=== PATIENT | male | born 1940 | race Caucasian/White ===

== ENCOUNTER 2018-01-16 09:34 | Inpatient (IN) | payer MEDICARE ==
[2018-01-16] MEDS ORDERED: VANCOMYCIN 1GM IVPB FOR OMNI 250 ML IV (09:45)
[2018-01-16 09:59] LABS: ADD MAN DIFF? NO
[2018-01-16 10:06] LABS: AGAP ISTAT 13 mmol/L (6-14); BUN ISTAT 128 mg/dL (8-26); CHLORIDE ISTAT 101 mmol/L (98-110); CREATININE ISTAT 2.2 mg/dL (0.5-1.4); GLUCOSE ISTAT 126 mg/dL (70-99); HEMATOCRIT ISTAT 20 % (37-52); HEMOGLOBIN ISTAT 6.8 g/dL (14-18); POTASSIUM ISTAT 5.4 mmol/L (3.5-5.0); SODIUM ISTAT 131 mmol/L (135-145); TOT CO2 ISTAT 24 mmol/L (23-32)
[2018-01-16 10:07] LABS: BASO # 0.1 x10^3/uL (0.0-0.2); BASO % 1 % (0-3); EOS # 0.1 x10^3/uL (0.0-0.7); EOS % 1 % (0-3); LYMPH # 1.9 x10^3/uL (1.0-4.8); LYMPH % 18 % (24-48); MEAN CORPUSCULAR HEMOGLOBIN 33 pg (25-35); MEAN CORPUSCULAR HGB CONC 35 g/dL (31-37); MEAN CORPUSCULAR VOLUME 96 fL (79-100); MONO # 0.4 x10^3/uL (0.0-1.1); MONO % 3 % (0-9); NEUT # 8.2 x10^3uL (1.8-7.7); NEUT % 77 % (31-73); PLATELET COUNT 318 x10^3/uL (140-400); RED BLOOD COUNT 2.03 x10^6/uL (4.30-5.70); RED CELL DISTRIBUTION WIDTH 14.8 % (11.5-14.5); WHITE BLOOD COUNT 10.6 x10^3/uL (4.0-11.0)
[2018-01-16 10:17] LABS: HEMATOCRIT 19.4 % (39.0-53.0); HEMOGLOBIN 6.7 g/dL (13.0-17.5)
[2018-01-16 10:24] LABS: LACTIC ACID 1.4 mmol/L (0.4-2.0)
[2018-01-16 10:27] LABS: ALBUMIN 2.8 g/dL (3.4-5.0); ALBUMIN/GLOBULIN RATIO 0.7 (1.0-1.7); ALK PHOS 64 U/L (46-116); ALT (SGPT) 22 U/L (16-63); ANION GAP 10 (6-14); AST (SGOT) 22 U/L (15-37); BLOOD UREA NITROGEN 135 mg/dL (8-26); BUN/CREATININE RATIO 64 (6-20); CARBON DIOXIDE 22 mmol/L (21-32); CHLORIDE 101 mmol/L (98-107); CREATININE 2.1 mg/dL (0.7-1.3); GFR 30.9; GLUCOSE 135 mg/dL (70-99); POTASSIUM 5.2 mmol/L (3.5-5.1); SODIUM 133 mmol/L (136-145); TOTAL BILIRUBIN 0.4 mg/dL (0.2-1.0); TOTAL PROTEIN 6.8 g/dL (6.4-8.2)
[2018-01-16 10:28] LABS: NT-PRO BNP 379 pg/mL (0-449)
[2018-01-16 10:28] LABS: BILIRUBIN,URINE NEGATIVE (NEG); CLARITY,URINE CLEAR; COLOR,URINE YELLOW; GLUCOSE,URINE NEGATIVE (NEG); NITRITE,URINE NEGATIVE (NEG); PROTEIN,URINE 30 mg/dL (NEG-TRACE); UROBILINOGEN,URINE 0.2 mg/dL (0.2 mg/dL)
[2018-01-16] MEDS ORDERED: ONDANSETRON PF 4 MG/2 ML VIAL. IV (10:30)
[2018-01-16] MEDS: CEFEPIME HCL IV Push 2 GM VIAL. IVP (10:34)
[2018-01-16] MEDS: VANCOMYCIN 2 GM in IV 1/2 NORMAL SALINE 500 ML IV (10:35)
[2018-01-16] MEDS: IV NORMAL SALINE 1000ML BAG 1,000 ML IV ×2 (10:36→11:01)
[2018-01-16 10:42] LABS: FECAL OB PT NEGATIVE (NEG); NEG OBC FOB NEG; POS OBC FOB POS
[2018-01-16 10:54] LABS: AMORPHOUS SEDIMENT,UR PRESENT /HPF; BACTERIA,URINE 0 /HPF (0-FEW); SQUAMOUS EPITHELIAL CELL,UR OCC /LPF
[2018-01-16 10:55] LABS: HYALINE CASTS, URINE FEW /HPF
[2018-01-16] MEDS: IV NORMAL SALINE 500ML BAG 500 ML IV (11:02)
[2018-01-16 12:22] LABS: IMMEDIATE SPIN CROSSMATCH 1
[2018-01-16] MEDS: NORMAL SALINE IV ×4 (12:28→14:30)
[2018-01-16] MEDS ORDERED: IV NORMAL SALINE 500ML BAG 500 ML IV (12:30)
[2018-01-16 13:42] LABS: PROCALCITONIN 0.15 ng/mL (0.00-0.10)
[2018-01-16] MEDS ORDERED: CEFEPIME HCL 2 GM in IV DEXTROSE 5% 100 ML IV (14:00)
[2018-01-16] MEDS: ASPIRIN ENTERIC COATED 325 MG TABLET.DR. PO (14:22)
[2018-01-16] MEDS: LEVOTHYROXINE 100 MCG TABLET PO (14:22)
[2018-01-16] MEDS: PIPERACILLIN/TAZOBACTAM 2.25 GM in IV NORMAL SALINE 50ML 50 ML IV ×3 (14:23→23:43)
[2018-01-16] MEDS: HYDROCORTISONE SOD SUCC/PF 100 MG/2 ML VIAL. IV ×2 (14:23→21:24)
[2018-01-16 17:52] LABS: HEMATOCRIT 21.4 % (39.0-53.0); HEMOGLOBIN 7.3 g/dL (13.0-17.5); MEAN CORPUSCULAR HEMOGLOBIN 33 pg (25-35); MEAN CORPUSCULAR HGB CONC 34 g/dL (31-37); MEAN CORPUSCULAR VOLUME 96 fL (79-100); PLATELET COUNT 304 x10^3/uL (140-400); RED BLOOD COUNT 2.24 x10^6/uL (4.30-5.70); RED CELL DISTRIBUTION WIDTH 14.8 % (11.5-14.5); WHITE BLOOD COUNT 8.4 x10^3/uL (4.0-11.0)
[2018-01-16] MEDS: NOREPINEPHRIN 8MG/250ML PREMIX 250 ML IV (19:24)
[2018-01-16] MEDS ORDERED: CEFEPIME HCL IV Push 2 GM VIAL. IVP (21:00)
[2018-01-16 21:15] LABS: MRSA BY PCR Negative (Negative)
[2018-01-17 05:43] LABS: ADD MAN DIFF? NO
[2018-01-17 05:53] LABS: BASO # 0.1 x10^3/uL (0.0-0.2); BASO % 1 % (0-3); EOS % 0 % (0-3); HEMOGLOBIN 7.2 g/dL (13.0-17.5); LYMPH # 1.3 x10^3/uL (1.0-4.8); LYMPH % 11 % (24-48); MEAN CORPUSCULAR HEMOGLOBIN 33 pg (25-35); MEAN CORPUSCULAR HGB CONC 34 g/dL (31-37); MEAN CORPUSCULAR VOLUME 97 fL (79-100); MONO # 0.2 x10^3/uL (0.0-1.1); MONO % 2 % (0-9); NEUT # 9.6 x10^3uL (1.8-7.7); NEUT % 86 % (31-73); PLATELET COUNT 435 x10^3/uL (140-400); RED BLOOD COUNT 2.16 x10^6/uL (4.30-5.70); RED CELL DISTRIBUTION WIDTH 14.8 % (11.5-14.5); WHITE BLOOD COUNT 11.2 x10^3/uL (4.0-11.0)
[2018-01-17] MEDS: PIPERACILLIN/TAZOBACTAM 2.25 GM in IV NORMAL SALINE 50ML 50 ML IV (06:17)
[2018-01-17 06:24] LABS: ALBUMIN 2.7 g/dL (3.4-5.0); ALBUMIN/GLOBULIN RATIO 0.7 (1.0-1.7); ALK PHOS 49 U/L (46-116); ALT (SGPT) 20 U/L (16-63); ANION GAP 11 (6-14); AST (SGOT) 26 U/L (15-37); BLOOD UREA NITROGEN 76 mg/dL (8-26); BUN/CREATININE RATIO 54 (6-20); CALCIUM 8.7 mg/dL (8.5-10.1); CARBON DIOXIDE 21 mmol/L (21-32); CHLORIDE 109 mmol/L (98-107); CREATININE 1.4 mg/dL (0.7-1.3); GFR 49.3; GLUCOSE 168 mg/dL (70-99); POTASSIUM 4.8 mmol/L (3.5-5.1); SODIUM 141 mmol/L (136-145); TOTAL BILIRUBIN 0.4 mg/dL (0.2-1.0); TOTAL PROTEIN 6.5 g/dL (6.4-8.2)
[2018-01-17] MEDS: ASPIRIN ENTERIC COATED 325 MG TABLET.DR. PO (09:35)
[2018-01-17] MEDS: HYDROCORTISONE SOD SUCC/PF 100 MG/2 ML VIAL. IV ×2 (09:35→21:09)
[2018-01-17] MEDS: LEVOTHYROXINE 100 MCG TABLET PO (09:35)
[2018-01-17] MEDS: LACTOBACILLUS RHAMNOSUS GG 1 CAPSULE. PO ×2 (09:41→21:09)
[2018-01-17 11:13] LABS: % BANDS 6 % (0-9); % LYMPHS 7 % (24-48); % METAS 1 % (0-0); % MONOS 2 % (0-10); % MYELOS 1 % (0-0); % SEGS 83 % (35-66); ANISOCYTOSIS SLIGHT; PLT ESTIMATE INCREASED (ADEQUATE); POLYCHROMASIA PRESENT
[2018-01-17] MEDS: PANTOPRAZOLE 40 MG TABLET.DR. PO (11:59)
[2018-01-17] MEDS: PIPERACILLIN/TAZOBACTAM 3.375 GM in IV NORMAL SALINE 50ML 50 ML IV ×3 (12:03→23:39)
[2018-01-17 12:28] LABS: RETIC COUNT 4.3 % (0.5-2.5)
[2018-01-18 04:39] LABS: ADD MAN DIFF? NO
[2018-01-18 05:01] LABS: BASO % 0 % (0-3); EOS % 0 % (0-3); LYMPH # 0.6 x10^3/uL (1.0-4.8); LYMPH % 12 % (24-48); MEAN CORPUSCULAR HEMOGLOBIN 34 pg (25-35); MEAN CORPUSCULAR HGB CONC 35 g/dL (31-37); MEAN CORPUSCULAR VOLUME 99 fL (79-100); MONO # 0.1 x10^3/uL (0.0-1.1); MONO % 2 % (0-9); NEUT # 4.6 x10^3uL (1.8-7.7); NEUT % 85 % (31-73); PLATELET COUNT 220 x10^3/uL (140-400); RED BLOOD COUNT 1.81 x10^6/uL (4.30-5.70); RED CELL DISTRIBUTION WIDTH 16.1 % (11.5-14.5); WHITE BLOOD COUNT 5.4 x10^3/uL (4.0-11.0)
[2018-01-18 05:31] LABS: HEMATOCRIT 17.8 % (39.0-53.0); HEMOGLOBIN 6.1 g/dL (13.0-17.5)
[2018-01-18 05:36] LABS: ALBUMIN 2.4 g/dL (3.4-5.0); ALBUMIN/GLOBULIN RATIO 0.7 (1.0-1.7); ALK PHOS 61 U/L (46-116); ALT (SGPT) 16 U/L (16-63); ANION GAP 8 (6-14); AST (SGOT) 19 U/L (15-37); BLOOD UREA NITROGEN 41 mg/dL (8-26); BUN/CREATININE RATIO 32 (6-20); CALCIUM 8.6 mg/dL (8.5-10.1); CARBON DIOXIDE 24 mmol/L (21-32); CHLORIDE 107 mmol/L (98-107); CREATININE 1.3 mg/dL (0.7-1.3); GFR 53.7; GLUCOSE 169 mg/dL (70-99); POTASSIUM 4.4 mmol/L (3.5-5.1); SODIUM 139 mmol/L (136-145); TOTAL BILIRUBIN 0.3 mg/dL (0.2-1.0)
[2018-01-18] MEDS: PIPERACILLIN/TAZOBACTAM 3.375 GM in IV NORMAL SALINE 50ML 50 ML IV (05:53)
[2018-01-18] MEDS ORDERED: CETIRIZINE HCL 10 MG TABLET. PO (09:00)
[2018-01-18] MEDS: ASPIRIN ENTERIC COATED 325 MG TABLET.DR. PO (09:19)
[2018-01-18] MEDS: LACTOBACILLUS RHAMNOSUS GG 1 CAPSULE. PO ×2 (09:19→20:39)
[2018-01-18] MEDS: PANTOPRAZOLE 40 MG TABLET.DR. PO (09:20)
[2018-01-18] MEDS: LEVOTHYROXINE 100 MCG TABLET PO (09:20)
[2018-01-18] MEDS: HYDROCORTISONE SOD SUCC/PF 100 MG/2 ML VIAL. IV ×2 (09:20→20:40)
[2018-01-18 11:02] LABS: IMMEDIATE SPIN CROSSMATCH 1 2
[2018-01-18] MEDS ORDERED: DEXTROSE 50% 25 GM / 50ML DISP.SYRIN. IV (11:15)
[2018-01-18] MEDS: INSULIN LISPRO 300 UNITS/3 ML INSULN.PEN. SQ ×2 (11:27→17:00)
[2018-01-18 11:28] LABS: POC GLUCOSE 139 mg/dL (70-99)
[2018-01-18 20:35] LABS: POC GLUCOSE 216 mg/dL (70-99)
[2018-01-19] MEDS: LEVOTHYROXINE 100 MCG TABLET PO (06:28)
[2018-01-19] MEDS: PANTOPRAZOLE 40 MG TABLET.DR. PO (06:28)
[2018-01-19 07:51] LABS: POC GLUCOSE 109 mg/dL (70-99)
[2018-01-19] MEDS: INSULIN LISPRO 300 UNITS/3 ML INSULN.PEN. SQ ×3 (08:00→17:30)
[2018-01-19] MEDS: LACTOBACILLUS RHAMNOSUS GG 1 CAPSULE. PO ×2 (08:48→21:15)
[2018-01-19] MEDS: ASPIRIN ENTERIC COATED 325 MG TABLET.DR. PO (08:48)
[2018-01-19] MEDS: HYDROCORTISONE SOD SUCC/PF 100 MG/2 ML VIAL. IV (08:48)
[2018-01-19 10:27] LABS: HEMATOCRIT 23.3 % (39.0-53.0); HEMOGLOBIN 7.9 g/dL (13.0-17.5); MEAN CORPUSCULAR HEMOGLOBIN 34 pg (25-35); MEAN CORPUSCULAR HGB CONC 34 g/dL (31-37); MEAN CORPUSCULAR VOLUME 99 fL (79-100); PLATELET COUNT 246 x10^3/uL (140-400); RED BLOOD COUNT 2.36 x10^6/uL (4.30-5.70); RED CELL DISTRIBUTION WIDTH 16.4 % (11.5-14.5); WHITE BLOOD COUNT 6.9 x10^3/uL (4.0-11.0)
[2018-01-19 10:38] LABS: ANION GAP 10 (6-14); BLOOD UREA NITROGEN 25 mg/dL (8-26); CALCIUM 8.4 mg/dL (8.5-10.1); CARBON DIOXIDE 26 mmol/L (21-32); CHLORIDE 105 mmol/L (98-107); GFR 72.6; GLUCOSE 151 mg/dL (70-99); POTASSIUM 3.8 mmol/L (3.5-5.1); SODIUM 141 mmol/L (136-145)
[2018-01-19 11:27] LABS: POC GLUCOSE 175 mg/dL (70-99)
[2018-01-19 16:38] LABS: POC GLUCOSE 205 mg/dL (70-99)
[2018-01-19 20:24] LABS: POC GLUCOSE 135 mg/dL (70-99)
[2018-01-20 04:28] LABS: ADD MAN DIFF? NO
[2018-01-20 04:30] LABS: BASO % 1 % (0-3); EOS # 0.1 x10^3/uL (0.0-0.7); EOS % 1 % (0-3); HEMOGLOBIN 7.8 g/dL (13.0-17.5); LYMPH # 1.9 x10^3/uL (1.0-4.8); LYMPH % 27 % (24-48); MEAN CORPUSCULAR HEMOGLOBIN 34 pg (25-35); MEAN CORPUSCULAR HGB CONC 34 g/dL (31-37); MEAN CORPUSCULAR VOLUME 101 fL (79-100); MONO # 0.5 x10^3/uL (0.0-1.1); MONO % 7 % (0-9); NEUT # 4.6 x10^3uL (1.8-7.7); NEUT % 65 % (31-73); PLATELET COUNT 233 x10^3/uL (140-400); RED BLOOD COUNT 2.29 x10^6/uL (4.30-5.70); RED CELL DISTRIBUTION WIDTH 17.4 % (11.5-14.5)
[2018-01-20 04:53] LABS: ALBUMIN 2.4 g/dL (3.4-5.0); ALBUMIN/GLOBULIN RATIO 0.7 (1.0-1.7); ALK PHOS 113 U/L (46-116); ALT (SGPT) 16 U/L (16-63); ANION GAP 5 (6-14); AST (SGOT) 17 U/L (15-37); BLOOD UREA NITROGEN 20 mg/dL (8-26); BUN/CREATININE RATIO 20 (6-20); CALCIUM 8.4 mg/dL (8.5-10.1); CARBON DIOXIDE 28 mmol/L (21-32); CHLORIDE 107 mmol/L (98-107); GFR 72.6; GLUCOSE 142 mg/dL (70-99); POTASSIUM 3.8 mmol/L (3.5-5.1); SODIUM 140 mmol/L (136-145); TOTAL BILIRUBIN 0.3 mg/dL (0.2-1.0); TOTAL PROTEIN 5.8 g/dL (6.4-8.2)
[2018-01-20] MEDS: LEVOTHYROXINE 100 MCG TABLET PO (06:08)
[2018-01-20] MEDS: PANTOPRAZOLE 40 MG TABLET.DR. PO (06:08)
[2018-01-20] MEDS: INSULIN LISPRO 300 UNITS/3 ML INSULN.PEN. SQ ×3 (08:00→17:00)
[2018-01-20] MEDS: ASPIRIN ENTERIC COATED 325 MG TABLET.DR. PO (08:47)
[2018-01-20] MEDS: LACTOBACILLUS RHAMNOSUS GG 1 CAPSULE. PO ×2 (08:47→21:03)
[2018-01-20] MEDS: DARBEPOETIN ALFA 40 MCG/0.4 ML DISP.SYRIN. SQ (10:17)
[2018-01-20 11:21] LABS: RETIC COUNT 4.7 % (0.5-2.5)
[2018-01-20 11:47] LABS: FOLATE 11.11 ng/ml (3.2-20.0)
[2018-01-20 11:47] LABS: VITAMIN-B12 795 pg/mL (247-911)
[2018-01-20 11:50] LABS: % SAT IRON 9 % (15-34); IRON,SERUM 30 ug/dL (65-175)
[2018-01-20 11:53] LABS: POC GLUCOSE 136 mg/dL (70-99)
[2018-01-20 11:55] LABS: THYROID STIM HORMONE (TSH) 3.242 uIU/mL (0.358-3.74)
[2018-01-20 11:58] LABS: FERRITIN 246 ng/mL (26-388)
[2018-01-20 16:49] LABS: POC GLUCOSE 152 mg/dL (70-99)
[2018-01-20 17:18] LABS: WHITE BLOOD COUNT 7.1 x10^3/uL (4.0-11.0)
[2018-01-20 21:14] LABS: POC GLUCOSE 138 mg/dL (70-99)
[2018-01-21] MEDS: PANTOPRAZOLE 40 MG TABLET.DR. PO (06:27)
[2018-01-21] MEDS: LEVOTHYROXINE 100 MCG TABLET PO (06:27)
[2018-01-21 07:55] LABS: POC GLUCOSE 102 mg/dL (70-99)
[2018-01-21] MEDS: INSULIN LISPRO 300 UNITS/3 ML INSULN.PEN. SQ ×2 (08:00→12:17)
[2018-01-21] MEDS: LACTOBACILLUS RHAMNOSUS GG 1 CAPSULE. PO (08:12)
[2018-01-21] MEDS: FERROUS SULFATE 325 MG TABLET. PO (08:12)
[2018-01-21] MEDS: ASPIRIN ENTERIC COATED 325 MG TABLET.DR. PO (08:12)
[2018-01-21 11:56] LABS: POC GLUCOSE 194 mg/dL (70-99)
[2018-01-21 13:18] LABS: TESTOSTERONE TOTAL 231 ng/dL (264-916)
[2018-01-21 13:31] LABS: HEMATOCRIT 29.4 % (39.0-53.0); HEMOGLOBIN 10.1 g/dL (13.0-17.5); MEAN CORPUSCULAR HEMOGLOBIN 34 pg (25-35); MEAN CORPUSCULAR HGB CONC 34 g/dL (31-37); MEAN CORPUSCULAR VOLUME 100 fL (79-100); PLATELET COUNT 300 x10^3/uL (140-400); RED BLOOD COUNT 2.93 x10^6/uL (4.30-5.70); RED CELL DISTRIBUTION WIDTH 17.4 % (11.5-14.5); WHITE BLOOD COUNT 11.5 x10^3/uL (4.0-11.0)
[2018-01-21 13:48] LABS: ANION GAP 10 (6-14); BLOOD UREA NITROGEN 18 mg/dL (8-26); BUN/CREATININE RATIO 18 (6-20); CALCIUM 8.4 mg/dL (8.5-10.1); CARBON DIOXIDE 27 mmol/L (21-32); CHLORIDE 105 mmol/L (98-107); GFR 72.6; GLUCOSE 127 mg/dL (70-99); SODIUM 142 mmol/L (136-145)
[2018-01-21 13:50] LABS: ALBUMIN/GLOBULIN RATIO 0.8 (1.0-1.7); ALK PHOS 133 U/L (46-116); ALT (SGPT) 21 U/L (16-63); AST (SGOT) 20 U/L (15-37); TOTAL BILIRUBIN 0.3 mg/dL (0.2-1.0)
[2018-01-21 18:59] LABS: POC GLUCOSE 185 mg/dL (70-99)
[2018-01-24 06:20] LABS: ALPHA 1 0.2 g/dL (0.0-0.4); ALPHA 2 0.5 g/dL (0.4-1.0); BETA 1.2 g/dL (0.7-1.3); M-SPIKE Not Observed g/dL (Not Observed); PROTEIN TOTAL 5.9 g/dL (6.0-8.5)
== END 2018-01-21 16:40 | disposition home or self-care (01) | DRG 871 ==
LOC: 2 NORTH 01-18 18:58 → ER 09:34 → 1 WEST ICU 10:19
PROC: 30233N1 Transfusion of Nonautologous Red Blood Cells into Peripheral Vein, Percutaneous Approach (ICD-10-PCS; principal; 2018-01-16)
DX: A41.9 Sepsis, unspecified organism (principal); J96.01 Acute respiratory failure with hypoxia; R65.21 Severe sepsis with septic shock; N17.9 Acute kidney failure, unspecified; I13.0 Hypertensive heart and chronic kidney disease with heart failure and stage 1 through stage 4 chronic kidney disease, or unspecified chronic kidney disease; N20.2 Calculus of kidney with calculus of ureter; N39.0 Urinary tract infection, site not specified; D64.9 Anemia, unspecified; N18.9 Chronic kidney disease, unspecified; F41.9 Anxiety disorder, unspecified; K21.9 Gastro-esophageal reflux disease without esophagitis; E11.22 Type 2 diabetes mellitus with diabetic chronic kidney disease; K57.90 Diverticulosis of intestine, part unspecified, without perforation or abscess without bleeding; G47.33 Obstructive sleep apnea (adult) (pediatric); E03.9 Hypothyroidism, unspecified; B95.2 Enterococcus as the cause of diseases classified elsewhere; I50.9 Heart failure, unspecified; I48.91 Unspecified atrial fibrillation; I27.20 Pulmonary hypertension, unspecified; Z82.49 Family history of ischemic heart disease and other diseases of the circulatory system; Z93.1 Gastrostomy status; Z87.442 Personal history of urinary calculi; Z79.82 Long term (current) use of aspirin; Z95.0 Presence of cardiac pacemaker; Z89.412 Acquired absence of left great toe; Z89.421 Acquired absence of other right toe(s)
CPT/HCPCS: 36415; 71045; 76770; 80047; 80048; 80053; 81001; 82274; 82607; 82728; 82746; 82962; 83540; 83550; 83605; 83880; 84145; 84403; 84443; 84484; 85007; 85018; 85025; 85027; 85045; 86850; 86900; 86901; 86920; 87040; 87641; 93005; 96365; 96375; 97110-GP; 97116-GP; 97163-GP; 97167-GO; 99291; J0692; J0881; J1720; J1815; J2543; J3370; J7030; J7040; P9016

== ENCOUNTER → 2018-03-09 | Outpatient (CLI) | payer MEDICARE ==
[2018-03-09 12:34] LABS: ADD MAN DIFF? NO
[2018-03-09 12:43] LABS: BASO # 0.2 x10^3/uL (0.0-0.2); BASO % 2 % (0-3); EOS # 0.6 x10^3/uL (0.0-0.7); EOS % 5 % (0-3); HEMATOCRIT 35.7 % (39.0-53.0); HEMOGLOBIN 11.5 g/dL (13.0-17.5); LYMPH # 2.8 x10^3/uL (1.0-4.8); LYMPH % 23 % (24-48); MEAN CORPUSCULAR HEMOGLOBIN 27 pg (25-35); MEAN CORPUSCULAR HGB CONC 32 g/dL (31-37); MEAN CORPUSCULAR VOLUME 84 fL (79-100); MONO # 0.9 x10^3/uL (0.0-1.1); MONO % 7 % (0-9); NEUT # 7.7 x10^3uL (1.8-7.7); NEUT % 63 % (31-73); PLATELET COUNT 326 x10^3/uL (140-400); RED BLOOD COUNT 4.26 x10^6/uL (4.30-5.70); RED CELL DISTRIBUTION WIDTH 20.5 % (11.5-14.5); WHITE BLOOD COUNT 12.2 x10^3/uL (4.0-11.0)
[2018-03-09 13:02] LABS: ALBUMIN 3.1 g/dL (3.4-5.0); ALBUMIN/GLOBULIN RATIO 0.5 (1.0-1.7); ALK PHOS 96 U/L (46-116); ALT (SGPT) 17 U/L (16-63); ANION GAP 8 (6-14); AST (SGOT) 22 U/L (15-37); BLOOD UREA NITROGEN 21 mg/dL (8-26); BUN/CREATININE RATIO 15 (6-20); CALCIUM 9.6 mg/dL (8.5-10.1); CARBON DIOXIDE 27 mmol/L (21-32); CHLORIDE 103 mmol/L (98-107); CREATININE 1.4 mg/dL (0.7-1.3); GFR 49.1; GLUCOSE 130 mg/dL (70-99); POTASSIUM 4.3 mmol/L (3.5-5.1); SODIUM 138 mmol/L (136-145); TOTAL BILIRUBIN 0.2 mg/dL (0.2-1.0)
== END | disposition home or self-care (01) ==
LOC: LAB 12:19
DX: N20.1 Calculus of ureter (principal); I13.0 Hypertensive heart and chronic kidney disease with heart failure and stage 1 through stage 4 chronic kidney disease, or unspecified chronic kidney disease; E11.22 Type 2 diabetes mellitus with diabetic chronic kidney disease; I50.9 Heart failure, unspecified; N18.9 Chronic kidney disease, unspecified; E78.00 Pure hypercholesterolemia, unspecified; K21.9 Gastro-esophageal reflux disease without esophagitis
CPT/HCPCS: 36415; 80053; 85025

== ENCOUNTER 2018-03-16 12:12 | Day surgery (SDC) | payer MEDICARE ==
[~2018-03-16 12:12] MED LIST: LIDOCAINE 2% JELLY 6ML IN APPLICATOR.; ceFAZolin 2GM PREMIX 2 GM/50 ML BAG IV
[2018-03-16] MEDS ORDERED: LIDOCAINE 2% PF Vial for OR 5 ML VIAL. (12:27)
[2018-03-16] MEDS ORDERED: PROPOFOL 20 ML IV (12:27)
[2018-03-16] MEDS ORDERED: fentaNYL PF VIAL 100 MCG/2 ML VIAL (12:28)
[2018-03-16 13:01] LABS: POC GLUCOSE 122 mg/dL (70-99)
[2018-03-16] MEDS: IV RINGERS,LACTATED 1000ML 1,000 ML IV (13:05)
[2018-03-16] MEDS ORDERED: MIDAZOLAM HCL/PF 2 MG/2 ML VIAL. IV (13:15)
[2018-03-16] MEDS ORDERED: fentaNYL PF VIAL 100 MCG/2 ML VIAL IV ×2 (13:15)
[2018-03-16] MEDS ORDERED: LIDOCAINE 1% PF 2 ML VIAL. ID (13:15)
[2018-03-16] MEDS ORDERED: DEXAMETHASONE SOD PHOS 20 MG/5 ML VIAL. (13:29)
[2018-03-16] MEDS ORDERED: SEVOFLURANE 31 TO 60 MINUTES. IH (13:29)
[2018-03-16] MEDS: IOHEXOL 300 MG/ML 100ML VIAL. (13:39)
[2018-03-16] MEDS ORDERED: ONDANSETRON PF 4 MG/2 ML VIAL. (13:42)
[2018-03-16 14:54] LABS: POC GLUCOSE 109 mg/dL (70-99)
== END 2018-03-16 15:45 | disposition home or self-care (01) ==
LOC: SURG 12:12
DX: N20.1 Calculus of ureter (principal); N39.0 Urinary tract infection, site not specified; I13.0 Hypertensive heart and chronic kidney disease with heart failure and stage 1 through stage 4 chronic kidney disease, or unspecified chronic kidney disease; E11.22 Type 2 diabetes mellitus with diabetic chronic kidney disease; N18.9 Chronic kidney disease, unspecified; I50.9 Heart failure, unspecified; E78.00 Pure hypercholesterolemia, unspecified; I48.0 Paroxysmal atrial fibrillation; G47.33 Obstructive sleep apnea (adult) (pediatric); E03.9 Hypothyroidism, unspecified; D64.9 Anemia, unspecified; Z95.0 Presence of cardiac pacemaker; Z98.890 Other specified postprocedural states; M15.0 Primary generalized (osteo)arthritis; Z87.891 Personal history of nicotine dependence; Z98.41 Cataract extraction status, right eye; Z96.1 Presence of intraocular lens; Z87.442 Personal history of urinary calculi; Z72.89 Other problems related to lifestyle; Z79.82 Long term (current) use of aspirin; Z79.899 Other long term (current) drug therapy; Z79.84 Long term (current) use of oral hypoglycemic drugs; F41.9 Anxiety disorder, unspecified; Z93.1 Gastrostomy status; Z89.412 Acquired absence of left great toe; Z89.421 Acquired absence of other right toe(s); Z82.49 Family history of ischemic heart disease and other diseases of the circulatory system
CPT/HCPCS: 52332; 76000; 82962; A7015; C1769; C2617; J0690; J1100; J2001; J2405; J2704; J3010; Q9967

== ENCOUNTER → 2018-05-04 | Outpatient (CLI) | payer MEDICARE ==
[2018-03-16 15:15] VITALS: BP 139/66
[~2018-05-04] MED LIST changes: +AMLO10TA4 PO; +AMLO5TAB7 PO; +AMOX1TAB10 PO; +AMOX1TAB11 PO; +ASPI325T11 PO; +CEFA2PLA4 IV; +CHLO4TAB PO; +EDOX30TA PO; +FENO160T12 PO; +FERR325T72 PO; +FURO-69 PO; +FURO40TA4 PO; +GLUC1CAP48 PO; +HYDR-971 PO; +LACT1CAP19 PO; +LEVO100T5 PO; -LIDOCAINE 2% JELLY 6ML IN APPLICATOR.; +LISI-334 PO; +METF500T16 PO; +MULT-460 PO; +Pantoprazole PO; +SOTA80TA48 PO; +TAMS0.4C2 PO; -ceFAZolin 2GM PREMIX 2 GM/50 ML BAG IV
--- NOTE | 2018-05-04 13:19 | KCIC ---
EXAM: Renal sonogram. HISTORY: Ureterolithiasis. TECHNIQUE: Sonographic imaging of the kidneys and bladder was performed. COMPARISON: 01/17/2018. FINDINGS: The right kidney measures 11.1 cm [id number]. The left kidney measures 12.2 cm [id number]. There is a 6 mm nonobstructing stone within the lower pole the right kidney. There is no hydronephrosis. The aorta is normal in caliber. The inferior vena cava is patent. The left ureteral jet is not seen during the exam. The urinary bladder is otherwise unremarkable. There is hepatic steatosis. IMPRESSION: 1. 6 mm stone in right renal stone. 2. Nonvisualization of the left ureteral jet during the exam. There is no evidence of hydronephrosis. Electronically signed by: Clare Mancini MD (05/04/2018 1:16 PM) [facility]
== END | disposition home or self-care (01) ==
LOC: KCIC US 10:01
PROVIDERS: ATTEND Urology
DX: N20.1 Calculus of ureter (principal); K76.0 Fatty (change of) liver, not elsewhere classified
CPT/HCPCS: 76770

== ENCOUNTER 2021-10-24 10:16 | Inpatient (IN) | payer MEDICARE ==
[~2021-10-24] VITALS: Ht 185.4 cm; Wt 79.1 kg
[~2021-10-24 10:16] MED LIST changes: +AMLO-186 PO; -AMLO5TAB7 PO; -EDOX30TA PO; +EDOX30TA2 PO; +HYDR-3164 PO; -HYDR-971 PO; -LISI-334 PO; +LISI20TA18 PO
[2021-10-24] MEDS ORDERED: ACETAMINOPHEN 500 MG TABLET PO ONE (10:30)
[2021-10-24] MEDS ORDERED: IV RINGERS,LACTATED 1000ML 1,000 ML IV ONE ×2 (10:30→12:30)
--- NOTE | 2021-10-24 10:53 | PHYS DOC ---
Past Medical History Past Medical History: A-Fib, Diabetes-Type II Past Surgical History: Pacemaker, Other Additional Past Surgical Histo: AMPUTATION OF LEFT TOES Smoking Status: Former Smoker Alcohol Use: None Drug Use: None Adult General Chief Complaint Chief Complaint: FATIGUE HPI HPI The patient is an 81-year-old male with a history of hypertension, hypertriglyceridemia and lpp-spalyts-fcueijczf diabetes. He has a documented history of paroxysmal atrial fibrillation not on anticoagulation and also has a pacemaker for unclear reasons. He is not vaccinated against COVID-19. At baseline he is nonambulatory but transfers himself. He lives at home alone but family does live nearby and check on him frequently. Mr. Marmolejo presents for evaluation of generalized fatigue with onset over the past couple of days. Family have noticed that he has not been able to transfer due to feeling too weak to do so over that interval. He initially denies any other focal or specific symptoms but then reverses himself and notes that he has been coughing. He denies associated fevers, nausea or vomiting, upper respiratory congestion/rhinorrhea, sore throat, shortness of breath or chest pain of any kind, focal abdominal pain of any kind, flank pain, midline back pain, dysuria, hematuria, polyuria or oliguria, changes in bowel habits, pain or swelling to arms or legs. Patient is alert and pleasantly and appropriately interactive and in no acute distress, oriented x4, with appropriate vital signs and blood glucose upon initial evaluation here in the emergency department. Review of Systems Review of Systems A 12 point review of systems was completed and was negative except where noted in HPI above. Current Medications Current Medications Current Medications Medications (Trade) Dose Ordered Sig/Nate Start Time Stop Time Status Last Admin Dose Admin Acetaminophen (Tylenol) 1,000 mg 1X ONCE 10/24/21 10:30 10/24/21 10:31 DC 10/24/21 11:36 1,000 MG Ceftriaxone Sodium (Rocephin) 1 gm 1X ONCE 10/24/21 12:00 10/24/21 12:01 DC 10/24/21 12:20 1 GM Metronidazole 100 ml @ 100 mls/hr Q1HR 10/24/21 12:00 10/24/21 13:59 10/24/21 12:20 100 MLS/HR Ringer's Solution 1,000 ml @ 999 mls/hr 1X ONCE 10/24/21 12:30 10/24/21 13:30 Allergies Allergies Allergies Coded Allergies Type Severity Reaction Last Updated Verified cefpodoxime Allergy Intermediate Rash 10/24/21 Yes Physical Exam Physical Exam Elderly male appearing nontoxic and in no acute distress. Head is normocephalic and atraumatic. Neck is supple and nontender. Oropharynx is moist. Lungs are clear to auscultation at all stations. There is a normal S1 and S2 without rubs or gallops and capillary refill is appropriate, less than 2 seconds globally. Abdomen is soft, nontender and nondistended without pulsatile mass. Skin is warm and dry without cyanosis, clubbing or edema. Psychia trically, the patient demonstrates appropriate mood and affect and is alert. 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 There is an easily palpable DP and PT pulse to the right foot but I do not appreciate an obvious pulse to the left foot remnant and there is a slight temperature differential between the 2 feet. Strength and sensation are intact to the feet bilaterally. Neurologically, cranial nerves II through XII are intact and there are no lateralizing deficits seen. Speech is normal. Language is normal. Coordination is normal. There is no dysmetria with juwxha-pl-kxko or ohxf-do-pgja bilaterally. Strength is 5 out of 5 at all joints of bilateral upper and lower extremities. Sensation is intact light touch in bilateral upper and lower extremities. Ambulation testing is deferred. Patient is alert and oriented x4. Current Patient Data Vital Signs Vital Signs Date Time Temp Pulse Resp B/P (MAP) Pulse Ox O2 Delivery O2 Flow Rate FiO2 10/24/21 10:26 97.7 88 18 130/72 (91) 96 Room Air 97.7 Lab Values Laboratory Tests Test 10/24/21 10:34 10/24/21 10:36 10/24/21 11:03 Glucose (Fingerstick) 105 mg/dL (70-99) H White Blood Count 18.7 x10^3/uL (4.0-11.0) H Red Blood Count 3.82 x10^6/uL (4.30-5.70) L Hemoglobin 11.8 g/dL (13.0-17.5) L Hematocrit 37.1 % (39.0-53.0) L Mean Corpuscular Volume 97 fL (79-100) Mean Corpuscular Hemoglobin 31 pg (25-35) Mean Corpuscular Hemoglobin Concent 32 g/dL (31-37) Red Cell Distribution Width 13.8 % (11.5-14.5) Platelet Count 379 x10^3/uL (140-400) Neutrophils (%) (Auto) 87 % (31-73) H Lymphocytes (%) (Auto) 8 % (24-48) L Monocytes (%) (Auto) 5 % (0-9) Eosinophils (%) (Auto) 1 % (0-3) Basophils (%) (Auto) 1 % (0-3) Neutrophils # (Auto) 16.2 x10^3/uL (1.8-7.7) H Lymphocytes # (Auto) 1.4 x10^3/uL (1.0-4.8) Monocytes # (Auto) 0.8 x10^3/uL (0.0-1.1) Eosinophils # (Auto) 0.1 x10^3/uL (0.0-0.7) Basophils # (Auto) 0.1 x10^3/uL (0.0-0.2) Platelet Estimate Pending Sodium Level 131 mmol/L (136-145) L Potassium Level 4.5 mmol/L (3.5-5.1) Chloride Level 98 mmol/L (98-107) Carbon Dioxide Level 19 mmol/L (21-32) L Anion Gap 14 (6-14) Blood Urea Nitrogen 77 mg/dL (8-26) H Creatinine 4.8 mg/dL (0.7-1.3) H Estimated GFR (Cockcroft-Gault) 11.8 BUN/Creatinine Ratio 16 (6-20) Glucose Level 108 mg/dL (70-99) H Lactic Acid Level 2.6 mmol/L (0.4-2.0) H Calcium Level 12.0 mg/dL (8.5-10.1) *H Total Bilirubin 0.5 mg/dL (0.2-1.0) Aspartate Amino Transferase (AST) 22 U/L (15-37) Alanine Aminotransferase (ALT) 24 U/L (16-63) Alkaline Phosphatase 66 U/L (46-116) Troponin I High Sensitivity 20 ng/L (4-75) Total Protein 9.7 g/dL (6.4-8.2) H Albumin 3.9 g/dL (3.4-5.0) Albumin/Globulin Ratio 0.7 (1.0-1.7) L Lipase 5529 U/L (73-393) H Urine Collection Type Unknown Urine Color Yellow Urine Clarity Turbid Urine pH 6.0 (<5.0-8.0) Urine Specific Sanders 1.025 (1.000-1.030) Urine Protein 100 mg/dL (NEG-TRACE) Urine Glucose (UA) Negative mg/dL (NEG) Urine Ketones (Stick) Negative mg/dL (NEG) Urine Blood Large (NEG) Urine Nitrite Negative (NEG) Urine Bilirubin Negative (NEG) Urine Urobilinogen Dipstick 0.2 mg/dL (0.2 mg/dL) Urine Leukocyte Esterase Large (NEG) Urine RBC >40 /HPF (0-2) Urine WBC Tntc /HPF (0-4) Urine Squamous Epithelial Cells Occ /LPF Urine Bacteria Many /HPF (0-FEW) Laboratory Tests 10/24/21 10:36 Laboratory Tests 10/24/21 10:36 EKG EKG Sinus rhythm, frequent premature ventricular contractions, rate 84, no acute ST elevation or depression, intervals appropriate, EP interpretation. Nonischemic tracing. Radiology/Procedures Radiology/Procedures Study: CT abdomen/pelvis without intravenous contrast Indication: Pyelonephritis. Comparison: 12/30/2017 Technique: Helical CT imaging performed of the abdomen and pelvis without the use of intravenous contrast. Sagittal and coronal reformats were obtained. One or more of the following individualized dose reduction techniques were utilized for this examination: 1. Automated exposure control 2. Adjustment of the mA and/or kV according to patient size 3. Use of iterative reconstruction technique. Findings: Inherently limited evaluation without intravenous contrast. Pacer wires. Calcific coronary artery disease. Mild bibasilar atelectasis/scarring. Infiltrates on the comparison have resolved. No discrete liver lesion. Absent gallbladder. Nondilated biliary tree. Redemonstration of several pancreatic calcifications. No manifestations of active pancreatitis. No main duct dilatation. The spleen is within normal limits for size. No adrenal gland mass. Small size of the kidneys with lobulated margins and areas of cortical thinning slightly more noticeable on the right. Mild bilateral hydroureteronephrosis but no stone is present within either ureter or the urinary bladder. Circumferential wall thickening of the bladder with haziness of the perivesicular fat. Nonobstructing intrarenal stones at the inferior pole of the right kidney increased in size from the prior. Previously present intrarenal stones on the left are no longer seen. Similar degree of prostatic enlargement. Subtle area of cortical low attenuation posteriorly within the right kidney not fully characterized without contrast. No significant perinephric edema to suggest this low attenuation relates to pyelonephritis. Colonic diverticulosis without diverticulitis. Mild volume colonic stool burden. Unremarkable appendix. No pathologic dilatation of small bowel. Limited evaluation of the stomach on account of underdistention. Multifocal calcific atherosclerosis. 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 Mild borderline aneurysmal dilatation of the right common iliac artery at 1.5 cm. No significant lymph node enlargement. Mild mesenteric haziness was present previously. No acute abnormality of the body wall soft tissues. The bones are osteopenic. Multifocal degenerative changes. Impression: 1. Mild bilateral hydroureteronephrosis but no obstructing process is seen. In trarenal stones are again noted at the lower pole on the right and increased in size. Previously present nonobstructing intrarenal stones on the left are no longer seen. Urinary bladder wall thickening with surrounding inflammation suggests cystitis. Correlate with urinalysis. No perinephric edema to indicate pyelonephritis. 2. Similar degree of prostatomegaly. 3. As before, scattered pancreatic calcifications as can be seen from previous pancreatitis. There is some haziness of the mesentery but unchanged. Though there are no findings to indicate active pancreatitis consider correlation with lipase levels. 4. 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 Electronically signed by: KLEVER SUMMERS MD (10/24/2021 12:54 PM) [id number] DICTATED and SIGNED BY: KLEVER SUMMERS MD DATE: 10/24/21 [id number] 0 Study: US DPLX ARTR EXTREM LOWER BILAT Indication: Cool distal extremities. Nonpalpable pulse at the distal left lower extremity. Comparison: None. Technique/Findings: Duplex sonographic assessment of the bilateral lower extremity arteries. Mild scattered calcified and noncalcified atherosclerotic plaque. Combination of triphasic and biphasic waveforms. Peak systolic velocity values are within normal limits with the exception of at the distal right posterior tibial artery with an increased velocity of 201 cm/s. Right lower extremity: Common femoral artery: 91 cm/s Deep femoral artery: 44 cm/s Proximal SFA: 74 cm/s Mid SFA: 75 cm/s Distal SFA: 71 cm/s Popliteal artery: 64 cm/s Proximal WILDLIFE ECOLOGIST: 57 cm/s Distal WILDLIFE ECOLOGIST: 201 cm/s Peroneal artery: 49 cm/s Anterior tibial artery: 54 cm/s Dorsalis pedis: 33 cm/s Left lower extremity: Common femoral artery: 74 cm/s Deep femoral artery: 39 cm/s Proximal SFA: 71 cm/s Mid SFA: 78 cm/s Distal SFA: 76 cm/s Popliteal artery: 45 cm/s Proximal WILDLIFE ECOLOGIST: 55 cm/s Distal WILDLIFE ECOLOGIST: 76 cm/s Peroneal artery: 44 cm/s Anterior tibial artery: 48 cm/s Dorsalis pedis: 11 cm/s Impression: Isolated stenosis at the distal aspect of the right posterior tibial artery with an increased peak systolic velocity of 201 cm/s. Background calcified/noncalcified atheromatous plaque without an additional significant stenosis. Eventual CHELSEY could be performed to better classify the extent of PAD. Electronically signed by: KLEVER SUMMERS MD (10/24/2021 12:22 PM) [id number] DICTATED and SIGNED BY: KLEVER SUMMERS MD DATE: 10/24/21 [id number] 0 Study: CT abdomen/pelvis without intravenous contrast Indication: Pyelonephritis. Comparison: 12/30/2017 Technique: Helical CT imaging performed of the abdomen and pelvis without the use of intravenous contrast. Sagittal and coronal reformats were obtained. One or more of the following individualized dose reduction techniques were utilized for this examination: 1. Automated exposure control 2. Adjustment of the mA and/or kV according to patient size 3. Use of iterative reconstruction technique. Findings: Inherently limited evaluation without intravenous contrast. Pacer wires. Calcific coronary artery disease. Mild bibasilar atelectasis/scarring. Infiltrates on the comparison have resolved. No discrete liver lesion. Absent gallbladder. Nondilated biliary tree. Redemonstration of several pancreatic calcifications. No manifestations of active pancreatitis. No main duct dilatation. The spleen is within normal limits for size. No adrenal gland mass. Small size of the kidneys with lobulated margins and areas of cortical thinning slightly more noticeable on the right. Mild bilateral hydroureteronephrosis but no stone is present within either ureter or the urinary bladder. Circumferential wall thickening of the bladder with haziness of the perivesicular fat. Nonobstructing intrarenal stones at the inferior pole of the right kidney increased in size from the prior. Previously present intrarenal stones on the left are no longer seen. Similar degree of prostatic enlargement. Subtle area of cortical low attenuation posteriorly within the right kidney not fully characterized without contrast. No significant perinephric edema to suggest this low attenuation relates to pyelonephritis. Colonic diverticulosis without diverticulitis. Mild volume colonic stool burden. Unremarkable appendix. No pathologic dilatation of small bowel. Limited evaluat ion of the stomach on account of underdistention. Multifocal calcific atherosclerosis. 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 Mild borderline aneurysmal dilatation of the right common iliac artery at 1.5 cm. No significant lymph node enlargement. Mild mesenteric haziness was present previously. No acute abnormality of the body wall soft tissues. The bones are osteopenic. Multifocal degenerative changes. Impression: 1. Mild bilateral hydroureteronephrosis but no obstructing process is seen. Intrarenal stones are again noted at the lower pole on the right and increased in size. Previously present nonobstructing intrarenal stones on the left are no longer seen. Urinary bladder wall thickening with surrounding inflammation suggests cystitis. Correlate with urinalysis. No perinephric edema to indicate pyelonephritis. 2. Similar degree of prostatomegaly. 3. As before, scattered pancreatic calcifications as can be seen from previous pancreatitis. There is some haziness of the mesentery but unchanged. Though there are no findings to indicate active pancreatitis consider correlation with lipase levels. 4. 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 Electronically signed by: KLEVER SUMMERS MD (10/24/2021 12:54 PM) [id number] DICTATED and SIGNED BY: KLEVER SUMMERS MD DATE: 10/24/21 [id number] 0 Course & Med Decision Making Course & Med Decision Making Well-appearing elderly gentleman with appropriate vital signs and reassuring clinical examination presenting for 2 days of weakness. Will check labs, swabs, EKG, chest x-ray and urine as noted and will give a liter of fluid and some Tylenol. We will then reevaluate. Update: Patient with evidence of severe sepsis most likely due to acute pyelonephritis. Also with superimposed acute pancreatitis of unclear etiology. Read on right upper quadrant ultrasound is still pending. Patient has received 2g Rocephin and 1g Flagyl (there is a documented allergy to a cephalosporin but per records review patient has tolerated cefepime just fine in the past and has done well with Rocephin here in the emergency department). He is received a total of 2 L of IV fluids. He is resting very comfortably and vital signs are stable. Will bring in for further care under hospitalist Dr. Cardenas, who graciously accepts. Critical care time was 54 minutes, independent of any separately billed procedure time. Dragon Disclaimer Dragon Disclaimer This electronic medical record was generated, in whole or in part, using a voice recognition dictation system. Departure Departure Impression: Primary Impression: Other fatigue Additional Impressions: Acute renal insufficiency Severe sepsis Pyelonephritis Acute pancreatitis Disposition: ADMITTED INPATIENT Condition: GUARDED Referrals: PRACHI MEMBRENO (PCP) Problem Qualifiers ALMA ROSENBAUM MD Oct 24, 2021 10:53
[2021-10-24 11:12] LABS: BASO # 0.1 x10^3/uL (0.0-0.2); BASO % 1 % (0-3); EOS # 0.1 x10^3/uL (0.0-0.7); EOS % 1 % (0-3); HEMATOCRIT 37.1 % (39.0-53.0); HEMOGLOBIN 11.8 g/dL (13.0-17.5); LYMPH # 1.4 x10^3/uL (1.0-4.8); LYMPH % 8 % (24-48); MEAN CORPUSCULAR HEMOGLOBIN 31 pg (25-35); MEAN CORPUSCULAR HGB CONC 32 g/dL (31-37); MEAN CORPUSCULAR VOLUME 97 fL (79-100); MONO # 0.8 x10^3/uL (0.0-1.1); MONO % 5 % (0-9); NEUT # 16.2 x10^3/uL (1.8-7.7); NEUT % 87 % (31-73); PLATELET COUNT 379 x10^3/uL (140-400); RED BLOOD COUNT 3.82 x10^6/uL (4.30-5.70); RED CELL DISTRIBUTION WIDTH 13.8 % (11.5-14.5); WHITE BLOOD COUNT 18.7 x10^3/uL (4.0-11.0)
[2021-10-24 11:25] LABS: ALBUMIN 3.9 g/dL (3.4-5.0); ALBUMIN/GLOBULIN RATIO 0.7 (1.0-1.7); CREATININE 4.8 mg/dL (0.7-1.3); GFR 11.8; POTASSIUM 4.5 mmol/L (3.5-5.1); TOTAL BILIRUBIN 0.5 mg/dL (0.2-1.0); TOTAL PROTEIN 9.7 g/dL (6.4-8.2)
[2021-10-24 11:25] LABS: BILIRUBIN,URINE NEGATIVE (NEG); CLARITY,URINE TURBID; COLOR,URINE YELLOW; NITRITE,URINE NEGATIVE (NEG); PROTEIN,URINE 100 mg/dL (NEG-TRACE); UROBILINOGEN,URINE 0.2 mg/dL (0.2 mg/dL)
[2021-10-24 11:28] LABS: BACTERIA,URINE MANY /HPF (0-FEW); RBC,URINE >40 /HPF (0-2); WBC,URINE TNTC /HPF (0-4)
[2021-10-24] MEDS ORDERED: cefTRIAXone IV Push 1 GM VIAL. IVP ONE ×2 (11:30→12:00)
--- NOTE | 2021-10-24 11:55 | RAD ---
EXAMINATION: Chest radiograph. VIEWS: Single AP view of the chest COMPARISON: 01/08/2018 INDICATION:81 years, Male, weakness. FINDINGS: Left-sided cardiac pacing device is in stable position. Stable cardiomediastinal silhouette. Central pulmonary vasculature is mildly congested. No focal consolidation. No pleural effusion or pneumothora x. No acute osseous process. IMPRESSION: Mild pulmonary vascular congestion without overt interstitial pulmonary edema. No confluent infiltrat es. Electronically signed by: Manohar Zavala DO (10/24/2021 11:53 AM) [facility]
--- NOTE | 2021-10-24 12:25 | RAD ---
Study: US DPLX ARTR EXTREM LOWER BILAT Indication: Cool distal extremities. Nonpalpable pulse at the distal left lower extremity. Comparison: None. Technique/Findings: Duplex sonographic assessment of the bilateral lower extremity arteries. Mild scattered calcified and noncalcified atherosclerotic plaque. Combination of triphasic and biphas ic waveforms. Peak systolic velocity values are within normal limits with the exception of at the dis russell right posterior tibial artery with an increased velocity of 201 cm/s. Right lower extremity: Common femoral artery: 91 cm/s Deep femoral artery: 44 cm/s Proximal SFA: 74 cm/s Mid SFA: 75 cm/s Distal SFA: 71 cm/s Popliteal artery: 64 cm/s Proximal HERBICIDE SERVICE SALES REPRESENTATIVE: 57 cm/s Distal HERBICIDE SERVICE SALES REPRESENTATIVE: 201 cm/s Peroneal artery: 49 cm/s Anterior tibial artery: 54 cm/s Dorsalis pedis: 33 cm/s Left lower extremity: Common femoral artery: 74 cm/s Deep femoral artery: 39 cm/s Proximal SFA: 71 cm/s Mid SFA: 78 cm/s Distal SFA: 76 cm/s Popliteal artery: 45 cm/s Proximal HERBICIDE SERVICE SALES REPRESENTATIVE: 55 cm/s Distal HERBICIDE SERVICE SALES REPRESENTATIVE: 76 cm/s Peroneal artery: 44 cm/s Anterior tibial artery: 48 cm/s Dorsalis pedis: 11 cm/s Impression: Isolated stenosis at the distal aspect of the right posterior tibial artery with an increased peak sy stolic velocity of 201 cm/s. Background calcified/noncalcified atheromatous plaque without an additio nal significant stenosis. Eventual CHELSEY could be performed to better classify the extent of PAD. Electronically signed by: KLEVER SUMMERS MD (10/24/2021 12:22 PM) [id number]
--- NOTE | 2021-10-24 12:57 | RAD ---
Study: CT abdomen/pelvis without intravenous contrast Indication: Pyelonephritis. Comparison: 12/30/2017 Technique: Helical CT imaging performed of the abdomen and pelvis without the use of intravenous cont rast. Sagittal and coronal reformats were obtained. One or more of the following individualized dose reduction techniques were utilized for this examinat ion: 1. Automated exposure control 2. Adjustment of the mA and/or kV according to patient size 3. Use of iterative reconstruction technique. Findings: Inherently limited evaluation without intravenous contrast. Pacer wires. Calcific coronary artery disease. Mild bibasilar atelectasis/scarring. Infiltrates on e comparison have resolved. No discrete liver lesion. Absent gallbladder. Nondilated biliary tree. Redemonstration of several moulton creatic calcifications. No manifestations of active pancreatitis. No main duct dilatation. The spleen is within normal limits for size. No adrenal gland mass. Small size of the kidneys with lobulated margins and areas of cortical thinning slightly more noticea ble on the right. Mild bilateral hydroureteronephrosis but no stone is present within either ureter o r the urinary bladder. Circumferential wall thickening of the bladder with haziness of the perivesicu lar fat. Nonobstructing intrarenal stones at the inferior pole of the right kidney increased in size from the prior. Previously present intrarenal stones on the left are no longer seen. Similar degree o f prostatic enlargement. Subtle area of cortical low attenuation posteriorly within the right kidney not fully characterized without contrast. No significant perinephric edema to suggest this low attenu ation relates to pyelonephritis. Colonic diverticulosis without diverticulitis. Mild volume colonic stool burden. Unremarkable appendi x. No pathologic dilatation of small bowel. Limited evaluation of the stomach on account of underdist ention. Multifocal calcific atherosclerosis. 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 Mild borderline aneurysmal dilatation of the right common iliac ar noe at 1.5 cm. No significant lymph node enlargement. Mild mesenteric haziness was present previousl y. No acute abnormality of the body wall soft tissues. The bones are osteopenic. Multifocal degenerative changes. Impression: 1. Mild bilateral hydroureteronephrosis but no obstructing process is seen. Intrarenal stones are ag ain noted at the lower pole on the right and increased in size. Previously present nonobstructing int rarenal stones on the left are no longer seen. Urinary bladder wall thickening with surrounding infla mmation suggests cystitis. Correlate with urinalysis. No perinephric edema to indicate pyelonephritis . 2. Similar degree of prostatomegaly. 3. As before, scattered pancreatic calcifications as can be seen from previous pancreatitis. There i s some haziness of the mesentery but unchanged. Though there are no findings to indicate active pancr eatitis consider correlation with lipase levels. 4. Chronic observations described in the body of the report to include calcific coronary artery dise ase and mild aneurysmal dilatation of the left common iliac artery at 1.7 cm. Electronically signed by: KLEVER SUMMERS MD (10/24/2021 12:54 PM) [id number]
--- NOTE | 2021-10-24 13:13 | RAD ---
STUDY: US ABDOMEN LIMITED INDICATION: Upper abdominal pain COMPARISON: Same day CT. TECHNIQUE: Limited abdominal ultrasound targeted at the right upper quadrant. Findings: Significantly limited study due to bowel gas and patient body habitus. Nonvisualized gallbladder, com mon duct, pancreas and inferior aspect of the right kidney. Incompletely evaluated IVC and abdominal aorta. No discrete liver lesion. Patent main portal vein with hepatopedal flow. The right kidney measures 9. 1 cm in length. The adequately visualized portion of the right kidney exhibits normal cortical echoge nicity. No hydronephrosis. Impression: 1. Significantly limited study. Incomplete evaluation of the gallbladder, common duct, pancreas, IVC /aorta and inferior aspect of the right kidney. 2. No sonographic abnormality of the liver or adequately assessed right kidney. Patent main portal v ein with normal flow direction. Electronically signed by: KLEVER SUMMERS MD (10/24/2021 1:11 PM) [id number]
[2021-10-24 13:28] LABS: INFLUENZA A PATIENT NEGATIVE (NEGATIVE); INFLUENZA B PATIENT NEGATIVE (NEGATIVE)
[2021-10-24] MEDS ORDERED: ACETAMINOPHEN 325 MG TABLET. PO PRN ×2 (13:30→13:45)
[2021-10-24] MEDS ORDERED: ONDANSETRON PF 4 MG/2 ML VIAL. IVP PRN ×2 (13:30→13:45)
--- NOTE | 2021-10-24 13:42 | PDOC1 ---
History and Physical Date of Service: DOS: DATE: 10/24/21 TIME: 13:34 Chief Complaint: Chief Complain: Generalized weakness History of Present Illness: HPI: History obtained from discussion with the ED physician and chart review: Patient is a 81-year-old male with past medical history of atrial fibrillation, diabetes mellitus type 2, pacemaker placement, hypertension who comes in with generalized weakness. Patient lives with and is helped by daughter usually. For the past month or so patient has progressively gotten weak since last Tuesday patient had vomiting episodes after eating Jell-O. He also has been weaker and last night when he was transferred from wheelchair to his bed he was significantly weaker and is unable to hold a horizontal bar. At baseline patient is nonambulatory but is able to transfer on his own. Denies fevers, nausea, shortness of breath, chest pain, dysuria or hematuria or diarrhea. Patient does have a history of kidney stones and has had stents placed in the past by urology. He has also had an interesting history of having a gallstone that supposedly passed through on its own. 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 Past Medical/Surgical History: PMH/PSH: Past Medical History: A-Fib, Diabetes-Type II, history of coloenteric fistula, history of kidney stones Past Surgical History: History of left ureteral stent placement, pacemaker, AMPUTATION OF LEFT TOES Allergies: Allergies: Coded Allergies: cefpodoxime (Verified Allergy, Intermediate, Rash, 10/24/21) Family History: Family History: Reviewed with no relative findings in the chart Social History: Social History: Smoking Status: Former Smoker Alcohol Use: None Drug Use: None Current Medications: Current Medications Current Medications Ringer's Solution 1,000 ml @ 999 mls/hr 1X ONCE IV Last administered on 10/24/21at 11:03; Start 10/24/21 at 10:30; Stop 10/24/21 at 11:30; Status DC Acetaminophen (Tylenol) 1,000 mg 1X ONCE PO Last administered on 10/24/21at 11:36; Start 10/24/21 at 10:30; Stop 10/24/21 at 10:31; Status DC Ceftriaxone Sodium (Rocephin) 1 gm 1X ONCE IVP Last administered on 10/24/21at 11:36; Start 10/24/21 at 11:30; Stop 10/24/21 at 11:31; Status DC Ceftriaxone Sodium (Rocephin) 1 gm 1X ONCE IVP Last administered on 10/24/21at 12:20; Start 10/24/21 at 12:00; Stop 10/24/21 at 12:01; Status DC Metronidazole 100 ml @ 100 mls/hr Q1HR IV Last administered on 10/24/21at 13:31; Start 10/24/21 at 12:00; Stop 10/24/21 at 13:59 Ringer's Solution 1,000 ml @ 999 mls/hr 1X ONCE IV Last administered on 10/24/21at 13:31; Start 10/24/21 at 12:30; Stop 10/24/21 at 13:30; Status DC Ondansetron HCl (Zofran) 4 mg PRN Q8HRS PRN IVP NAUSEA/VOMITING; Start 10/24/21 at 13:30; Stop 10/25/21 at 13:29 Acetaminophen (Tylenol) 650 mg PRN Q4HRS PRN PO FEVER > 100.3'F; Start 10/24/21 at 13:30; Stop 10/25/21 at 13:29 Active Scripts Active [place] 5-325 Tablet (Acetaminophen/Hydrocodone Bitart) 1 Each Tablet 1 Tab PO TID Tamsulosin Hcl 0.4 Mg Cap.er.24h 1 Cap PO DAILY Reported Amox Tr-K Clv 500-125 Mg Tab (Amoxicillin/Potassium Clav) 1 Each Tablet 1 Tab PO BID Glucosamine & Chondroitin Cap (Gluc 2KCL/Chondr/Caren Hy/Hy Ac) 1 Each Capsule 1 Each PO DAILY Multiple Vitamin (Multivitamin With Minerals) 1 Each Tablet 1 Each PO DAILY Lasix (Furosemide) 20 Mg Tablet 1 Tab PO PRN DAILY PRN Aspirin Ec (Aspirin) 325 Mg Tablet.dr 1 Tab PO DAILY Chlor-Trimeton (Chlorpheniramine Maleate) 4 Mg Tablet 4 Mg PO PRN DAILY PRN Levothyroxine Sodium 100 Mcg Tablet 100 Mcg PO DAILYAC Lofibra (Fenofibrate) 160 Mg Tablet 160 Mg PO DAILY Metformin Hcl 500 Mg Tablet 500 Mg PO BID ROS: Review of Systems Review of System REVIEW OF SYSTEMS: GENERAL: Positive for generalized weakness SKIN: No bruising, hair changes or rashes. EYES: No blurred, double or loss of vision. NOSE AND THROAT: No history of nosebleeds, hoarseness or sore throat. HEART: No history of palpitations, chest pain or shortness of breath on exertion. LUNGS: Denies cough, hemoptysis, wheezing or shortness of breath. GASTROINTESTINAL: Denies changes in appetite, nausea, vomiting, diarrhea or constipation. GENITOURINARY: No history of frequency, urgency, hesitancy or nocturia. NEUROLOGIC: Denies history of numbness, tingling, or tremor. PSYCHIATRIC: No history of panic, anxiety or depression. ENDOCRINE: No history of heat or cold intolerance, polyuria or polydipsia. EXTREMITIES: Denies joint pain, pain on walking or stiffness. Physical Exam: Vital Signs: Vital Signs Date Time Temp Pulse Resp B/P (MAP) Pulse Ox O2 Delivery O2 Flow Rate FiO2 10/24/21 10:26 97.7 88 18 130/72 (91) 96 Room Air 97.7 Physcial Exam: General: Well developed, well nourished, no acute distress, well appearing HEENT: Pupils equally round and reactive to light, EOMI, no discharge, normal conjunctiva. Dry mucous membranes Neck: Supple, no nuchal rigidity, no JVD, trachea midline, no tenderness Cardiac: RRR, no murmurs, no gallops, no rubs Chest/Lungs: CTAB, no wheeze, no rhonchi, no crackles Abdomen: soft, non-distended, no guarding, no peritoneal signs, non-tender Back: No tenderness Extremities: no edema, pulses intact, non-tender,capillary refill <3 sec bilateral upper and lower extremities left foot TMA Neuro: Alert and oriented x 4, no focal deficits, normal speech Labs: Labs: Laboratory Tests Test 10/24/21 10:34 10/24/21 10:36 10/24/21 11:03 10/24/21 12:52 Glucose (Fingerstick) 105 mg/dL (70-99) White Blood Count 18.7 x10^3/uL (4.0-11.0) Red Blood Count 3.82 x10^6/uL (4.30-5.70) Hemoglobin 11.8 g/dL (13.0-17.5) Hematocrit 37.1 % (39.0-53.0) Mean Corpuscular Volume 97 fL (79-100) Mean Corpuscular Hemoglobin 31 pg (25-35) Mean Corpuscular Hemoglobin Concent 32 g/dL (31-37) Red Cell Distribution Width 13.8 % (11.5-14.5) Platelet Count 379 x10^3/uL (140-400) Neutrophils (%) (Auto) 87 % (31-73) Lymphocytes (%) (Auto) 8 % (24-48) Monocytes (%) (Auto) 5 % (0-9) Eosinophils (%) (Auto) 1 % (0-3) Basophils (%) (Auto) 1 % (0-3) Neutrophils # (Auto) 16.2 x10^3/uL (1.8-7.7) Lymphocytes # (Auto) 1.4 x10^3/uL (1.0-4.8) Monocytes # (Auto) 0.8 x10^3/uL (0.0-1.1) Eosinophils # (Auto) 0.1 x10^3/uL (0.0-0.7) Basophils # (Auto) 0.1 x10^3/uL (0.0-0.2) Sodium Level 131 mmol/L (136-145) Potassium Level 4.5 mmol/L (3.5-5.1) Chloride Level 98 mmol/L (98-107) Carbon Dioxide Level 19 mmol/L (21-32) Anion Gap 14 (6-14) Blood Urea Nitrogen 77 mg/dL (8-26) Creatinine 4.8 mg/dL (0.7-1.3) Estimated GFR (Cockcroft-Gault) 11.8 BUN/Creatinine Ratio 16 (6-20) Glucose Level 108 mg/dL (70-99) Lactic Acid Level 2.6 mmol/L (0.4-2.0) Calcium Level 12.0 mg/dL (8.5-10.1) Total Bilirubin 0.5 mg/dL (0.2-1.0) Aspartate Amino Transf (AST/SGOT) 22 U/L (15-37) Alanine Aminotransferase (ALT/SGPT) 24 U/L (16-63) Alkaline Phosphatase 66 U/L (46-116) Troponin I High Sensitivity 20 ng/L (4-75) Total Protein 9.7 g/dL (6.4-8.2) Albumin 3.9 g/dL (3.4-5.0) Albumin/Globulin Ratio 0.7 (1.0-1.7) Lipase 5529 U/L (73-393) Urine Collection Type Unknown Urine Color Yellow Urine Clarity Turbid Urine pH 6.0 (<5.0-8.0) Urine Specific [place] 1.025 (1.000-1.030) Urine Protein 100 mg/dL (NEG-TRACE) Urine Glucose (UA) Negative mg/dL (NEG) Urine Ketones (Stick) Negative mg/dL (NEG) Urine Blood Large (NEG) Urine Nitrite Negative (NEG) Urine Bilirubin Negative (NEG) Urine Urobilinogen Dipstick 0.2 mg/dL (0.2 mg/dL) Urine Leukocyte Esterase Large (NEG) Urine RBC >40 /HPF (0-2) Urine WBC Tntc /HPF (0-4) Urine Squamous Epithelial Cells Occ /LPF Urine Bacteria Many /HPF (0-FEW) Ionized Calcium 1.48 mmol/L (1.13-1.32) Test 10/24/21 13:03 Influenza Type A Antigen Negative (NEGATIVE) Influenza Type B Antigen Negative (NEGATIVE) SARS-CoV-2 Antigen (Rapid) Negative (NEGATIVE) Laboratory Tests Test 10/24/21 10:34 10/24/21 10:36 10/24/21 11:03 10/24/21 12:52 Glucose (Fingerstick) 105 mg/dL (70-99) White Blood Count 18.7 x10^3/uL (4.0-11.0) Red Blood Count 3.82 x10^6/uL (4.30-5.70) Hemoglobin 11.8 g/dL (13.0-17.5) Hematocrit 37.1 % (39.0-53.0) Mean Corpuscular Volume 97 fL (79-100) Mean Corpuscular Hemoglobin 31 pg (25-35) Mean Corpuscular Hemoglobin Concent 32 g/dL (31-37) Red Cell Distribution Width 13.8 % (11.5-14.5) Platelet Count 379 x10^3/uL (140-400) Neutrophils (%) (Auto) 87 % (31-73) Lymphocytes (%) (Auto) 8 % (24-48) Monocytes (%) (Auto) 5 % (0-9) Eosinophils (%) (Auto) 1 % (0-3) Basophils (%) (Auto) 1 % (0-3) Neutrophils # (Auto) 16.2 x10^3/uL (1.8-7.7) Lymphocytes # (Auto) 1.4 x10^3/uL (1.0-4.8) Monocytes # (Auto) 0.8 x10^3/uL (0.0-1.1) Eosinophils # (Auto) 0.1 x10^3/uL (0.0-0.7) Basophils # (Auto) 0.1 x10^3/uL (0.0-0.2) Sodium Level 131 mmol/L (136-145) Potassium Level 4.5 mmol/L (3.5-5.1) Chloride Level 98 mmol/L (98-107) Carbon Dioxide Level 19 mmol/L (21-32) Anion Gap 14 (6-14) Blood Urea Nitrogen 77 mg/dL (8-26) Creatinine 4.8 mg/dL (0.7-1.3) Estimated GFR (Cockcroft-Gault) 11.8 BUN/Creatinine Ratio 16 (6-20) Glucose Level 108 mg/dL (70-99) Lactic Acid Level 2.6 mmol/L (0.4-2.0) Calcium Level 12.0 mg/dL (8.5-10.1) Total Bilirubin 0.5 mg/dL (0.2-1.0) Aspartate Amino Transf (AST/SGOT) 22 U/L (15-37) Alanine Aminotransferase (ALT/SGPT) 24 U/L (16-63) Alkaline Phosphatase 66 U/L (46-116) Troponin I High Sensitivity 20 ng/L (4-75) Total Protein 9.7 g/dL (6.4-8.2) Albumin 3.9 g/dL (3.4-5.0) Albumin/Globulin Ratio 0.7 (1.0-1.7) Lipase 5529 U/L (73-393) Urine Collection Type Unknown Urine Color Yellow Urine Clarity Turbid Urine pH 6.0 (<5.0-8.0) Urine Specific [place] 1.025 (1.000-1.030) Urine Protein 100 mg/dL (NEG-TRACE) Urine Glucose (UA) Negative mg/dL (NEG) Urine Ketones (Stick) Negative mg/dL (NEG) Urine Blood Large (NEG) Urine Nitrite Negative (NEG) Urine Bilirubin Negative (NEG) Urine Urobilinogen Dipstick 0.2 mg/dL (0.2 mg/dL) Urine Leukocyte Esterase Large (NEG) Urine RBC >40 /HPF (0-2) Urine WBC Tntc /HPF (0-4) Urine Squamous Epithelial Cells Occ /LPF Urine Bacteria Many /HPF (0-FEW) Ionized Calcium 1.48 mmol/L (1.13-1.32) Test 10/24/21 13:03 Influenza Type A Antigen Negative (NEGATIVE) Influenza Type B Antigen Negative (NEGATIVE) SARS-CoV-2 Antigen (Rapid) Negative (NEGATIVE) Images: Images PROCEDURE: CHEST AP ONLY EXAMINATION: Chest radiograph. VIEWS: Single AP view of the chest COMPARISON: 01/08/2018 INDICATION:81 years, Male, weakness. FINDINGS: Left-sided cardiac pacing device is in stable position. Stable cardiomediastinal silhouette. Central pulmonary vasculature is mildly congested. No focal consolidation. No pleural effusion or pneumothorax. No acute osseous process. IMPRESSION: Mild pulmonary vascular congestion without overt interstitial pulmonary edema. No confluent infiltrates. PROCEDURE: DUPLEX LOWER EXTREMITY BILAT Study: US DPLX ARTR EXTREM LOWER BILAT Indication: Cool distal extremities. Nonpalpable pulse at the distal left lower extremity. Comparison: None. Technique/Findings: Duplex sonographic assessment of the bilateral lower extremity arteries. Mild scattered calcified and noncalcified atherosclerotic plaque. Combination of triphasic and biphasic waveforms. Peak systolic velocity values are within normal limits with the exception of at the distal right posterior tibial artery with an increased velocity of 201 cm/s. Right lower extremity: Common femoral artery: 91 cm/s Deep femoral artery: 44 cm/s Proximal SFA: 74 cm/s Mid SFA: 75 cm/s Distal SFA: 71 cm/s Popliteal artery: 64 cm/s Proximal [employer] SALES [employer]ANT: 57 cm/s Distal P[employer] SALES CONSULTANT: 201 cm/s Peroneal artery: 49 cm/s Anterior tibial artery: 54 cm/s Dorsalis pedis: 33 cm/s Left lower extremity: Common femoral artery: 74 cm/s Deep femoral artery: 39 cm/s Proximal SFA: 71 cm/s Mid SFA: 78 cm/s Distal SFA: 76 cm/s Popliteal artery: 45 cm/s Proximal [employer] SALES CONSULTANT: 55 cm/s Distal [employer] SALES CONSULTANT: 76 cm/s Peroneal artery: 44 cm/s Anterior tibial artery: 48 cm/s Dorsalis pedis: 11 cm/s Impression: Isolated stenosis at the distal aspect of the right posterior tibial artery with an increased peak systolic velocity of 201 cm/s. Background calcified/noncalcified atheromatous plaque without an additional significant stenosis. Eventual CHELSEY could be performed to better classify the extent of PAD. PROCEDURE: CT ABDOMEN PELVIS WO CONTRAST Study: CT abdomen/pelvis without intravenous contrast Indication: Pyelonephritis. Comparison: 12/30/2017 Technique: Helical CT imaging performed of the abdomen and pelvis without the use of intravenous contrast. Sagittal and coronal reformats were obtained. One or more of the following individualized dose reduction techniques were utilized for this examination: 1. Automated exposure control 2. Adjustment of the mA and/or kV according to patient size 3. Use of iterative reconstruction technique. Findings: Inherently limited evaluation without intravenous contrast. Pacer wires. Calcific coronary artery disease. Mild bibasilar atelectasis/scarring. Infiltrates on the comparison have resolved. No discrete liver lesion. Absent gallbladder. Nondilated biliary tree. Redemonstration of several pancreatic calcifications. No manifestations of act sergo pancreatitis. No main duct dilatation. The spleen is within normal limits for size. No adrenal gland mass. Small size of the kidneys with lobulated margins and areas of cortical thinning slightly more noticeable on the right. Mild bilateral hydroureteronephrosis but no stone is present within either ureter or the urinary bladder. Circumferential wall thickening of the bladder with haziness of the perivesicular fat. Nonobstructing intrarenal stones at the inferior pole of the right kidney increased in size from the prior. Previously present intrarenal stones on the left are no longer seen. Similar degree of prostatic enlargement. Subtle area of cortical low attenuation posteriorly within the right kidney not fully characterized without contrast. No significant perinephric edema to suggest this low attenuation relates to pyelonephritis. Colonic diverticulosis without diverticulitis. Mild volume colonic stool burden. Unremarkable appendix. No pathologic dilatation of small bowel. Limited evaluation of the stomach on account of underdistention. Multifocal calcific atherosclerosis. 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 Mild borderline aneurysmal dilatation of the right common iliac artery at 1.5 cm. No significant lymph node enlargement. Mild mesenteric haziness was present previously. No acute abnormality of the body wall soft tissues. The bones are osteopenic. Multifocal degenerative changes. Impression: 1. Mild bilateral hydroureteronephrosis but no obstructing process is seen. Intrarenal stones are again noted at the lower pole on the right and increased in size. Previously present nonobstructing intrarenal stones on the left are no longer seen. Urinary bladder wall thickening with surrounding inflammation suggests cystitis. Correlate with urinalysis. No perinephric edema to indicate pyelonephritis. 2. Similar degree of prostatomegaly. 3. As before, scattered pancreatic calcifications as can be seen from previous pancreatitis. There is some haziness of the mesentery but unchanged. Though there are no findings to indicate active pancreatitis consider correlation with lipase levels. 4. 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 PROCEDURE: ABDOMEN LTD STUDY: US ABDOMEN LIMITED INDICATION: Upper abdominal pain COMPARISON: Same day CT. TECHNIQUE: Limited abdominal ultrasound targeted at the right upper quadrant. Findings: Significantly limited study due to bowel gas and patient body habitus. Nonvisualized gallbladder, common duct, pancreas and inferior aspect of the right kidney. Incompletely evaluated IVC and abdominal aorta. No discrete liver lesion. Patent main portal vein with hepatopedal flow. The right kidney measures 9.1 cm in length. The adequately visualized portion of the right kidney exhibits normal cortical echogenicity. No hydronephrosis. Impression: 1. Significantly limited study. Incomplete evaluation of the gallbladder, common duct, pancreas, IVC/aorta and inferior aspect of the right kidney. 2. No sonographic abnormality of the liver or adequately assessed right kidney. Patent main portal vein with normal flow direction. Assessment/Plan Assessment/Plan Generalized weakness, suggestive of viral gastroenteritis Acute pancreatitis Acute cystitis, concern for pyelonephritis Hyponatremia suggestive of volume depletion Hypercalcemia Peripheral vascular disease with an isolated stenosis at the right [employer]ANT with peak velocities NANCY due to vasomotor nephropathy versus obstructive uropathy Anemia of chronic disease History of diabetes mellitus type 2 History of hypertension History of dyslipidemia History of paroxysmal atrial fibrillation History of CHRIS History of left ureteral stent placement in 2018 History of left anterior TMA 2004 Admit to hospitalist service for further management Nephrology consult for NANCY Continue IV fluids Trend chemistries especially calcium levels Continue empiric IV antibiotics IV pain control Consider vascular surgery consult if there is concern for lower extremity wounds in context of his right [employer]ANT stenosis PT OT screening Heparin for DVT prophylaxis ADA diet CODE STATUS full Discussed with RN and SW Disposition inpatient management as above DPOA: Justifications for Admission Other Justification BARBARA WILEY MD Oct 24, 2021 13:41
[2021-10-24 13:45] LABS: % BANDS 4 % (0-9); % LYMPHS 12 % (24-48); % MONOS 4 % (0-10); % SEGS 80 % (35-66); PLT ESTIMATE ADEQUATE (ADEQUATE)
[2021-10-24] MEDS ORDERED: HYDROcodone/APAP 5/325MG 1 TAB TABLET PO PRN ×2 (13:45)
[2021-10-24] MEDS ORDERED: MORPHINE SULFATE 2 MG/ML INJ. IVP PRN (13:45)
[2021-10-24] MEDS ORDERED: SENNOSIDES 8.6 MG TABLET PO PRN (13:45)
[2021-10-24] MEDS ORDERED: diphenhydrAMINE HCL 25 MG CAPSULE PO PRN ×2 (13:45)
[2021-10-24] MEDS ORDERED: PROCHLORPERAZINE 10 MG/2 ML VIAL. IV PRN (13:45)
[2021-10-24] MEDS ORDERED: LORazepam 0.5 MG TABLET PO PRN (13:45)
[2021-10-24] MEDS ORDERED: diphenhydrAMINE 50 MG/ML VIAL IVP PRN (13:45)
[2021-10-24] MEDS ORDERED: MORPHINE SULFATE 2 MG/ML INJ. IV PRN (13:45)
[2021-10-24] MEDS ORDERED: ZOLPIDEM 5 MG TABLET. PO PRN (13:45)
[2021-10-24] MEDS ORDERED: DEXTROSE 50% 25 GM / 50ML DISP.SYRIN. IV PRN (13:45)
[2021-10-24] MEDS ORDERED: DOCUSATE SODIUM 100 MG CAPSULE. PO PRN (13:45)
[2021-10-24 14:30] VITALS: BP 103/49
[2021-10-24] MEDS: IV NORMAL SALINE 1000ML BAG 1,000 ML IV SCH ×2 (14:50→21:02)
[2021-10-24] MEDS: INSULIN LISPRO 300 UNITS/3 ML VIAL. SQ SCH (17:00)
[2021-10-24] MEDS: CEFEPIME HCL IV Push 1 GM VIAL. IVP SCH (18:40)
[2021-10-24 18:50] LABS: AMPHETAMINE/METHAMPHETAMINE NEG (NEG); BARBITURATES NEG (NEG); BENZODIAZEPINES NEG (NEG); CANNABINOIDS NEG (NEG); COCAINE NEG (NEG); METHADONE NEG (NEG); OPIATES NEG (NEG); PHENCYCLIDINE NEG (NEG)
[2021-10-24 19:20] VITALS: BP 119/48
[2021-10-24] MEDS: HEPARIN for SUB-Q USE 5,000 UNIT/ML VIAL. SQ SCH (21:04)
[2021-10-24 23:20] VITALS: BP 123/61
--- NOTE | 2021-10-25 01:09 | EKG ---
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
[2021-10-25 03:35] VITALS: BP 116/63
[2021-10-25 07:00] VITALS: BP 106/56
[2021-10-25] MEDS: INSULIN LISPRO 300 UNITS/3 ML VIAL. SQ SCH ×3 (08:00→17:00)
[2021-10-25 08:34] LABS: BASO # 0.1 x10^3/uL (0.0-0.2); BASO % 1 % (0-3); EOS # 0.1 x10^3/uL (0.0-0.7); EOS % 1 % (0-3); HEMATOCRIT 32.6 % (39.0-53.0); HEMOGLOBIN 10.2 g/dL (13.0-17.5); LYMPH # 1.3 x10^3/uL (1.0-4.8); LYMPH % 10 % (24-48); MEAN CORPUSCULAR HEMOGLOBIN 30 pg (25-35); MEAN CORPUSCULAR HGB CONC 31 g/dL (31-37); MEAN CORPUSCULAR VOLUME 96 fL (79-100); MONO # 0.7 x10^3/uL (0.0-1.1); MONO % 5 % (0-9); NEUT # 10.8 x10^3/uL (1.8-7.7); NEUT % 83 % (31-73); PLATELET COUNT 298 x10^3/uL (140-400); RED BLOOD COUNT 3.39 x10^6/uL (4.30-5.70); RED CELL DISTRIBUTION WIDTH 13.6 % (11.5-14.5); WHITE BLOOD COUNT 13.1 x10^3/uL (4.0-11.0)
[2021-10-25 08:57] LABS: ALBUMIN 2.9 g/dL (3.4-5.0); ALBUMIN/GLOBULIN RATIO 0.6 (1.0-1.7); CALCIUM 10.7 mg/dL (8.5-10.1); CREATININE 3.9 mg/dL (0.7-1.3); GFR 14.9; POTASSIUM 4.2 mmol/L (3.5-5.1); TOTAL BILIRUBIN 0.4 mg/dL (0.2-1.0); TOTAL PROTEIN 7.9 g/dL (6.4-8.2)
[2021-10-25] MEDS: TAMSULOSIN 0.4 MG CAP.ER.24H. PO SCH (10:16)
[2021-10-25] MEDS: LEVOTHYROXINE 100 MCG TABLET PO SCH (10:16)
[2021-10-25] MEDS: ASPIRIN ENTERIC COATED 325 MG TABLET.DR. PO SCH (10:17)
[2021-10-25] MEDS: HEPARIN for SUB-Q USE 5,000 UNIT/ML VIAL. SQ SCH ×2 (10:25→21:50)
[2021-10-25 11:00] VITALS: BP 110/58
--- NOTE | 2021-10-25 11:16 | PDOC2 ---
CONSULT Date of Consult Date of Consult DATE: 10/25/21 TIME: 11:07 Reason for Consult Reason for Consult: NANCY Referring Physician Referring Physician: SAURABH Identification/Chief Complaint Chief Complaint WEAKNESS AND CONFUSION History of Present Illness Reason for Visit: THIS IS AN 81 YR OLD WITH WEAKNESS. ADMITTED AND DX WITH AN UTI AND NANCY WITH A CR OF 4.8. HAS CKD STAGE 3B WITH BASELINE CR ABOUT 1.5 ON AVG. HAS HAD NANCY IN THE PAST WHICH RESOLVED. HAS HX OF LEFT SIDED URETERAL STONE AND OBSTRUCTION. HE HAS A LEFT URETERAL STENT PLACED IN DECEMBER OF 2017. IMAGING CURRENTLY SUGGESTIVE OF MILD BILATERAL HYDRONEPHROSIS. HE ALSO HAS AN UTI AND APPEARS TO BE SEPTIC. CKD IS DUE TO DM II AND HX RELATED END ORGAN DAMAGE. OTHER HX PERTINENT FOR BPH. HE HAS ALSO HAD SOME POOR PO INTAKE AND HAS COMPLAINED OF SOME ABD PAIN. LIPASE LEVELS ARE ELEVATED Past Medical History Cardiovascular: CHF, HTN, Pulmonary hypertension Pulmonary: Asthma, Bronchitis GI: GERD Psych: Anxiety Renal/: Chronic renal insuff, Benign prostatic enlarg. Endocrine: Diabetes Past Surgical History Past Surgical History: Pacemaker, No pertinent history Family History Family History: Hypertension Social History ALCOHOL: none Drugs: None Lives: with Family Current Problem List Problem List Problems Medical Problems: (1) Acute pancreatitis Status: Acute (2) Acute renal insufficiency Status: Acute (3) Other fatigue Status: Acute (4) Pyelonephritis Status: Acute (5) Severe sepsis Status: Acute Current Medications Current Medications Current Medications Ringer's Solution 1,000 ml @ 999 mls/hr 1X ONCE IV Last administered on 10/24/21at 11:03; Start 10/24/21 at 10:30; Stop 10/24/21 at 11:30; Status DC Acetaminophen (Tylenol) 1,000 mg 1X ONCE PO Last administered on 10/24/21at 11:36; Start 10/24/21 at 10:30; Stop 10/24/21 at 10:31; Status DC Ceftriaxone Sodium (Rocephin) 1 gm 1X ONCE IVP Last administered on 10/24/21at 11:36; Start 10/24/21 at 11:30; Stop 10/24/21 at 11:31; Status DC Ceftriaxone Sodium (Rocephin) 1 gm 1X ONCE IVP Last administered on 10/24/21at 12:20; Start 10/24/21 at 12:00; Stop 10/24/21 at 12:01; Status DC Metronidazole 100 ml @ 100 mls/hr Q1HR IV Last administered on 10/24/21at 13:31; Start 10/24/21 at 12:00; Stop 10/24/21 at 13:59; Status DC Ringer's Solution 1,000 ml @ 999 mls/hr 1X ONCE IV Last administered on 10/24/21at 13:31; Start 10/24/21 at 12:30; Stop 10/24/21 at 13:30; Status DC Ondansetron HCl (Zofran) 4 mg PRN Q8HRS PRN IVP NAUSEA/VOMITING; Start 10/24/21 at 13:30; Stop 10/25/21 at 13:29 Acetaminophen (Tylenol) 650 mg PRN Q4HRS PRN PO FEVER > 100.3'F; Start 10/24/21 at 13:30; Stop 10/25/21 at 13:29 Cefepime HCl (Maxipime) 1 gm Q24H IVP Last administered on 10/24/21at 18:40; Start 10/24/21 at 14:00 Metronidazole 100 ml @ 100 mls/hr Q12HR IV Last administered on 10/25/21at 10:17; Start 10/24/21 at 21:00 Sennosides (Senna) 17.2 mg PRN BID PRN PO CONSTIPATION; Start 10/24/21 at 13:45 Docusate Sodium (Colace) 100 mg PRN DAILY PRN PO HARD STOOLS; Start 10/24/21 at 13:45 Ondansetron HCl (Zofran) 4 mg PRN Q6HRS PRN IVP NAUSEA/VOMITING, 1st CHOICE; Start 10/24/21 at 13:45 Insulin Human Lispro (HumaLOG) 0-7 UNITS TIDWMEALS SQ ; Start 10/24/21 at 17:00 Dextrose (Dextrose 50%-Water Syringe) 12.5 gm PRN Q15MIN PRN IV SEE COMMENTS; Start 10/24/21 at 13:45 Sodium Chloride 1,000 ml @ 100 mls/hr Q10H IV Last administered on 10/24/21at 21:02; Start 10/24/21 at 13:45 Acetaminophen (Tylenol) 650 mg PRN Q4HRS PRN PO TEMP OVER 100.4F OR MILD PAIN; Start 10/24/21 at 13:45 Lorazepam (Ativan) 0.5 mg PRN Q6HRS PRN PO ANXIETY / AGITATION; Start 10/24/21 at 13:45 Lorazepam (Ativan Inj) 0.25 mg PRN Q4HRS PRN IV ANXIETY / AGITATION; Start 10/24/21 at 13:45 Heparin Sodium (Porcine) (Heparin Sodium) 5,000 unit Q12HR SQ Last administered on 10/25/21at 10:25; Start 10/24/21 at 21:00 Acetaminophen/ Hydrocodone Bitart (Lortab 5/325) 1 tab PRN Q4HRS PRN PO MILD PAIN 1-3; Start 10/24/21 at 13:45 Acetaminophen/ Hydrocodone Bitart (Lortab 5/325) 2 tab PRN Q4HRS PRN PO MODERATE PAIN, SEVERE PAIN; Start 10/24/21 at 13:45 Morphine Sulfate (Morphine Sulfate) 1 mg PRN Q1HR PRN IV PAIN; Start 10/24/21 at 13:45 Morphine Sulfate (Morphine Sulfate) 2 mg PRN Q2HR PRN IVP SEVERE PAIN 7-10; Start 10/24/21 at 13:45; Stop 10/25/21 at 13:44 Prochlorperazine Edisylate (Compazine) 10 mg PRN Q6HRS PRN IV NAUSEA/VOMITING, 2nd CHOICE; Start 10/24/21 at 13:45 Diphenhydramine HCl (Benadryl) 25 mg PRN Q6HRS PRN IVP ITCHING; Start 10/24/21 at 13:45 Diphenhydramine HCl (Benadryl) 25 mg PRN Q6HRS PRN PO ITCHING; Start 10/24/21 at 13:45 Diphenhydramine HCl (Benadryl) 25 mg PRN QHS PRN PO INSOMNIA, 1st CHOICE; Start 10/24/21 at 13:45 Zolpidem Tartrate (Ambien) 2.5 mg PRN QHS PRN PO INSOMNIA, 2nd CHOICE; Start 10/24/21 at 13:45 Aspirin (Ecotrin) 325 mg DAILY PO Last administered on 10/25/21at 10:17; Start 10/25/21 at 09:00 Levothyroxine Sodium (Synthroid) 100 mcg DAILYAC PO Last administered on 10/25/21at 10:16; Start 10/25/21 at 07:30 Tamsulosin HCl (Flomax) 0.4 mg DAILY PO Last administered on 10/25/21at 10:16; Start 10/25/21 at 09:00 Active Scripts Active [place] 5-325 Tablet (Acetaminophen/Hydrocodone Bitart) 1 Each Tablet 1 Tab PO TID Tamsulosin Hcl 0.4 Mg Cap.er.24h 1 Cap PO DAILY Reported Amox Tr-K Clv 500-125 Mg Tab (Amoxicillin/Potassium Clav) 1 Each Tablet 1 Tab PO BID Glucosamine & Chondroitin Cap (Gluc 2KCL/Chondr/Caren Hy/Hy Ac) 1 Each Capsule 1 Each PO DAILY Multiple Vitamin (Multivitamin With Minerals) 1 Each Tablet 1 Each PO DAILY Lasix (Furosemide) 20 Mg Tablet 1 Tab PO PRN DAILY PRN Aspirin Ec (Aspirin) 325 Mg Tablet.dr 1 Tab PO DAILY Chlor-Trimeton (Chlorpheniramine Maleate) 4 Mg Tablet 4 Mg PO PRN DAILY PRN Levothyroxine Sodium 100 Mcg Tablet 100 Mcg PO DAILYAC Lofibra (Fenofibrate) 160 Mg Tablet 160 Mg PO DAILY Metformin Hcl 500 Mg Tablet 500 Mg PO BID Allergies Allergies: Coded Allergies: cefpodoxime (Verified Allergy, Intermediate, Rash, 10/24/21) ROS Review of System UNABLE TO OBTAIN Physical Exam General: Alert, Cooperative, No acute distress HEENT: Atraumatic, Other (DRY MUCOSA) Lungs: Clear to auscultation Heart: Regular rate, Other (OCC LAKESHIA) Abdomen: Normal bowel sounds Extremities: No clubbing Skin: No breakdown Neuro: Other (CONFUSED) Psych/Mental Status: Other (UNABLE TO ASSESS) MUSCULOSKELETAL: No joint tenderness, No deformity, No swelling Vitals VITALS Vital Signs Date Time Temp Pulse Resp B/P (MAP) Pulse Ox O2 Delivery O2 Flow Rate FiO2 10/25/21 07:00 97.3 82 18 106/56 (73) 94 Room Air 97.3 Labs Labs Laboratory Tests Test 10/24/21 10:34 10/24/21 10:36 10/24/21 11:03 10/24/21 12:52 Glucose (Fingerstick) 105 mg/dL (70-99) White Blood Count 18.7 x10^3/uL (4.0-11.0) Red Blood Count 3.82 x10^6/uL (4.30-5.70) Hemoglobin 11.8 g/dL (13.0-17.5) Hematocrit 37.1 % (39.0-53.0) Mean Corpuscular Volume 97 fL (79-100) Mean Corpuscular Hemoglobin 31 pg (25-35) Mean Corpuscular Hemoglobin Concent 32 g/dL (31-37) Red Cell Distribution Width 13.8 % (11.5-14.5) Platelet Count 379 x10^3/uL (140-400) Neutrophils (%) (Auto) 87 % (31-73) Lymphocytes (%) (Auto) 8 % (24-48) Monocytes (%) (Auto) 5 % (0-9) Eosinophils (%) (Auto) 1 % (0-3) Basophils (%) (Auto) 1 % (0-3) Neutrophils # (Auto) 16.2 x10^3/uL (1.8-7.7) Lymphocytes # (Auto) 1.4 x10^3/uL (1.0-4.8) Monocytes # (Auto) 0.8 x10^3/uL (0.0-1.1) Eosinophils # (Auto) 0.1 x10^3/uL (0.0-0.7) Basophils # (Auto) 0.1 x10^3/uL (0.0-0.2) Segmented Neutrophils % 80 % (35-66) Band Neutrophils % 4 % (0-9) Lymphocytes % 12 % (24-48) Monocytes % 4 % (0-10) Platelet Estimate Adequate (ADEQUATE) Sodium Level 131 mmol/L (136-145) Potassium Level 4.5 mmol/L (3.5-5.1) Chloride Level 98 mmol/L (98-107) Carbon Dioxide Level 19 mmol/L (21-32) Anion Gap 14 (6-14) Blood Urea Nitrogen 77 mg/dL (8-26) Creatinine 4.8 mg/dL (0.7-1.3) Estimated GFR (Cockcroft-Gault) 11.8 BUN/Creatinine Ratio 16 (6-20) Glucose Level 108 mg/dL (70-99) Lactic Acid Level 2.6 mmol/L (0.4-2.0) Calcium Level 12.0 mg/dL (8.5-10.1) Total Bilirubin 0.5 mg/dL (0.2-1.0) Aspartate Amino Transf (AST/SGOT) 22 U/L (15-37) Alanine Aminotransferase (ALT/SGPT) 24 U/L (16-63) Alkaline Phosphatase 66 U/L (46-116) Troponin I High Sensitivity 20 ng/L (4-75) Total Protein 9.7 g/dL (6.4-8.2) Albumin 3.9 g/dL (3.4-5.0) Albumin/Globulin Ratio 0.7 (1.0-1.7) Lipase 5529 U/L (73-393) Thyroid Stimulating Hormone (TSH) 5.812 uIU/mL (0.358-3.74) Urine Collection Type Unknown Urine Color Yellow Urine Clarity Turbid Urine pH 6.0 (<5.0-8.0) Urine Specific [place] 1.025 (1.000-1.030) Urine Protein 100 mg/dL (NEG-TRACE) Urine Glucose (UA) Negative mg/dL (NEG) Urine Ketones (Stick) Negative mg/dL (NEG) Urine Blood Large (NEG) Urine Nitrite Negative (NEG) Urine Bilirubin Negative (NEG) Urine Urobilinogen Dipstick 0.2 mg/dL (0.2 mg/dL) Urine Leukocyte Esterase Large (NEG) Urine RBC >40 /HPF (0-2) Urine WBC Tntc /HPF (0-4) Urine Squamous Epithelial Cells Occ /LPF Urine Bacteria Many /HPF (0-FEW) Ionized Calcium 1.48 mmol/L (1.13-1.32) Test 10/24/21 13:03 10/24/21 14:20 10/24/21 16:16 10/24/21 17:20 Influenza Type A Antigen Negative (NEGATIVE) Influenza Type B Antigen Negative (NEGATIVE) SARS-CoV-2 Antigen (Rapid) Negative (NEGATIVE) Lactic Acid Level 2.0 mmol/L (0.4-2.0) Glucose (Fingerstick) 81 mg/dL (70-99) Urine Opiates Screen Neg (NEG) Urine Methadone Screen Neg (NEG) Urine Barbiturates Neg (NEG) Urine Phencyclidine Screen Neg (NEG) Urine Amphetamine/Methamphetamine Neg (NEG) Urine Benzodiazepines Screen Neg (NEG) Urine Cocaine Screen Neg (NEG) Urine Cannabinoids Screen Neg (NEG) Urine Ethyl Alcohol Neg (NEG) Test 10/24/21 20:29 10/25/21 08:25 10/25/21 08:26 Glucose (Fingerstick) 87 mg/dL (70-99) 100 mg/dL (70-99) White Blood Count 13.1 x10^3/uL (4.0-11.0) Red Blood Count 3.39 x10^6/uL (4.30-5.70) Hemoglobin 10.2 g/dL (13.0-17.5) Hematocrit 32.6 % (39.0-53.0) Mean Corpuscular Volume 96 fL (79-100) Mean Corpuscular Hemoglobin 30 pg (25-35) Mean Corpuscular Hemoglobin Concent 31 g/dL (31-37) Red Cell Distribution Width 13.6 % (11.5-14.5) Platelet Count 298 x10^3/uL (140-400) Neutrophils (%) (Auto) 83 % (31-73) Lymphocytes (%) (Auto) 10 % (24-48) Monocytes (%) (Auto) 5 % (0-9) Eosinophils (%) (Auto) 1 % (0-3) Basophils (%) (Auto) 1 % (0-3) Neutrophils # (Auto) 10.8 x10^3/uL (1.8-7.7) Lymphocytes # (Auto) 1.3 x10^3/uL (1.0-4.8) Monocytes # (Auto) 0.7 x10^3/uL (0.0-1.1) Eosinophils # (Auto) 0.1 x10^3/uL (0.0-0.7) Basophils # (Auto) 0.1 x10^3/uL (0.0-0.2) Sodium Level 136 mmol/L (136-145) Potassium Level 4.2 mmol/L (3.5-5.1) Chloride Level 105 mmol/L (98-107) Carbon Dioxide Level 19 mmol/L (21-32) Anion Gap 12 (6-14) Blood Urea Nitrogen 67 mg/dL (8-26) Creatinine 3.9 mg/dL (0.7-1.3) Estimated GFR (Cockcroft-Gault) 14.9 BUN/Creatinine Ratio 17 (6-20) Glucose Level 101 mg/dL (70-99) Calcium Level 10.7 mg/dL (8.5-10.1) Total Bilirubin 0.4 mg/dL (0.2-1.0) Aspartate Amino Transf (AST/SGOT) 19 U/L (15-37) Alanine Aminotransferase (ALT/SGPT) 20 U/L (16-63) Alkaline Phosphatase 52 U/L (46-116) Total Protein 7.9 g/dL (6.4-8.2) Albumin 2.9 g/dL (3.4-5.0) Albumin/Globulin Ratio 0.6 (1.0-1.7) Laboratory Tests Test 10/24/21 12:52 10/24/21 13:03 10/24/21 14:20 10/24/21 16:16 Ionized Calcium 1.48 mmol/L (1.13-1.32) Influenza Type A Antigen Negative (NEGATIVE) Influenza Type B Antigen Negative (NEGATIVE) SARS-CoV-2 Antigen (Rapid) Negative (NEGATIVE) Lactic Acid Level 2.0 mmol/L (0.4-2.0) Glucose (Fingerstick) 81 mg/dL (70-99) Test 10/24/21 17:20 10/24/21 20:29 10/25/21 08:25 10/25/21 08:26 Urine Opiates Screen Neg (NEG) Urine Methadone Screen Neg (NEG) Urine Barbiturates Neg (NEG) Urine Phencyclidine Screen Neg (NEG) Urine Amphetamine/Methamphetamine Neg (NEG) Urine Benzodiazepines Screen Neg (NEG) Urine Cocaine Screen Neg (NEG) Urine Cannabinoids Screen Neg (NEG) Urine Ethyl Alcohol Neg (NEG) Glucose (Fingerstick) 87 mg/dL (70-99) 100 mg/dL (70-99) White Blood Count 13.1 x10^3/uL (4.0-11.0) Red Blood Count 3.39 x10^6/uL (4.30-5.70) Hemoglobin 10.2 g/dL (13.0-17.5) Hematocrit 32.6 % (39.0-53.0) Mean Corpuscular Volume 96 fL (79-100) Mean Corpuscular Hemoglobin 30 pg (25-35) Mean Corpuscular Hemoglobin Concent 31 g/dL (31-37) Red Cell Distribution Width 13.6 % (11.5-14.5) Platelet Count 298 x10^3/uL (140-400) Neutrophils (%) (Auto) 83 % (31-73) Lymphocytes (%) (Auto) 10 % (24-48) Monocytes (%) (Auto) 5 % (0-9) Eosinophils (%) (Auto) 1 % (0-3) Basophils (%) (Auto) 1 % (0-3) Neutrophils # (Auto) 10.8 x10^3/uL (1.8-7.7) Lymphocytes # (Auto) 1.3 x10^3/uL (1.0-4.8) Monocytes # (Auto) 0.7 x10^3/uL (0.0-1.1) Eosinophils # (Auto) 0.1 x10^3/uL (0.0-0.7) Basophils # (Auto) 0.1 x10^3/uL (0.0-0.2) Sodium Level 136 mmol/L (136-145) Potassium Level 4.2 mmol/L (3.5-5.1) Chloride Level 105 mmol/L (98-107) Carbon Dioxide Level 19 mmol/L (21-32) Anion Gap 12 (6-14) Blood Urea Nitrogen 67 mg/dL (8-26) Creatinine 3.9 mg/dL (0.7-1.3) Estimated GFR (Cockcroft-Gault) 14.9 BUN/Creatinine Ratio 17 (6-20) Glucose Level 101 mg/dL (70-99) Calcium Level 10.7 mg/dL (8.5-10.1) Total Bilirubin 0.4 mg/dL (0.2-1.0) Aspartate Amino Transf (AST/SGOT) 19 U/L (15-37) Alanine Aminotransferase (ALT/SGPT) 20 U/L (16-63) Alkaline Phosphatase 52 U/L (46-116) Total Protein 7.9 g/dL (6.4-8.2) Albumin 2.9 g/dL (3.4-5.0) Albumin/Globulin Ratio 0.6 (1.0-1.7) Images Images PATIENT: DENICE MONDRAGON Francisco ACCOUNT: [id number] : 1940 LOCATION: ER AGE: 81 SEX: M EXAM STATUS: REG ER ORD. PHYSICIAN: ALMA ROSENBAUM MD REASON: pyelonephritis; has had obstructing stones previously, evaluate for same PROCEDURE: CT ABDOMEN PELVIS WO CONTRAST Study: CT abdomen/pelvis without intravenous contrast Indication: Pyelonephritis. Comparison: 12/30/2017 Technique: Helical CT imaging performed of the abdomen and pelvis without the use of intravenous contrast. Sagittal and coronal reformats were obtained. One or more of the following individualized dose reduction techniques were utilized for this examination: 1. Automated exposure control 2. Adjustment of the mA and/or kV according to patient size 3. Use of iterative reconstruction technique. Findings: Inherently limited evaluation without intravenous contrast. Pacer wires. Calcific coronary artery disease. Mild bibasilar atelectasis/scarring. Infiltrates on the comparison have resolved. No discrete liver lesion. Absent gallbladder. Nondilated biliary tree. Redemonstration of several pancreatic calcifications. No manifestations of active pancreatitis. No main duct dilatation. The spleen is within normal limits for size. No adrenal gland mass. Small size of the kidneys with lobulated margins and areas of cortical thinning slightly more noticeable on the right. Mild bilateral hydroureteronephrosis but no stone is present within either ureter or the urinary bladder. Circumferential wall thickening of the bladder with haziness of the perivesicular fat. Nonobstructing intrarenal stones at the inferior pole of the right kidney increased in size from the prior. Previously present intrarenal stones on the left are no longer seen. Similar degree of prostatic enlargement. Subtle area of cortical low attenuation posteriorly within the right kidney not fully charac terized without contrast. No significant perinephric edema to suggest this low attenuation relates to pyelonephritis. Colonic diverticulosis without diverticulitis. Mild volume colonic stool burden. Unremarkable appendix. No pathologic dilatation of small bowel. Limited evaluation of the stomach on account of underdistention. Multifocal calcific atherosclerosis. 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 Mild borderline aneurysmal dilatation of the right common iliac artery at 1.5 cm. No significant lymph node enlargement. Mild mesenteric haziness was present previously. No acute abnormality of the body wall soft tissues. The bones are osteopenic. Multifocal degenerative changes. Impression: 1. Mild bilateral hydroureteronephrosis but no obstructing process is seen. Intrarenal stones are again noted at the lower pole on the right and increased in size. Previously present nonobstructing intrarenal stones on the left are no longer seen. Urinary bladder wall thickening with surrounding inflammation suggests cystitis. Correlate with urinalysis. No perinephric edema to indicate pyelonephritis. 2. Similar degree of prostatomegaly. 3. As before, scattered pancreatic calcifications as can be seen from previous pancreatitis. There is some haziness of the mesentery but unchanged. Though there are no findings to indicate active pancreatitis consider correlation with lipase levels. 4. 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 Electronically signed by: KLEVER SUMMERS MD (10/24/2021 12:54 PM) [id number] Assessment/Plan Assessment/Plan IMP NANCY-CR OF 4.8 CKD STAGE 3B - CR OF ABOUT 1.5 PANCREATITIS PYELONEPHRITIS DEHYDRATION HYPONATERMIA HYPERCALCEMIA HX OF LEFT URETERAL STONE AND STENT HX OF DM II PLAN HOLD METFORMIN HYDRATION ANTIBIOTICS LABS IN AM AMANDA MEJIA MD Oct 25, 2021 11:16
--- NOTE | 2021-10-25 12:47 | PDOC ---
[employer] PROGRESS NOTE Date of Service DOS: DATE: 10/25/21 TIME: 12:45 Chief Complaint Chief Complaint Generalized weakness, suggestive of viral gastroenteritis Acute pancreatitis Acute cystitis, concern for pyelonephritis Hyponatremia suggestive of volume depletion Hypercalcemia Peripheral vascular disease with an isolated stenosis at the right [employer] with peak velocities NANCY due to vasomotor nephropathy versus obstructive uropathy Anemia of chronic disease History of diabetes mellitus type 2 History of hypertension History of dyslipidemia History of paroxysmal atrial fibrillation History of CHRIS History of left ureteral stent placement in 2018 History of left anterior TMA 2004 History of Present Illness History of Present Illness 10/25/2021 Patient seen and examined Discussed with RN Chart reviewed He has IV Flagyl hanging Currently using bed commode Has Earl to bedside drainage States he lives at home with his Vitals/I&O Vitals/I&O: Vital Signs Date Time Temp Pulse Resp B/P (MAP) Pulse Ox O2 Delivery O2 Flow Rate FiO2 10/25/21 11:00 97.8 83 18 110/58 (75) 91 Room Air 97.8 I & O 10/24/21 10/24/21 10/25/21 15:00 23:00 07:00 Intake Total 1000 ml 120 ml 120 ml Output Total 950 ml Balance 1000 ml 120 ml -830 ml Physical Exam General: Alert, Cooperative, No acute distress Heart: Regular rate, Other (OCC LAKESHIA) Lungs: Clear, Crackles Abdomen: Normal bowel sounds Extremities: No clubbing Skin: No breakdown Labs Labs: Laboratory Tests Test 10/24/21 12:52 10/24/21 13:03 10/24/21 14:20 10/24/21 16:16 Ionized Calcium 1.48 mmol/L (1.13-1.32) Influenza Type A Antigen Negative (NEGATIVE) Influenza Type B Antigen Negative (NEGATIVE) SARS-CoV-2 Antigen (Rapid) Negative (NEGATIVE) Lactic Acid Level 2.0 mmol/L (0.4-2.0) Glucose (Fingerstick) 81 mg/dL (70-99) Test 10/24/21 17:20 10/24/21 20:29 10/25/21 08:25 10/25/21 08:26 Urine Opiates Screen Neg (NEG) Urine Methadone Screen Neg (NEG) Urine Barbiturates Neg (NEG) Urine Phencyclidine Screen Neg (NEG) Urine Amphetamine/Methamphetamine Neg (NEG) Urine Benzodiazepines Screen Neg (NEG) Urine Cocaine Screen Neg (NEG) Urine Cannabinoids Screen Neg (NEG) Urine Ethyl Alcohol Neg (NEG) Glucose (Fingerstick) 87 mg/dL (70-99) 100 mg/dL (70-99) White Blood Count 13.1 x10^3/uL (4.0-11.0) Red Blood Count 3.39 x10^6/uL (4.30-5.70) Hemoglobin 10.2 g/dL (13.0-17.5) Hematocrit 32.6 % (39.0-53.0) Mean Corpuscular Volume 96 fL (79-100) Mean Corpuscular Hemoglobin 30 pg (25-35) Mean Corpuscular Hemoglobin Concent 31 g/dL (31-37) Red Cell Distribution Width 13.6 % (11.5-14.5) Platelet Count 298 x10^3/uL (140-400) Neutrophils (%) (Auto) 83 % (31-73) Lymphocytes (%) (Auto) 10 % (24-48) Monocytes (%) (Auto) 5 % (0-9) Eosinophils (%) (Auto) 1 % (0-3) Basophils (%) (Auto) 1 % (0-3) Neutrophils # (Auto) 10.8 x10^3/uL (1.8-7.7) Lymphocytes # (Auto) 1.3 x10^3/uL (1.0-4.8) Monocytes # (Auto) 0.7 x10^3/uL (0.0-1.1) Eosinophils # (Auto) 0.1 x10^3/uL (0.0-0.7) Basophils # (Auto) 0.1 x10^3/uL (0.0-0.2) Sodium Level 136 mmol/L (136-145) Potassium Level 4.2 mmol/L (3.5-5.1) Chloride Level 105 mmol/L (98-107) Carbon Dioxide Level 19 mmol/L (21-32) Anion Gap 12 (6-14) Blood Urea Nitrogen 67 mg/dL (8-26) Creatinine 3.9 mg/dL (0.7-1.3) Estimated GFR (Cockcroft-Gault) 14.9 BUN/Creatinine Ratio 17 (6-20) Glucose Level 101 mg/dL (70-99) Calcium Level 10.7 mg/dL (8.5-10.1) Total Bilirubin 0.4 mg/dL (0.2-1.0) Aspartate Amino Transf (AST/SGOT) 19 U/L (15-37) Alanine Aminotransferase (ALT/SGPT) 20 U/L (16-63) Alkaline Phosphatase 52 U/L (46-116) Total Protein 7.9 g/dL (6.4-8.2) Albumin 2.9 g/dL (3.4-5.0) Albumin/Globulin Ratio 0.6 (1.0-1.7) Test 10/25/21 12:07 Glucose (Fingerstick) 108 mg/dL (70-99) Assessment and Plan Assessmemt and Plan Problems Medical Problems: (1) Acute pancreatitis Status: Acute (2) Acute renal insufficiency Status: Acute (3) Other fatigue Status: Acute (4) Pyelonephritis Status: Acute (5) Severe sepsis Status: Acut Sepsis Pyelo Renal failure Generalized weakness, suggestive of viral gastroenteritis Acute pancreatitis Acute cystitis, concern for pyelonephritis Hyponatremia suggestive of volume depletion Hypercalcemia Peripheral vascular disease with an isolated stenosis at the right [employer] with peak velocities NANCY due to vasomotor nephropathy versus obstructive uropathy Anemia of chronic disease History of diabetes mellitus type 2 History of hypertension History of dyslipidemia History of paroxysmal atrial fibrillation History of CHRIS History of left ureteral stent placement in 2018 History of left anterior TMA 2004 Plan IV antibiotics IV fluids Home meds DVT prophylaxis Full code Appreciate nephrology input PT OT Encourage p.o. intake Trend labs Suspect he will need halfway? DPOA: Comment Review of Relevant I have reviewed the following items yanick (where applicable) has been applied. Medications: Current Medications Medications (Trade) Dose Ordered Sig/Nate Route PRN Reason Start Time Stop Time Status Last Admin Dose Admin Cefepime HCl (Maxipime) 1 gm Q24H IVP 10/24/21 14:00 10/24/21 18:40 Metronidazole 100 ml @ 100 mls/hr Q12HR IV 10/24/21 21:00 10/25/21 10:17 Sodium Chloride 1,000 ml @ 100 mls/hr Q10H IV 10/24/21 13:45 10/24/21 21:02 Heparin Sodium (Porcine) (Heparin Sodium) 5,000 unit Q12HR SQ 10/24/21 21:00 10/25/21 10:25 Aspirin (Ecotrin) 325 mg DAILY PO 10/25/21 09:00 10/25/21 10:17 Levothyroxine Sodium (Synthroid) 100 mcg DAILYAC PO 10/25/21 07:30 10/25/21 10:16 Tamsulosin HCl (Flomax) 0.4 mg DAILY PO 10/25/21 09:00 10/25/21 10:16 Justifications for Admission Other Justification Acute pancreatitis JENA LE III DO Oct 25, 2021 12:47
[2021-10-25] MEDS: CEFEPIME HCL IV Push 1 GM VIAL. IVP SCH (14:04)
[2021-10-25 15:00] VITALS: BP 113/63
[2021-10-25] MEDS: IV NORMAL SALINE 1000ML BAG 1,000 ML IV SCH ×2 (15:10→21:48)
[2021-10-25 19:00] VITALS: BP 119/59
[2021-10-25] MEDS: LACTOBACILLUS RHAMNOSUS GG 1 CAPSULE. PO SCH (21:49)
[2021-10-25 23:03] VITALS: BP 119/60
[2021-10-26] VITALS (7 sets, daily range): BP systolic 91–126; BP diastolic 44–70
[2021-10-26] MEDS: IV NORMAL SALINE 1000ML BAG 1,000 ML IV SCH ×2 (05:07→15:05)
[2021-10-26 06:29] LABS: BASO # 0.1 x10^3/uL (0.0-0.2); BASO % 1 % (0-3); EOS # 0.4 x10^3/uL (0.0-0.7); EOS % 4 % (0-3); HEMOGLOBIN 9.4 g/dL (13.0-17.5); LYMPH # 0.9 x10^3/uL (1.0-4.8); LYMPH % 10 % (24-48); MEAN CORPUSCULAR HEMOGLOBIN 31 pg (25-35); MEAN CORPUSCULAR HGB CONC 31 g/dL (31-37); MEAN CORPUSCULAR VOLUME 98 fL (79-100); MONO # 0.5 x10^3/uL (0.0-1.1); MONO % 5 % (0-9); NEUT # 7.1 x10^3/uL (1.8-7.7); NEUT % 80 % (31-73); PLATELET COUNT 243 x10^3/uL (140-400); RED BLOOD COUNT 3.05 x10^6/uL (4.30-5.70); RED CELL DISTRIBUTION WIDTH 14.4 % (11.5-14.5)
[2021-10-26 06:58] LABS: CALCIUM 10.5 mg/dL (8.5-10.1); CREATININE 3.4 mg/dL (0.7-1.3); GFR 17.5; MAGNESIUM 2.4 mg/dL (1.8-2.4); PHOSPHORUS 3.1 mg/dL (2.6-4.7); POTASSIUM 3.5 mmol/L (3.5-5.1)
[2021-10-26] MEDS: LEVOTHYROXINE 100 MCG TABLET PO SCH (07:39)
[2021-10-26] MEDS: INSULIN LISPRO 300 UNITS/3 ML VIAL. SQ SCH ×3 (08:00→17:00)
[2021-10-26] MEDS: ASPIRIN ENTERIC COATED 325 MG TABLET.DR. PO SCH (10:09)
[2021-10-26] MEDS: LACTOBACILLUS RHAMNOSUS GG 1 CAPSULE. PO SCH ×2 (10:09→21:43)
[2021-10-26] MEDS: TAMSULOSIN 0.4 MG CAP.ER.24H. PO SCH (10:10)
[2021-10-26] MEDS: HEPARIN for SUB-Q USE 5,000 UNIT/ML VIAL. SQ SCH ×2 (10:17→21:49)
--- NOTE | 2021-10-26 10:51 | PDOC ---
Renal-Progress Notes Subjective Notes Notes NO COMPLAINTS History of Present Illness Hx of present illness CONFUSED Vitals Vitals Vital Signs Date Time Temp Pulse Resp B/P (MAP) Pulse Ox O2 Delivery O2 Flow Rate FiO2 10/26/21 07:00 98.3 75 14 126/70 (88) 91 Room Air 98.3 Weight Weight [ ] I.O. Intake and Output Intake and Output 10/26/21 07:00 Output Total 2400 ml Balance -2400 ml Output Urine Total 2400 ml Labs Labs Laboratory Tests Test 10/25/21 12:07 10/25/21 16:53 10/25/21 22:07 10/26/21 05:40 Glucose (Fingerstick) 108 mg/dL (70-99) 86 mg/dL (70-99) 107 mg/dL (70-99) White Blood Count 9.0 x10^3/uL (4.0-11.0) Red Blood Count 3.05 x10^6/uL (4.30-5.70) Hemoglobin 9.4 g/dL (13.0-17.5) Hematocrit 30.0 % (39.0-53.0) Mean Corpuscular Volume 98 fL (79-100) Mean Corpuscular Hemoglobin 31 pg (25-35) Mean Corpuscular Hemoglobin Concent 31 g/dL (31-37) Red Cell Distribution Width 14.4 % (11.5-14.5) Platelet Count 243 x10^3/uL (140-400) Neutrophils (%) (Auto) 80 % (31-73) Lymphocytes (%) (Auto) 10 % (24-48) Monocytes (%) (Auto) 5 % (0-9) Eosinophils (%) (Auto) 4 % (0-3) Basophils (%) (Auto) 1 % (0-3) Neutrophils # (Auto) 7.1 x10^3/uL (1.8-7.7) Lymphocytes # (Auto) 0.9 x10^3/uL (1.0-4.8) Monocytes # (Auto) 0.5 x10^3/uL (0.0-1.1) Eosinophils # (Auto) 0.4 x10^3/uL (0.0-0.7) Basophils # (Auto) 0.1 x10^3/uL (0.0-0.2) Sodium Level 139 mmol/L (136-145) Potassium Level 3.5 mmol/L (3.5-5.1) Chloride Level 109 mmol/L (98-107) Carbon Dioxide Level 19 mmol/L (21-32) Anion Gap 11 (6-14) Blood Urea Nitrogen 55 mg/dL (8-26) Creatinine 3.4 mg/dL (0.7-1.3) Estimated GFR (Cockcroft-Gault) 17.5 Glucose Level 88 mg/dL (70-99) Calcium Level 10.5 mg/dL (8.5-10.1) Phosphorus Level 3.1 mg/dL (2.6-4.7) Magnesium Level 2.4 mg/dL (1.8-2.4) Test 10/26/21 07:50 Glucose (Fingerstick) 77 mg/dL (70-99) Micro Micro Microbiology 10/24/21 Urine Culture - Final, Complete 10/24/21 Blood Culture - Preliminary, Resulted NO GROWTH AFTER 1 DAY Review of Systems Constitutional: yes: other (CONFUSED) Physical Exam General Appearance: no apparent distress Skin: warm Respiratory: decreased breath sounds Heart: S1S2 Abdomen: soft, bowel sounds present Genitourinary: bladder flat Extremities: pulses present Neurology: alert, confused Assessment Assessment IMP NANCY-CR OF 4.8-IMPROVED TO 3.4 CKD STAGE 3B - CR OF ABOUT 1.5 PANCREATITIS PYELONEPHRITIS DEHYDRATION HYPONATERMIA-IMPROVED HYPERCALCEMIA-CA BETTER AT 105 HX OF LEFT URETERAL STONE AND STENT MILD BILATERAL HYDRONEPHROSIS-PROB CHRONIC APPEARANCE HX OF DM II PLAN HOLD METFORMIN HYDRATION ANTIBIOTICS LABS IN AM AMANDA MEJIA MD Oct 26, 2021 10:51
--- NOTE | 2021-10-26 11:38 | NUR ---
SW following. Discussed with RN, pt from home with , room air, full liquid diet, rapid COVID-19 negative. Therapy recommending home health. Wound care and nephrology following. Possible vascular consult. SW will continue to follow.
--- NOTE | 2021-10-26 11:39 | PDOC ---
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 NANCY due to vasomotor nephropathy versus obstructive uropathy Anemia of chronic disease History of diabetes mellitus type 2 History of hypertension History of dyslipidemia History of paroxysmal atrial fibrillation History of CHRIS History of left ureteral stent placement in 2018 History of left anterior TMA 2004 History of Present Illness History of Present Illness 10/26/2021 Patient seen and examined Discussed with wound care team Discussed with case management Discussed with RN Chart reviewed 10/25/2021 Patient seen and examined Discussed with RN Chart reviewed He has IV Flagyl hanging Currently using bed commode Has Earl to bedside drainage States he lives at home with his Vitals/I&O Vitals/I&O: Vital Signs Date Time Temp Pulse Resp B/P (MAP) Pulse Ox O2 Delivery O2 Flow Rate FiO2 10/26/21 07:00 98.3 75 14 126/70 (88) 91 Room Air 98.3 I & O 10/25/21 10/25/21 10/26/21 15:00 23:00 07:00 Output Total 1200 ml 1200 ml Balance -1200 ml -1200 ml Physical Exam General: Alert, Cooperative, No acute distress Heart: Regular rate, Other (OCC LAKESHIA) Lungs: Clear, Crackles Abdomen: Normal bowel sounds Extremities: No clubbing Skin: No breakdown Labs Labs: Laboratory Tests Test 10/25/21 12:07 10/25/21 16:53 10/25/21 22:07 10/26/21 05:40 Glucose (Fingerstick) 108 mg/dL (70-99) 86 mg/dL (70-99) 107 mg/dL (70-99) White Blood Count 9.0 x10^3/uL (4.0-11.0) Red Blood Count 3.05 x10^6/uL (4.30-5.70) Hemoglobin 9.4 g/dL (13.0-17.5) Hematocrit 30.0 % (39.0-53.0) Mean Corpuscular Volume 98 fL (79-100) Mean Corpuscular Hemoglobin 31 pg (25-35) Mean Corpuscular Hemoglobin Concent 31 g/dL (31-37) Red Cell Distribution Width 14.4 % (11.5-14.5) Platelet Count 243 x10^3/uL (140-400) Neutrophils (%) (Auto) 80 % (31-73) Lymphocytes (%) (Auto) 10 % (24-48) Monocytes (%) (Auto) 5 % (0-9) Eosinophils (%) (Auto) 4 % (0-3) Basophils (%) (Auto) 1 % (0-3) Neutrophils # (Auto) 7.1 x10^3/uL (1.8-7.7) Lymphocytes # (Auto) 0.9 x10^3/uL (1.0-4.8) Monocytes # (Auto) 0.5 x10^3/uL (0.0-1.1) Eosinophils # (Auto) 0.4 x10^3/uL (0.0-0.7) Basophils # (Auto) 0.1 x10^3/uL (0.0-0.2) Sodium Level 139 mmol/L (136-145) Potassium Level 3.5 mmol/L (3.5-5.1) Chloride Level 109 mmol/L (98-107) Carbon Dioxide Level 19 mmol/L (21-32) Anion Gap 11 (6-14) Blood Urea Nitrogen 55 mg/dL (8-26) Creatinine 3.4 mg/dL (0.7-1.3) Estimated GFR (Cockcroft-Gault) 17.5 Glucose Level 88 mg/dL (70-99) Calcium Level 10.5 mg/dL (8.5-10.1) Phosphorus Level 3.1 mg/dL (2.6-4.7) Magnesium Level 2.4 mg/dL (1.8-2.4) Test 10/26/21 07:50 Glucose (Fingerstick) 77 mg/dL (70-99) Assessment and Plan Assessmemt and Plan Problems Medical Problems: (1) Acute pancreatitis Status: Acute (2) Acute renal insufficiency Status: Acute (3) Other fatigue Status: Acute (4) Pyelonephritis Status: Acute (5) Severe sepsis Status: Acute Sepsis Pyelo Renal failure Generalized weakness, suggestive of viral gastroenteritis Acute pancreatitis Acute cystitis, concern for pyelonephritis Hyponatremia suggestive of volume depletion Hypercalcemia Peripheral vascular disease with an isolated stenosis at the right [employer]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 intake Trend labs Suspect he will need prison? DPOA: Comment Review of Relevant I have reviewed the following items yanick (where applicable) has been applied. Medications: Current Medications Medications (Trade) Dose Ordered Sig/Nate Route PRN Reason Start Time Stop Time Status Last Admin Dose Admin Lactobacillus Rhamnosus (Culturelle) 1 cap BID PO 10/25/21 21:00 10/26/21 10:09 Justifications for Admission Other Justification Acute pancreatitis JENA LE III DO Oct 26, 2021 11:39
--- NOTE | 2021-10-26 13:15 | NUR ---
Wound/Ostomy Care Wound Type/Assessment: Patient seen per wound care consult. see wound assessment. Patient has DFUs to left lateral heel and right medial ankle. Patient lives at home with family and daughter. Daughter states patient sometimes rest one foot on the other while in bed and chair and that is how these wounds originated. Wounds cleansed and assessed. Both wounds are sloughy with good pink skin edges and some red granulation at wound base. Treatment Recommendations/Plan: Recommendations for medi-honey gel to xeroform gauze and cover with foam dressing. Change every 3 days. Dressings applied. Education provided: patient and family educated regarding wound care, POC, and PU prevention. Offloading surface/device: Rooke boots ordered for this patient, patient turned left side and bilateral heels floated. Recommended Referrals/Tests: Patient may follow up in wound clinic if daughter wishes, clinic information given to daughter. Discharge Recommendations for dressings: Dressing change instructions left in room, as well as extra medi-honey gel for next dressing changes. No other wounds noted. Bed lowered and call light in reach. Wound care will follow up on 11/04/21.
[2021-10-26] MEDS: CEFEPIME HCL IV Push 1 GM VIAL. IVP SCH (15:04)
[2021-10-26] MEDS: MULTIVITAMIN with MINERAL TABLET. PO SCH (21:43)
[2021-10-26] MEDS: ASCORBIC ACID 500 MG TABLET PO SCH (21:43)
[2021-10-27] MEDS: IV NORMAL SALINE 1000ML BAG 1,000 ML IV SCH ×3 (01:45→21:19)
[2021-10-27 03:06] VITALS: BP 108/52
[2021-10-27 07:00] VITALS: BP 101/43
[2021-10-27] MEDS: INSULIN LISPRO 300 UNITS/3 ML VIAL. SQ SCH ×3 (07:37→17:00)
[2021-10-27 07:43] LABS: BASO % 0 % (0-3); EOS # 0.6 x10^3/uL (0.0-0.7); EOS % 6 % (0-3); HEMATOCRIT 29.5 % (39.0-53.0); HEMOGLOBIN 9.4 g/dL (13.0-17.5); LYMPH # 0.9 x10^3/uL (1.0-4.8); LYMPH % 9 % (24-48); MEAN CORPUSCULAR HEMOGLOBIN 31 pg (25-35); MEAN CORPUSCULAR HGB CONC 32 g/dL (31-37); MEAN CORPUSCULAR VOLUME 97 fL (79-100); MONO # 0.6 x10^3/uL (0.0-1.1); MONO % 6 % (0-9); NEUT # 7.7 x10^3/uL (1.8-7.7); NEUT % 79 % (31-73); PLATELET COUNT 266 x10^3/uL (140-400); RED BLOOD COUNT 3.04 x10^6/uL (4.30-5.70); RED CELL DISTRIBUTION WIDTH 14.3 % (11.5-14.5); WHITE BLOOD COUNT 9.8 x10^3/uL (4.0-11.0)
[2021-10-27 08:16] LABS: CALCIUM 10.2 mg/dL (8.5-10.1); GFR 20.2; MAGNESIUM 2.3 mg/dL (1.8-2.4); POTASSIUM 3.6 mmol/L (3.5-5.1)
[2021-10-27] MEDS: MULTIVITAMIN with MINERAL TABLET. PO SCH (09:37)
[2021-10-27] MEDS: ASPIRIN ENTERIC COATED 325 MG TABLET.DR. PO SCH (09:37)
[2021-10-27] MEDS: LACTOBACILLUS RHAMNOSUS GG 1 CAPSULE. PO SCH ×2 (09:38→21:18)
[2021-10-27] MEDS: LEVOTHYROXINE 100 MCG TABLET PO SCH (09:38)
[2021-10-27] MEDS: TAMSULOSIN 0.4 MG CAP.ER.24H. PO SCH (09:38)
[2021-10-27] MEDS: ASCORBIC ACID 500 MG TABLET PO SCH (09:38)
[2021-10-27] MEDS: HEPARIN for SUB-Q USE 5,000 UNIT/ML VIAL. SQ SCH ×2 (10:04→21:18)
--- NOTE | 2021-10-27 10:45 | PDOC ---
Renal-Progress Notes Subjective Notes Notes NO NEW COMPLAINTS History of Present Illness Hx of present illness STABLE Vitals Vitals Vital Signs Date Time Temp Pulse Resp B/P (MAP) Pulse Ox O2 Delivery O2 Flow Rate FiO2 10/27/21 07:00 98.5 75 18 101/43 (62) 93 Room Air 98.5 Weight Weight [ ] I.O. Intake and Output Intake and Output 10/27/21 07:00 Intake Total 1480 ml Output Total 350 ml Balance 1130 ml Intake Oral 380 ml IV Total 1100 ml Output Urine Total 350 ml Labs Labs Laboratory Tests Test 10/26/21 12:11 10/26/21 17:09 10/26/21 19:21 10/27/21 06:45 Glucose (Fingerstick) 103 mg/dL (70-99) 136 mg/dL (70-99) 149 mg/dL (70-99) White Blood Count 9.8 x10^3/uL (4.0-11.0) Red Blood Count 3.04 x10^6/uL (4.30-5.70) Hemoglobin 9.4 g/dL (13.0-17.5) Hematocrit 29.5 % (39.0-53.0) Mean Corpuscular Volume 97 fL (79-100) Mean Corpuscular Hemoglobin 31 pg (25-35) Mean Corpuscular Hemoglobin Concent 32 g/dL (31-37) Red Cell Distribution Width 14.3 % (11.5-14.5) Platelet Count 266 x10^3/uL (140-400) Neutrophils (%) (Auto) 79 % (31-73) Lymphocytes (%) (Auto) 9 % (24-48) Monocytes (%) (Auto) 6 % (0-9) Eosinophils (%) (Auto) 6 % (0-3) Basophils (%) (Auto) 0 % (0-3) Neutrophils # (Auto) 7.7 x10^3/uL (1.8-7.7) Lymphocytes # (Auto) 0.9 x10^3/uL (1.0-4.8) Monocytes # (Auto) 0.6 x10^3/uL (0.0-1.1) Eosinophils # (Auto) 0.6 x10^3/uL (0.0-0.7) Basophils # (Auto) 0.0 x10^3/uL (0.0-0.2) Sodium Level 141 mmol/L (136-145) Potassium Level 3.6 mmol/L (3.5-5.1) Chloride Level 110 mmol/L (98-107) Carbon Dioxide Level 18 mmol/L (21-32) Anion Gap 13 (6-14) Blood Urea Nitrogen 47 mg/dL (8-26) Creatinine 3.0 mg/dL (0.7-1.3) Estimated GFR (Cockcroft-Gault) 20.2 Glucose Level 104 mg/dL (70-99) Calcium Level 10.2 mg/dL (8.5-10.1) Magnesium Level 2.3 mg/dL (1.8-2.4) Test 10/27/21 07:31 Glucose (Fingerstick) 95 mg/dL (70-99) Micro Micro Microbiology 10/24/21 Urine Culture - Final, Complete 10/24/21 Blood Culture - Preliminary, Resulted NO GROWTH AFTER 2 DAYS Review of Systems Constitutional: yes: other (CONFUSED) Physical Exam General Appearance: no apparent distress Skin: warm Respiratory: decreased breath sounds Heart: S1S2 Abdomen: soft, bowel sounds present Genitourinary: bladder flat Extremities: pulses present Neurology: alert, confused Assessment Assessment IMP NANCY-CR OF 4.8-IMPROVED TO 3.0 CKD STAGE 3B - CR OF ABOUT 1.5 PANCREATITIS PYELONEPHRITIS DEHYDRATION HYPONATERMIA-IMPROVED HYPERCALCEMIA-CA BETTER AT 105 HX OF LEFT URETERAL STONE AND STENT MILD BILATERAL HYDRONEPHROSIS-PROB CHRONIC APPEARANCE HX OF DM II PLAN HOLD METFORMIN HYDRATION ANTIBIOTICS LABS IN AM AMANDA MEJIA MD Oct 27, 2021 10:45
[2021-10-27 11:00] VITALS: BP 108/55
--- NOTE | 2021-10-27 11:12 | PDOC ---
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 NANCY due to vasomotor nephropathy versus obstructive uropathy Anemia of chronic disease History of diabetes mellitus type 2 History of hypertension History of dyslipidemia History of paroxysmal atrial fibrillation History of CHRIS History of left ureteral stent placement in 2018 History of left anterior TMA 2004 History of Present Illness History of Present Illness 10/27/2021 Patient seen and examined Discussed with his and daughter Chart reviewed Discussed with case management Discussed with RN His white count has resolved He still has an NANCY with a creatinine of 3 Clinically improving We hope to discharge tomorrow if his creatinine continues to trend down 10/26/2021 Patient seen and examined Discussed with wound care team Discussed with case management Discussed with RN Chart reviewed 10/25/2021 Patient seen and examined Discussed with RN Chart reviewed He has IV Flagyl hanging Currently using bed commode Has Earl to bedside drainage States he lives at home with his Vitals/I&O Vitals/I&O: Vital Signs Date Time Temp Pulse Resp B/P (MAP) Pulse Ox O2 Delivery O2 Flow Rate FiO2 10/27/21 07:00 98.5 75 18 101/43 (62) 93 Room Air 98.5 I & O 10/26/21 10/26/21 10/27/21 15:00 23:00 07:00 Intake Total 100 ml 1280 ml 100 ml Output Total 350 ml Balance 100 ml 1280 ml -250 ml Physical Exam General: Alert, Cooperative, No acute distress Heart: Regular rate, Other (OCC LAKESHIA) Lungs: Clear, Crackles Abdomen: Normal bowel sounds Extremities: No clubbing Skin: No breakdown Labs Labs: Laboratory Tests Test 10/26/21 12:11 10/26/21 17:09 10/26/21 19:21 10/27/21 06:45 Glucose (Fingerstick) 103 mg/dL (70-99) 136 mg/dL (70-99) 149 mg/dL (70-99) White Blood Count 9.8 x10^3/uL (4.0-11.0) Red Blood Count 3.04 x10^6/uL (4.30-5.70) Hemoglobin 9.4 g/dL (13.0-17.5) Hematocrit 29.5 % (39.0-53.0) Mean Corpuscular Volume 97 fL (79-100) Mean Corpuscular Hemoglobin 31 pg (25-35) Mean Corpuscular Hemoglobin Concent 32 g/dL (31-37) Red Cell Distribution Width 14.3 % (11.5-14.5) Platelet Count 266 x10^3/uL (140-400) Neutrophils (%) (Auto) 79 % (31-73) Lymphocytes (%) (Auto) 9 % (24-48) Monocytes (%) (Auto) 6 % (0-9) Eosinophils (%) (Auto) 6 % (0-3) Basophils (%) (Auto) 0 % (0-3) Neutrophils # (Auto) 7.7 x10^3/uL (1.8-7.7) Lymphocytes # (Auto) 0.9 x10^3/uL (1.0-4.8) Monocytes # (Auto) 0.6 x10^3/uL (0.0-1.1) Eosinophils # (Auto) 0.6 x10^3/uL (0.0-0.7) Basophils # (Auto) 0.0 x10^3/uL (0.0-0.2) Sodium Level 141 mmol/L (136-145) Potassium Level 3.6 mmol/L (3.5-5.1) Chloride Level 110 mmol/L (98-107) Carbon Dioxide Level 18 mmol/L (21-32) Anion Gap 13 (6-14) Blood Urea Nitrogen 47 mg/dL (8-26) Creatinine 3.0 mg/dL (0.7-1.3) Estimated GFR (Cockcroft-Gault) 20.2 Glucose Level 104 mg/dL (70-99) Calcium Level 10.2 mg/dL (8.5-10.1) Magnesium Level 2.3 mg/dL (1.8-2.4) Test 10/27/21 07:31 10/27/21 11:01 Glucose (Fingerstick) 95 mg/dL (70-99) 136 mg/dL (70-99) Assessment and Plan Assessmemt and Plan Problems Medical Problems: (1) Acute pancreatitis Status: Acute (2) Acute renal insufficiency Status: Acute (3) Other fatigue Status: Acute (4) Pyelonephritis Status: Acute (5) Severe sepsis Status: Acute Sepsis Pyelo Renal failure Generalized weakness, suggestive of viral gastroenteritis Acute pancreatitis Acute cystitis, concern for pyelonephritis Hyponatremia suggestive of volume depletion Hypercalcemia Peripheral vascular disease with an isolated stenosis at the right [employer]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 intake Trend labs The family would like to get him home instead of halfway hopefully tomorrow if his creatinine is improving DPOA: Comment Review of Relevant I have reviewed the following items yanick (where applicable) has been applied. Medications: Current Medications Medications (Trade) Dose Ordered Sig/Nate Route PRN Reason Start Time Stop Time Status Last Admin Dose Admin Ascorbic Acid (Vitamin C) 500 mg DAILY PO 10/26/21 19:00 10/27/21 09:38 Multivitamins (Thera M Plus) 1 tab DAILY PO 10/26/21 19:00 10/27/21 09:37 Justifications for Admission Other Justification Acute pancreatitis JENA LE III DO Oct 27, 2021 11:12
[2021-10-27] MEDS: CEFEPIME HCL IV Push 1 GM VIAL. IVP SCH (13:58)
[2021-10-27 15:00] VITALS: BP 105/47
[2021-10-27 19:00] VITALS: BP 121/61
[2021-10-27] MEDS: CIPROFLOXACIN HCL 250 MG TABLET. PO SCH (21:17)
[2021-10-27 22:38] VITALS: BP 109/51
[2021-10-28 03:11] VITALS: BP 113/58
[2021-10-28 06:50] LABS: CALCIUM 9.9 mg/dL (8.5-10.1); CREATININE 2.7 mg/dL (0.7-1.3); GFR 22.9; POTASSIUM 3.3 mmol/L (3.5-5.1)
[2021-10-28 07:00] VITALS: BP 117/59
[2021-10-28] MEDS: INSULIN LISPRO 300 UNITS/3 ML VIAL. SQ SCH ×3 (08:00→16:52)
[2021-10-28] MEDS: IV NORMAL SALINE 1000ML BAG 1,000 ML IV SCH (08:16)
[2021-10-28] MEDS: ASCORBIC ACID 500 MG TABLET PO SCH (08:18)
[2021-10-28] MEDS: ASPIRIN ENTERIC COATED 325 MG TABLET.DR. PO SCH (08:18)
[2021-10-28] MEDS: LACTOBACILLUS RHAMNOSUS GG 1 CAPSULE. PO SCH ×2 (08:18→20:40)
[2021-10-28] MEDS: LEVOTHYROXINE 100 MCG TABLET PO SCH (08:18)
[2021-10-28] MEDS: TAMSULOSIN 0.4 MG CAP.ER.24H. PO SCH (08:19)
[2021-10-28] MEDS: MULTIVITAMIN with MINERAL TABLET. PO SCH (08:19)
[2021-10-28] MEDS: HEPARIN for SUB-Q USE 5,000 UNIT/ML VIAL. SQ SCH ×2 (08:34→20:42)
--- NOTE | 2021-10-28 10:25 | PDOC ---
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 cont current DC in AM discussion was over 20 min in room 10/27/2021 Patient seen and examined Discussed with his and daughter Chart reviewed Discussed with case management Discussed with RN His white count has resolved He still has an NANCY with a creatinine of 3 Clinically improving We hope to discharge tomorrow if his creatinine continues to trend down 10/26/2021 Patient seen and examined Discussed with wound care team Discussed with case management Discussed with RN Chart reviewed 10/25/2021 Patient seen and examined Discussed with RN Chart reviewed He has IV Flagyl hanging Currently using bed commode Has Earl to bedside drainage States he lives at home with his Vitals/I&O Vitals/I&O: Vital Signs Date Time Temp Pulse Resp B/P (MAP) Pulse Ox O2 Delivery O2 Flow Rate FiO2 10/28/21 07:00 97.9 78 18 117/59 (78) 90 Room Air 97.9 I & O 10/27/21 10/27/21 10/28/21 15:00 23:00 07:00 Intake Total 100 ml Output Total 850 ml Balance 100 ml -850 ml Physical Exam General: Alert, Cooperative, No acute distress Heart: Regular rate, Other (OCC LAKESHIA) Lungs: Clear, Crackles Abdomen: Normal bowel sounds Extremities: No clubbing Skin: No breakdown Labs Labs: Laboratory Tests Test 10/27/21 11:01 10/27/21 17:20 10/27/21 18:43 10/28/21 05:45 Glucose (Fingerstick) 136 mg/dL (70-99) 113 mg/dL (70-99) 139 mg/dL (70-99) Sodium Level 139 mmol/L (136-145) Potassium Level 3.3 mmol/L (3.5-5.1) Chloride Level 109 mmol/L (98-107) Carbon Dioxide Level 18 mmol/L (21-32) Anion Gap 12 (6-14) Blood Urea Nitrogen 41 mg/dL (8-26) Creatinine 2.7 mg/dL (0.7-1.3) Estimated GFR (Cockcroft-Gault) 22.9 Glucose Level 105 mg/dL (70-99) Calcium Level 9.9 mg/dL (8.5-10.1) Test 10/28/21 07:41 Glucose (Fingerstick) 95 mg/dL (70-99) Assessment and Plan Assessmemt and Plan Problems Medical Problems: (1) Acute pancreatitis Status: Acute (2) Acute renal insufficiency Status: Acute (3) Other fatigue Status: Acute (4) Pyelonephritis Status: Acute (5) Severe sepsis Status: Acute Comment Review of Relevant I have reviewed the following items yanick (where applicable) has been applied. Medications: Current Medications Medications (Trade) Dose Ordered Sig/Nate Route PRN Reason Start Time Stop Time Status Last Admin Dose Admin Ciprofloxacin (Cipro) 500 mg QHS PO 10/27/21 21:00 10/27/21 21:17 Justifications for Admission Other Justification Acute pancreatitis CHANDU QUEZADA MD Oct 28, 2021 10:25
--- NOTE | 2021-10-28 10:34 | PDOC ---
Renal-Progress Notes Subjective Notes Notes NO NEW COMPLAINTS History of Present Illness Hx of present illness STABLE Vitals Vitals Vital Signs Date Time Temp Pulse Resp B/P (MAP) Pulse Ox O2 Delivery O2 Flow Rate FiO2 10/28/21 07:00 97.9 78 18 117/59 (78) 90 Room Air 97.9 Weight Weight [ ] I.O. Intake and Output Intake and Output 10/28/21 07:00 Intake Total 100 ml Output Total 850 ml Balance -750 ml IV Total 100 ml Output Urine Total 850 ml Labs Labs Laboratory Tests Test 10/27/21 11:01 10/27/21 17:20 10/27/21 18:43 10/28/21 05:45 Glucose (Fingerstick) 136 mg/dL (70-99) 113 mg/dL (70-99) 139 mg/dL (70-99) Sodium Level 139 mmol/L (136-145) Potassium Level 3.3 mmol/L (3.5-5.1) Chloride Level 109 mmol/L (98-107) Carbon Dioxide Level 18 mmol/L (21-32) Anion Gap 12 (6-14) Blood Urea Nitrogen 41 mg/dL (8-26) Creatinine 2.7 mg/dL (0.7-1.3) Estimated GFR (Cockcroft-Gault) 22.9 Glucose Level 105 mg/dL (70-99) Calcium Level 9.9 mg/dL (8.5-10.1) Test 10/28/21 07:41 Glucose (Fingerstick) 95 mg/dL (70-99) Micro Micro Microbiology 10/24/21 Urine Culture - Final, Complete 10/24/21 Blood Culture - Preliminary, Resulted NO GROWTH AFTER 3 DAYS Review of Systems Constitutional: yes: other (CONFUSED) Physical Exam General Appearance: no apparent distress Skin: warm Respiratory: decreased breath sounds Heart: S1S2 Abdomen: soft, bowel sounds present Genitourinary: bladder flat Extremities: pulses present Neurology: alert, confused Assessment Assessment IMP NANCY-CR OF 4.8-IMPROVED TO 2.7 CKD STAGE 3B - CR OF ABOUT 1.5 PANCREATITIS PYELONEPHRITIS DEHYDRATION HYPONATERMIA-RESOLVED HYPERCALCEMIA-RESOLVED HYPOKALEMIA HX OF LEFT URETERAL STONE AND STENT MILD BILATERAL HYDRONEPHROSIS-PROB CHRONIC APPEARANCE HX OF DM II PLAN REPLACE K HOLD METFORMIN HYDRATION ANTIBIOTICS LABS IN AM AMANDA MEJIA MD Oct 28, 2021 10:34
[2021-10-28 11:00] VITALS: BP 103/51
[2021-10-28] MEDS: POTASSIUM CHLORIDE 20 MEQ in IV NORMAL SALINE 1000ML BAG 1,000 ML IV SCH (12:08)
[2021-10-28 15:00] VITALS: BP 98/43
[2021-10-28 19:00] VITALS: BP 106/46
[2021-10-28] MEDS: CIPROFLOXACIN HCL 250 MG TABLET. PO SCH (20:40)
[2021-10-28 23:06] VITALS: BP 103/44
[2021-10-29] MEDS: POTASSIUM CHLORIDE 20 MEQ in IV NORMAL SALINE 1000ML BAG 1,000 ML IV SCH (00:55)
[2021-10-29 03:39] VITALS: BP_SYST 119; BP_SYST 147; BP_DIAS 67; BP_DIAS 72
[2021-10-29] MEDS: LEVOTHYROXINE 100 MCG TABLET PO SCH (07:40)
[2021-10-29 08:00] VITALS: BP 124/88
[2021-10-29] MEDS: INSULIN LISPRO 300 UNITS/3 ML VIAL. SQ SCH ×2 (08:00→12:07)
[2021-10-29 08:03] LABS: CALCIUM 9.7 mg/dL (8.5-10.1); CREATININE 2.6 mg/dL (0.7-1.3); GFR 23.9; POTASSIUM 4.2 mmol/L (3.5-5.1)
[2021-10-29] MEDS: ASPIRIN ENTERIC COATED 325 MG TABLET.DR. PO SCH (08:25)
[2021-10-29] MEDS: TAMSULOSIN 0.4 MG CAP.ER.24H. PO SCH (08:25)
[2021-10-29] MEDS: LACTOBACILLUS RHAMNOSUS GG 1 CAPSULE. PO SCH (08:25)
[2021-10-29] MEDS: ASCORBIC ACID 500 MG TABLET PO SCH (08:25)
[2021-10-29] MEDS: MULTIVITAMIN with MINERAL TABLET. PO SCH (08:25)
[2021-10-29] MEDS: HEPARIN for SUB-Q USE 5,000 UNIT/ML VIAL. SQ SCH (08:32)
[2021-10-29] MEDS ORDERED: SODIUM BICARBONATE VIAL 150 MEQ in IV STERILE WATER 1,000 ML IV SCH (08:45)
--- NOTE | 2021-10-29 10:36 | PDOC ---
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 NANCY due to vasomotor nephropathy versus obstructive uropathy Anemia of chronic disease History of diabetes mellitus type 2 History of hypertension History of dyslipidemia History of paroxysmal atrial fibrillation History of CHRIS History of left ureteral stent placement in 2018 History of left anterior TMA 2004 History of Present Illness History of Present Illness 10/29/2021 Patient seen and examined He seems to be at his baseline Creatinine is plateaued at 2.6 I reviewed the chart with his daughter and granddaughter Discussed with RN Discussed with case management We will go ahead and discharge home with home health (I offered group home but the family wants to get him home) 10/28, creatinine 2.7, getting better, cont the IV fluid, OOB to chair family to help with some therapy,l they will [id number] on side of bed for exercise. cont current DC in AM discussion was over 20 min in room 10/27/2021 Patient seen and examined Discussed with his and daughter Chart reviewed Discussed with case management Discussed with RN His white count has resolved He still has an NANCY with a creatinine of 3 Clinically improving We hope to discharge tomorrow if his creatinine continues to trend down 10/26/2021 Patient seen and examined Discussed with wound care team Discussed with case management Discussed with RN Chart reviewed 10/25/2021 Patient seen and examined Discussed with RN Chart reviewed He has IV Flagyl hanging Currently using bed commode Has Earl to bedside drainage States he lives at home with his Vitals/I&O Vitals/I&O: Vital Signs Date Time Temp Pulse Resp B/P (MAP) Pulse Ox O2 Delivery O2 Flow Rate FiO2 10/29/21 08:00 Room Air 10/29/21 08:00 98.1 80 16 124/88 (100) 94 98.1 I & O 10/28/21 10/28/21 10/29/21 15:00 23:00 07:00 Intake Total 54 ml 60 ml 60 ml Output Total 1800 ml 950 ml Balance -1746 ml 60 ml -890 ml Physical Exam General: Alert, Cooperative, No acute distress Heart: Regular rate, Other (OCC LAKESHIA) Lungs: Clear, Crackles Abdomen: Normal bowel sounds Extremities: No clubbing Skin: No breakdown Labs Labs: Laboratory Tests Test 10/28/21 11:47 10/28/21 16:39 10/28/21 19:33 10/29/21 06:35 Glucose (Fingerstick) 116 mg/dL (70-99) 133 mg/dL (70-99) 141 mg/dL (70-99) Sodium Level 143 mmol/L (136-145) Potassium Level 4.2 mmol/L (3.5-5.1) Chloride Level 114 mmol/L (98-107) Carbon Dioxide Level 17 mmol/L (21-32) Anion Gap 12 (6-14) Blood Urea Nitrogen 37 mg/dL (8-26) Creatinine 2.6 mg/dL (0.7-1.3) Estimated GFR (Cockcroft-Gault) 23.9 Glucose Level 113 mg/dL (70-99) Calcium Level 9.7 mg/dL (8.5-10.1) Magnesium Level 2.0 mg/dL (1.8-2.4) Test 10/29/21 08:13 Glucose (Fingerstick) 94 mg/dL (70-99) Assessment and Plan Assessmemt and Plan Problems Medical Problems: (1) Acute pancreatitis Status: Acute (2) Acute renal insufficiency Status: Acute (3) Other fatigue Status: Acute (4) Pyelonephritis Status: Acute (5) Severe sepsis Status: Acute Sepsis Pyelo Renal failure Generalized weakness, suggestive of viral gastroenteritis Acute pancreatitis Acute cystitis, concern for pyelonephritis Hyponatremia suggestive of volume depletion Hypercalcemia Peripheral vascular disease with an isolated stenosis at the right ELEVATOR INSPECTOR with peak velocities NANCY due to vasomotor nephropathy versus obstructive uropathy Anemia of chronic disease History of diabetes mellitus type 2 History of hypertension History of dyslipidemia History of paroxysmal atrial fibrillation History of CHRIS History of left ureteral stent placement in 2018 History of left anterior TMA 2004 Plan Discharge home with home health and p.o. antibiotic for now continue the following; Continue wound care IV antibiotics IV fluids We are trending his creatinine Home meds DVT prophylaxis Full code Appreciate nephrology input PT OT Encourage p.o. intake Trend labs The family would like to get him home instead of group home DPOA: Comment Review of Relevant I have reviewed the following items yanick (where applicable) has been applied. Medications: Current Medications Medications (Trade) Dose Ordered Sig/Nate Route PRN Reason Start Time Stop Time Status Last Admin Dose Admin Potassium Chloride 20 meq/ Sodium Chloride 1,010 ml @ 75 mls/hr [id number] IV 10/28/21 11:30 10/29/21 01:00 DC 10/29/21 00:55 Potassium Chloride/Sodium Chloride 1,000 ml @ 75 mls/hr [id number] IV 10/29/21 01:00 10/29/21 08:34 DC 10/29/21 00:58 Sodium Bicarbonate 150 meq/Sterile Water 1,150 ml @ 100 mls/hr [id number] IV 10/29/21 08:45 10/29/21 09:27 Justifications for Admission Other Justification Acute pancreatitis JENA LE III DO Oct 29, 2021 10:36
[2021-10-29] MEDS ORDERED: CIPR250T30 PO (10:40)
--- NOTE | 2021-10-29 10:41 | SNU/HH DC ---
DISCHARGE WITH HOME HEALTH DISCHARGE INFORMATION: Final Diagnosis: Problems Medical Problems: (1) Acute pancreatitis Status: Acute (2) Acute renal insufficiency Status: Acute (3) Other fatigue Status: Acute (4) Pyelonephritis Status: Acute (5) Severe sepsis Status: Acute Condition on Discharge: Stable CODE STATUS: Code Status: Full HOME HEALTH: Face to Face: I certify this patient is under my care and that I, or a nurse practitioner or physician's fast food sales assistant working with me, had a face to face encounter that meets the physician face to face encounter requirements with this patient on []. 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 POST DISCHARGE ORDERS: Activity Instructions for Disc: Activity as tolerated Weight Bearing Status after Di: As tolerated DIET AFTER DISCHARGE: Cardiac CHECKS AFTER DISCHARGE: Checks after discharge: Check blood press - daily, Check blood sugar, ac/hs, Weigh Yourself Daily TREATMENT/EQUIPMENT ORDERS: Adaptive Equipment Issued: Sock aid, Walker CERTIFICATION STATEMENT: Certification Statement: Certification Statement: Based on the above finding, I certify that this patient is confined to the home and needs intermittent mcfp care, physical therapy and/or speech therapy, or continues to need occupational therapy.~ This patient is under my care, and I have initiated the establishment of the plan of care.~ This patient will be followed by myself or a community physician who will periodically review the plan of care. Home Meds Active Scripts Ciprofloxacin Hcl (CIPRO) 250 Mg Tablet, 500 MG PO QHS for . for 7 Days, #7 TAB Prov:CASTLENIAL K III DO 10/29/21 Hydrocodone/Apap 5-325 (NORCO 5-325 TABLET) 1 Each Tablet, 1 TAB PO TID for pain, #10 TAB 0 Refills Prov:AYLIN MAST MD 03/16/18 Tamsulosin Hcl (TAMSULOSIN HCL) 0.4 Mg Cap.er.24h, 1 CAP PO DAILY for stent pain, #10 CAP 5 Refills Prov:AYLIN MAST MD 03/16/18 Reported Medications Gluc 2KCL/Chondr/Caren Hy/Hy Ac (GLUCOSAMINE & CHONDROITIN CAP) 1 Each Capsule, 1 EACH PO DAILY, CAP 03/15/18 Multivitamin With Minerals (MULTIPLE VITAMIN) 1 Each Tablet, 1 EACH PO DAILY, TAB 03/15/18 Furosemide (LASIX) 20 Mg Tablet, 1 TAB PO PRN DAILY PRN for WATER RETENTION, #90 TAB 1 Refill 03/15/18 Aspirin (ASPIRIN EC) 325 Mg Tablet.dr, 1 TAB PO DAILY, #30 TAB 5 Refills 01/16/18 Chlorpheniramine Maleate (CHLOR-TRIMETON) 4 Mg Tablet, 4 MG PO PRN DAILY PRN for ALLERGIES 08/06/16 Levothyroxine Sodium (LEVOTHYROXINE SODIUM) 100 Mcg Tablet, 100 MCG PO DAILYAC for THYROID SUPPLEMENT, #30 TAB 0 Refills 08/06/16 Fenofibrate (LOFIBRA) 160 Mg Tablet, 160 MG PO DAILY 08/06/16 Metformin Hcl (METFORMIN HCL) 500 Mg Tablet, 500 MG PO BID for ANTI-DIABETIC, TAB 0 Refills 08/06/16 Discontinued Reported Medications Amoxicillin/Potassium Clav (AMOX TR-K CLV 500-125 MG TAB) 1 Each Tablet, 1 TAB PO BID, #14 TAB 03/16/18 JENA LE III DO Oct 29, 2021 10:41
--- NOTE | 2021-10-29 10:50 | PDOC ---
Renal-Progress Notes Subjective Notes Notes NO NEW COMPLAINTS History of Present Illness Hx of present illness STABLE Vitals Vitals Vital Signs Date Time Temp Pulse Resp B/P (MAP) Pulse Ox O2 Delivery O2 Flow Rate FiO2 10/29/21 08:00 Room Air 10/29/21 08:00 98.1 80 16 124/88 (100) 94 98.1 Weight Weight [ ] I.O. Intake and Output Intake and Output 10/29/21 07:00 Intake Total 174 ml Output Total 2750 ml Balance -2576 ml Intake Oral 120 ml IV Total 54 ml Output Urine Total 2750 ml Labs Labs Laboratory Tests Test 10/28/21 11:47 10/28/21 16:39 10/28/21 19:33 10/29/21 06:35 Glucose (Fingerstick) 116 mg/dL (70-99) 133 mg/dL (70-99) 141 mg/dL (70-99) Sodium Level 143 mmol/L (136-145) Potassium Level 4.2 mmol/L (3.5-5.1) Chloride Level 114 mmol/L (98-107) Carbon Dioxide Level 17 mmol/L (21-32) Anion Gap 12 (6-14) Blood Urea Nitrogen 37 mg/dL (8-26) Creatinine 2.6 mg/dL (0.7-1.3) Estimated GFR (Cockcroft-Gault) 23.9 Glucose Level 113 mg/dL (70-99) Calcium Level 9.7 mg/dL (8.5-10.1) Magnesium Level 2.0 mg/dL (1.8-2.4) Test 10/29/21 08:13 Glucose (Fingerstick) 94 mg/dL (70-99) Micro Micro Microbiology 10/24/21 Urine Culture - Final, Complete 10/24/21 Blood Culture - Preliminary, Resulted NO GROWTH AFTER 4 DAYS Review of Systems Constitutional: yes: other (CONFUSED) Physical Exam General Appearance: no apparent distress Skin: warm Respiratory: decreased breath sounds Heart: S1S2 Abdomen: soft, bowel sounds present Genitourinary: bladder flat Extremities: pulses present Neurology: alert, confused Assessment Assessment IMP NANCY-CR OF 4.8-IMPROVED TO 2.6 CKD STAGE 3B - CR OF ABOUT 1.5 PANCREATITIS PYELONEPHRITIS DEHYDRATION-BETTER HYPONATERMIA-RESOLVED HYPERCALCEMIA-RESOLVED HYPOKALEMIA-CORRECTED HX OF LEFT URETERAL STONE AND STENT MILD BILATERAL HYDRONEPHROSIS-PROB CHRONIC APPEARANCE HX OF DM II PLAN ENC HYDRATION D/C PLANS NOTED WILL FOLLOW AMANDA BECERRA MD Oct 29, 2021 10:50
--- NOTE | 2021-10-29 10:56 | NUR ---
SS following up with discharge planning. SS reviewed pt chart and discussed with pt RN. Pt is currently on room air. COVID19 negative. Discharge orders on the chart for home with home healthcare. Discharge orders and referral phoned and faxed to [facility], ; fax [phone]. Pt's RN notified.
[2021-10-29 11:00] VITALS: BP 112/56
--- NOTE | 2021-10-29 11:28 | DS ---
DATE OF DISCHARGE: 10/29/2021 ADMITTING DIAGNOSES: Sepsis, pancreatitis, possible gastroenteritis, cystitis, pyelonephritis, hyponatremia, hypercalcemia, acute kidney injury. DISCHARGE DIAGNOSES: Resolving pyelonephritis, resolving pancreatitis, resolving cystitis, resolving hyponatremia, resolving acute kidney injury, resolving hypercalcemia, anemia of chronic disease, diabetes, hypertension, hyperlipidemia, paroxysmal atrial fibrillation, obstructive sleep apnea, left ureteral stent and left anterior TMA. CONSULTS: Dr. Spears. PROCEDURES: None. HOSPITAL COURSE: The patient is a pleasant elderly male who has multiple comorbidities, presented with generalized weakness and gastrointestinal symptoms. He was noted to have a UTI as well. He is very weak. We admitted the patient, gave him IV antibiotics and fluids. Today, I saw and examined him. He is doing well. We consulted Dr. Spears as his creatinine had been running high, but we have got it down. It appears to have plateaued at 2.6. Family would like to get him home with home health. I offered intermediate, but they would rather have home health. We plan to discharge. DISPOSITION: Home. ACTIVITY: As tolerated. DIET: Cardiac. DISCHARGE MEDICATIONS: Please see the MRAD. Cipro 500 p.o. at bedtime for 7 more days, aspirin 325 a day, fenofibric acid 160 a day, Lasix 20 a day, glucosamine, p.r.n. hydrocodone, Synthroid 100 a day, multiple vitamins and Flomax 0.4 a day. TOTAL TIME: [address]: Darrel TID: [id number]
== END 2021-10-29 16:00 | disposition home health service (06) | DRG 438 ==
LOC: ER 10:16 → 5 NORTH 12:26
PROVIDERS: ADMIT Internal Medicine; ATTEND Internal Medicine
DX: K85.90 Acute pancreatitis without necrosis or infection, unspecified (principal); N17.0 Acute kidney failure with tubular necrosis; E87.1 Hypo-osmolality and hyponatremia; I13.0 Hypertensive heart and chronic kidney disease with heart failure and stage 1 through stage 4 chronic kidney disease, or unspecified chronic kidney disease; J98.11 Atelectasis; K63.2 Fistula of intestine; N13.6 Pyonephrosis; D63.8 Anemia in other chronic diseases classified elsewhere; E11.22 Type 2 diabetes mellitus with diabetic chronic kidney disease; E11.51 Type 2 diabetes mellitus with diabetic peripheral angiopathy without gangrene; E78.1 Pure hyperglyceridemia; E78.5 Hyperlipidemia, unspecified; E83.52 Hypercalcemia; E86.0 Dehydration; E87.6 Hypokalemia; G47.33 Obstructive sleep apnea (adult) (pediatric); I25.10 Atherosclerotic heart disease of native coronary artery without angina pectoris; I27.20 Pulmonary hypertension, unspecified; I48.0 Paroxysmal atrial fibrillation; I50.9 Heart failure, unspecified; J45.909 Unspecified asthma, uncomplicated; K57.30 Diverticulosis of large intestine without perforation or abscess without bleeding; K86.89 Other specified diseases of pancreas; N18.32 Chronic kidney disease, stage 3b; N40.0 Benign prostatic hyperplasia without lower urinary tract symptoms; Z82.49 Family history of ischemic heart disease and other diseases of the circulatory system; Z87.442 Personal history of urinary calculi; Z87.891 Personal history of nicotine dependence; Z95.0 Presence of cardiac pacemaker; F41.9 Anxiety disorder, unspecified; K21.9 Gastro-esophageal reflux disease without esophagitis
CPT/HCPCS: 36415; 71045; 74176; 76705; 80048; 80053; 80307; 81001; 82310; 82962; 83605; 83690; 83735; 84100; 84443; 84484; 85007; 85025; 87040; 87077; 87086; 87428; 93005; 93925; 96361; 96365; 96366; 96375; 96376; J0692; J0696; J1644; J1815; J3480; J3490; J7030; J7120; 97530-GO; 97530-GP; 97535-GO; 99291-25; G0378

== ENCOUNTER 2021-12-02 09:46 | Inpatient (IN) | payer MEDICARE ==
[~2021-12-02] VITALS: Ht 185.4 cm; Wt 79.2 kg
[2021-12-02] VITALS (10 sets, daily range): BP systolic 82–106; BP diastolic 36–61
[~2021-12-02 09:46] MED LIST changes: +CIPR250T30 PO
[2021-12-02 10:18] LABS: BASO # 0.1 x10^3/uL (0.0-0.2); BASO % 1 % (0-3); EOS # 0.2 x10^3/uL (0.0-0.7); EOS % 2 % (0-3); HEMATOCRIT 29.1 % (39.0-53.0); HEMOGLOBIN 9.4 g/dL (13.0-17.5); LYMPH # 1.3 x10^3/uL (1.0-4.8); LYMPH % 12 % (24-48); MEAN CORPUSCULAR HEMOGLOBIN 31 pg (25-35); MEAN CORPUSCULAR HGB CONC 32 g/dL (31-37); MEAN CORPUSCULAR VOLUME 97 fL (79-100); MONO # 0.7 x10^3/uL (0.0-1.1); MONO % 6 % (0-9); NEUT # 8.5 x10^3/uL (1.8-7.7); NEUT % 78 % (31-73); PLATELET COUNT 319 x10^3/uL (140-400); RED CELL DISTRIBUTION WIDTH 15.5 % (11.5-14.5); WHITE BLOOD COUNT 10.8 x10^3/uL (4.0-11.0)
[2021-12-02 10:32] LABS: ALBUMIN 3.4 g/dL (3.4-5.0); ALBUMIN/GLOBULIN RATIO 0.6 (1.0-1.7); CREATININE 7.4 mg/dL (0.7-1.3); GFR 7.1; MAGNESIUM 2.2 mg/dL (1.8-2.4); POTASSIUM 5.1 mmol/L (3.5-5.1); TOTAL BILIRUBIN 0.5 mg/dL (0.2-1.0); TOTAL PROTEIN 8.9 g/dL (6.4-8.2)
[2021-12-02 10:34] LABS: INFLUENZA A PATIENT NEGATIVE (NEGATIVE); INFLUENZA B PATIENT NEGATIVE (NEGATIVE)
--- NOTE | 2021-12-02 11:06 | PHYS DOC ---
Past Medical History Past Medical History: A-Fib, Diabetes-Type II Additional Past Medical Histor: UNSURE IF TYPE1 OR 2 DM, PACEMAKER Past Surgical History: Pacemaker, Other Additional Past Surgical Histo: AMPUTATION OF LEFT TOES Smoking Status: Former Smoker Alcohol Use: None Drug Use: None General Adult EDM: Chief Complaint: FATIGUE HPI: HPI: Patient is a 81-year-old male presents to the emergency department complaining of feeling more tired than usual over the past few days. Patient states his home health nurse came out today and was concerned he may have a urinary tract infection, collected the urine and called an ambulance to bring him to the emergency department. Patient states he was in the hospital a few weeks ago for kidney problems that stem from a urinary tract infection. Patient denies increased urinary frequency, urinary pressure, urinary burning, hematuria or other dysuria. Patient denies chest pains, chest palpitations, chest nasal congestion, patient denies recent fever chills, has not been vaccinated for the COVID-19 virus. Has not had a flu vaccination for this season. Patient denies other physical complaints or physical concerns. Patient reports a past medical history of BPH, hypercholesterol, hypothyroid. States he was being treated for type 2 diabetes however was taken off all his diabetic medications during his last visit/admission here at [facility]. After an extensive chart review patient has a past medical history of A. fib, DM type II,: Tach fistula, kidney stones, CHF, hypertension, pulmonary hypertension, anxiety, GERD, chronic renal insufficiency, BPH, asthma, bronchitis. Patient has a past surgical history of a left ureteral stent placement, pacemaker, amputation of left toes Review of Systems: Review of Systems: 14 body systems of review of systems have been reviewed. See HPI for pertinent positives and negative responses, otherwise all other systems are negative, nonpertinent or noncontributory. Constitutional: Negative except as outlined in HPI above. Skin: Negative except as outlined in HPI above. Eyes: Negative except as outlined in HPI above. HENT: Negative except as outlined in HPI above. Respiratory: Negative except as outlined in HPI above. Cardiovascular: Negative except as outlined in HPI above. GI: Negative except as outlined in HPI above. : Negative except as outlined in HPI above. Musculoskeletal: Negative except as outlined in HPI above. Integument: Negative except as outlined in HPI above. Neurologic: Negative except as outlined in HPI above. Endocrine: Negative except as outlined in HPI above. Lymphatic: Negative except as outlined in HPI above. Psychiatric: Negative except as outlined in HPI above. Heart Score: C/O Chest Pain: No Risk Factors: Risk Factors: DM, Current or recent (<one month) smoker, HTN, HLP, family history of CAD, obesity. Risk Scores: Score 0 - 3: 2.5% MACE over next 6 weeks - Discharge Home Score 4 - 6: 20.3% MACE over next 6 weeks - Admit for Clinical Observation Score 7 - 10: 72.7% MACE over next 6 weeks - Early Invasive Strategies Allergies: Allergies: Allergies Coded Allergies Type Severity Reaction Last Updated Verified cefpodoxime Allergy Intermediate Rash 12/02/21 Yes Physical Exam: PE: Constitutional: Well developed, well nourished, no acute distress, non-toxic appearance. 81-year-old male in no apparent distress. HENT: Normocephalic, atraumatic. Oropharynx moist, no deep tissue infection process appreciated, patient speaking normal voice tones. Bilateral TMs intact and within normal limits. Eyes: Conjunctiva normal, no discharge. No scleral icterus. Neck: Normal range of motion, no stridor. Cardiovascular: No cyanosis appreciated, distal cap refill less than 2 seconds. Regular rate and rhythm. Lungs & Thorax: Patient is in no respiratory distress, no audible adventitious lung sounds appreciated. Lung sounds are clear to auscultation all lung pedroza. Abdomen: Nontender, no abnormalities noted. Skin: Warm, dry, no erythema, no rash. Back: No tenderness, no deformities. Extremities: No tenderness, no cyanosis, no clubbing, ROM intact, no edema. 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 Neurologic: Alert and oriented X 3, normal motor function, normal sensory function, no focal deficits noted. Psychologic: Affect normal, judgement normal, mood normal. Current Patient Data: Labs: Laboratory Tests Test 12/02/21 10:05 12/02/21 10:12 White Blood Count 10.8 x10^3/uL (4.0-11.0) Red Blood Count 3.00 x10^6/uL (4.30-5.70) L Hemoglobin 9.4 g/dL (13.0-17.5) L Hematocrit 29.1 % (39.0-53.0) L Mean Corpuscular Volume 97 fL (79-100) Mean Corpuscular Hemoglobin 31 pg (25-35) Mean Corpuscular Hemoglobin Concent 32 g/dL (31-37) Red Cell Distribution Width 15.5 % (11.5-14.5) H Platelet Count 319 x10^3/uL (140-400) Neutrophils (%) (Auto) 78 % (31-73) H Lymphocytes (%) (Auto) 12 % (24-48) L Monocytes (%) (Auto) 6 % (0-9) Eosinophils (%) (Auto) 2 % (0-3) Basophils (%) (Auto) 1 % (0-3) Neutrophils # (Auto) 8.5 x10^3/uL (1.8-7.7) H Lymphocytes # (Auto) 1.3 x10^3/uL (1.0-4.8) Monocytes # (Auto) 0.7 x10^3/uL (0.0-1.1) Eosinophils # (Auto) 0.2 x10^3/uL (0.0-0.7) Basophils # (Auto) 0.1 x10^3/uL (0.0-0.2) Sodium Level 133 mmol/L (136-145) L Potassium Level 5.1 mmol/L (3.5-5.1) Chloride Level 101 mmol/L (98-107) Carbon Dioxide Level 12 mmol/L (21-32) L Anion Gap 20 (6-14) H Blood Urea Nitrogen 109 mg/dL (8-26) H Creatinine 7.4 mg/dL (0.7-1.3) H Estimated GFR (Cockcroft-Gault) 7.1 BUN/Creatinine Ratio 15 (6-20) Glucose Level 93 mg/dL (70-99) Calcium Level 9.0 mg/dL (8.5-10.1) Magnesium Level 2.2 mg/dL (1.8-2.4) Total Bilirubin 0.5 mg/dL (0.2-1.0) Aspartate Amino Transferase (AST) 31 U/L (15-37) Alanine Aminotransferase (ALT) 21 U/L (16-63) Alkaline Phosphatase 62 U/L (46-116) Troponin I High Sensitivity 21 ng/L (4-75) Total Protein 8.9 g/dL (6.4-8.2) H Albumin 3.4 g/dL (3.4-5.0) Albumin/Globulin Ratio 0.6 (1.0-1.7) L Influenza Type A Antigen Negative (NEGATIVE) Influenza Type B Antigen Negative (NEGATIVE) SARS-CoV-2 Antigen (Rapid) Negative (NEGATIVE) Laboratory Tests 12/02/21 10:05 Laboratory Tests 12/02/21 10:05 Vital Signs: Vital Signs Date Time Temp Pulse Resp B/P (MAP) Pulse Ox O2 Delivery O2 Flow Rate FiO2 12/02/21 09:47 97.5 70 18 103/57 (72) 99 Room Air 97.5 EKG: EKG: EKG performed at 1004 with a sinus rhythm with occasional PVC, heart rate 74 bpm, ID interval 0.284, QTc interval 0.453. No acute STEMI, no ACS, no acute ischemia appreciated, EKG interpreted by ED attending physician Dr. Cheema. Radiology/Procedures: Radiology/Procedures: REASON: weakness PROCEDURE: CHEST AP ONLY XR CHEST 1V History: Weakness Comparison: 10/24/2021 Technique: Portable AP radiograph of the chest. Findings: Lungs are adequately inflated. No focal airspace consolidation, pleural effusion or pneumothorax. The cardiac silhouette is at the upper limits of normal for size. Dual chamber cardiac pacemaker redemonstrated. Pulmonary vasculature is within normal limits. Decreased osseous mineralization. Soft tissues are unremarkable. Impression: 1. No acute cardiopulmonary process. Electronically signed by: Steve Tyson MD (12/02/2021 11:07 AM) [id number] Course & Med Decision Making: Course & Med Decision Making Pertinent Labs and Imaging studies reviewed. (See chart for details) 81-year-old male, vital signs reviewed, presents emerged department concerning feeling more tired than usual for the past 3 days. Physical examination is unremarkable. Patient's vital signs are within normal limits will order saline lock, twelve-lead EKG, chest x-ray, CBC, CMP, mag level, high-sensitivity troponin I, urinalysis assay. Rapid flu and Covid testing. Critical lab called of serum CO2 equaling 12. Will order acetone level, ABG with coox, salicylate level, ethanol level. Patient's urine is infected, consider starting Rocephin IV regimen, patient has recent admission to hospital with IV antibiotics for similar presentation, discu ssed case with ED attending physician Dr. Cheema, recommended IV azactam. Creatinine 7.4, discussed with patient lab findings, recommended admission to hospital for urinary tract infection, acute renal failure. Patient is amenable to ED admission planning. Called and discussed ED work-up and patient case with inpatient management physician Dr. Zhu who agrees patient case warrants admission to the hospital, recommended consult nephrology for ICU versus CVC unit bed. Called and discussed ED work-up and patient case with nephrology specialist Dr. Spears who recommends patient be admitted to the ICU, consult interventional radiology for emergent dialysis catheter placement, consult urology related to kidney stent and kidney stone history, also recommended sonogram of abdomen renal stone study. Called interventional radiology department to advise them of patient requiring emergent dialysis catheter. Urology consulted, abdomen sonogram study ordered. Patient is awaiting ICU unit bed at this time. Remains hemodynamically stable. Dragon Disclaimer: Dragon Disclaimer: This electronic medical record was generated, in whole or in part, using a voice recognition dictation system. Departure Departure Impression: Primary Impression: Acute renal failure Qualified Codes: N17.9 - Acute kidney failure, unspecified Additional Impressions: Urinary tract infection Qualified Codes: N39.0 - Urinary tract infection, site not specified; R31.9 - Hematuria, unspecified Metabolic acidosis Disposition: 09 ADMITTED INPATIENT Admitting Physician: SAM (Admit to inpatient ICU to Dr. Zhu, consult nephrology, consult urology, consult interventional radiology) Condition: GUARDED Referrals: PRACHI MEMBRENO (PCP) ARSLAN LONG APRN Dec 02, 2021 11:06
[2021-12-02 11:10] LABS: ETHANOL < 10 mg/dL (0-10)
--- NOTE | 2021-12-02 11:10 | RAD ---
XR CHEST 1V History: Weakness Comparison: 10/24/2021 Technique: Portable AP radiograph of the chest. Findings: Lungs are adequately inflated. No focal airspace consolidation, pleural effusion or pneumothorax. The cardiac silhouette is at the upper limits of normal for size. Dual chamber cardiac pacemaker redemon strated. Pulmonary vasculature is within normal limits. Decreased osseous mineralization. Soft tissue s are unremarkable. Impression: 1. No acute cardiopulmonary process. Electronically signed by: Steve Tyson MD (12/02/2021 11:07 AM) [id number]
[2021-12-02 11:14] LABS: BASE EXCESS COOX -20 mmol/L (-3-3); HCO3 COOX 8 mmol/L (21-28); METHEMOGLOBIN 0.2 % (0.0-1.9); PCO2 COOX 26 mmHg (35-46); PO2 COOX 97 mmHg (65-108); SAT O2 COOX 96 % (92-99)
[2021-12-02 11:14] LABS: BACTERIA,URINE MANY /HPF (0-FEW); RBC,URINE FIELD OBSCURED /HPF (0-2); WBC,URINE TNTC /HPF (0-4)
[2021-12-02] MEDS ORDERED: AZTREONAM IV Push 2 GM VIAL. IVP ONE (11:30)
[2021-12-02] MEDS ORDERED: PIPERACILLIN/TAZOBACTAM 2.25 GM in IV NORMAL SALINE 50ML 50 ML IV ONE (11:45)
--- NOTE | 2021-12-02 12:17 | RAD ---
CT ABDOMEN+PELVIS WO History: Renal stone Comparison: CT abdomen and pelvis 10/24/2021 Technique: Noncontrast CT of the abdomen and pelvis. Findings: Lung bases are clear. Right ventricular and right atrial pacemaker leads. Mild coronary artery calcif ications. The liver is unremarkable. Gallbladder appears to be surgically absent. Pancreatic calcifications con sistent with sequela prior pancreatitis. Spleen and adrenal glands are unremarkable. There is a right lower pole 8 mm nephrolith. No left nephrolithiasis. Bilateral hydroureter, similar to comparison with prominent renal pelvises however no significant calyceal dilation. No ureterolithi asis identified. Diffuse bladder wall thickening with pericystic inflammatory stranding. The prostate is mildly enlarged with coarse calcifications. The stomach and small bowel are unremarkable. Normal appendix. Heavy diverticulosis of the descending colon with subtle pericolonic inflammatory fat stranding at the descending colon, subtly increased f rom comparison. No intra-abdominal free air or free fluid. No significant adenopathy. Atherosclerotic calcification o f the aorta and iliac arteries with bilateral common iliac ectasia. Soft tissues are unremarkable. Multilevel degenerative changes in the lumbar spine. Decreased osseous mineralization. Impression: 1. Diffuse bladder wall thickening with adjacent pericystic inflammatory changes concerning for cyst itis. Findings similar to comparison. 2. Similar appearance of bilateral hydroureter and dilation of the renal pelvises without significan t calyceal dilation, possibly chronic finding. No ureterolithiasis. 3. Right lower pole 8 mm nephrolith unchanged. 4. Prominent descending colon diverticulosis with subtle increased pericolonic fat stranding which m ay represent mild uncomplicated descending colonic diverticulitis. ------ Exposure: One or more of the following individualized dose reduction techniques were utilized for thi s examination: 1. Automated exposure control 2. Adjustment of the mA and/or kV according to patient size 3. Use of iterative reconstruction technique. Electronically signed by: Steve Tyson MD (12/02/2021 12:15 PM) [id number]
[2021-12-02] MEDS ORDERED: LIDOCAINE WITH 8.4% SOD BICARB 3 ML DISP.SYRIN. ONE (12:41)
--- NOTE | 2021-12-02 13:06 | RAD ---
EXAM: US RENAL BILAT 12/02/2021 12:08 PM INDICATION: Chronic kidney disease, stone. COMPARISON: CT abdomen pelvis 12/02/2021 11:46 AM TECHNIQUE: grayscale and color Doppler ultrasound images of the kidneys FINDINGS: There is suboptimal visualization of both kidneys and the bladder due to bowel gas. The rig ht kidney measures 10.4 x 4.5 x 5.3 cm. The left kidney measures 9.6 x 4.2 x 4.7 cm. There is unchan ged mild left hydronephrosis. No right hydronephrosis appreciated by ultrasound. The renal calculi se en in the kidneys on CT from earlier today are not well demonstrated by ultrasound. The bladder is de compressed, unable to evaluate. IMPRESSION: 1. Suboptimal visualization of the kidneys due to bowel gas. There is unchanged mild left hydronephro sis. Known renal calculi are not well demonstrated by ultrasound. 2. The bladder is decompressed and cannot be evaluated by ultrasound at this time. Electronically signed by: Teresa Crowell MD (12/02/2021 1:04 PM) [id number]
[2021-12-02] MEDS ORDERED: LIDOCAINE WITH 8.4% SOD BICARB 3 ML DISP.SYRIN. INJ ONE (13:15)
--- NOTE | 2021-12-02 13:39 | RAD ---
AP chest. HISTORY: Temporary dialysis catheter placement AP view was taken of the chest. There is a right dialysis catheter which extends to the right atrium. There is no pneumothorax. Heart is within normal limits in size. Patient rotated to the left. There are no acute infiltrates. IMPRESSION: 1. Right dialysis catheter extends to the right atrium. 2. No pneumothorax. 3. No acute infiltrates. Electronically signed by: Adonis Feldman MD (12/02/2021 1:37 PM) [facility]
--- NOTE | 2021-12-02 13:45 | EKG ---
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
--- NOTE | 2021-12-02 14:27 | PDOC2 ---
UROLOGY CONSULT Date of Service DATE: 12/02/21 TIME: 14:27 Reason for Consult Reason for Consult: UTI, hydronephrosis Identification/Chief Complaint Chief Complaint fatigue History of Present Illness Reason for Visit: 81yo male presented to ER for fatigue. He was found to have NANCY with creatinine of 7.4. He was has UTI and was started on empiric antibiotics. Nephrology was co nsulted and recommended urgent dialysis, IR placed catheter in ER. Pt states he recently began having dysuria and more difficulty voiding. Denies hematuria, fevers, abdominal pain, flank pain. At baseline he endorses urinary incontinence. He was inpatient at [facility] about six weeks ago as well, for pyelonephritis. CT a/p at that time was similar, showing mild bilateral hydroureteronephrosis. Urology not consulted at that time. Pt does have history of kidney stones requiring ureteroscopy in the past. CT did not show any obstructing stones. Past Medical History Cardiovascular: CHF, HTN, Pulmonary hypertension Pulmonary: Asthma, Bronchitis GI: GERD Psych: Anxiety Renal/: Chronic renal insuff, Benign prostatic enlarg. Endocrine: Diabetes Past Surgical History Past Surgical History: Pacemaker, No pertinent history Family History Family History: Hypertension Social History ALCOHOL: none Drugs: None Lives: with Family Current Medications Current Medications Current Medications Aztreonam (Azactam) 2 gm 1X ONCE IVP ; Start 12/02/21 at 11:30; Stop 12/02/21 at 11:31; Status UNV Lidocaine HCl (Buffered Lidocaine 1%) 3 ml STK-MED ONCE .ROUTE ; Start 12/02/21 at 12:41; Stop 12/02/21 at 12:42; Status DC Lidocaine HCl (Buffered Lidocaine 1%) 9 ml 1X ONCE INJ Last administered on 12/02/21at 13:07; Start 12/02/21 at 13:15; Stop 12/02/21 at 13:16; Status DC Piperacillin Sod/ Tazobactam Sod 2.25 gm/Sodium Chloride 50 ml @ 100 mls/hr 1X ONCE IV Last administered on 12/02/21at 12:56; Start 12/02/21 at 11:45; Stop 12/02/21 at 12:14; Status DC Allergies Allergies: Coded Allergies: cefpodoxime (Verified Allergy, Intermediate, Rash, 12/02/21) ROS Review Of Systems: CONSTITUTIONAL: No fever or chills EYES: No recent changes SKIN: No rash or itching CARDIOVASCULAR: No chest pain, syncope, palpitations, or edema RESPIRATORY: No SOB or cough GASTROINTESTINAL: No nausea, vomiting or abdominal pain NEUROLOGICAL: No headaches or weakness ENDOCRINE: No cold or heat intolerance GENITOURINARY: as per HPI MUSCULOSKELETAL: No back pain or joint pain LYMPHATICS: No enlarged lymph nodes PSYCHIATRIC: No anxiety or depression Physical Exam Physical Exam: General: Pleasant, no acute distress, well groomed Eyes: conjunctiva anicteric, eyes full range of motion ENT: moist oral mucosa, normal dentition Neck: Trachea midline, no masses Respiratory: unlabored breathing, not using accessory muscles Cardiovascular: Regular rate and rhythm, no peripheral edema Abdomen: nontender, nondistended Skin: no rashes or skin lesions on visualized skin Psych: normal mood, affect. Alert and oriented x 3. Vitals VITALS Vital Signs Date Time Temp Pulse Resp B/P (MAP) Pulse Ox O2 Delivery O2 Flow Rate FiO2 12/02/21 13:22 68 20 113/56 (75) 99 Room Air 12/02/21 09:47 97.5 97.5 Labs Labs Laboratory Tests Test 12/02/21 10:05 12/02/21 10:12 12/02/21 10:58 12/02/21 11:10 White Blood Count 10.8 x10^3/uL (4.0-11.0) Red Blood Count 3.00 x10^6/uL (4.30-5.70) Hemoglobin 9.4 g/dL (13.0-17.5) Hematocrit 29.1 % (39.0-53.0) Mean Corpuscular Volume 97 fL (79-100) Mean Corpuscular Hemoglobin 31 pg (25-35) Mean Corpuscular Hemoglobin Concent 32 g/dL (31-37) Red Cell Distribution Width 15.5 % (11.5-14.5) Platelet Count 319 x10^3/uL (140-400) Neutrophils (%) (Auto) 78 % (31-73) Lymphocytes (%) (Auto) 12 % (24-48) Monocytes (%) (Auto) 6 % (0-9) Eosinophils (%) (Auto) 2 % (0-3) Basophils (%) (Auto) 1 % (0-3) Neutrophils # (Auto) 8.5 x10^3/uL (1.8-7.7) Lymphocytes # (Auto) 1.3 x10^3/uL (1.0-4.8) Monocytes # (Auto) 0.7 x10^3/uL (0.0-1.1) Eosinophils # (Auto) 0.2 x10^3/uL (0.0-0.7) Basophils # (Auto) 0.1 x10^3/uL (0.0-0.2) Sodium Level 133 mmol/L (136-145) Potassium Level 5.1 mmol/L (3.5-5.1) Chloride Level 101 mmol/L (98-107) Carbon Dioxide Level 12 mmol/L (21-32) Anion Gap 20 (6-14) Blood Urea Nitrogen 109 mg/dL (8-26) Creatinine 7.4 mg/dL (0.7-1.3) Estimated GFR (Cockcroft-Gault) 7.1 BUN/Creatinine Ratio 15 (6-20) Glucose Level 93 mg/dL (70-99) Calcium Level 9.0 mg/dL (8.5-10.1) Magnesium Level 2.2 mg/dL (1.8-2.4) Total Bilirubin 0.5 mg/dL (0.2-1.0) Aspartate Amino Transf (AST/SGOT) 31 U/L (15-37) Alanine Aminotransferase (ALT/SGPT) 21 U/L (16-63) Alkaline Phosphatase 62 U/L (46-116) Troponin I High Sensitivity 21 ng/L (4-75) Total Protein 8.9 g/dL (6.4-8.2) Albumin 3.4 g/dL (3.4-5.0) Albumin/Globulin Ratio 0.6 (1.0-1.7) Salicylates Level 2.0 mg/dL (2.8-20.0) Salicylate Last Dose Date Unknown Salicylate Last Dose Time Unknown Ethyl Alcohol Level < 10 mg/dL (0-10) Acetone Level Neg (NEG) Influenza Type A Antigen Negative (NEGATIVE) Influenza Type B Antigen Negative (NEGATIVE) SARS-CoV-2 Antigen (Rapid) Negative (NEGATIVE) Urine Collection Type Unknown Urine Color (Auto) Light orange Urine Turbidity Turbid Urine pH (Auto) 6.0 (<5.0-8.0) Urine Specific [place] 1.010 (1.000-1.030) Urine Protein (Auto) 70 mg/dL (Negative) Urine Glucose (Auto)(UA) Negative mg/dL (Negative) Urine Ketones (Auto) Negative mg/dL (Negative) Urine Blood (Auto) Moderate (Negative) Urine Nitrite Negative (Negative) Urine Bilirubin (Auto) Negative (Negative) Urine Urobilinogen (Auto) Normal mg/dL (Normal) Urine Leukocyte Esterase (Auto) Large (Negative) Urine RBC Field obscured /HPF (0-2) Urine WBC Tntc /HPF (0-4) Urine Bacteria Many /HPF (0-FEW) O2 Saturation 96 % (92-99) Arterial Blood pH 7.11 (7.35-7.45) Arterial Blood pCO2 at Patient Temp 26 mmHg (35-46) Arterial Blood pO2 at Patient Temp 97 mmHg (65-108) Arterial Blood HCO3 8 mmol/L (21-28) Arterial Blood Base Excess -20 mmol/L (-3-3) Oxyhemoglobin 95.0 % Methemoglobin 0.2 % (0.0-1.9) Carbon Monoxide, Quantitative 0.4 % (0.0-1.9) FiO2 21% Laboratory Tests Test 12/02/21 10:05 12/02/21 10:12 12/02/21 10:58 12/02/21 11:10 White Blood Count 10.8 x10^3/uL (4.0-11.0) Red Blood Count 3.00 x10^6/uL (4.30-5.70) Hemoglobin 9.4 g/dL (13.0-17.5) Hematocrit 29.1 % (39.0-53.0) Mean Corpuscular Volume 97 fL (79-100) Mean Corpuscular Hemoglobin 31 pg (25-35) Mean Corpuscular Hemoglobin Concent 32 g/dL (31-37) Red Cell Distribution Width 15.5 % (11.5-14.5) Platelet Count 319 x10^3/uL (140-400) Neutrophils (%) (Auto) 78 % (31-73) Lymphocytes (%) (Auto) 12 % (24-48) Monocytes (%) (Auto) 6 % (0-9) Eosinophils (%) (Auto) 2 % (0-3) Basophils (%) (Auto) 1 % (0-3) Neutrophils # (Auto) 8.5 x10^3/uL (1.8-7.7) Lymphocytes # (Auto) 1.3 x10^3/uL (1.0-4.8) Monocytes # (Auto) 0.7 x10^3/uL (0.0-1.1) Eosinophils # (Auto) 0.2 x10^3/uL (0.0-0.7) Basophils # (Auto) 0.1 x10^3/uL (0.0-0.2) Sodium Level 133 mmol/L (136-145) Potassium Level 5.1 mmol/L (3.5-5.1) Chloride Level 101 mmol/L (98-107) Carbon Dioxide Level 12 mmol/L (21-32) Anion Gap 20 (6-14) Blood Urea Nitrogen 109 mg/dL (8-26) Creatinine 7.4 mg/dL (0.7-1.3) Estimated GFR (Cockcroft-Gault) 7.1 BUN/Creatinine Ratio 15 (6-20) Glucose Level 93 mg/dL (70-99) Calcium Level 9.0 mg/dL (8.5-10.1) Magnesium Level 2.2 mg/dL (1.8-2.4) Total Bilirubin 0.5 mg/dL (0.2-1.0) Aspartate Amino Transf (AST/SGOT) 31 U/L (15-37) Alanine Aminotransferase (ALT/SGPT) 21 U/L (16-63) Alkaline Phosphatase 62 U/L (46-116) Troponin I High Sensitivity 21 ng/L (4-75) Total Protein 8.9 g/dL (6.4-8.2) Albumin 3.4 g/dL (3.4-5.0) Albumin/Globulin Ratio 0.6 (1.0-1.7) Salicylates Level 2.0 mg/dL (2.8-20.0) Salicylate Last Dose Date Unknown Salicylate Last Dose Time Unknown Ethyl Alcohol Level < 10 mg/dL (0-10) Acetone Level Neg (NEG) Influenza Type A Antigen Negative (NEGATIVE) Influenza Type B Antigen Negative (NEGATIVE) SARS-CoV-2 Antigen (Rapid) Negative (NEGATIVE) Urine Collection Type Unknown Urine Color (Auto) Light orange Urine Turbidity Turbid Urine pH (Auto) 6.0 (<5.0-8.0) Urine Specific [place] 1.010 (1.000-1.030) Urine Protein (Auto) 70 mg/dL (Negative) Urine Glucose (Auto)(UA) Negative mg/dL (Negative) Urine Ketones (Auto) Negative mg/dL (Negative) Urine Blood (Auto) Moderate (Negative) Urine Nitrite Negative (Negative) Urine Bilirubin (Auto) Negative (Negative) Urine Urobilinogen (Auto) Normal mg/dL (Normal) Urine Leukocyte Esterase (Auto) Large (Negative) Urine RBC Field obscured /HPF (0-2) Urine WBC Tntc /HPF (0-4) Urine Bacteria Many /HPF (0-FEW) O2 Saturation 96 % (92-99) Arterial Blood pH 7.11 (7.35-7.45) Arterial Blood pCO2 at Patient Temp 26 mmHg (35-46) Arterial Blood pO2 at Patient Temp 97 mmHg (65-108) Arterial Blood HCO3 8 mmol/L (21-28) Arterial Blood Base Excess -20 mmol/L (-3-3) Oxyhemoglobin 95.0 % Methemoglobin 0.2 % (0.0-1.9) Carbon Monoxide, Quantitative 0.4 % (0.0-1.9) FiO2 21% Images Images Findings: Lung bases are clear. Right ventricular and right atrial pacemaker leads. Mild coronary artery calcifications. The liver is unremarkable. Gallbladder appears to be surgically absent. Pancreatic calcifications consistent with sequela prior pancreatitis. Spleen and adrenal glands are unremarkable. There is a right lower pole 8 mm nephrolith. No left nephrolithiasis. Bilateral hydroureter, similar to comparison with prominent renal pelvises however no significant calyceal dilation. No ureterolithiasis identified. Diffuse bladder wall thickening with pericystic inflammatory stranding. The prostate is mildly enlarged with coarse calcifications. The stomach and small bowel are unremarkable. Normal appendix. Heavy diverticulosis of the descending colon with subtle pericolonic inflammatory fat stranding at the descending colon, subtly increased from comparison. No intra-abdominal free air or free fluid. No significant adenopathy. Atherosclerotic calcification of the aorta and iliac arteries with bilateral common iliac ectasia. Soft tissues are unremarkable. Multilevel degenerative changes in the lumbar spine. Decreased osseous mineralization. Impression: 1. Diffuse bladder wall thickening with adjacent pericystic inflammatory changes concerning for cystitis. Findings similar to comparison. 2. Similar appearance of bilateral hydroureter and dilation of the renal pelvises without significant calyceal dilation, possibly chronic finding. No ureterolithiasis. 3. Right lower pole 8 mm nephrolith unchanged. 4. Prominent descending colon diverticulosis with subtle increased pericolonic fat stranding which may represent mild uncomplicated descending colonic diverticulitis. Assessment/Plan Assessment/Plan Mild bilateral hydroureteronephrosis Images reviewed. No obstructing stones noted. Both ureters dilated down to level of bladder. Diffuse bladder wall thickening. May be chronic. UA with many bacteria. F/u urine cultures, empiric abx. NANCY on CKD - nephrology following and planning emergent dialysis Place simpson, monitor I&O Start tamsulosin Recommend cystoscopy, bilateral retrograde pyelograms in OR. Rule out bladder mass. Possible stent placement if obstruction noted. Discussed reasoning for this with patient, and risks associated. He agrees to proceed. NPO at OR, consent. Procedure scheduled for 12/03 @ 1230. D/w Dr. Coronel D/w ESA LOCKHART Dec 02, 2021 14:27
--- NOTE | 2021-12-02 17:04 | RAD ---
Procedure: Temporary hemodialysis catheter placement 12/02/2021 Sterility: All elements of maximal sterile barrier technique including the use of a cap, mask, steril e gown, sterile gloves, large sterile sheet, appropriate hand hygiene, and 2% chlorhexidine for cutan eous antisepsis (or acceptable alternative antiseptic per current guidelines) were followed for this procedure. Consent: The procedure was explained in its entirety to the patient or the patients designated repres entative by a member of the treatment team, including a discussion of the risks, benefits and commonl y accepted alternatives to the procedure, as well as the expected consequences of no therapy whatsoev er. Discussion of the risks included, but was not limited to, those that are most frequent and thos e that are rare but possibly severe or life-threatening, as well as the possibility of unforeseen com plications. Technique and Findings: Following informed consent, the patient was prepped and draped in the usual s terile fashion. Ultrasound interrogation of the right neck revealed patency and compressibility of t he right internal jugular vein. A 21-gauge micropuncture was then used to gain access to this vein u nder ultrasound guidance. A hard copy ultrasound image was recorded. A guidewire was advanced centra lly over which, following dilatation, a temporary dialysis catheter was placed. The new catheter wa s found to flush and aspirate normally. The catheter was secured in place. Sterile dressings were junaid lied. No immediate complications were identified. IMPRESSION: Placement of a temporary dialysis catheter Electronically signed by: Veto Caceres MD (12/02/2021 5:02 PM) [id number]
[2021-12-02] MEDS ORDERED: DIALYSIS PATIENT. MC PRN ×2 (17:15)
[2021-12-02] MEDS ORDERED: ALBUMIN HUMAN 25% 100 ML IV PRN (17:15)
[2021-12-02] MEDS ORDERED: IV NORMAL SALINE 1000ML BAG 1,000 ML IV PRN ×2 (17:15)
--- NOTE | 2021-12-02 17:58 | PDOC1 ---
History and Physical Date of Admission Date of Admission DATE: 12/02/21 TIME: 17:50 Identification/Chief Complaint Chief Complaint Fatigue Source Source: Caregiver, Chart review History of Present Illness History of Present Illness Patient is 81-year-old male with past medical history BPH, HLD, hypothyroidism, DM2, renal stones, CKD, who presents to the ED with complaints of worsening fatigue over the past few days. Today his home health nurse checked his urine and then sent patient is ER with some concerns for UTI. In the ED his labs admission showed hemoglobin 9.4, hematocrit 24.1, sodium 133, bicarbonate 12, a nion gap 20, BUN 109, creatinine 7.4. ABG was obtained that showed pH 7.11, PCO2 26. Urinalysis showed large leukocyte esterase, negative nitrites, TNTC WBC, many bacteria. Initial CT abdomen/pelvis on admission showed diffuse bladder wall thickening with adjacent pericystic inflammatory changes concerning for cystitis; smilar appearance of bilateral hydroureter and dilation of the renal pelvises without significant calyceal dilation, no ureterolithiasis; right lower pole 8 mm nephrolith that is unchanged. Bilateral renal ultrasound showed suboptimal visualization of the kidneys due to bowel gas; mild left hydronephrosis. Patient will be admitted to ICU for further medical management. Past Medical History Cardiovascular: CHF, HTN, Pulmonary hypertension Pulmonary: Asthma, Bronchitis GI: GERD Psych: Anxiety Renal/: Chronic renal insuff, Benign prostatic enlarg. Endocrine: Diabetes Past Surgical History Past Surgical History: Pacemaker, No pertinent history Family History Family History: Hypertension Social History Smoke: No ALCOHOL: none Drugs: None Current Problem List Problem List Problems Medical Problems: (1) Acute renal failure Status: Acute (2) Metabolic acidosis Status: Acute (3) Urinary tract infection Status: Acute Current Medications Current Medications Current Medications Aztreonam (Azactam) 2 gm 1X ONCE IVP ; Start 12/02/21 at 11:30; Stop 12/02/21 at 11:31; Status UNV Piperacillin Sod/ Tazobactam Sod 2.25 gm/Sodium Chloride 50 ml @ 100 mls/hr 1X ONCE IV Last administered on 12/02/21at 12:56; Start 12/02/21 at 11:45; Stop 12/02/21 at 12:14; Status DC Lidocaine HCl (Buffered Lidocaine 1%) 3 ml STK-MED ONCE .ROUTE ; Start 12/02/21 at 12:41; Stop 12/02/21 at 12:42; Status DC Lidocaine HCl (Buffered Lidocaine 1%) 9 ml 1X ONCE INJ Last administered on 12/02/21at 13:07; Start 12/02/21 at 13:15; Stop 12/02/21 at 13:16; Status DC Sodium Chloride 1,000 ml @ 1,000 mls/hr Q1H PRN IV hypotension; Start 12/02/21 at 17:15; Stop 12/02/21 at 23:14 Albumin Human 100 ml @ 100 mls/hr 1X PRN PRN IV Hypotension; Start 12/02/21 at 17:15; Stop 12/02/21 at 23:14 Sodium Chloride 1,000 ml @ 400 mls/hr Q2H30M PRN IV PATENCY; Start 12/02/21 at 17:15; Stop 12/03/21 at 05:14 Info (PHARMACY MONITORING -- do not chart) 1 each PRN DAILY PRN MC SEE COMMENTS; Start 12/02/21 at 17:15 Info (PHARMACY MONITORING -- do not chart) 1 each PRN DAILY PRN MC SEE COMMENTS; Start 12/02/21 at 17:15 Active Scripts Active Cipro (Ciprofloxacin Hcl) 250 Mg Tablet 500 Mg PO QHS 7 Days [place] 5-325 Tablet (Acetaminophen/Hydrocodone Bitart) 1 Each Tablet 1 Tab PO TID Tamsulosin Hcl 0.4 Mg Cap.er.24h 1 Cap PO DAILY Reported Glucosamine & Chondroitin Cap (Gluc 2KCL/Chondr/Caren Hy/Hy Ac) 1 Each Capsule 1 Each PO DAILY Multiple Vitamin (Multivitamin With Minerals) 1 Each Tablet 1 Each PO DAILY Lasix (Furosemide) 20 Mg Tablet 1 Tab PO PRN DAILY PRN Aspirin Ec (Aspirin) 325 Mg Tablet.dr 1 Tab PO DAILY Chlor-Trimeton (Chlorpheniramine Maleate) 4 Mg Tablet 4 Mg PO PRN DAILY PRN Levothyroxine Sodium 100 Mcg Tablet 100 Mcg PO DAILYAC Lofibra (Fenofibrate) 160 Mg Tablet 160 Mg PO DAILY Allergies Allergies: Coded Allergies: cefpodoxime (Verified Allergy, Intermediate, Rash, 12/02/21) ROS Review of System Unable to obtain due to medical condition Physical Exam Physical Exam General: Alert, Oriented X1, Cooperative, No acute distress HEENT: PERRLA, EOMI Lungs: Decreased breath sounds bilaterally, Normal air movement Heart: RRR, no murmurs Cardiovascular: S1, S2 Abdomen: Normal bowel sounds, Soft, No tenderness Extremities: No clubbing, No cyanosis Skin: No rashes, No significant lesion Neuro: Normal speech, Normal tone, Sensation intact Psych/Mental Status: Mental status NL, Mood NL Vitals Vitals Vital Signs Date Time Temp Pulse Resp B/P (MAP) Pulse Ox O2 Delivery O2 Flow Rate FiO2 12/02/21 17:00 70 16 101/45 (63) 99 Room Air 12/02/21 14:00 97.4 97.4 Labs Labs Laboratory Tests Test 12/02/21 10:05 12/02/21 10:12 12/02/21 10:58 12/02/21 11:10 White Blood Count 10.8 x10^3/uL (4.0-11.0) Red Blood Count 3.00 x10^6/uL (4.30-5.70) Hemoglobin 9.4 g/dL (13.0-17.5) Hematocrit 29.1 % (39.0-53.0) Mean Corpuscular Volume 97 fL (79-100) Mean Corpuscular Hemoglobin 31 pg (25-35) Mean Corpuscular Hemoglobin Concent 32 g/dL (31-37) Red Cell Distribution Width 15.5 % (11.5-14.5) Platelet Count 319 x10^3/uL (140-400) Neutrophils (%) (Auto) 78 % (31-73) Lymphocytes (%) (Auto) 12 % (24-48) Monocytes (%) (Auto) 6 % (0-9) Eosinophils (%) (Auto) 2 % (0-3) Basophils (%) (Auto) 1 % (0-3) Neutrophils # (Auto) 8.5 x10^3/uL (1.8-7.7) Lymphocytes # (Auto) 1.3 x10^3/uL (1.0-4.8) Monocytes # (Auto) 0.7 x10^3/uL (0.0-1.1) Eosinophils # (Auto) 0.2 x10^3/uL (0.0-0.7) Basophils # (Auto) 0.1 x10^3/uL (0.0-0.2) Sodium Level 133 mmol/L (136-145) Potassium Level 5.1 mmol/L (3.5-5.1) Chloride Level 101 mmol/L (98-107) Carbon Dioxide Level 12 mmol/L (21-32) Anion Gap 20 (6-14) Blood Urea Nitrogen 109 mg/dL (8-26) Creatinine 7.4 mg/dL (0.7-1.3) Estimated GFR (Cockcroft-Gault) 7.1 BUN/Creatinine Ratio 15 (6-20) Glucose Level 93 mg/dL (70-99) Calcium Level 9.0 mg/dL (8.5-10.1) Magnesium Level 2.2 mg/dL (1.8-2.4) Total Bilirubin 0.5 mg/dL (0.2-1.0) Aspartate Amino Transf (AST/SGOT) 31 U/L (15-37) Alanine Aminotransferase (ALT/SGPT) 21 U/L (16-63) Alkaline Phosphatase 62 U/L (46-116) Troponin I High Sensitivity 21 ng/L (4-75) Total Protein 8.9 g/dL (6.4-8.2) Albumin 3.4 g/dL (3.4-5.0) Albumin/Globulin Ratio 0.6 (1.0-1.7) Salicylates Level 2.0 mg/dL (2.8-20.0) Salicylate Last Dose Date Unknown Salicylate Last Dose Time Unknown Ethyl Alcohol Level < 10 mg/dL (0-10) Acetone Level Neg (NEG) Influenza Type A Antigen Negative (NEGATIVE) Influenza Type B Antigen Negative (NEGATIVE) SARS-CoV-2 Antigen (Rapid) Negative (NEGATIVE) Urine Collection Type Unknown Urine Color (Auto) Light orange Urine Turbidity Turbid Urine pH (Auto) 6.0 (<5.0-8.0) Urine Specific [place] 1.010 (1.000-1.030) Urine Protein (Auto) 70 mg/dL (Negative) Urine Glucose (Auto)(UA) Negative mg/dL (Negative) Urine Ketones (Auto) Negative mg/dL (Negative) Urine Blood (Auto) Moderate (Negative) Urine Nitrite Negative (Negative) Urine Bilirubin (Auto) Negative (Negative) Urine Urobilinogen (Auto) Normal mg/dL (Normal) Urine Leukocyte Esterase (Auto) Large (Negative) Urine RBC Field obscured /HPF (0-2) Urine WBC Tntc /HPF (0-4) Urine Bacteria Many /HPF (0-FEW) O2 Saturation 96 % (92-99) Arterial Blood pH 7.11 (7.35-7.45) Arterial Blood pCO2 at Patient Temp 26 mmHg (35-46) Arterial Blood pO2 at Patient Temp 97 mmHg (65-108) Arterial Blood HCO3 8 mmol/L (21-28) Arterial Blood Base Excess -20 mmol/L (-3-3) Oxyhemoglobin 95.0 % Methemoglobin 0.2 % (0.0-1.9) Carbon Monoxide, Quantitative 0.4 % (0.0-1.9) FiO2 21% Laboratory Tests Test 12/02/21 10:05 12/02/21 10:12 12/02/21 10:58 12/02/21 11:10 White Blood Count 10.8 x10^3/uL (4.0-11.0) Red Blood Count 3.00 x10^6/uL (4.30-5.70) Hemoglobin 9.4 g/dL (13.0-17.5) Hematocrit 29.1 % (39.0-53.0) Mean Corpuscular Volume 97 fL (79-100) Mean Corpuscular Hemoglobin 31 pg (25-35) Mean Corpuscular Hemoglobin Concent 32 g/dL (31-37) Red Cell Distribution Width 15.5 % (11.5-14.5) Platelet Count 319 x10^3/uL (140-400) Neutrophils (%) (Auto) 78 % (31-73) Lymphocytes (%) (Auto) 12 % (24-48) Monocytes (%) (Auto) 6 % (0-9) Eosinophils (%) (Auto) 2 % (0-3) Basophils (%) (Auto) 1 % (0-3) Neutrophils # (Auto) 8.5 x10^3/uL (1.8-7.7) Lymphocytes # (Auto) 1.3 x10^3/uL (1.0-4.8) Monocytes # (Auto) 0.7 x10^3/uL (0.0-1.1) Eosinophils # (Auto) 0.2 x10^3/uL (0.0-0.7) Basophils # (Auto) 0.1 x10^3/uL (0.0-0.2) Sodium Level 133 mmol/L (136-145) Potassium Level 5.1 mmol/L (3.5-5.1) Chloride Level 101 mmol/L (98-107) Carbon Dioxide Level 12 mmol/L (21-32) Anion Gap 20 (6-14) Blood Urea Nitrogen 109 mg/dL (8-26) Creatinine 7.4 mg/dL (0.7-1.3) Estimated GFR (Cockcroft-Gault) 7.1 BUN/Creatinine Ratio 15 (6-20) Glucose Level 93 mg/dL (70-99) Calcium Level 9.0 mg/dL (8.5-10.1) Magnesium Level 2.2 mg/dL (1.8-2.4) Total Bilirubin 0.5 mg/dL (0.2-1.0) Aspartate Amino Transf (AST/SGOT) 31 U/L (15-37) Alanine Aminotransferase (ALT/SGPT) 21 U/L (16-63) Alkaline Phosphatase 62 U/L (46-116) Troponin I High Sensitivity 21 ng/L (4-75) Total Protein 8.9 g/dL (6.4-8.2) Albumin 3.4 g/dL (3.4-5.0) Albumin/Globulin Ratio 0.6 (1.0-1.7) Salicylates Level 2.0 mg/dL (2.8-20.0) Salicylate Last Dose Date Unknown Salicylate Last Dose Time Unknown Ethyl Alcohol Level < 10 mg/dL (0-10) Acetone Level Neg (NEG) Influenza Type A Antigen Negative (NEGATIVE) Influenza Type B Antigen Negative (NEGATIVE) SARS-CoV-2 Antigen (Rapid) Negative (NEGATIVE) Urine Collection Type Unknown Urine Color (Auto) Light orange Urine Turbidity Turbid Urine pH (Auto) 6.0 (<5.0-8.0) Urine Specific [place] 1.010 (1.000-1.030) Urine Protein (Auto) 70 mg/dL (Negative) Urine Glucose (Auto)(UA) Negative mg/dL (Negative) Urine Ketones (Auto) Negative mg/dL (Negative) Urine Blood (Auto) Moderate (Negative) Urine Nitrite Negative (Negative) Urine Bilirubin (Auto) Negative (Negative) Urine Urobilinogen (Auto) Normal mg/dL (Normal) Urine Leukocyte Esterase (Auto) Large (Negative) Urine RBC Field obscured /HPF (0-2) Urine WBC Tntc /HPF (0-4) Urine Bacteria Many /HPF (0-FEW) O2 Saturation 96 % (92-99) Arterial Blood pH 7.11 (7.35-7.45) Arterial Blood pCO2 at Patient Temp 26 mmHg (35-46) Arterial Blood pO2 at Patient Temp 97 mmHg (65-108) Arterial Blood HCO3 8 mmol/L (21-28) Arterial Blood Base Excess -20 mmol/L (-3-3) Oxyhemoglobin 95.0 % Methemoglobin 0.2 % (0.0-1.9) Carbon Monoxide, Quantitative 0.4 % (0.0-1.9) FiO2 21% Images Images PATIENT: DENICE MONDRAGON ACCOUNT: [id number] : 1940 LOCATION: ER AGE: 81 SEX: M EXAM STATUS: REG ER ORD. PHYSICIAN: ARSLAN LONG APRN REASON: Renal stone study PROCEDURE: CT ABDOMEN PELVIS WO CONTRAST CT ABDOMEN+PELVIS WO History: Renal stone Comparison: CT abdomen and pelvis 10/24/2021 Technique: Noncontrast CT of the abdomen and pelvis. Findings: Lung bases are clear. Right ventricular and right atrial pacemaker leads. Mild coronary artery calcifications. The liver is unremarkable. Gallbladder appears to be surgically absent. Pancreatic calcifications consistent with sequela prior pancreatitis. Spleen and adrenal glands are unremarkable. There is a right lower pole 8 mm nephrolith. No left nephrolithiasis. Bilateral hydroureter, similar to comparison with prominent renal pelvises however no significant calyceal dilation. No ureterolithiasis identified. Diffuse bladder wall thickening with pericystic inflammatory stranding. The prostate is mildly enlarged with coarse calcifications. The stomach and small bowel are unremarkable. Normal appendix. Heavy diverticulosis of the descending colon with subtle pericolonic inflammatory fat stranding at the descending colon, subtly increased from comparison. No intra-abdominal free air or free fluid. No significant adenopathy. Atherosclerotic calcification of the aorta and iliac arteries with bilateral common iliac ectasia. Soft tissues are unremarkable. Multilevel degenerative changes in the lumbar spine. Decreased osseous mineralization. Impression: 1. Diffuse bladder wall thickening with adjacent pericystic inflammatory changes concerning for cystitis. Findings similar to comparison. 2. Similar appearance of bilateral hydroureter and dilation of the renal pelvises without significant calyceal dilation, possibly chronic finding. No ureterolithiasis. 3. Right lower pole 8 mm nephrolith unchanged. 4. Prominent descending colon diverticulosis with subtle increased pericolonic fat stranding which may represent mild uncomplicated descending colonic diverticulitis. PATIENT: DENICE MONDRAGON ACCOUNT: [id number] : 1940 LOCATION: ER AGE: 81 SEX: M EXAM STATUS: REG ER ORD. PHYSICIAN: ARSLAN LONG APRN REASON: CKD/HX STONES PROCEDURE: RENAL COMPLETE BILATERAL EXAM: US RENAL BILAT 12/02/2021 12:08 PM INDICATION: Chronic kidney disease, stone. COMPARISON: CT abdomen pelvis 12/02/2021 11:46 AM TECHNIQUE: grayscale and color Doppler ultrasound images of the kidneys FINDINGS: There is suboptimal visualization of both kidneys and the bladder due to bowel gas. The right kidney measures 10.4 x 4.5 x 5.3 cm. The left kidney measures 9.6 x 4.2 x 4.7 cm. There is unchanged mild left hydronephrosis. No right hydronephrosis appreciated by ultrasound. The renal calculi seen in the kidneys on CT from earlier today are not well demonstrated by ultrasound. The bladder is decompressed, unable to evaluate. IMPRESSION: 1. Suboptimal visualization of the kidneys due to bowel gas. There is unchanged mild left hydronephrosis. Known renal calculi are not well demonstrated by ultrasound. 2. The bladder is decompressed and cannot be evaluated by ultrasound at this time. VTE Prophylaxis Ordered VTE Prophylaxis Devices: Yes VTE Pharmacological Prophylaxi: Contraindicated Assessment/Plan Assessment/Plan Acute on chronic kidney injury Metabolic acidosis Normocytic anemia Nephrolithiasis Hypothyroidism BPH Plan: Admit patient to ICU with nephrology consult IR consulted to place temporary HD catheter Continue HD, per nephrology Consult placed to urology; patient recommended cystoscopy and bilateral retrograde pyelograms in OR tomorrow to rule out bladder mass, with possible stent placement. Resume home medications FEN - Cardiac/renal diet; NPO after midnight PPX - Heparin FULL CODE/unable to name surrogate decision-maker at this time Dispo - inpatient for above Justifications for Admission Other Justification Acute pancreatitis SYDNEY HWANG MD Dec 02, 2021 17:58
[2021-12-02] MEDS ORDERED: MAG HYDROX/ALUMINUM HYD/SIMETH 30 ML ORAL.SUSP PO PRN (18:30)
[2021-12-02] MEDS ORDERED: MAGNESIUM HYDROXIDE 2,400 MG/30 ML ORAL.SUSP. PO PRN (18:30)
[2021-12-02] MEDS ORDERED: ACETAMINOPHEN 325 MG TABLET. PO PRN (18:30)
[2021-12-02] MEDS ORDERED: HYDROcodone/APAP 5/325MG 1 TAB TABLET PO PRN (18:30)
[2021-12-02] MEDS: HEPARIN for SUB-Q USE 5,000 UNIT/ML VIAL. SQ SCH (22:50)
[2021-12-03] VITALS (22 sets, daily range): BP systolic 85–112; BP diastolic 37–64
[2021-12-03] MEDS ORDERED: DIALYSIS PATIENT. MC PRN (07:45)
[2021-12-03] MEDS ORDERED: IV NORMAL SALINE 1000ML BAG 1,000 ML IV PRN ×2 (07:45)
[2021-12-03] MEDS: HEPARIN for SUB-Q USE 5,000 UNIT/ML VIAL. SQ SCH ×2 (09:00→21:00)
[2021-12-03] MEDS: TAMSULOSIN 0.4 MG CAP.ER.24H. PO SCH (09:00)
[2021-12-03] MEDS: FENOFIBRATE,MICRONIZED 134 MG CAPSULE PO SCH (09:00)
[2021-12-03] MEDS: ASPIRIN ENTERIC COATED 325 MG TABLET.DR. PO SCH (09:00)
[2021-12-03 09:02] LABS: CALCIUM 8.6 mg/dL (8.5-10.1); CREATININE 4.5 mg/dL (0.7-1.3); GFR 12.7; POTASSIUM 3.6 mmol/L (3.5-5.1)
--- NOTE | 2021-12-03 10:20 | PDOC2 ---
CONSULT Date of Consult Date of Consult DATE: 12/03/21 TIME: 10:11 Reason for Consult Reason for Consult: NANCY Referring Physician Referring Physician: JAIDEN Identification/Chief Complaint Chief Complaint CONFUSION Source Source: Chart review History of Present Illness Reason for Visit: THIS IS AN 81 YR OLD WITH CONFUSION. LABS INDICATED SEVERE NANCY WITH SEVERE MET ACIDOSIS AND ACIDEMIA. CR OF 7.4. HAD SIMILAR PRESENTATION IN OCTOBER THIS YEAR WITH PEAK CR ABOUT 5.4 WHICH IMPROVED WITH HYDRATION. HE HAS CKD STAGE 3B WITH BASELINE CR FELT TO BE ABOUT 2.0. HE IS ALSO NOTED TO HAVE AN UTI. HX OF PYELONEPHRITIS AND BILATERAL HYDRONEPHROSIS. HAS HAD LEFT URETERAL STENT IN PAST AND HX OF NEPHROURETERAL CALCINOSIS. REPEAT IMAGING SHOWED MILD LEFT HYDRONEPHROSIS AND BLADDER WALL THICKENING. Past Medical History Cardiovascular: CHF, HTN, Pulmonary hypertension Pulmonary: Asthma, Bronchitis GI: GERD Psych: Anxiety Renal/: Chronic renal insuff, Benign prostatic enlarg. Endocrine: Diabetes Past Surgical History Past Surgical History: Pacemaker, No pertinent history Family History Family History: Hypertension Social History No ALCOHOL: none Drugs: None Lives: with Family Current Problem List Problem List Problems Medical Problems: (1) Acute renal failure Status: Acute (2) Metabolic acidosis Status: Acute (3) Urinary tract infection Status: Acute Current Medications Current Medications Current Medications Aztreonam (Azactam) 2 gm 1X ONCE IVP ; Start 12/02/21 at 11:30; Stop 12/02/21 at 11:31; Status UNV Piperacillin Sod/ Tazobactam Sod 2.25 gm/Sodium Chloride 50 ml @ 100 mls/hr 1X ONCE IV Last administered on 12/02/21at 12:56; Start 12/02/21 at 11:45; Stop 12/02/21 at 12:14; Status DC Lidocaine HCl (Buffered Lidocaine 1%) 3 ml STK-MED ONCE .ROUTE ; Start 12/02/21 at 12:41; Stop 12/02/21 at 12:42; Status DC Lidocaine HCl (Buffered Lidocaine 1%) 9 ml 1X ONCE INJ Last administered on 12/02/21at 13:07; Start 12/02/21 at 13:15; Stop 12/02/21 at 13:16; Status DC Sodium Chloride 1,000 ml @ 1,000 mls/hr Q1H PRN IV hypotension; Start 12/02/21 at 17:15; Stop 12/02/21 at 23:14; Status DC Albumin Human 100 ml @ 100 mls/hr 1X PRN PRN IV Hypotension Last administered on 12/02/21at 17:50; Start 12/02/21 at 17:15; Stop 12/02/21 at 23:14; Status DC Sodium Chloride 1,000 ml @ 400 mls/hr Q2H30M PRN IV PATENCY; Start 12/02/21 at 17:15; Stop 12/03/21 at 05:14; Status DC Info (PHARMACY MONITORING -- do not chart) 1 each PRN DAILY PRN MC SEE COMMENTS; Start 12/02/21 at 17:15 Info (PHARMACY MONITORING -- do not chart) 1 each PRN DAILY PRN MC SEE COMMENTS; Start 12/02/21 at 17:15 Aspirin (Ecotrin) 325 mg DAILY PO ; Start 12/03/21 at 09:00 Levothyroxine Sodium (Synthroid) 100 mcg DAILYAC PO ; Start 12/03/21 at 07:30 Tamsulosin HCl (Flomax) 0.4 mg DAILY PO ; Start 12/03/21 at 09:00 Fenofibrate (Lofibra) 134 mg DAILY PO ; Start 12/03/21 at 09:00 Ondansetron HCl (Zofran) 4 mg PRN Q6HRS PRN IVP NAUSEA/VOMITING; Start 12/02/21 at 18:30 Al Hydroxide/Mg Hydroxide (Mylanta Plus Xs) 30 ml PRN Q3HRS PRN PO HEARTBURN / GAS; Start 12/02/21 at 18:30 Zolpidem Tartrate (Ambien) 5 mg PRN QHS PRN PO INSOMNIA, MAY REPEAT IN 1HR; Start 12/02/21 at 18:30 Acetaminophen/ Hydrocodone Bitart (Lortab 5/325) 1 tab PRN Q4HRS PRN PO MILD PAIN 1-3; Start 12/02/21 at 18:30 Acetaminophen (Tylenol) 650 mg PRN Q6HRS PRN PO Headaches, Temp > 101.5F; Start 12/02/21 at 18:30 Magnesium Hydroxide (Milk Of Magnesia) 2,400 mg PRN Q12HR PRN PO CONSTIPATION; Start 12/02/21 at 18:30 Heparin Sodium (Porcine) (Heparin Sodium) 5,000 unit Q12HR SQ Last administered on 12/02/21at 22:50; Start 12/02/21 at 21:00 Levofloxacin (Levaquin) 500 mg DAILY06 PO ; Start 12/03/21 at 06:00; Stop 12/10/21 at 05:59; Status UNV Sodium Chloride 1,000 ml @ 1,000 mls/hr Q1H PRN IV hypotension; Start 12/03/21 at 07:45; Stop 12/03/21 at 13:44 Sodium Chloride 1,000 ml @ 400 mls/hr Q2H30M PRN IV PATENCY; Start 12/03/21 at 07:45; Stop 12/03/21 at 19:44 Info (PHARMACY MONITORING -- do not chart) 1 each PRN DAILY PRN MC SEE COMMENTS; Start 12/03/21 at 07:45 Active Scripts Active Cipro (Ciprofloxacin Hcl) 250 Mg Tablet 500 Mg PO QHS 7 Days [place] 5-325 Tablet (Acetaminophen/Hydrocodone Bitart) 1 Each Tablet 1 Tab PO TID Tamsulosin Hcl 0.4 Mg Cap.er.24h 1 Cap PO DAILY Reported Glucosamine & Chondroitin Cap (Gluc 2KCL/Chondr/Caren Hy/Hy Ac) 1 Each Capsule 1 Each PO DAILY Multiple Vitamin (Multivitamin With Minerals) 1 Each Tablet 1 Each PO DAILY Lasix (Furosemide) 20 Mg Tablet 1 Tab PO PRN DAILY PRN Aspirin Ec (Aspirin) 325 Mg Tablet.dr 1 Tab PO DAILY Chlor-Trimeton (Chlorpheniramine Maleate) 4 Mg Tablet 4 Mg PO PRN DAILY PRN Levothyroxine Sodium 100 Mcg Tablet 100 Mcg PO DAILYAC Lofibra (Fenofibrate) 160 Mg Tablet 160 Mg PO DAILY Allergies Allergies: Coded Allergies: cefpodoxime (Verified Allergy, Intermediate, Rash, 12/02/21) ROS Review of System UNABLE TO OBTAIN Physical Exam Physical Exam NICKERSON IN PLACE General: Alert, Cooperative, No acute distress HEENT: Atraumatic, Other (DRY MUCOSA) Lungs: Clear to auscultation Heart: Regular rate Abdomen: Normal bowel sounds Extremities: No clubbing Skin: No breakdown Neuro: Other (NO ASYMMETRY, CONFUSED) Psych/Mental Status: Other (CONFUSED) MUSCULOSKELETAL: Other (LEFT TMA) Vitals VITALS Vital Signs Date Time Temp Pulse Resp B/P (MAP) Pulse Ox O2 Delivery O2 Flow Rate FiO2 12/03/21 05:00 69 16 97/45 (62) 93 Room Air 12/03/21 04:00 99.1 99.1 Labs Labs Laboratory Tests Test 12/02/21 10:05 12/02/21 10:12 12/02/21 10:58 12/02/21 11:10 White Blood Count 10.8 x10^3/uL (4.0-11.0) Red Blood Count 3.00 x10^6/uL (4.30-5.70) Hemoglobin 9.4 g/dL (13.0-17.5) Hematocrit 29.1 % (39.0-53.0) Mean Corpuscular Volume 97 fL (79-100) Mean Corpuscular Hemoglobin 31 pg (25-35) Mean Corpuscular Hemoglobin Concent 32 g/dL (31-37) Red Cell Distribution Width 15.5 % (11.5-14.5) Platelet Count 319 x10^3/uL (140-400) Neutrophils (%) (Auto) 78 % (31-73) Lymphocytes (%) (Auto) 12 % (24-48) Monocytes (%) (Auto) 6 % (0-9) Eosinophils (%) (Auto) 2 % (0-3) Basophils (%) (Auto) 1 % (0-3) Neutrophils # (Auto) 8.5 x10^3/uL (1.8-7.7) Lymphocytes # (Auto) 1.3 x10^3/uL (1.0-4.8) Monocytes # (Auto) 0.7 x10^3/uL (0.0-1.1) Eosinophils # (Auto) 0.2 x10^3/uL (0.0-0.7) Basophils # (Auto) 0.1 x10^3/uL (0.0-0.2) Sodium Level 133 mmol/L (136-145) Potassium Level 5.1 mmol/L (3.5-5.1) Chloride Level 101 mmol/L (98-107) Carbon Dioxide Level 12 mmol/L (21-32) Anion Gap 20 (6-14) Blood Urea Nitrogen 109 mg/dL (8-26) Creatinine 7.4 mg/dL (0.7-1.3) Estimated GFR (Cockcroft-Gault) 7.1 BUN/Creatinine Ratio 15 (6-20) Glucose Level 93 mg/dL (70-99) Calcium Level 9.0 mg/dL (8.5-10.1) Magnesium Level 2.2 mg/dL (1.8-2.4) Total Bilirubin 0.5 mg/dL (0.2-1.0) Aspartate Amino Transf (AST/SGOT) 31 U/L (15-37) Alanine Aminotransferase (ALT/SGPT) 21 U/L (16-63) Alkaline Phosphatase 62 U/L (46-116) Troponin I High Sensitivity 21 ng/L (4-75) Total Protein 8.9 g/dL (6.4-8.2) Albumin 3.4 g/dL (3.4-5.0) Albumin/Globulin Ratio 0.6 (1.0-1.7) Salicylates Level 2.0 mg/dL (2.8-20.0) Salicylate Last Dose Date Unknown Salicylate Last Dose Time Unknown Ethyl Alcohol Level < 10 mg/dL (0-10) Acetone Level Neg (NEG) Hepatitis B Surface Antigen Nonreactive (Nonreactive) Influenza Type A Antigen Negative (NEGATIVE) Influenza Type B Antigen Negative (NEGATIVE) SARS-CoV-2 Antigen (Rapid) Negative (NEGATIVE) Urine Collection Type Unknown Urine Color (Auto) Light orange Urine Turbidity Turbid Urine pH (Auto) 6.0 (<5.0-8.0) Urine Specific [place] 1.010 (1.000-1.030) Urine Protein (Auto) 70 mg/dL (Negative) Urine Glucose (Auto)(UA) Negative mg/dL (Negative) Urine Ketones (Auto) Negative mg/dL (Negative) Urine Blood (Auto) Moderate (Negative) Urine Nitrite Negative (Negative) Urine Bilirubin (Auto) Negative (Negative) Urine Urobilinogen (Auto) Normal mg/dL (Normal) Urine Leukocyte Esterase (Auto) Large (Negative) Urine RBC Field obscured /HPF (0-2) Urine WBC Tntc /HPF (0-4) Urine Bacteria Many /HPF (0-FEW) O2 Saturation 96 % (92-99) Arterial Blood pH 7.11 (7.35-7.45) Arterial Blood pCO2 at Patient Temp 26 mmHg (35-46) Arterial Blood pO2 at Patient Temp 97 mmHg (65-108) Arterial Blood HCO3 8 mmol/L (21-28) Arterial Blood Base Excess -20 mmol/L (-3-3) Oxyhemoglobin 95.0 % Methemoglobin 0.2 % (0.0-1.9) Carbon Monoxide, Quantitative 0.4 % (0.0-1.9) FiO2 21% Test 12/03/21 08:42 12/03/21 09:43 Sodium Level 139 mmol/L (136-145) Potassium Level 3.6 mmol/L (3.5-5.1) Chloride Level 98 mmol/L (98-107) Carbon Dioxide Level 19 mmol/L (21-32) Anion Gap 22 (6-14) Blood Urea Nitrogen 56 mg/dL (8-26) Creatinine 4.5 mg/dL (0.7-1.3) Estimated GFR (Cockcroft-Gault) 12.7 Glucose Level 69 mg/dL (70-99) Calcium Level 8.6 mg/dL (8.5-10.1) Glucose (Fingerstick) 68 mg/dL (70-99) Laboratory Tests Test 12/02/21 10:12 12/02/21 10:58 12/02/21 11:10 12/03/21 08:42 Influenza Type A Antigen Negative (NEGATIVE) Influenza Type B Antigen Negative (NEGATIVE) SARS-CoV-2 Antigen (Rapid) Negative (NEGATIVE) Urine Collection Type Unknown Urine Color (Auto) Light orange Urine Turbidity Turbid Urine pH (Auto) 6.0 (<5.0-8.0) Urine Specific [place] 1.010 (1.000-1.030) Urine Protein (Auto) 70 mg/dL (Negative) Urine Glucose (Auto)(UA) Negative mg/dL (Negative) Urine Ketones (Auto) Negative mg/dL (Negative) Urine Blood (Auto) Moderate (Negative) Urine Nitrite Negative (Negative) Urine Bilirubin (Auto) Negative (Negative) Urine Urobilinogen (Auto) Normal mg/dL (Normal) Urine Leukocyte Esterase (Auto) Large (Negative) Urine RBC Field obscured /HPF (0-2) Urine WBC Tntc /HPF (0-4) Urine Bacteria Many /HPF (0-FEW) O2 Saturation 96 % (92-99) Arterial Blood pH 7.11 (7.35-7.45) Arterial Blood pCO2 at Patient Temp 26 mmHg (35-46) Arterial Blood pO2 at Patient Temp 97 mmHg (65-108) Arterial Blood HCO3 8 mmol/L (21-28) Arterial Blood Base Excess -20 mmol/L (-3-3) Oxyhemoglobin 95.0 % Methemoglobin 0.2 % (0.0-1.9) Carbon Monoxide, Quantitative 0.4 % (0.0-1.9) FiO2 21% Sodium Level 139 mmol/L (136-145) Potassium Level 3.6 mmol/L (3.5-5.1) Chloride Level 98 mmol/L (98-107) Carbon Dioxide Level 19 mmol/L (21-32) Anion Gap 22 (6-14) Blood Urea Nitrogen 56 mg/dL (8-26) Creatinine 4.5 mg/dL (0.7-1.3) Estimated GFR (Cockcroft-Gault) 12.7 Glucose Level 69 mg/dL (70-99) Calcium Level 8.6 mg/dL (8.5-10.1) Test 12/03/21 09:43 Glucose (Fingerstick) 68 mg/dL (70-99) Images Images PATIENT: DENICE MONDRAGON ACCOUNT: [id number] : 1940 LOCATION: ER AGE: 81 SEX: M EXAM STATUS: REG ER ORD. PHYSICIAN: ARSLAN LONG APRN REASON: Renal stone study PROCEDURE: CT ABDOMEN PELVIS WO CONTRAST CT ABDOMEN+PELVIS WO History: Renal stone Comparison: CT abdomen and pelvis 10/24/2021 Technique: Noncontrast CT of the abdomen and pelvis. Findings: Lung bases are clear. Right ventricular and right atrial pacemaker leads. Mild coronary artery calcifications. The liver is unremarkable. Gallbladder appears to be surgically absent. Pancreatic calcifications consistent with sequela prior pancreatitis. Spleen and adrenal glands are unremarkable. There is a right lower pole 8 mm nephrolith. No left nephrolithiasis. Bilateral hydroureter, similar to comparison with prominent renal pelvises however no significant calyceal dilation. No ureterolithiasis identified. Diffuse bladder wall thickening with pericystic inflammatory stranding. The prostate is mildly enlarged with coarse calcifications. The stomach and small bowel are unremarkable. Normal appendix. Heavy diverticulosis of the descending colon with subtle pericolonic inflammatory fat stranding at the descending colon, subtly increased from comparison. No intra-abdominal free air or free fluid. No significant adenopathy. Atherosclerotic calcification of the aorta and iliac arteries with bilateral common iliac ectasia. Soft tissues are unremarkable. Multilevel degenerative changes in the lumbar spine. Decreased osseous mineralization. Impression: 1. Diffuse bladder wall thickening with adjacent pericystic inflammatory changes concerning for cystitis. Findings similar to comparison. 2. Similar appearance of bilateral hydroureter and dilation of the renal pelvises without significant calyceal dilation, possibly chronic finding. No ureterolithiasis. 3. Right lower pole 8 mm nephrolith unchanged. 4. Prominent descending colon diverticulosis with subtle increased pericolonic fat stranding which may represent mild uncomplicated descending colonic diverticulitis. ------ Exposure: One or more of the following individualized dose reduction techniques were utilized for this examination: 1. Automated exposure control 2. Adjustment of the mA and/or kV according to patient size 3. Use of iterative reconstruction technique. Assessment/Plan Assessment/Plan IMP NANCY-CR OF 7.4 CKD STAGE 3B - CR OF ABOUT 1.5 SEVERE MET ACIDOSIS PYELONEPHRITIS DEHYDRATION HYPONATERMIA HX OF LEFT URETERAL STONE AND STENT MILD LEFT HYDRONEPHROSIS-PROB CHRONIC APPEARANCE BLADDER WALL THICKENING HX OF DM II PLAN HYDRATION EMERGENT HD IR TO PLACE LINE HD FOR CLEARANCE WITH HIGH HCO3 DIALYSATE ANTIBIOTICS UROLOGY TO SEE PT NICKERSON IN PLACE CYSTO PENDING D/W ER WILL FOLLOW AMANDA MEJIA MD Dec 03, 2021 10:20
[2021-12-03] MEDS: SODIUM BICARBONATE VIAL 50 MEQ in IV 1/2 NORMAL SALINE 1,000 ML IV SCH ×2 (11:38→22:36)
[2021-12-03] MEDS ORDERED: DEXTROSE 50% 25 GM / 50ML DISP.SYRIN. IV ONE (12:00)
[2021-12-03] MEDS ORDERED: IV DEXTROSE 5% 1,000 ML IV SCH (12:00)
--- NOTE | 2021-12-03 12:09 | PN ---
PROGRESS NOTES Date of Service DATE: 12/03/21 TIME: 12:08 Subjective Subjective denies complaints Objective Objective Vital Signs Date Time Temp Pulse Resp B/P (MAP) Pulse Ox O2 Delivery O2 Flow Rate FiO2 12/03/21 10:00 69 16 99/39 (59) 99 Room Air 12/03/21 08:00 98.2 98.2 Intake and Output 12/03/21 07:00 Intake Total 50 ml Output Total 875 ml Balance -825 ml Intake IV Total 50 ml Output Urine Total 875 ml Physical Exam Physical Exam NAD nonlabored respirations simpson draining yellow urine Diagnosis PROBLEM LIST Problems Medical Problems: (1) Acute renal failure Status: Acute (2) Metabolic acidosis Status: Acute (3) Urinary tract infection Status: Acute Assessment Assessment Problems Medical Problems: (1) Acute renal failure Status: Acute (2) Metabolic acidosis Status: Acute (3) Urinary tract infection Status: Acute Plan Plan of Care Mild bilateral hydroureteronephrosis Images reviewed. No obstructing stones noted. Both ureters dilated down to level of bladder. Diffuse bladder wall thickening. May be chronic. UA with many bacteria. F/u urine cultures, empiric abx. NANCY on CKD - nephrology following and planning dialysis Simpson monitor I&O Tamsulosin PT scheduled for cystoscopy, bilateral retrograde pyelograms in OR. Rule out bladder mass. Possible stent placement if obstruction noted. Discussed reasoning for this with patient and family, and risks associated. He agrees to proceed. NPO at [place], consent. Procedure scheduled for 12/03 @ 1430 D/w Dr. Coronel D/w RN Comment Review of Relevant I have reviewed the following items yanick (where applicable) has been applied. Labs Laboratory Tests Test 12/02/21 10:05 12/02/21 10:12 12/02/21 10:58 12/02/21 11:10 White Blood Count 10.8 x10^3/uL (4.0-11.0) Red Blood Count 3.00 x10^6/uL (4.30-5.70) Hemoglobin 9.4 g/dL (13.0-17.5) Hematocrit 29.1 % (39.0-53.0) Mean Corpuscular Volume 97 fL (79-100) Mean Corpuscular Hemoglobin 31 pg (25-35) Mean Corpuscular Hemoglobin Concent 32 g/dL (31-37) Red Cell Distribution Width 15.5 % (11.5-14.5) Platelet Count 319 x10^3/uL (140-400) Neutrophils (%) (Auto) 78 % (31-73) Lymphocytes (%) (Auto) 12 % (24-48) Monocytes (%) (Auto) 6 % (0-9) Eosinophils (%) (Auto) 2 % (0-3) Basophils (%) (Auto) 1 % (0-3) Neutrophils # (Auto) 8.5 x10^3/uL (1.8-7.7) Lymphocytes # (Auto) 1.3 x10^3/uL (1.0-4.8) Monocytes # (Auto) 0.7 x10^3/uL (0.0-1.1) Eosinophils # (Auto) 0.2 x10^3/uL (0.0-0.7) Basophils # (Auto) 0.1 x10^3/uL (0.0-0.2) Sodium Level 133 mmol/L (136-145) Potassium Level 5.1 mmol/L (3.5-5.1) Chloride Level 101 mmol/L (98-107) Carbon Dioxide Level 12 mmol/L (21-32) Anion Gap 20 (6-14) Blood Urea Nitrogen 109 mg/dL (8-26) Creatinine 7.4 mg/dL (0.7-1.3) Estimated GFR (Cockcroft-Gault) 7.1 BUN/Creatinine Ratio 15 (6-20) Glucose Level 93 mg/dL (70-99) Calcium Level 9.0 mg/dL (8.5-10.1) Magnesium Level 2.2 mg/dL (1.8-2.4) Total Bilirubin 0.5 mg/dL (0.2-1.0) Aspartate Amino Transf (AST/SGOT) 31 U/L (15-37) Alanine Aminotransferase (ALT/SGPT) 21 U/L (16-63) Alkaline Phosphatase 62 U/L (46-116) Troponin I High Sensitivity 21 ng/L (4-75) Total Protein 8.9 g/dL (6.4-8.2) Albumin 3.4 g/dL (3.4-5.0) Albumin/Globulin Ratio 0.6 (1.0-1.7) Salicylates Level 2.0 mg/dL (2.8-20.0) Salicylate Last Dose Date Unknown Salicylate Last Dose Time Unknown Ethyl Alcohol Level < 10 mg/dL (0-10) Acetone Level Neg (NEG) Hepatitis B Surface Antigen Nonreactive (Nonreactive) Influenza Type A Antigen Negative (NEGATIVE) Influenza Type B Antigen Negative (NEGATIVE) SARS-CoV-2 Antigen (Rapid) Negative (NEGATIVE) Urine Collection Type Unknown Urine Color (Auto) Light orange Urine Turbidity Turbid Urine pH (Auto) 6.0 (<5.0-8.0) Urine Specific [place] 1.010 (1.000-1.030) Urine Protein (Auto) 70 mg/dL (Negative) Urine Glucose (Auto)(UA) Negative mg/dL (Negative) Urine Ketones (Auto) Negative mg/dL (Negative) Urine Blood (Auto) Moderate (Negative) Urine Nitrite Negative (Negative) Urine Bilirubin (Auto) Negative (Negative) Urine Urobilinogen (Auto) Normal mg/dL (Normal) Urine Leukocyte Esterase (Auto) Large (Negative) Urine RBC Field obscured /HPF (0-2) Urine WBC Tntc /HPF (0-4) Urine Bacteria Many /HPF (0-FEW) O2 Saturation 96 % (92-99) Arterial Blood pH 7.11 (7.35-7.45) Arterial Blood pCO2 at Patient Temp 26 mmHg (35-46) Arterial Blood pO2 at Patient Temp 97 mmHg (65-108) Arterial Blood HCO3 8 mmol/L (21-28) Arterial Blood Base Excess -20 mmol/L (-3-3) Oxyhemoglobin 95.0 % Methemoglobin 0.2 % (0.0-1.9) Carbon Monoxide, Quantitative 0.4 % (0.0-1.9) FiO2 21% Test 12/03/21 08:42 12/03/21 09:43 12/03/21 11:51 Sodium Level 139 mmol/L (136-145) Potassium Level 3.6 mmol/L (3.5-5.1) Chloride Level 98 mmol/L (98-107) Carbon Dioxide Level 19 mmol/L (21-32) Anion Gap 22 (6-14) Blood Urea Nitrogen 56 mg/dL (8-26) Creatinine 4.5 mg/dL (0.7-1.3) Estimated GFR (Cockcroft-Gault) 12.7 Glucose Level 69 mg/dL (70-99) Calcium Level 8.6 mg/dL (8.5-10.1) Magnesium Level 2.0 mg/dL (1.8-2.4) Glucose (Fingerstick) 68 mg/dL (70-99) 51 mg/dL (70-99) Laboratory Tests Test 12/03/21 08:42 12/03/21 09:43 12/03/21 11:51 Sodium Level 139 mmol/L (136-145) Potassium Level 3.6 mmol/L (3.5-5.1) Chloride Level 98 mmol/L (98-107) Carbon Dioxide Level 19 mmol/L (21-32) Anion Gap 22 (6-14) Blood Urea Nitrogen 56 mg/dL (8-26) Creatinine 4.5 mg/dL (0.7-1.3) Estimated GFR (Cockcroft-Gault) 12.7 Glucose Level 69 mg/dL (70-99) Calcium Level 8.6 mg/dL (8.5-10.1) Magnesium Level 2.0 mg/dL (1.8-2.4) Glucose (Fingerstick) 68 mg/dL (70-99) 51 mg/dL (70-99) Microbiology 12/02/21 Urine Culture - Final, Complete Medications Current Medications Aztreonam (Azactam) 2 gm 1X ONCE IVP ; Start 12/02/21 at 11:30; Stop 12/02/21 at 11:31; Status UNV Piperacillin Sod/ Tazobactam Sod 2.25 gm/Sodium Chloride 50 ml @ 100 mls/hr 1X ONCE IV Last administered on 12/02/21at 12:56; Start 12/02/21 at 11:45; Stop 12/02/21 at 12:14; Status DC Lidocaine HCl (Buffered Lidocaine 1%) 3 ml STK-MED ONCE .ROUTE ; Start 12/02/21 at 12:41; Stop 12/02/21 at 12:42; Status DC Lidocaine HCl (Buffered Lidocaine 1%) 9 ml 1X ONCE INJ Last administered on 12/02/21at 13:07; Start 12/02/21 at 13:15; Stop 12/02/21 at 13:16; Status DC Sodium Chloride 1,000 ml @ 1,000 mls/hr Q1H PRN IV hypotension; Start 12/02/21 at 17:15; Stop 12/02/21 at 23:14; Status DC Albumin Human 100 ml @ 100 mls/hr 1X PRN PRN IV Hypotension Last administered on 12/02/21at 17:50; Start 12/02/21 at 17:15; Stop 12/02/21 at 23:14; Status DC Sodium Chloride 1,000 ml @ 400 mls/hr Q2H30M PRN IV PATENCY; Start 12/02/21 at 17:15; Stop 12/03/21 at 05:14; Status DC Info (PHARMACY MONITORING -- do not chart) 1 each PRN DAILY PRN MC SEE COMMENTS; Start 12/02/21 at 17:15 Info (PHARMACY MONITORING -- do not chart) 1 each PRN DAILY PRN MC SEE COMMENTS; Start 12/02/21 at 17:15 Aspirin (Ecotrin) 325 mg DAILY PO ; Start 12/03/21 at 09:00 Levothyroxine Sodium (Synthroid) 100 mcg DAILYAC PO ; Start 12/03/21 at 07:30 Tamsulosin HCl (Flomax) 0.4 mg DAILY PO ; Start 12/03/21 at 09:00 Fenofibrate (Lofibra) 134 mg DAILY PO ; Start 12/03/21 at 09:00 Ondansetron HCl (Zofran) 4 mg PRN Q6HRS PRN IVP NAUSEA/VOMITING; Start 12/02/21 at 18:30 Al Hydroxide/Mg Hydroxide (Mylanta Plus Xs) 30 ml PRN Q3HRS PRN PO HEARTBURN / GAS; Start 12/02/21 at 18:30 Zolpidem Tartrate (Ambien) 5 mg PRN QHS PRN PO INSOMNIA, MAY REPEAT IN 1HR; Start 12/02/21 at 18:30 Acetaminophen/ Hydrocodone Bitart (Lortab 5/325) 1 tab PRN Q4HRS PRN PO MILD PAIN 1-3; Start 12/02/21 at 18:30 Acetaminophen (Tylenol) 650 mg PRN Q6HRS PRN PO Headaches, Temp > 101.5F; Start 12/02/21 at 18:30 Magnesium Hydroxide (Milk Of Magnesia) 2,400 mg PRN Q12HR PRN PO CONSTIPATION; Start 12/02/21 at 18:30 Heparin Sodium (Porcine) (Heparin Sodium) 5,000 unit Q12HR SQ Last administered on 12/02/21at 22:50; Start 12/02/21 at 21:00 Levofloxacin (Levaquin) 500 mg DAILY06 PO ; Start 12/03/21 at 06:00; Stop 12/10/21 at 05:59; Status UNV Sodium Chloride 1,000 ml @ 1,000 mls/hr Q1H PRN IV hypotension; Start 12/03/21 at 07:45; Stop 12/03/21 at 13:44 Sodium Chloride 1,000 ml @ 400 mls/hr Q2H30M PRN IV PATENCY; Start 12/03/21 at 07:45; Stop 12/03/21 at 19:44 Info (PHARMACY MONITORING -- do not chart) 1 each PRN DAILY PRN MC SEE COMMENTS; Start 12/03/21 at 07:45 Sodium Bicarbonate 50 meq/Sodium Chloride 1,050 ml @ 100 mls/hr [id number] IV Last administered on 12/03/21at 11:38; Start 12/03/21 at 11:00 Dextrose (Dextrose 50%-Water Syringe) 25 gm 1X ONCE IV ; Start 12/03/21 at 12:00; Stop 12/03/21 at 12:01; Status DC Active Scripts Active Cipro (Ciprofloxacin Hcl) 250 Mg Tablet 500 Mg PO QHS 7 Days [place] 5-325 Tablet (Acetaminophen/Hydrocodone Bitart) 1 Each Tablet 1 Tab PO TID Tamsulosin Hcl 0.4 Mg Cap.er.24h 1 Cap PO DAILY Reported Glucosamine & Chondroitin Cap (Gluc 2KCL/Chondr/Caren Hy/Hy Ac) 1 Each Capsule 1 Each PO DAILY Multiple Vitamin (Multivitamin With Minerals) 1 Each Tablet 1 Each PO DAILY Lasix (Furosemide) 20 Mg Tablet 1 Tab PO PRN DAILY PRN Aspirin Ec (Aspirin) 325 Mg Tablet.dr 1 Tab PO DAILY Chlor-Trimeton (Chlorpheniramine Maleate) 4 Mg Tablet 4 Mg PO PRN DAILY PRN Levothyroxine Sodium 100 Mcg Tablet 100 Mcg PO DAILYAC Lofibra (Fenofibrate) 160 Mg Tablet 160 Mg PO DAILY Vitals/I & O Vital Sign - Last 24 Hours 12/02/21 12/02/21 12/02/21 12/02/21 12:22 12:53 13:22 14:00 Temp 97.4 97.4 Pulse 72 68 68 68 Resp 20 18 B/P (MAP) 122/54 (76) 113/56 (75) 106/61 (76) Pulse Ox 99 100 99 99 O2 Delivery Room Air Room Air Room Air Room Air 12/02/21 12/02/21 12/02/21 12/02/21 15:00 16:00 17:00 18:00 Pulse 68 70 70 81 Resp 18 16 16 16 B/P (MAP) 102/61 (75) 98/43 (61) 101/45 (63) 84/48 (60) Pulse Ox 98 99 99 99 O2 Delivery Room Air Room Air Room Air Room Air 12/02/21 12/02/21 12/02/21 12/02/21 19:00 20:00 21:00 22:00 Temp 97.6 97.6 Pulse 74 74 70 80 Resp 16 16 16 16 B/P (MAP) 88/39 (55) 84/48 (60) 93/50 (64) 82/36 (51) Pulse Ox 96 96 97 96 O2 Delivery Room Air Room Air Room Air Room Air 12/02/21 12/03/21 12/03/21 12/03/21 23:00 00:01 01:00 02:00 Temp 98.5 98.5 Pulse 88 68 72 66 Resp 16 16 16 16 B/P (MAP) 90/40 (57) 85/43 (57) 90/40 (57) 85/39 (54) Pulse Ox 95 97 97 96 O2 Delivery Room Air Room Air Room Air Room Air 12/03/21 12/03/21 12/03/21 12/03/21 03:00 04:00 05:00 07:00 Temp 99.1 99.1 Pulse 76 68 69 68 Resp 16 14 16 16 B/P (MAP) 97/40 (59) 103/37 (59) 97/45 (62) 91/38 (55) Pulse Ox 94 95 93 94 O2 Delivery Room Air Room Air Room Air Room Air 12/03/21 12/03/21 12/03/21 08:00 09:00 10:00 Temp 98.2 98.2 Pulse 84 84 69 Resp 16 18 16 B/P (MAP) 94/38 (56) 98/43 (61) 99/39 (59) Pulse Ox 95 98 99 O2 Delivery Room Air Room Air Room Air Intake and Output 12/02/21 12/02/21 12/03/21 15:00 23:00 07:00 Intake Total 50 ml Output Total 390 ml 485 ml Balance 50 ml -390 ml -485 ml ESA MANZO Dec 03, 2021 12:09
--- NOTE | 2021-12-03 12:20 | NUR ---
Wound Care Wound Type/Assessment: patient seen per wound care consult. see wound assessment. patient has a left lateral and right medial ankle DFU. The wounds were cleaned, measured and redressed at this time. patients family at bedside and stated patient's home health uses therahoney gel to the wounds. Treatment Recommendations/Plan: Recommendations to the left lateral ankle and right medial ankle wounds- cleanse the wound then apply therahoney gel to the wound with Xeroform gauze over with a foam dressing, change every 2-3 days Offloading surface/device: patient has off-loading boots- but patient refuses to wear them at home Discharge Recommendations for dressings: Wound care will continue to f/u for changes.
--- NOTE | 2021-12-03 12:56 | PDOC ---
[facility] PROGRESS NOTE Date of Service DOS: DATE: 12/03/21 TIME: 12:50 Chief Complaint Chief Complaint Acute on chronic kidney injury Metabolic acidosis Normocytic anemia Nephrolithiasis Hypothyroidism BPH History of Present Illness History of Present Illness 12/03: Patient seen and evaluated bedside. His and 2 daughters are present as well. He is n.p.o. for cystoscopy and pyelogram with possible stent placement. Had improvement in his creatinine and EGFR with dialysis. Continue hemodialysis, per nephrology. Had some hypoglycemia due to n.p.o. status, will treat with 1 amp of D50. Urine culture shows no growth indicative of infection. Blood culture shows no growth after 1 day. Advance Care Planning: Total time spent [id number] with patient 19 minutes in discussion with goals of care, comfort care, end-of-life care, pain management, code status; patient names daughter, Madeleine Jacinto, as surrogate decision-maker. Critical care time 30 minutes spent reviewing charts, reviewing labs, reviewing imaging, discussion with family at bedside, and discussion with RN. Vitals/I&O Vitals/I&O: Vital Signs Date Time Temp Pulse Resp B/P (MAP) Pulse Ox O2 Delivery O2 Flow Rate FiO2 12/03/21 10:00 69 16 99/39 (59) 99 Room Air 12/03/21 08:00 98.2 98.2 I & O 12/02/21 12/02/21 12/03/21 15:00 23:00 07:00 Intake Total 50 ml Output Total 390 ml 485 ml Balance 50 ml -390 ml -485 ml Physical Exam General: Alert, Cooperative, No acute distress Heart: Regular rate Lungs: Clear, Crackles Abdomen: Normal bowel sounds Extremities: No clubbing Skin: No breakdown Labs Labs: Laboratory Tests Test 12/03/21 08:42 12/03/21 09:43 12/03/21 11:51 Sodium Level 139 mmol/L (136-145) Potassium Level 3.6 mmol/L (3.5-5.1) Chloride Level 98 mmol/L (98-107) Carbon Dioxide Level 19 mmol/L (21-32) Anion Gap 22 (6-14) Blood Urea Nitrogen 56 mg/dL (8-26) Creatinine 4.5 mg/dL (0.7-1.3) Estimated GFR (Cockcroft-Gault) 12.7 Glucose Level 69 mg/dL (70-99) Calcium Level 8.6 mg/dL (8.5-10.1) Magnesium Level 2.0 mg/dL (1.8-2.4) Glucose (Fingerstick) 68 mg/dL (70-99) 51 mg/dL (70-99) Assessment and Plan Assessmemt and Plan Problems Medical Problems: (1) Acute renal failure Status: Acute (2) Metabolic acidosis Status: Acute (3) Urinary tract infection Status: Acute Comment Review of Relevant I have reviewed the following items yanick (where applicable) has been applied. Medications: Current Medications Medications (Trade) Dose Ordered Sig/Nate Route PRN Reason Start Time Stop Time Status Last Admin Dose Admin Lidocaine HCl (Buffered Lidocaine 1%) 9 ml 1X ONCE INJ 12/02/21 13:15 12/02/21 13:16 DC 12/02/21 13:07 Albumin Human 100 ml @ 100 mls/hr 1X PRN PRN IV Hypotension 12/02/21 17:15 12/02/21 23:14 DC 12/02/21 17:50 Heparin Sodium (Porcine) (Heparin Sodium) 5,000 unit Q12HR SQ 12/02/21 21:00 12/02/21 22:50 Sodium Bicarbonate 50 meq/Sodium Chloride 1,050 ml @ 100 mls/hr [id number] IV 12/03/21 11:00 12/03/21 11:38 Justifications for Admission Other Justification Acute pancreatitis SYDNEY HWANG MD Dec 03, 2021 12:56
[2021-12-03] MEDS ORDERED: IOHEXOL 300 MG/ML 50 ML VIAL. ONE (13:40)
[2021-12-03] MEDS ORDERED: LIDOCAINE 2% JELLY 6ML IN APPLICATOR. ONE (13:40)
[2021-12-03] MEDS ORDERED: ONDANSETRON PF 4 MG/2 ML VIAL. ONE (14:10)
[2021-12-03] MEDS ORDERED: fentaNYL PF VIAL 100 MCG/2 ML VIAL ONE (14:10)
[2021-12-03] MEDS ORDERED: DEXAMETHASONE SOD PHOS 4 MG/ML VIAL ONE (14:10)
[2021-12-03] MEDS ORDERED: LIDOCAINE 2% PF 5 ML VIAL. ONE (14:10)
[2021-12-03] MEDS ORDERED: SUCCINYLCHOLINE 200 MG/10 ML VIAL. ONE (14:10)
[2021-12-03] MEDS ORDERED: SEVOFLURANE 31 TO 60 MINUTES. IH ONE (14:10)
[2021-12-03] MEDS ORDERED: PROPOFOL 10 MG/ML (20ML) VIAL. IV ONE ×2 (14:10→15:17)
[2021-12-03] MEDS ORDERED: PHENYLEPHRINE in 0.9% NACL PF 1 MG/10 ML SYRINGE. IV ONE (15:17)
--- NOTE | 2021-12-03 15:28 | PDOC4 ---
OPERATIVE NOTE Date: Date: Dec 03, 2021 Pre-Op Diagnosis: Renal failure. Bilateral hydronephrosis. Post-Op Diagnosis: Same Procedure Performed: 1. Cystoscopy with bilateral retrograde pyelograms. 2. Right ureteral stent placement. Surgeon: Ivania Coronel MD Anesthesia Type: General Blood Loss: None Specimans Obtained: None Findings: 1. Dilated left ureter. Wide open left UO 2. Mild right hydronephrosis with large volume cottage cheeselike debris partially blocking right distal ureter 3. 626 double-J stent was placed on the right side. String was removed Complications: None Operative Note: Once patient was taken to the operating room and general anesthetic was established his position was changed to dorsolithotomy. Genital area was prepped in usual surgical fashion. 21 Chadian rigid cystoscope was introduced into the bladder per urethra. Diffuse inflammatory changes of bladder mucosa were noted with some sloughing of few areas of the bladder. It did not look malignant. Large volume of white proteinaceous material was irrigated from the bladder. Left ureteral orifice appeared to be widely gaping. We can easily look into the distal third of the left ureter. Left retrograde pyelogram was performed which showed no filling defect in prompt drainage of contrast from the left side. Right ureteral orifice appeared to be partially obstructed by whitish proteinaceous material. Retrograde pyelogram showed few distal filling defects and mild to moderate right hydronephrosis. 0.035 guidewire was placed into the right ureter and then 6 Chadian 26 cm double- J stent was placed into the right kidney under fluoroscopy guidance. Both proximal distal curls were observed. 16 Chadian Earl catheter was then introduced into the bladder and left to dependent drainage. IVANIA CORONEL MD Dec 03, 2021 15:28
[2021-12-03] MEDS ORDERED: 0.9 % SODIUM CHLORIDE 10 ML DISP.SYRIN. IV PRN (15:30)
[2021-12-03] MEDS ORDERED: IV NORMAL SALINE 1000ML BAG 1,000 ML IV SCH (15:30)
[2021-12-03] MEDS ORDERED: NALOXONE 0.4 MG/ML VIAL. IV PRN ×2 (15:30)
--- NOTE | 2021-12-03 16:12 | NUR ---
SS following for discharge planning. SS reviewed pt chart and discussed with pt RN. Pt is from home with spouse and is currently on room air. COVID19 negative. Nephrology and Urology following. Cysto today. Temporary dialysis. PT/OT ordered. Pt is current on services with [facility], ; fax [phone]. SS will continue to follow for discharge planning.
[2021-12-03] MEDS ORDERED: IV DEXTROSE 5% 1,000 ML IV PRN (17:00)
[2021-12-03] MEDS: LEVOTHYROXINE 100 MCG TABLET PO SCH (18:17)
--- NOTE | 2021-12-03 20:59 | NUR ---
This RN paged Dr. Zhu. Urine still pink. Orders to hold SQ Heparin for tonight and tomorrow AM.
[2021-12-03] MEDS: ONDANSETRON PF 4 MG/2 ML VIAL. IVP PRN (21:25)
[2021-12-04] VITALS (17 sets, daily range): BP systolic 91–115; BP diastolic 44–68
--- NOTE | 2021-12-04 06:23 | NUR ---
end of shift note at beginning of shift, patient able to state his name and that he was at the hospital. unable to state month or year. currently patient able to state his name and that he is at the hospital. However, at one time during the shift patient noted to be slightly more confused. patient noted to attempt to kiss the thermometer upon taking patients temperature at 0000. patient stated to this RN he was at home. Also patient noted to pull off telemetry wires a few times during the middle of the shift, and at one time appeared to reach for dialysis catheter. patient redirected easily. patient returned to orientation status that he was at upon this RN assuming care of patient. Patient currently in bed, eyes clothes, easily arousable, vitals being monitored per unit protocol. Call light in reach.
[2021-12-04 06:45] LABS: HEMOGLOBIN 7.4 g/dL (13.0-17.5); RED BLOOD COUNT 2.41 x10^6/uL (4.30-5.70); RED CELL DISTRIBUTION WIDTH 15.1 % (11.5-14.5); WHITE BLOOD COUNT 13.7 x10^3/uL (4.0-11.0)
[2021-12-04 07:00] LABS: CALCIUM 8.4 mg/dL (8.5-10.1); CREATININE 2.8 mg/dL (0.7-1.3); GFR 21.9; PHOSPHORUS 4.9 mg/dL (2.6-4.7)
[2021-12-04] MEDS: HEPARIN for SUB-Q USE 5,000 UNIT/ML VIAL. SQ SCH ×2 (09:00→14:56)
[2021-12-04] MEDS: ONDANSETRON PF 4 MG/2 ML VIAL. IVP PRN (09:12)
[2021-12-04] MEDS: SODIUM BICARBONATE VIAL 50 MEQ in IV 1/2 NORMAL SALINE 1,000 ML IV SCH ×2 (10:10→21:16)
--- NOTE | 2021-12-04 10:50 | PDOC ---
Renal-Progress Notes Subjective Notes Notes LESS CONFUSED History of Present Illness Hx of present illness IMPROVING Vitals Vitals Vital Signs Date Time Temp Pulse Resp B/P (MAP) Pulse Ox O2 Delivery O2 Flow Rate FiO2 12/04/21 10:00 64 20 91/44 (60) 92 Nasal Cannula 4.0 12/04/21 08:00 98.3 98.3 Weight Weight [ ] I.O. Intake and Output Intake and Output 12/04/21 07:00 Intake Total 2219 ml Output Total 456 ml Balance 1763 ml Intake IV Total 2219 ml Output Urine Total 446 ml Estimated Blood Loss 10 ml Labs Labs Laboratory Tests Test 12/03/21 11:51 12/03/21 13:20 12/03/21 14:36 12/03/21 15:37 Glucose (Fingerstick) 51 mg/dL (70-99) 110 mg/dL (70-99) 76 mg/dL (70-99) 85 mg/dL (70-99) Test 12/03/21 19:35 12/03/21 21:07 12/04/21 00:52 12/04/21 05:45 Glucose (Fingerstick) 149 mg/dL (70-99) 162 mg/dL (70-99) 87 mg/dL (70-99) White Blood Count 13.7 x10^3/uL (4.0-11.0) Red Blood Count 2.41 x10^6/uL (4.30-5.70) Hemoglobin 7.4 g/dL (13.0-17.5) Hematocrit 23.0 % (39.0-53.0) Mean Corpuscular Volume 96 fL (79-100) Mean Corpuscular Hemoglobin 31 pg (25-35) Mean Corpuscular Hemoglobin Concent 32 g/dL (31-37) Red Cell Distribution Width 15.1 % (11.5-14.5) Platelet Count 247 x10^3/uL (140-400) Sodium Level 134 mmol/L (136-145) Potassium Level 3.0 mmol/L (3.5-5.1) Chloride Level 95 mmol/L (98-107) Carbon Dioxide Level 27 mmol/L (21-32) Anion Gap 12 (6-14) Blood Urea Nitrogen 21 mg/dL (8-26) Creatinine 2.8 mg/dL (0.7-1.3) Estimated GFR (Cockcroft-Gault) 21.9 Glucose Level 87 mg/dL (70-99) Calcium Level 8.4 mg/dL (8.5-10.1) Phosphorus Level 4.9 mg/dL (2.6-4.7) Micro Micro Microbiology 12/02/21 Blood Culture - Preliminary, Resulted NO GROWTH AFTER 1 DAY 12/02/21 Urine Culture - Final, Complete Review of Systems Constitutional: yes: other (CONFUSED) Physical Exam General Appearance: no apparent distress Skin: warm Respiratory: decreased breath sounds Heart: S1S2 Abdomen: soft, bowel sounds present Genitourinary: bladder flat Extremities: pulses present Neurology: alert, confused Assessment Assessment IMP NANCY-CR OF 7.4 CKD STAGE 3B - CR OF ABOUT 1.5 SEVERE MET ACIDOSIS PYELONEPHRITIS DEHYDRATION HYPONATERMIA HX OF LEFT URETERAL STONE AND STENT BILATERAL HYDRONEPHROSIS-PROB CHRONIC APPEARANCE S/P RIGHT URETERAL STENT BLADDER WALL THICKENING HX OF DM II PLAN HYDRATION HOLD HD TODAY ANTIBIOTICS UROLOGY FOLLOWING NICKERSON IN PLACE CYSTO FINDINGS REVIEWED D/W BOTH DAUGHTERS AT BEDSIDE WILL FOLLOW AMANDA MEJIA MD Dec 04, 2021 10:50
[2021-12-04] MEDS: cefTRIAXone IV Push 1 GM VIAL. IVP SCH (11:07)
--- NOTE | 2021-12-04 11:22 | PDOC ---
[facility] [facility] PROGRESS NOTE Date of Service DOS: DATE: 12/04/21 TIME: 11:20 Chief Complaint Chief Complaint Acute on chronic kidney injury Metabolic acidosis Normocytic anemia Nephrolithiasis Hypothyroidism BPH Bilateral hydronephrosis History of Present Illness History of Present Illness 12/03: Patient seen and evaluated bedside. His and 2 daughters are present as well. He is n.p.o. for cystoscopy and pyelogram with possible stent placement. Had improvement in his creatinine and EGFR with dialysis. Continue hemodialysis, per nephrology. Had some hypoglycemia due to n.p.o. status, will treat with 1 amp of D50. Urine culture shows no growth indicative of infection. Blood culture shows no growth after 1 day. Advance Care Planning: Total time spent [id number] with patient 19 minutes in discussion with goals of care, comfort care, end-of-life care, pain management, code status; patient names daughter, Madeleine Jacinto, as surrogate decision-maker. Critical care time 30 minutes spent reviewing charts, reviewing labs, reviewing imaging, discussion with family at bedside, and discussion with RN. 12/04: Patient is afebrile, no acute complaints. Had cystoscopy with bilateral retrograde pyelograms and right ureteral stent placement yesterday. Renal function improved today; creatinine 2.8 and EGFR 21.9, consistent with CKD 4. On last admission 10/29/2021 his renal function showed creatinine 2.6 and EGFR 23.9. Patient appears to be back at baseline in regards to renal function. Continue Rocephin and IV hydration. Discussed with urology PA, he may discharge on oral antibiotics for this UTI and also recent urological procedure. We will recheck renal function tomorrow and evaluate further HD needs. Discussed with RN. Critical care time 30 minutes spent reviewing charts, reviewing labs, reviewing imaging, discussion with urology, discussion with RN. Vitals/I&O Vitals/I&O: Vital Signs Date Time Temp Pulse Resp B/P (MAP) Pulse Ox O2 Delivery O2 Flow Rate FiO2 12/04/21 10:00 64 20 91/44 (60) 92 Nasal Cannula 4.0 12/04/21 08:00 98.3 98.3 I & O 12/03/21 12/03/21 12/04/21 15:00 23:00 07:00 Intake Total 958 ml 1261 ml Output Total 130 ml 163 ml 163 ml Balance -130 ml 795 ml 1098 ml Physical Exam General: Alert, Cooperative, No acute distress Heart: Regular rate Lungs: Clear, Crackles Abdomen: Normal bowel sounds Extremities: No clubbing Skin: No breakdown Labs Labs: Laboratory Tests Test 12/03/21 11:51 12/03/21 13:20 12/03/21 14:36 12/03/21 15:37 Glucose (Fingerstick) 51 mg/dL (70-99) 110 mg/dL (70-99) 76 mg/dL (70-99) 85 mg/dL (70-99) Test 12/03/21 19:35 12/03/21 21:07 12/04/21 00:52 12/04/21 05:45 Glucose (Fingerstick) 149 mg/dL (70-99) 162 mg/dL (70-99) 87 mg/dL (70-99) White Blood Count 13.7 x10^3/uL (4.0-11.0) Red Blood Count 2.41 x10^6/uL (4.30-5.70) Hemoglobin 7.4 g/dL (13.0-17.5) Hematocrit 23.0 % (39.0-53.0) Mean Corpuscular Volume 96 fL (79-100) Mean Corpuscular Hemoglobin 31 pg (25-35) Mean Corpuscular Hemoglobin Concent 32 g/dL (31-37) Red Cell Distribution Width 15.1 % (11.5-14.5) Platelet Count 247 x10^3/uL (140-400) Sodium Level 134 mmol/L (136-145) Potassium Level 3.0 mmol/L (3.5-5.1) Chloride Level 95 mmol/L (98-107) Carbon Dioxide Level 27 mmol/L (21-32) Anion Gap 12 (6-14) Blood Urea Nitrogen 21 mg/dL (8-26) Creatinine 2.8 mg/dL (0.7-1.3) Estimated GFR (Cockcroft-Gault) 21.9 Glucose Level 87 mg/dL (70-99) Calcium Level 8.4 mg/dL (8.5-10.1) Phosphorus Level 4.9 mg/dL (2.6-4.7) Assessment and Plan Assessmemt and Plan Problems Medical Problems: (1) Acute renal failure Status: Acute (2) Metabolic acidosis Status: Acute (3) Urinary tract infection Status: Acute Comment Review of Relevant I have reviewed the following items yanick (where applicable) has been applied. Medications: Current Medications Medications (Trade) Dose Ordered Sig/Nate Route PRN Reason Start Time Stop Time Status Last Admin Dose Admin Dextrose (Dextrose 50%-Water Syringe) 25 gm 1X ONCE IV 12/03/21 12:00 12/03/21 12:01 DC 12/03/21 12:00 Iohexol (Omnipaque 300 Mg/ml) 50 ml STK-MED ONCE .ROUTE 12/03/21 13:40 12/03/21 13:40 DC 12/03/21 15:30 Lidocaine HCl (Glydo (Lidocaine) Jelly) 6 junaid STK-MED ONCE .ROUTE 12/03/21 13:40 12/03/21 13:41 DC 12/03/21 15:30 Dextrose 1,000 ml @ 900 mls/hr Q1H7M IV 12/03/21 12:00 12/03/21 16:56 DC 12/03/21 12:00 Dextrose 1,000 ml @ 900 mls/hr Q1H7M PRN IV LOW BS/glucose 12/03/21 17:00 12/03/21 12:00 Ceftriaxone Sodium (Rocephin) 1 gm Q24H IVP 12/04/21 11:00 12/04/21 11:07 Justifications for Admission Other Justification Acute pancreatitis SYDNEY HWANG MD Dec 04, 2021 11:22
[2021-12-04] MEDS ORDERED: POTASSIUM CHLORIDE 10MEQ 100 ML IV ONE (11:30)
[2021-12-04] MEDS: TAMSULOSIN 0.4 MG CAP.ER.24H. PO SCH (13:47)
[2021-12-04] MEDS: FENOFIBRATE,MICRONIZED 134 MG CAPSULE PO SCH (13:47)
[2021-12-04] MEDS: LEVOTHYROXINE 100 MCG TABLET PO SCH (13:47)
[2021-12-04] MEDS: ASPIRIN ENTERIC COATED 325 MG TABLET.DR. PO SCH (14:56)
--- NOTE | 2021-12-04 19:58 | PDOC ---
PROGRESS NOTE DATE OF SERVICE: DATE: 12/04/21 TIME: 19:48 SUBJECTIVE: HPI: Patient resting in bed. No new complaints. Daughters at bedside. Problems: Problems Medical Problems: (1) Acute renal failure Status: Acute (2) Metabolic acidosis Status: Acute (3) Urinary tract infection Status: Acute OBJECTIVE: Vital Signs: Vital Signs Date Time Temp Pulse Resp B/P (MAP) Pulse Ox O2 Delivery O2 Flow Rate FiO2 12/04/21 16:00 98.2 68 24 112/53 (72) 100 Nasal Cannula 4.0 98.2 12/04/21 14:00 63 22 95/50 (65) 100 Nasal Cannula 4.0 12/04/21 13:00 66 22 105/52 (69) 97 Nasal Cannula 4.0 12/04/21 12:00 Nasal Cannula 4.0 12/04/21 12:00 98.4 70 24 102/48 (66) 95 Nasal Cannula 4.0 98.4 12/04/21 11:00 62 20 100/48 (65) 95 Nasal Cannula 4.0 12/04/21 10:00 64 20 91/44 (60) 92 Nasal Cannula 4.0 12/04/21 09:00 68 32 104/50 (68) 88 Nasal Cannula 4.0 12/04/21 08:00 98.3 62 28 103/49 (67) 93 Nasal Cannula 2.0 98.3 12/04/21 08:00 Nasal Cannula 2.0 12/04/21 07:00 64 16 103/47 (65) 99 Nasal Cannula 2.0 12/04/21 06:00 59 28 105/48 (67) 100 Nasal Cannula 2.0 12/04/21 05:00 66 17 99/48 (65) 98 Nasal Cannula 2.0 12/04/21 04:00 97.7 62 20 100/46 (64) 97 Nasal Cannula 2.0 97.7 12/04/21 04:00 Nasal Cannula 2.0 12/04/21 03:00 19 102/47 (65) 96 Nasal Cannula 2.0 12/04/21 02:00 66 18 108/52 (70) 99 Nasal Cannula 2.0 12/04/21 01:00 66 18 95/66 (76) 95 Nasal Cannula 2.0 12/04/21 00:00 99.1 68 17 100/68 (79) 100 Nasal Cannula 2.0 99.1 12/04/21 00:00 Nasal Cannula 2.0 12/03/21 23:00 62 17 100/64 (76) 100 Nasal Cannula 2.0 12/03/21 22:00 64 17 101/46 (64) 100 Nasal Cannula 2.0 12/03/21 21:00 72 24 95/49 (64) 100 Nasal Cannula 2.0 12/03/21 20:00 97.9 62 18 99/45 (63) 100 Nasal Cannula 2.0 97.9 I & O Intake and Output 12/04/21 07:00 Intake Total 2219 ml Output Total 456 ml Balance 1763 ml IV Total 2219 ml Output Urine Total 446 ml Estimated Blood Loss 10 ml PHYSICAL EXAM: Physical Exam: General: Pleasant, no acute distress, well groomed Eyes: conjunctiva anicteric, eyes full range of motion ENT: moist oral mucosa, normal dentition Neck: Trachea midline, no masses, dialysis catheter Respiratory: unlabored breathing, not using accessory muscles, no crackles or wheezes Abdomen: nontender, nondistended, no hepatosplenomegaly, no masses Skin: no rashes or skin lesions on visualized skin Psych: normal mood, affect. : simpson catheter with cloudy peach colored urine with sediment. LABS: Laboratory Tests Test 12/02/21 10:05 12/02/21 10:12 12/02/21 10:58 12/02/21 11:10 White Blood Count 10.8 x10^3/uL (4.0-11.0) Red Blood Count 3.00 x10^6/uL (4.30-5.70) Hemoglobin 9.4 g/dL (13.0-17.5) Hematocrit 29.1 % (39.0-53.0) Mean Corpuscular Volume 97 fL (79-100) Mean Corpuscular Hemoglobin 31 pg (25-35) Mean Corpuscular Hemoglobin Concent 32 g/dL (31-37) Red Cell Distribution Width 15.5 % (11.5-14.5) Platelet Count 319 x10^3/uL (140-400) Neutrophils (%) (Auto) 78 % (31-73) Lymphocytes (%) (Auto) 12 % (24-48) Monocytes (%) (Auto) 6 % (0-9) Eosinophils (%) (Auto) 2 % (0-3) Basophils (%) (Auto) 1 % (0-3) Neutrophils # (Auto) 8.5 x10^3/uL (1.8-7.7) Lymphocytes # (Auto) 1.3 x10^3/uL (1.0-4.8) Monocytes # (Auto) 0.7 x10^3/uL (0.0-1.1) Eosinophils # (Auto) 0.2 x10^3/uL (0.0-0.7) Basophils # (Auto) 0.1 x10^3/uL (0.0-0.2) Sodium Level 133 mmol/L (136-145) Potassium Level 5.1 mmol/L (3.5-5.1) Chloride Level 101 mmol/L (98-107) Carbon Dioxide Level 12 mmol/L (21-32) Anion Gap 20 (6-14) Blood Urea Nitrogen 109 mg/dL (8-26) Creatinine 7.4 mg/dL (0.7-1.3) Estimated GFR (Cockcroft-Gault) 7.1 BUN/Creatinine Ratio 15 (6-20) Glucose Level 93 mg/dL (70-99) Calcium Level 9.0 mg/dL (8.5-10.1) Magnesium Level 2.2 mg/dL (1.8-2.4) Total Bilirubin 0.5 mg/dL (0.2-1.0) Aspartate Amino Transf (AST/SGOT) 31 U/L (15-37) Alanine Aminotransferase (ALT/SGPT) 21 U/L (16-63) Alkaline Phosphatase 62 U/L (46-116) Troponin I High Sensitivity 21 ng/L (4-75) Total Protein 8.9 g/dL (6.4-8.2) Albumin 3.4 g/dL (3.4-5.0) Albumin/Globulin Ratio 0.6 (1.0-1.7) Salicylates Level 2.0 mg/dL (2.8-20.0) Salicylate Last Dose Date Unknown Salicylate Last Dose Time Unknown Ethyl Alcohol Level < 10 mg/dL (0-10) Acetone Level Neg (NEG) Hepatitis B Surface Antigen Nonreactive (Nonreactive) Influenza Type A Antigen Negative (NEGATIVE) Influenza Type B Antigen Negative (NEGATIVE) SARS-CoV-2 Antigen (Rapid) Negative (NEGATIVE) Urine Collection Type Unknown Urine Color (Auto) Light orange Urine Turbidity Turbid Urine pH (Auto) 6.0 (<5.0-8.0) Urine Specific [place] 1.010 (1.000-1.030) Urine Protein (Auto) 70 mg/dL (Negative) Urine Glucose (Auto)(UA) Negative mg/dL (Negative) Urine Ketones (Auto) Negative mg/dL (Negative) Urine Blood (Auto) Moderate (Negative) Urine Nitrite Negative (Negative) Urine Bilirubin (Auto) Negative (Negative) Urine Urobilinogen (Auto) Normal mg/dL (Normal) Urine Leukocyte Esterase (Auto) Large (Negative) Urine RBC Field obscured /HPF (0-2) Urine WBC Tntc /HPF (0-4) Urine Bacteria Many /HPF (0-FEW) O2 Saturation 96 % (92-99) Arterial Blood pH 7.11 (7.35-7.45) Arterial Blood pCO2 at Patient Temp 26 mmHg (35-46) Arterial Blood pO2 at Patient Temp 97 mmHg (65-108) Arterial Blood HCO3 8 mmol/L (21-28) Arterial Blood Base Excess -20 mmol/L (-3-3) Oxyhemoglobin 95.0 % Methemoglobin 0.2 % (0.0-1.9) Carbon Monoxide, Quantitative 0.4 % (0.0-1.9) FiO2 21% Test 12/03/21 08:42 12/03/21 09:43 12/03/21 11:51 12/03/21 13:20 Sodium Level 139 mmol/L (136-145) Potassium Level 3.6 mmol/L (3.5-5.1) Chloride Level 98 mmol/L (98-107) Carbon Dioxide Level 19 mmol/L (21-32) Anion Gap 22 (6-14) Blood Urea Nitrogen 56 mg/dL (8-26) Creatinine 4.5 mg/dL (0.7-1.3) Estimated GFR (Cockcroft-Gault) 12.7 Glucose Level 69 mg/dL (70-99) Calcium Level 8.6 mg/dL (8.5-10.1) Magnesium Level 2.0 mg/dL (1.8-2.4) Glucose (Fingerstick) 68 mg/dL (70-99) 51 mg/dL (70-99) 110 mg/dL (70-99) Test 12/03/21 14:36 12/03/21 15:37 12/03/21 19:35 12/03/21 21:07 Glucose (Fingerstick) 76 mg/dL (70-99) 85 mg/dL (70-99) 149 mg/dL (70-99) 162 mg/dL (70-99) Test 12/04/21 00:52 12/04/21 05:45 12/04/21 17:51 Glucose (Fingerstick) 87 mg/dL (70-99) 81 mg/dL (70-99) White Blood Count 13.7 x10^3/uL (4.0-11.0) Red Blood Count 2.41 x10^6/uL (4.30-5.70) Hemoglobin 7.4 g/dL (13.0-17.5) Hematocrit 23.0 % (39.0-53.0) Mean Corpuscular Volume 96 fL (79-100) Mean Corpuscular Hemoglobin 31 pg (25-35) Mean Corpuscular Hemoglobin Concent 32 g/dL (31-37) Red Cell Distribution Width 15.1 % (11.5-14.5) Platelet Count 247 x10^3/uL (140-400) Sodium Level 134 mmol/L (136-145) Potassium Level 3.0 mmol/L (3.5-5.1) Chloride Level 95 mmol/L (98-107) Carbon Dioxide Level 27 mmol/L (21-32) Anion Gap 12 (6-14) Blood Urea Nitrogen 21 mg/dL (8-26) Creatinine 2.8 mg/dL (0.7-1.3) Estimated GFR (Cockcroft-Gault) 21.9 Glucose Level 87 mg/dL (70-99) Calcium Level 8.4 mg/dL (8.5-10.1) Phosphorus Level 4.9 mg/dL (2.6-4.7) Microbiology 12/02/21 Blood Culture - Preliminary, Resulted NO GROWTH AFTER 2 DAYS 12/02/21 Urine Culture - Final, Complete MEDICATIONS: Current Medications Medications (Trade) Dose Ordered Sig/Nate Start Time Stop Time Status Last Admin Dose Admin Acetaminophen (Tylenol) 650 mg PRN Q6HRS PRN 12/02/21 18:30 Acetaminophen/ Hydrocodone Bitart (Lortab 5/325) 1 tab PRN Q4HRS PRN 12/02/21 18:30 Al Hydroxide/Mg Hydroxide (Mylanta Plus Xs) 30 ml PRN Q3HRS PRN 12/02/21 18:30 Albumin Human 100 ml @ 100 mls/hr 1X PRN PRN 12/02/21 17:15 12/02/21 23:14 DC 12/02/21 17:50 100 MLS/HR Aspirin (Ecotrin) 325 mg DAILY 12/03/21 09:00 12/04/21 14:56 325 MG Aztreonam (Azactam) 2 gm 1X ONCE 12/02/21 11:30 12/02/21 11:31 UNV Ceftriaxone Sodium (Rocephin) 1 gm Q24H 12/04/21 11:00 12/04/21 11:07 1 GM Dexamethasone Sodium Phosphate (Decadron) 4 mg STK-MED ONCE 12/03/21 14:10 12/03/21 14:10 DC Dextrose 1,000 ml @ 900 mls/hr Q1H7M PRN 12/03/21 17:00 12/04/21 11:27 DC 12/03/21 12:00 900 MLS/HR Dextrose (Dextrose 50%-Water Syringe) 25 gm 1X ONCE 12/03/21 12:00 12/03/21 12:01 DC 12/03/21 12:00 25 GM Fenofibrate (Lofibra) 134 mg DAILY 12/03/21 09:00 12/04/21 13:47 134 MG Fentanyl Citrate (Fentanyl 2ml Vial) 100 mcg STK-MED ONCE 12/03/21 14:10 12/03/21 14:10 DC Heparin Sodium (Porcine) (Heparin Sodium) 5,000 unit Q12HR 12/02/21 21:00 12/02/21 22:50 5,000 UNIT Info (PHARMACY MONITORING -- do not chart) 1 each PRN DAILY PRN 12/03/21 07:45 Iohexol (Omnipaque 300 Mg/ml) 50 ml STK-MED ONCE 12/03/21 13:40 12/03/21 13:40 DC 12/03/21 15:30 10 ML Lactobacillus Rhamnosus (Culturelle) 1 cap BID 12/04/21 21:00 Levofloxacin (Levaquin) 500 mg DAILY06 12/03/21 06:00 12/10/21 05:59 UNV Levothyroxine Sodium (Synthroid) 100 mcg DAILYAC 12/03/21 07:30 12/04/21 13:47 100 MCG Lidocaine HCl (Buffered Lidocaine 1%) 9 ml 1X ONCE 12/02/21 13:15 12/02/21 13:16 DC 12/02/21 13:07 5 ML Lidocaine HCl (Glydo (Lidocaine) Jelly) 6 junaid STK-MED ONCE 12/03/21 13:40 12/03/21 13:41 DC 12/03/21 15:30 6 JUNAID Lidocaine HCl (Lidocaine Pf 2% Vial) 5 ml STK-MED ONCE 12/03/21 14:10 12/03/21 14:10 DC Magnesium Hydroxide (Milk Of Magnesia) 2,400 mg PRN Q12HR PRN 12/02/21 18:30 Naloxone HCl (Narcan) 0.4 mg PRN Q2MIN PRN 12/03/21 15:30 Ondansetron HCl (Zofran) 4 mg STK-MED ONCE 12/03/21 14:10 12/03/21 14:10 DC Phenylephrine HCl (PHENYLEPHRINE in 0.9% NACL PF) 1 mg STK-MED ONCE 12/03/21 15:17 12/03/21 15:17 DC Piperacillin Sod/ Tazobactam Sod 2.25 gm/Sodium Chloride 50 ml @ 100 mls/hr 1X ONCE 12/02/21 11:45 12/02/21 12:14 DC 12/02/21 12:56 100 MLS/HR Potassium Chloride/Water 100 ml @ 100 mls/hr 1X ONCE 12/04/21 11:30 12/04/21 12:29 DC 12/04/21 11:25 100 MLS/HR Propofol (Diprivan) 200 mg STK-MED ONCE 12/03/21 15:17 12/03/21 15:17 DC Sevoflurane (Ultane) 30 ml STK-MED ONCE 12/03/21 14:10 12/03/21 14:10 DC Sodium Bicarbonate 50 meq/Sodium Chloride 1,050 ml @ 100 mls/hr [id number] 12/03/21 11:00 12/04/21 10:10 100 MLS/HR Sodium Chloride 1,000 ml @ 25 mls/hr Q24H 12/03/21 15:30 Sodium Chloride (Normal Saline Flush) 3 ml QSHIFT PRN 12/03/21 15:30 Succinylcholine Chloride (Anectine) 200 mg STK-MED ONCE 12/03/21 14:10 12/03/21 14:11 DC Tamsulosin HCl (Flomax) 0.4 mg DAILY 12/03/21 09:00 12/04/21 13:47 0.4 MG Zolpidem Tartrate (Ambien) 5 mg PRN QHS PRN 12/02/21 18:30 ASSESSMENT & PLAN Mild bilateral hydroureteronephrosis Images reviewed. No obstructing stones noted. Both ureters dilated down to level of bladder. Diffuse bladder wall thickening. May be chronic. UA with many bacteria. F/u urine cultures, empiric abx. NANCY on CKD - nephrology following and planning dialysis Simpson monitor I&O Tamsulosin Taken to OR 12/[address] Coronel for cystoscopy, BRP. Right ureteral stent placed due to "cottage cheese like appearing" obstruction. Creatinine improved to 2.8 this morning. Baseline 2.6. Not being dialyzed today. Discussed with daughters that creatinine improvement may be from the ureteral s tent, but possibly just from dialysis. Will watch creat tomorrow. If stays in this range, patient will discharge tomorrow. Will follow up in [address] Coronel. Will most likely need stent director long term care. D/w Dr Coronel Problem List: Problems Medical Problems: (1) Acute renal failure Status: Acute (2) Metabolic acidosis Status: Acute (3) Urinary tract infection Status: Acute SAJI DENSON DIRECTOR PERIOPERATIVE Dec 04, 2021 19:58
[2021-12-04] MEDS: LACTOBACILLUS RHAMNOSUS GG 1 CAPSULE. PO SCH (20:45)
[2021-12-05] VITALS: BP 97/46
[2021-12-05 04:00] VITALS: BP 108/54
[2021-12-05 05:30] LABS: CALCIUM 7.8 mg/dL (8.5-10.1); CREATININE 3.8 mg/dL (0.7-1.3); GFR 15.4; MAGNESIUM 1.6 mg/dL (1.8-2.4); PHOSPHORUS 5.4 mg/dL (2.6-4.7)
[2021-12-05 05:47] LABS: POTASSIUM 2.7 mmol/L (3.5-5.1)
[2021-12-05] MEDS ORDERED: POTASSIUM CHLORIDE 20 MEQ TABLET.ER. PO ONE ×2 (06:00→19:00)
[2021-12-05] MEDS ORDERED: MAGNESIUM SULFATE 2GM 50 ML IV ONE (06:30)
--- NOTE | 2021-12-05 07:41 | NUR ---
Dr. Spears paged this morning at 550 and alerted of patient critical potassium of 2.7 and magnesium 1.6. Telephone orders given and readback for 40 meq of kcl PO and NS with 20 meq to run at 100mls/ hour. This RN contacted pharmacist Sapna, who verified it was okay to give oral potassium. Also verified Magnesium order placed was the correct order per facility policy. Orders initiated.
[2021-12-05 08:00] VITALS: BP 90/48
--- NOTE | 2021-12-05 08:00 | NUR ---
SQ Heparin held due to blood in urine per maintenance mechanic 2nd shift nurse.
[2021-12-05] MEDS: FENOFIBRATE,MICRONIZED 134 MG CAPSULE PO SCH (08:22)
[2021-12-05] MEDS: TAMSULOSIN 0.4 MG CAP.ER.24H. PO SCH (08:22)
[2021-12-05] MEDS: LEVOTHYROXINE 100 MCG TABLET PO SCH (08:22)
[2021-12-05] MEDS: ASPIRIN ENTERIC COATED 325 MG TABLET.DR. PO SCH (08:22)
[2021-12-05] MEDS: LACTOBACILLUS RHAMNOSUS GG 1 CAPSULE. PO SCH ×2 (08:22→21:23)
[2021-12-05] MEDS: HEPARIN for SUB-Q USE 5,000 UNIT/ML VIAL. SQ SCH ×2 (09:00→21:30)
--- NOTE | 2021-12-05 10:36 | PDOC ---
Renal-Progress Notes Subjective Notes Notes CONFUSED History of Present Illness Hx of present illness NO ACUTE CHANGES Vitals Vitals Vital Signs Date Time Temp Pulse Resp B/P (MAP) Pulse Ox O2 Delivery O2 Flow Rate FiO2 12/05/21 08:00 Nasal Cannula 3.0 12/05/21 08:00 98.0 68 18 90/48 (62) 99 98.0 Weight Weight [ ] I.O. Intake and Output Intake and Output 12/05/21 07:00 Intake Total 2818 ml Output Total 830 ml Balance 1988 ml Intake Oral 410 ml IV Total 2408 ml Output Urine Total 830 ml Labs Labs Laboratory Tests Test 12/04/21 17:51 12/05/21 04:30 Glucose (Fingerstick) 81 mg/dL (70-99) Sodium Level 135 mmol/L (136-145) Potassium Level 2.7 mmol/L (3.5-5.1) Chloride Level 94 mmol/L (98-107) Carbon Dioxide Level 32 mmol/L (21-32) Anion Gap 9 (6-14) Blood Urea Nitrogen 29 mg/dL (8-26) Creatinine 3.8 mg/dL (0.7-1.3) Estimated GFR (Cockcroft-Gault) 15.4 Glucose Level 78 mg/dL (70-99) Calcium Level 7.8 mg/dL (8.5-10.1) Phosphorus Level 5.4 mg/dL (2.6-4.7) Magnesium Level 1.6 mg/dL (1.8-2.4) Micro Micro Microbiology 12/02/21 Blood Culture - Preliminary, Resulted NO GROWTH AFTER 2 DAYS 12/02/21 Urine Culture - Final, Complete Review of Systems Constitutional: yes: other (CONFUSED) Physical Exam General Appearance: no apparent distress Skin: warm Respiratory: decreased breath sounds Heart: S1S2 Abdomen: soft, bowel sounds present Genitourinary: bladder flat Extremities: pulses present Neurology: alert, confused Assessment Assessment IMP NANCY-CR OF 7.4 ON ADMIT CKD STAGE 3B - CR OF ABOUT 1.5 SEVERE MET ACIDOSIS PYELONEPHRITIS DEHYDRATION HYPONATERMIA HYPOKALEMIA HX OF LEFT URETERAL STONE AND STENT BILATERAL HYDRONEPHROSIS-PROB CHRONIC APPEARANCE S/P RIGHT URETERAL STENT BLADDER WALL THICKENING HX OF DM II PLAN REPLACE K HYDRATION CONT HOLD HD MAY NEED HD AGAIN MONITOR FOR IMPROVEMENT ANTIBIOTICS UROLOGY FOLLOWING CHANGE NICKERSON CYSTO FINDINGS REVIEWED D/W DAUGHTER WILL FOLLOW AMANDA MEJIA MD Dec 05, 2021 10:36
[2021-12-05] MEDS: cefTRIAXone IV Push 1 GM VIAL. IVP SCH (11:12)
[2021-12-05 12:00] VITALS: BP 101/44
--- NOTE | 2021-12-05 14:16 | PDOC ---
[facility] PROGRESS NOTE Date of Service DOS: DATE: 12/05/21 TIME: 14:07 Chief Complaint Chief Complaint Acute on chronic kidney injury Metabolic acidosis Normocytic anemia Nephrolithiasis Hypothyroidism BPH Bilateral hydronephrosis Right lower pole 8 mm nephrolith History of Present Illness History of Present Illness 12/03: Patient seen and evaluated bedside. His and 2 daughters are present as well. He is n.p.o. for cystoscopy and pyelogram with possible stent placement. Had improvement in his creatinine and EGFR with dialysis. Continue hemodialysis, per nephrology. Had some hypoglycemia due to n.p.o. status, will treat with 1 amp of D50. Urine culture shows no growth indicative of infection. Blood culture shows no growth after 1 day. Advance Care Planning: Total time spent [id number] with patient 19 minutes in discussion with goals of care, comfort care, end-of-life care, pain management, code status; patient names daughter, Madeleine Jacinto, as surrogate decision-maker. Critical care time 30 minutes spent reviewing charts, reviewing labs, reviewing imaging, discussion with family at bedside, and discussion with RN. 12/04: Patient is afebrile, no acute complaints. Had cystoscopy with bilateral retrograde pyelograms and right ureteral stent placement yesterday. Renal function improved today; creatinine 2.8 and EGFR 21.9, consistent with CKD 4. On last admission 10/29/2021 his renal function showed creatinine 2.6 and EGFR 23.9. Patient appears to be back at baseline in regards to renal function. Continue Rocephin and IV hydration. Discussed with urology PA, he may discharge on oral antibiotics for this UTI and also recent urological procedure. We will recheck renal function tomorrow and evaluate further HD needs. Discussed with RN. Critical care time 30 minutes spent reviewing charts, reviewing labs, reviewing imaging, discussion with urology, discussion with RN. 12/05: Patient seen and evaluated bedside. His renal function worsened today, creatinine 3.8 with EGFR 15.4. We will keep inpatient and monitor for further need of hemodialysis. Potassium 2.7 today; will place and hydrate with KCl in normal saline. Urine culture with growth not indicative of infection. He is s/p right ureteral stent placement; he will follow up with urology in 2 weeks. Discussed with RN. Vitals/I&O Vitals/I&O: Vital Signs Date Time Temp Pulse Resp B/P (MAP) Pulse Ox O2 Delivery O2 Flow Rate FiO2 12/05/21 12:00 97.9 76 22 101/44 (63) 93 Nasal Cannula 3.0 97.9 I & O 12/04/21 12/04/21 12/05/21 15:00 23:00 07:00 Intake Total 100 ml 1640 ml 1078 ml Output Total 190 ml 325 ml 315 ml Balance -90 ml 1315 ml 763 ml Physical Exam General: Alert, Cooperative, No acute distress Heart: Regular rate Lungs: Clear, Crackles Abdomen: Normal bowel sounds Extremities: No clubbing Skin: No breakdown Labs Labs: Laboratory Tests Test 12/04/21 17:51 12/05/21 04:30 Glucose (Fingerstick) 81 mg/dL (70-99) Sodium Level 135 mmol/L (136-145) Potassium Level 2.7 mmol/L (3.5-5.1) Chloride Level 94 mmol/L (98-107) Carbon Dioxide Level 32 mmol/L (21-32) Anion Gap 9 (6-14) Blood Urea Nitrogen 29 mg/dL (8-26) Creatinine 3.8 mg/dL (0.7-1.3) Estimated GFR (Cockcroft-Gault) 15.4 Glucose Level 78 mg/dL (70-99) Calcium Level 7.8 mg/dL (8.5-10.1) Phosphorus Level 5.4 mg/dL (2.6-4.7) Magnesium Level 1.6 mg/dL (1.8-2.4) Assessment and Plan Assessmemt and Plan Problems Medical Problems: (1) Acute renal failure Status: Acute (2) Metabolic acidosis Status: Acute (3) Urinary tract infection Status: Acute Comment Review of Relevant I have reviewed the following items yanick (where applicable) has been applied. Medications: Current Medications Medications (Trade) Dose Ordered Sig/Nate Route PRN Reason Start Time Stop Time Status Last Admin Dose Admin Lactobacillus Rhamnosus (Culturelle) 1 cap BID PO 12/04/21 21:00 12/05/21 08:22 Potassium Chloride (Klor-Con) 40 meq 1X ONCE PO 12/05/21 06:00 12/05/21 06:14 DC 12/05/21 06:25 Potassium Chloride/Sodium Chloride 1,000 ml @ 100 mls/hr Q10H ONCE IV 12/05/21 06:30 12/05/21 16:29 12/05/21 06:26 Magnesium Sulfate 50 ml @ 25 mls/hr 1X ONCE IV 12/05/21 06:30 12/05/21 08:29 DC 12/05/21 06:27 Justifications for Admission Other Justification Acute pancreatitis SYDNEY HWANG MD Dec 05, 2021 14:16
[2021-12-05 16:00] VITALS: BP 96/53
[2021-12-05] MEDS: IV NORMAL SALINE 1000ML BAG 1,000 ML IV SCH (18:04)
[2021-12-05 18:43] LABS: CALCIUM 7.8 mg/dL (8.5-10.1); CREATININE 4.4 mg/dL (0.7-1.3); POTASSIUM 3.6 mmol/L (3.5-5.1)
[2021-12-06 03:00] VITALS: BP 89/51
[2021-12-06] MEDS: IV NORMAL SALINE 1000ML BAG 1,000 ML IV SCH ×3 (04:15→23:57)
[2021-12-06 07:00] VITALS: BP 113/53
[2021-12-06 07:34] LABS: BASO % 0 % (0-3); EOS # 0.3 x10^3/uL (0.0-0.7); EOS % 4 % (0-3); HEMATOCRIT 21.9 % (39.0-53.0); HEMOGLOBIN 7.1 g/dL (13.0-17.5); LYMPH # 0.8 x10^3/uL (1.0-4.8); LYMPH % 11 % (24-48); MEAN CORPUSCULAR HEMOGLOBIN 31 pg (25-35); MEAN CORPUSCULAR HGB CONC 32 g/dL (31-37); MEAN CORPUSCULAR VOLUME 96 fL (79-100); MONO # 0.5 x10^3/uL (0.0-1.1); MONO % 8 % (0-9); NEUT # 5.2 x10^3/uL (1.8-7.7); NEUT % 77 % (31-73); PLATELET COUNT 202 x10^3/uL (140-400); RED BLOOD COUNT 2.28 x10^6/uL (4.30-5.70); RED CELL DISTRIBUTION WIDTH 14.5 % (11.5-14.5); WHITE BLOOD COUNT 6.9 x10^3/uL (4.0-11.0)
[2021-12-06 07:50] LABS: CALCIUM 8.1 mg/dL (8.5-10.1); CREATININE 4.5 mg/dL (0.7-1.3); GFR 12.7; POTASSIUM 3.6 mmol/L (3.5-5.1)
[2021-12-06] MEDS: LEVOTHYROXINE 100 MCG TABLET PO SCH (08:41)
[2021-12-06] MEDS: ASPIRIN ENTERIC COATED 325 MG TABLET.DR. PO SCH (08:41)
[2021-12-06] MEDS: TAMSULOSIN 0.4 MG CAP.ER.24H. PO SCH (08:41)
[2021-12-06] MEDS: LACTOBACILLUS RHAMNOSUS GG 1 CAPSULE. PO SCH ×2 (08:41→21:08)
[2021-12-06] MEDS: HEPARIN for SUB-Q USE 5,000 UNIT/ML VIAL. SQ SCH ×2 (08:43→21:17)
[2021-12-06] MEDS: FENOFIBRATE,MICRONIZED 134 MG CAPSULE PO SCH (09:27)
[2021-12-06 10:49] VITALS: BP 117/62
--- NOTE | 2021-12-06 11:04 | PDOC ---
Renal-Progress Notes Subjective Notes Notes STABLE History of Present Illness Hx of present illness NO ACUTE CHANGES Vitals Vitals Vital Signs Date Time Temp Pulse Resp B/P (MAP) Pulse Ox O2 Delivery O2 Flow Rate FiO2 12/06/21 10:49 97.9 79 20 117/62 (80) 92 Nasal Cannula 3.0 97.9 Weight Weight [ ] I.O. Intake and Output Intake and Output 12/06/21 07:00 Intake Total 240 ml Output Total 1775 ml Balance -1535 ml Intake Oral 240 ml Output Urine Total 1775 ml Labs Labs Laboratory Tests Test 12/05/21 18:15 12/06/21 06:05 Sodium Level 134 mmol/L (136-145) 137 mmol/L (136-145) Potassium Level 3.6 mmol/L (3.5-5.1) 3.6 mmol/L (3.5-5.1) Chloride Level 96 mmol/L (98-107) 98 mmol/L (98-107) Carbon Dioxide Level 29 mmol/L (21-32) 28 mmol/L (21-32) Anion Gap 9 (6-14) 11 (6-14) Blood Urea Nitrogen 31 mg/dL (8-26) 32 mg/dL (8-26) Creatinine 4.4 mg/dL (0.7-1.3) 4.5 mg/dL (0.7-1.3) Estimated GFR (Cockcroft-Gault) 13.0 12.7 Glucose Level 111 mg/dL (70-99) 80 mg/dL (70-99) Calcium Level 7.8 mg/dL (8.5-10.1) 8.1 mg/dL (8.5-10.1) White Blood Count 6.9 x10^3/uL (4.0-11.0) Red Blood Count 2.28 x10^6/uL (4.30-5.70) Hemoglobin 7.1 g/dL (13.0-17.5) Hematocrit 21.9 % (39.0-53.0) Mean Corpuscular Volume 96 fL (79-100) Mean Corpuscular Hemoglobin 31 pg (25-35) Mean Corpuscular Hemoglobin Concent 32 g/dL (31-37) Red Cell Distribution Width 14.5 % (11.5-14.5) Platelet Count 202 x10^3/uL (140-400) Neutrophils (%) (Auto) 77 % (31-73) Lymphocytes (%) (Auto) 11 % (24-48) Monocytes (%) (Auto) 8 % (0-9) Eosinophils (%) (Auto) 4 % (0-3) Basophils (%) (Auto) 0 % (0-3) Neutrophils # (Auto) 5.2 x10^3/uL (1.8-7.7) Lymphocytes # (Auto) 0.8 x10^3/uL (1.0-4.8) Monocytes # (Auto) 0.5 x10^3/uL (0.0-1.1) Eosinophils # (Auto) 0.3 x10^3/uL (0.0-0.7) Basophils # (Auto) 0.0 x10^3/uL (0.0-0.2) Micro Micro Microbiology 12/02/21 Blood Culture - Preliminary, Resulted NO GROWTH AFTER 3 DAYS 12/02/21 Urine Culture - Final, Complete Review of Systems Constitutional: yes: other (CONFUSED) Physical Exam General Appearance: no apparent distress Skin: warm Respiratory: decreased breath sounds Heart: S1S2 Abdomen: soft, bowel sounds present Genitourinary: bladder flat Extremities: pulses present Neurology: alert, confused Assessment Assessment IMP NANCY-CR OF 7.4 ON ADMIT-IMPROVED TO 4.4 WITH HD CKD STAGE 3B - CR OF ABOUT 1.5 SEVERE MET ACIDOSIS PYELONEPHRITIS DEHYDRATION HYPONATERMIA HYPOKALEMIA HX OF LEFT URETERAL STONE AND STENT BILATERAL HYDRONEPHROSIS-PROB CHRONIC APPEARANCE S/P RIGHT URETERAL STENT BLADDER WALL THICKENING HX OF DM II PLAN HYDRATION MAY NEED HD AGAIN TOMORROW MONITOR FOR IMPROVEMENT ANTIBIOTICS UROLOGY FOLLOWING CHANGED NICKERSON CYSTO FINDINGS REVIEWED D/W FAMILY AGAIN THIS AM WILL FOLLOW AMANDA MEJIA MD Dec 06, 2021 11:04
[2021-12-06] MEDS: cefTRIAXone IV Push 1 GM VIAL. IVP SCH (11:13)
--- NOTE | 2021-12-06 13:33 | PDOC ---
[facility] PROGRESS NOTE Date of Service DOS: DATE: 12/06/21 TIME: 13:30 Chief Complaint Chief Complaint Acute on chronic kidney injury Metabolic acidosis Normocytic anemia Nephrolithiasis Hypothyroidism BPH Bilateral hydronephrosis Right lower pole 8 mm nephrolith History of Present Illness History of Present Illness 12/03: Patient seen and evaluated bedside. His and 2 daughters are present as well. He is n.p.o. for cystoscopy and pyelogram with possible stent placement. Had improvement in his creatinine and EGFR with dialysis. Continue hemodialysis, per nephrology. Had some hypoglycemia due to n.p.o. status, will treat with 1 amp of D50. Urine culture shows no growth indicative of infection. Blood culture shows no growth after 1 day. Advance Care Planning: Total time spent [id number] with patient 19 minutes in discussion with goals of care, comfort care, end-of-life care, pain management, code status; patient names daughter, Madeleine Jacinto, as surrogate decision-maker. Critical care time 30 minutes spent reviewing charts, reviewing labs, reviewing imaging, discussion with family at bedside, and discussion with RN. 12/04: Patient is afebrile, no acute complaints. Had cystoscopy with bilateral retrograde pyelograms and right ureteral stent placement yesterday. Renal function improved today; creatinine 2.8 and EGFR 21.9, consistent with CKD 4. On last admission 10/29/2021 his renal function showed creatinine 2.6 and EGFR 23.9. Patient appears to be back at baseline in regards to renal function. Continue Rocephin and IV hydration. Discussed with urology PA, he may discharge on oral antibiotics for this UTI and also recent urological procedure. We will recheck renal function tomorrow and evaluate further HD needs. Discussed with RN. Critical care time 30 minutes spent reviewing charts, reviewing labs, reviewing imaging, discussion with urology, discussion with RN. 12/05: Patient seen and evaluated bedside. His renal function worsened today, creatinine 3.8 with EGFR 15.4. We will keep inpatient and monitor for further need of hemodialysis. Potassium 2.7 today; will place and hydrate with KCl in normal saline. Urine culture with growth not indicative of infection. He is s/p right ureteral stent placement; he will follow up with urology in 2 weeks. Discussed with RN. 12/06: Patient seen and evaluated at bedside. No change in renal function; creatinine 4.5, EGFR 12.7. We will continue monitor as he may need HD tomorrow, per nephrology. Vitals/I&O Vitals/I&O: Vital Signs Date Time Temp Pulse Resp B/P (MAP) Pulse Ox O2 Delivery O2 Flow Rate FiO2 12/06/21 10:49 97.9 79 20 117/62 (80) 92 Nasal Cannula 3.0 97.9 I & O 12/05/21 12/05/21 12/06/21 15:00 23:00 07:00 Intake Total 240 ml Output Total 300 ml 675 ml 800 ml Balance -300 ml -435 ml -800 ml Physical Exam General: Alert, Cooperative, No acute distress Heart: Regular rate Lungs: Clear, Crackles Abdomen: Normal bowel sounds Extremities: No clubbing Skin: No breakdown Labs Labs: Laboratory Tests Test 12/05/21 18:15 12/06/21 06:05 Sodium Level 134 mmol/L (136-145) 137 mmol/L (136-145) Potassium Level 3.6 mmol/L (3.5-5.1) 3.6 mmol/L (3.5-5.1) Chloride Level 96 mmol/L (98-107) 98 mmol/L (98-107) Carbon Dioxide Level 29 mmol/L (21-32) 28 mmol/L (21-32) Anion Gap 9 (6-14) 11 (6-14) Blood Urea Nitrogen 31 mg/dL (8-26) 32 mg/dL (8-26) Creatinine 4.4 mg/dL (0.7-1.3) 4.5 mg/dL (0.7-1.3) Estimated GFR (Cockcroft-Gault) 13.0 12.7 Glucose Level 111 mg/dL (70-99) 80 mg/dL (70-99) Calcium Level 7.8 mg/dL (8.5-10.1) 8.1 mg/dL (8.5-10.1) White Blood Count 6.9 x10^3/uL (4.0-11.0) Red Blood Count 2.28 x10^6/uL (4.30-5.70) Hemoglobin 7.1 g/dL (13.0-17.5) Hematocrit 21.9 % (39.0-53.0) Mean Corpuscular Volume 96 fL (79-100) Mean Corpuscular Hemoglobin 31 pg (25-35) Mean Corpuscular Hemoglobin Concent 32 g/dL (31-37) Red Cell Distribution Width 14.5 % (11.5-14.5) Platelet Count 202 x10^3/uL (140-400) Neutrophils (%) (Auto) 77 % (31-73) Lymphocytes (%) (Auto) 11 % (24-48) Monocytes (%) (Auto) 8 % (0-9) Eosinophils (%) (Auto) 4 % (0-3) Basophils (%) (Auto) 0 % (0-3) Neutrophils # (Auto) 5.2 x10^3/uL (1.8-7.7) Lymphocytes # (Auto) 0.8 x10^3/uL (1.0-4.8) Monocytes # (Auto) 0.5 x10^3/uL (0.0-1.1) Eosinophils # (Auto) 0.3 x10^3/uL (0.0-0.7) Basophils # (Auto) 0.0 x10^3/uL (0.0-0.2) Assessment and Plan Assessmemt and Plan Problems Medical Problems: (1) Acute renal failure Status: Acute (2) Metabolic acidosis Status: Acute (3) Urinary tract infection Status: Acute Comment Review of Relevant I have reviewed the following items yanick (where applicable) has been applied. Medications: Current Medications Medications (Trade) Dose Ordered Sig/Nate Route PRN Reason Start Time Stop Time Status Last Admin Dose Admin Sodium Chloride 1,000 ml @ 100 mls/hr Q10H IV 12/05/21 17:30 12/06/21 04:15 Potassium Chloride (Klor-Con) 20 meq 1X ONCE PO 12/05/21 19:00 12/05/21 19:01 DC 12/05/21 19:54 Justifications for Admission Other Justification Acute pancreatitis SYDNEY HWANG MD Dec 06, 2021 13:33
[2021-12-06 15:16] VITALS: BP 127/62
[2021-12-06 19:00] VITALS: BP 92/41
[2021-12-06 23:00] VITALS: BP 103/46
[2021-12-07] VITALS (7 sets, daily range): BP systolic 96–122; BP diastolic 44–63
[2021-12-07] MEDS: LEVOTHYROXINE 100 MCG TABLET PO SCH (06:22)
[2021-12-07] MEDS: FENOFIBRATE,MICRONIZED 134 MG CAPSULE PO SCH (08:43)
[2021-12-07] MEDS: LACTOBACILLUS RHAMNOSUS GG 1 CAPSULE. PO SCH ×2 (08:43→20:34)
[2021-12-07] MEDS: ASPIRIN ENTERIC COATED 325 MG TABLET.DR. PO SCH (08:43)
[2021-12-07] MEDS: TAMSULOSIN 0.4 MG CAP.ER.24H. PO SCH (08:44)
[2021-12-07] MEDS: HEPARIN for SUB-Q USE 5,000 UNIT/ML VIAL. SQ SCH ×2 (08:48→20:36)
[2021-12-07 08:51] LABS: HEMATOCRIT 20.6 % (39.0-53.0); RED BLOOD COUNT 2.12 x10^6/uL (4.30-5.70); RED CELL DISTRIBUTION WIDTH 14.6 % (11.5-14.5); WHITE BLOOD COUNT 6.9 x10^3/uL (4.0-11.0)
[2021-12-07 08:55] LABS: HEMOGLOBIN 6.6 g/dL (13.0-17.5)
[2021-12-07 08:59] LABS: GFR 11.2; POTASSIUM 3.7 mmol/L (3.5-5.1)
[2021-12-07] MEDS: IV NORMAL SALINE 1000ML BAG 1,000 ML IV SCH ×3 (10:04→22:48)
[2021-12-07] MEDS ORDERED: DIALYSIS PATIENT. MC PRN (10:30)
[2021-12-07] MEDS ORDERED: IV NORMAL SALINE 1000ML BAG 1,000 ML IV PRN ×2 (10:30)
--- NOTE | 2021-12-07 13:51 | PDOC ---
DATE OF SERVICE DATE: 12/07/21 TIME: 13:37 SUBJECTIVE ROS No complaints during dialysis . Denies SOB. No N/V OBJECTIVE Vital Signs Vital Signs Date Time Temp Pulse Resp B/P (MAP) Pulse Ox O2 Delivery O2 Flow Rate FiO2 12/07/21 13:15 98.2 72 16 108/58 98.2 12/07/21 08:00 Nasal Cannula 4.0 12/07/21 07:00 95 I & 0 Intake and Output 12/07/21 07:00 Output Total 2325 ml Balance -2325 ml Output Urine Total 2325 ml PHYSICAL EXAM Physical Exam eneral Appearance: no apparent distress heen om MOIST Respiratory: decreased breath sounds at bases, non labored Heart: S1S2 Abdomen: soft, bowel sounds present, obese Genitourinary: Earl + Extremities: No cyanosis Neurology: Grossly Normal Skin: warm,no rash DIAGNOSIS/ASSESSMENT Assessment & Plan NANCY- ATN, 2/2 Dehydration/Pyelonephrotis Cr 7.4 POA , requiring dialysis . Non Oliguric , UOP adequate , Clearance not improved as expected.Seen during dialysis , tolerating well. Continue as ordered. Pepe VAILN Supportive care, Monitor for Recovery. Maintain fluid balance. Avoid Nephrotoxins CKD stage 3 B - Baseline Cr about 1.5 Severe Met Acidosis- POA- resolved HypoNatremia - Resolved HypoKalemia POA- resolved Pyelonephritis/ UTI - Management per primary /ID Bilateral Hydronephrosis/ Abnormal Bladder finding - s/p 12/03/2021 with bilateral retrograde pyelograms and Right ureteral stent placement. Hx of Left Ureteral Stone and stent S/P Rt Ureteral Stent . Urology Following HX OF DM II COMMENT/RELEVANT DATA Meds Current Medications Medications (Trade) Dose Ordered Sig/Nate Start Time Stop Time Status Last Admin Dose Admin Acetaminophen (Tylenol) 650 mg PRN Q6HRS PRN 12/02/21 18:30 Acetaminophen/ Hydrocodone Bitart (Lortab 5/325) 1 tab PRN Q4HRS PRN 12/02/21 18:30 Al Hydroxide/Mg Hydroxide (Mylanta Plus Xs) 30 ml PRN Q3HRS PRN 12/02/21 18:30 Albumin Human 100 ml @ 100 mls/hr 1X PRN PRN 12/02/21 17:15 12/02/21 23:14 DC 12/02/21 17:50 100 MLS/HR Aspirin (Ecotrin) 325 mg DAILY 12/03/21 09:00 12/07/21 08:43 325 MG Aztreonam (Azactam) 2 gm 1X ONCE 12/02/21 11:30 12/02/21 11:31 UNV Ceftriaxone Sodium (Rocephin) 1 gm Q24H 12/04/21 11:00 12/06/21 11:13 1 GM Dexamethasone Sodium Phosphate (Decadron) 4 mg STK-MED ONCE 12/03/21 14:10 12/03/21 14:10 DC Dextrose 1,000 ml @ 900 mls/hr Q1H7M PRN 12/03/21 17:00 12/04/21 11:27 DC 12/03/21 12:00 900 MLS/HR Dextrose (Dextrose 50%-Water Syringe) 25 gm 1X ONCE 12/03/21 12:00 12/03/21 12:01 DC 12/03/21 12:00 25 GM Fenofibrate (Lofibra) 134 mg DAILY 12/03/21 09:00 12/07/21 08:43 134 MG Fentanyl Citrate (Fentanyl 2ml Vial) 100 mcg STK-MED ONCE 12/03/21 14:10 12/03/21 14:10 DC Ferrous Sulfate (Feosol) 325 mg DAILYWBKFT 12/07/21 12:00 Heparin Sodium (Porcine) (Heparin Sodium) 5,000 unit Q12HR 12/02/21 21:00 12/07/21 08:48 5,000 UNIT Info (PHARMACY MONITORING -- do not chart) 1 each PRN DAILY PRN 12/07/21 10:30 Iohexol (Omnipaque 300 Mg/ml) 50 ml STK-MED ONCE 12/03/21 13:40 12/03/21 13:40 DC 12/03/21 15:30 10 ML Lactobacillus Rhamnosus (Culturelle) 1 cap BID 12/04/21 21:00 12/07/21 08:43 1 CAP Levofloxacin (Levaquin) 500 mg DAILY06 12/03/21 06:00 12/10/21 05:59 UNV Levothyroxine Sodium (Synthroid) 100 mcg DAILYAC 12/03/21 07:30 12/07/21 06:22 100 MCG Lidocaine HCl (Buffered Lidocaine 1%) 9 ml 1X ONCE 12/02/21 13:15 12/02/21 13:16 DC 12/02/21 13:07 5 ML Lidocaine HCl (Glydo (Lidocaine) Jelly) 6 junaid STK-MED ONCE 12/03/21 13:40 12/03/21 13:41 DC 12/03/21 15:30 6 JUNAID Lidocaine HCl (Lidocaine Pf 2% Vial) 5 ml STK-MED ONCE 12/03/21 14:10 12/03/21 14:10 DC Magnesium Hydroxide (Milk Of Magnesia) 2,400 mg PRN Q12HR PRN 12/02/21 18:30 Magnesium Sulfate 50 ml @ 25 mls/hr 1X ONCE 12/05/21 06:30 12/05/21 08:29 DC 12/05/21 06:27 25 MLS/HR Naloxone HCl (Narcan) 0.4 mg PRN Q2MIN PRN 12/03/21 15:30 Ondansetron HCl (Zofran) 4 mg STK-MED ONCE 12/03/21 14:10 12/03/21 14:10 DC Phenylephrine HCl (PHENYLEPHRINE in 0.9% NACL PF) 1 mg STK-MED ONCE 12/03/21 15:17 12/03/21 15:17 DC Piperacillin Sod/ Tazobactam Sod 2.25 gm/Sodium Chloride 50 ml @ 100 mls/hr 1X ONCE 12/02/21 11:45 12/02/21 12:14 DC 12/02/21 12:56 100 MLS/HR Potassium Chloride/Sodium Chloride 1,000 ml @ 100 mls/hr Q10H ONCE 12/05/21 06:30 12/05/21 16:29 DC 12/05/21 06:26 100 MLS/HR Potassium Chloride/Water 100 ml @ 100 mls/hr 1X ONCE 12/04/21 11:30 12/04/21 12:29 DC 12/04/21 11:25 100 MLS/HR Potassium Chloride (Klor-Con) 20 meq 1X ONCE 12/05/21 19:00 12/05/21 19:01 DC 12/05/21 19:54 20 MEQ Propofol (Diprivan) 200 mg STK-MED ONCE 12/03/21 15:17 12/03/21 15:17 DC Sevoflurane (Ultane) 30 ml STK-MED ONCE 12/03/21 14:10 12/03/21 14:10 DC Sodium Bicarbonate 50 meq/Sodium Chloride 1,050 ml @ 100 mls/hr [id number] 12/03/21 11:00 12/05/21 06:11 DC 12/04/21 21:16 100 MLS/HR Sodium Chloride 1,000 ml @ 400 mls/hr Q2H30M PRN 12/07/21 10:30 12/07/21 22:29 Sodium Chloride (Normal Saline Flush) 3 ml QSHIFT PRN 12/03/21 15:30 Succinylcholine Chloride (Anectine) 200 mg STK-MED ONCE 12/03/21 14:10 12/03/21 14:11 DC Tamsulosin HCl (Flomax) 0.4 mg DAILY 12/03/21 09:00 12/07/21 08:44 0.4 MG Zolpidem Tartrate (Ambien) 5 mg PRN QHS PRN 12/02/21 18:30 Lab Laboratory Tests Test 12/07/21 08:09 12/07/21 08:14 Glucose (Fingerstick) 83 mg/dL (70-99) White Blood Count 6.9 x10^3/uL (4.0-11.0) Red Blood Count 2.12 x10^6/uL (4.30-5.70) Hemoglobin 6.6 g/dL (13.0-17.5) Hematocrit 20.6 % (39.0-53.0) Mean Corpuscular Volume 97 fL (79-100) Mean Corpuscular Hemoglobin 31 pg (25-35) Mean Corpuscular Hemoglobin Concent 32 g/dL (31-37) Red Cell Distribution Width 14.6 % (11.5-14.5) Platelet Count 206 x10^3/uL (140-400) Sodium Level 139 mmol/L (136-145) Potassium Level 3.7 mmol/L (3.5-5.1) Chloride Level 103 mmol/L (98-107) Carbon Dioxide Level 24 mmol/L (21-32) Anion Gap 12 (6-14) Blood Urea Nitrogen 37 mg/dL (8-26) Creatinine 5.0 mg/dL (0.7-1.3) Estimated GFR (Cockcroft-Gault) 11.2 Glucose Level 84 mg/dL (70-99) Calcium Level 8.0 mg/dL (8.5-10.1) Results All relevant outside records, renal labs, imaging studies, telemetry/EKG's were reviewed. Justicifation of Admission Dx: Justifications for Admission: Justification of Admission Dx: Yes Acute Renal Failure: 3-Fold Rise in Serum Crea JONAS DELGADO MD Dec 07, 2021 13:51
--- NOTE | 2021-12-07 15:38 | PDOC ---
[employer] PROGRESS NOTE Date of Service DOS: DATE: 12/07/21 TIME: 15:36 Chief Complaint Chief Complaint Acute on chronic kidney injury Metabolic acidosis Normocytic anemia Nephrolithiasis Hypothyroidism BPH Bilateral hydronephrosis Right lower pole 8 mm nephrolith History of Present Illness History of Present Illness 12/03: Patient seen and evaluated bedside. His and 2 daughters are present as well. He is n.p.o. for cystoscopy and pyelogram with possible stent placement. Had improvement in his creatinine and EGFR with dialysis. Continue hemodialysis, per nephrology. Had some hypoglycemia due to n.p.o. status, will treat with 1 amp of D50. Urine culture shows no growth indicative of infection. Blood culture shows no growth after 1 day. Advance Care Planning: Total time spent [id number] with patient 19 minutes in discussion with goals of care, comfort care, end-of-life care, pain management, code status; patient names daughter, Madeleine Jacinto, as surrogate decision-maker. Critical care time 30 minutes spent reviewing charts, reviewing labs, reviewing imaging, discussion with family at bedside, and discussion with RN. 12/04: Patient is afebrile, no acute complaints. Had cystoscopy with bilateral retrograde pyelograms and right ureteral stent placement yesterday. Renal function improved today; creatinine 2.8 and EGFR 21.9, consistent with CKD 4. On last admission 10/29/2021 his renal function showed creatinine 2.6 and EGFR 23.9. Patient appears to be back at baseline in regards to renal function. Continue Rocephin and IV hydration. Discussed with urology PA, he may discharge on oral antibiotics for this UTI and also recent urological procedure. We will recheck renal function tomorrow and evaluate further HD needs. Discussed with RN. Critical care time 30 minutes spent reviewing charts, reviewing labs, reviewing imaging, discussion with urology, discussion with RN. 12/05: Patient seen and evaluated bedside. His renal function worsened today, creatinine 3.8 with EGFR 15.4. We will keep inpatient and monitor for further need of hemodialysis. Potassium 2.7 today; will place and hydrate with KCl in normal saline. Urine culture with growth not indicative of infection. He is s/p right ureteral stent placement; he will follow up with urology in 2 weeks. Discussed with RN. 12/06: Patient seen and evaluated at bedside. No change in renal function; creatinine 4.5, EGFR 12.7. We will continue monitor as he may need HD tomorrow, per nephrology. 12/07: Patient seen in dialysis. Denies chest pain or abdominal pain. Hemoglobin 6.6, hematocrit 20.6. Denies a dark stools or bloody stools. Likely secondary to chronic renal failure. He is receiving 1 unit PRBC in dialysis. His creatinine is 5.0 and EGFR 11.2, consistent with CKD 5. Probably looking at long-term HD. Will follow nephrology recommendations. Vitals/I&O Vitals/I&O: Vital Signs Date Time Temp Pulse Resp B/P (MAP) Pulse Ox O2 Delivery O2 Flow Rate FiO2 12/07/21 15:00 97.1 94 18 119/56 (77) 96 Nasal Cannula 4.0 97.1 I & O 12/06/21 12/06/21 12/07/21 15:00 23:00 07:00 Output Total 575 ml 750 ml 1000 ml Balance -575 ml -750 ml -1000 ml Physical Exam General: Alert, Cooperative, No acute distress Heart: Regular rate Lungs: Clear, Crackles Abdomen: Normal bowel sounds Extremities: No clubbing Skin: No breakdown Labs Labs: Laboratory Tests Test 12/07/21 08:09 12/07/21 08:14 Glucose (Fingerstick) 83 mg/dL (70-99) White Blood Count 6.9 x10^3/uL (4.0-11.0) Red Blood Count 2.12 x10^6/uL (4.30-5.70) Hemoglobin 6.6 g/dL (13.0-17.5) Hematocrit 20.6 % (39.0-53.0) Mean Corpuscular Volume 97 fL (79-100) Mean Corpuscular Hemoglobin 31 pg (25-35) Mean Corpuscular Hemoglobin Concent 32 g/dL (31-37) Red Cell Distribution Width 14.6 % (11.5-14.5) Platelet Count 206 x10^3/uL (140-400) Sodium Level 139 mmol/L (136-145) Potassium Level 3.7 mmol/L (3.5-5.1) Chloride Level 103 mmol/L (98-107) Carbon Dioxide Level 24 mmol/L (21-32) Anion Gap 12 (6-14) Blood Urea Nitrogen 37 mg/dL (8-26) Creatinine 5.0 mg/dL (0.7-1.3) Estimated GFR (Cockcroft-Gault) 11.2 Glucose Level 84 mg/dL (70-99) Calcium Level 8.0 mg/dL (8.5-10.1) Assessment and Plan Assessmemt and Plan Problems Medical Problems: (1) Acute renal failure Status: Acute (2) Metabolic acidosis Status: Acute (3) Urinary tract infection Status: Acute Comment Review of Relevant I have reviewed the following items yanick (where applicable) has been applied. Justifications for Admission Other Justification Acute pancreatitis SYDNEY HWANG MD Dec 07, 2021 15:38
[2021-12-07] MEDS: cefTRIAXone IV Push 1 GM VIAL. IVP SCH (16:11)
[2021-12-07] MEDS: FERROUS SULFATE 325 MG TABLET. PO SCH (17:22)
[2021-12-08 03:00] VITALS: BP 132/61
[2021-12-08 06:13] LABS: HEMATOCRIT 25.5 % (39.0-53.0); HEMOGLOBIN 8.4 g/dL (13.0-17.5); RED BLOOD COUNT 2.65 x10^6/uL (4.30-5.70); RED CELL DISTRIBUTION WIDTH 15.5 % (11.5-14.5); WHITE BLOOD COUNT 8.4 x10^3/uL (4.0-11.0)
[2021-12-08 06:16] LABS: CALCIUM 8.4 mg/dL (8.5-10.1); CREATININE 2.9 mg/dL (0.7-1.3); POTASSIUM 3.6 mmol/L (3.5-5.1)
[2021-12-08 07:00] VITALS: BP 113/62
--- NOTE | 2021-12-08 09:21 | PDOC ---
DATE OF SERVICE DATE: 12/08/21 TIME: 09:19 SUBJECTIVE ROS No complaints Denies SOB. No N/V OBJECTIVE Vital Signs Vital Signs Date Time Temp Pulse Resp B/P (MAP) Pulse Ox O2 Delivery O2 Flow Rate FiO2 12/08/21 08:00 Nasal Cannula 4.0 12/08/21 07:00 97.9 76 18 113/62 (79) 93 97.9 I & 0 Intake and Output 12/08/21 07:00 Intake Total 1170 ml Output Total 1450 ml Balance -280 ml Intake Oral 170 ml IV Total 1000 ml Output Urine Total 1450 ml # Bowel Movements 1 PHYSICAL EXAM Physical Exam eneral Appearance: no apparent distress heen om MOIST Respiratory: decreased breath sounds at bases, non labored Heart: S1S2 Abdomen: soft, bowel sounds present, obese Genitourinary: Earl + Extremities: No cyanosis Neurology: Grossly Normal Skin: warm,no rash DIAGNOSIS/ASSESSMENT Assessment & Plan NANCY- ATN, 2/2 Dehydration/Pyelonephrotis Cr 7.4 POA , requiring dialysis . Non Oliguric , UOP adequate, No indication for dialysis today. Re-eval tomorrow. If no significant improvement will need Permcath tomorrow (keep NPO after mid night)and SW Consult for OP chair time.Discussed with patient , daughter , nursing and Dr Cardenas Supportive care, Monitor for Recovery. Maintain fluid balance. Avoid Nephrotoxins CKD stage 3 B - Baseline Cr about 1.5 Severe Met Acidosis- POA- resolved HypoNatremia - Resolved HypoKalemia POA- resolved Pyelonephritis/ UTI - Management per primary /ID Bilateral Hydronephrosis/ Abnormal Bladder finding - s/p 12/03/2021 with bilateral retrograde pyelograms and Right ureteral stent placement. Hx of Left Ureteral Stone and stent S/P Rt Ureteral Stent . Urology Following HX OF DM II COMMENT/RELEVANT DATA Meds Current Medications Medications (Trade) Dose Ordered Sig/Nate Start Time Stop Time Status Last Admin Dose Admin Acetaminophen (Tylenol) 650 mg PRN Q6HRS PRN 12/02/21 18:30 Acetaminophen/ Hydrocodone Bitart (Lortab 5/325) 1 tab PRN Q4HRS PRN 12/02/21 18:30 Al Hydroxide/Mg Hydroxide (Mylanta Plus Xs) 30 ml PRN Q3HRS PRN 12/02/21 18:30 Albumin Human 100 ml @ 100 mls/hr 1X PRN PRN 12/02/21 17:15 12/02/21 23:14 DC 12/02/21 17:50 100 MLS/HR Aspirin (Ecotrin) 325 mg DAILY 12/03/21 09:00 12/07/21 08:43 325 MG Aztreonam (Azactam) 2 gm 1X ONCE 12/02/21 11:30 12/02/21 11:31 UNV Ceftriaxone Sodium (Rocephin) 1 gm Q24H 12/04/21 11:00 12/07/21 16:11 1 GM Dexamethasone Sodium Phosphate (Decadron) 4 mg STK-MED ONCE 12/03/21 14:10 12/03/21 14:10 DC Dextrose 1,000 ml @ 900 mls/hr Q1H7M PRN 12/03/21 17:00 12/04/21 11:27 DC 12/03/21 12:00 900 MLS/HR Dextrose (Dextrose 50%-Water Syringe) 25 gm 1X ONCE 12/03/21 12:00 12/03/21 12:01 DC 12/03/21 12:00 25 GM Fenofibrate (Lofibra) 134 mg DAILY 12/03/21 09:00 12/07/21 08:43 134 MG Fentanyl Citrate (Fentanyl 2ml Vial) 100 mcg STK-MED ONCE 12/03/21 14:10 12/03/21 14:10 DC Ferrous Sulfate (Feosol) 325 mg [id number] 12/07/21 12:00 12/07/21 17:22 325 MG Heparin Sodium (Porcine) (Heparin Sodium) 5,000 unit Q12HR 12/02/21 21:00 12/07/21 20:36 5,000 UNIT Info (PHARMACY MONITORING -- do not chart) 1 each PRN DAILY PRN 12/07/21 10:30 Iohexol (Omnipaque 300 Mg/ml) 50 ml STK-MED ONCE 12/03/21 13:40 12/03/21 13:40 DC 12/03/21 15:30 10 ML Lactobacillus Rhamnosus (Culturelle) 1 cap BID 12/04/21 21:00 12/07/21 20:34 1 CAP Levofloxacin (Levaquin) 500 mg DAILY06 12/03/21 06:00 12/10/21 05:59 UNV Levothyroxine Sodium (Synthroid) 100 mcg DAILYAC 12/03/21 07:30 12/07/21 06:22 100 MCG Lidocaine HCl (Buffered Lidocaine 1%) 9 ml 1X ONCE 12/02/21 13:15 12/02/21 13:16 DC 12/02/21 13:07 5 ML Lidocaine HCl (Glydo (Lidocaine) Jelly) 6 junaid STK-MED ONCE 12/03/21 13:40 12/03/21 13:41 DC 12/03/21 15:30 6 JUNAID Lidocaine HCl (Lidocaine Pf 2% Vial) 5 ml STK-MED ONCE 12/03/21 14:10 12/03/21 14:10 DC Magnesium Hydroxide (Milk Of Magnesia) 2,400 mg PRN Q12HR PRN 12/02/21 18:30 Magnesium Sulfate 50 ml @ 25 mls/hr 1X ONCE 12/05/21 06:30 12/05/21 08:29 DC 12/05/21 06:27 25 MLS/HR Naloxone HCl (Narcan) 0.4 mg PRN Q2MIN PRN 12/03/21 15:30 Ondansetron HCl (Zofran) 4 mg STK-MED ONCE 12/03/21 14:10 12/03/21 14:10 DC Phenylephrine HCl (PHENYLEPHRINE in 0.9% NACL PF) 1 mg STK-MED ONCE 12/03/21 15:17 12/03/21 15:17 DC Piperacillin Sod/ Tazobactam Sod 2.25 gm/Sodium Chloride 50 ml @ 100 mls/hr 1X ONCE 12/02/21 11:45 12/02/21 12:14 DC 12/02/21 12:56 100 MLS/HR Potassium Chloride/Sodium Chloride 1,000 ml @ 100 mls/hr Q10H ONCE 12/05/21 06:30 12/05/21 16:29 DC 12/05/21 06:26 100 MLS/HR Potassium Chloride/Water 100 ml @ 100 mls/hr 1X ONCE 12/04/21 11:30 12/04/21 12:29 DC 12/04/21 11:25 100 MLS/HR Potassium Chloride (Klor-Con) 20 meq 1X ONCE 12/05/21 19:00 12/05/21 19:01 DC 12/05/21 19:54 20 MEQ Propofol (Diprivan) 200 mg STK-MED ONCE 12/03/21 15:17 12/03/21 15:17 DC Sevoflurane (Ultane) 30 ml STK-MED ONCE 12/03/21 14:10 12/03/21 14:10 DC Sodium Bicarbonate 50 meq/Sodium Chloride 1,050 ml @ 100 mls/hr [id number] 12/03/21 11:00 12/05/21 06:11 DC 12/04/21 21:16 100 MLS/HR Sodium Chloride 1,000 ml @ 400 mls/hr Q2H30M PRN 12/07/21 10:30 12/07/21 22:29 DC Sodium Chloride (Normal Saline Flush) 3 ml QSHIFT PRN 12/03/21 15:30 Succinylcholine Chloride (Anectine) 200 mg STK-MED ONCE 12/03/21 14:10 12/03/21 14:11 DC Tamsulosin HCl (Flomax) 0.4 mg DAILY 12/03/21 09:00 12/07/21 08:44 0.4 MG Zolpidem Tartrate (Ambien) 5 mg PRN QHS PRN 12/02/21 18:30 Lab Laboratory Tests Test 12/07/21 16:22 12/07/21 21:35 12/08/21 05:25 12/08/21 07:21 Glucose (Fingerstick) 106 mg/dL (70-99) 117 mg/dL (70-99) 91 mg/dL (70-99) White Blood Count 8.4 x10^3/uL (4.0-11.0) Red Blood Count 2.65 x10^6/uL (4.30-5.70) Hemoglobin 8.4 g/dL (13.0-17.5) Hematocrit 25.5 % (39.0-53.0) Mean Corpuscular Volume 96 fL (79-100) Mean Corpuscular Hemoglobin 32 pg (25-35) Mean Corpuscular Hemoglobin Concent 33 g/dL (31-37) Red Cell Distribution Width 15.5 % (11.5-14.5) Platelet Count 205 x10^3/uL (140-400) Sodium Level 140 mmol/L (136-145) Potassium Level 3.6 mmol/L (3.5-5.1) Chloride Level 104 mmol/L (98-107) Carbon Dioxide Level 27 mmol/L (21-32) Anion Gap 9 (6-14) Blood Urea Nitrogen 22 mg/dL (8-26) Creatinine 2.9 mg/dL (0.7-1.3) Estimated GFR (Cockcroft-Gault) 21.0 Glucose Level 99 mg/dL (70-99) Calcium Level 8.4 mg/dL (8.5-10.1) Results All relevant outside records, renal labs, imaging studies, telemetry/EKG's were reviewed. Justicifation of Admission Dx: Justifications for Admission: Justification of Admission Dx: Yes Acute Renal Failure: 3-Fold Rise in Serum Crea JONAS DELGADO MD Dec 08, 2021 09:21
[2021-12-08] MEDS: LEVOTHYROXINE 100 MCG TABLET PO SCH (09:55)
[2021-12-08] MEDS: FENOFIBRATE,MICRONIZED 134 MG CAPSULE PO SCH (09:55)
[2021-12-08] MEDS: ASPIRIN ENTERIC COATED 325 MG TABLET.DR. PO SCH (09:55)
[2021-12-08] MEDS: LACTOBACILLUS RHAMNOSUS GG 1 CAPSULE. PO SCH ×2 (09:55→19:49)
[2021-12-08] MEDS: TAMSULOSIN 0.4 MG CAP.ER.24H. PO SCH (09:56)
[2021-12-08] MEDS: IV NORMAL SALINE 1000ML BAG 1,000 ML IV SCH (09:58)
[2021-12-08] MEDS: HEPARIN for SUB-Q USE 5,000 UNIT/ML VIAL. SQ SCH ×2 (10:00→19:49)
[2021-12-08] MEDS: FERROUS SULFATE 325 MG TABLET. PO SCH (10:00)
[2021-12-08 10:37] VITALS: BP 118/61
[2021-12-08] MEDS: cefTRIAXone IV Push 1 GM VIAL. IVP SCH (11:56)
--- NOTE | 2021-12-08 14:20 | PDOC ---
[facility] PROGRESS NOTE Date of Service DOS: DATE: 12/08/21 TIME: 14:18 Chief Complaint Chief Complaint Acute on chronic kidney injury Metabolic acidosis Normocytic anemia Nephrolithiasis Hypothyroidism BPH Bilateral hydronephrosis Right lower pole 8 mm nephrolith History of Present Illness History of Present Illness 12/03: Patient seen and evaluated bedside. His and 2 daughters are present as well. He is n.p.o. for cystoscopy and pyelogram with possible stent placement. Had improvement in his creatinine and EGFR with dialysis. Continue hemodialysis, per nephrology. Had some hypoglycemia due to n.p.o. status, will treat with 1 amp of D50. Urine culture shows no growth indicative of infection. Blood culture shows no growth after 1 day. Advance Care Planning: Total time spent [id number] with patient 19 minutes in discussion with goals of care, comfort care, end-of-life care, pain management, code status; patient names daughter, Madeleine Jacinto, as surrogate decision-maker. Critical care time 30 minutes spent reviewing charts, reviewing labs, reviewing imaging, discussion with family at bedside, and discussion with RN. 12/04: Patient is afebrile, no acute complaints. Had cystoscopy with bilateral retrograde pyelograms and right ureteral stent placement yesterday. Renal function improved today; creatinine 2.8 and EGFR 21.9, consistent with CKD 4. On last admission 10/29/2021 his renal function showed creatinine 2.6 and EGFR 23.9. Patient appears to be back at baseline in regards to renal function. Continue Rocephin and IV hydration. Discussed with urology PA, he may discharge on oral antibiotics for this UTI and also recent urological procedure. We will recheck renal function tomorrow and evaluate further HD needs. Discussed with RN. Critical care time 30 minutes spent reviewing charts, reviewing labs, reviewing imaging, discussion with urology, discussion with RN. 12/05: Patient seen and evaluated bedside. His renal function worsened today, creatinine 3.8 with EGFR 15.4. We will keep inpatient and monitor for further need of hemodialysis. Potassium 2.7 today; will place and hydrate with KCl in normal saline. Urine culture with growth not indicative of infection. He is s/p right ureteral stent placement; he will follow up with urology in 2 weeks. Discussed with RN. 12/06: Patient seen and evaluated at bedside. No change in renal function; creatinine 4.5, EGFR 12.7. We will continue monitor as he may need HD tomorrow, per nephrology. 12/07: Patient seen in dialysis. Denies chest pain or abdominal pain. Hemoglobin 6.6, hematocrit 20.6. Denies a dark stools or bloody stools. Likely secondary to chronic renal failure. He is receiving 1 unit PRBC in dialysis. His creatinine is 5.0 and EGFR 11.2, consistent with CKD 5. Probably looking at long-term HD. Will follow nephrology recommendations. 12/08/2021 No acute events overnight. Patient seen examined bedside. Working with [employer] and needs full 2 person maximal assist. Hemoglobin at 8.4 today. Creatinine down to 2.9. Lots of sediment in the Earl bag. Discussed with nephrology to keep 1 more day to see current trend of creatinine. And also to see whether patient needs technician terminal and repeater dialysis. If they feel the kidneys are now recovering then they will plan for tunneled catheter tomorrow. Patient's chart, labs, images were reviewed and discussed with RN Vitals/I&O Vitals/I&O: Vital Signs Date Time Temp Pulse Resp B/P (MAP) Pulse Ox O2 Delivery O2 Flow Rate FiO2 12/08/21 10:37 97.1 70 18 118/61 (80) 95 Nasal Cannula 2.0 97.1 I & O 12/07/21 12/07/21 12/08/21 15:00 23:00 07:00 Intake Total 1120 ml 50 ml Output Total 1000 ml 450 ml Balance 120 ml -400 ml Physical Exam General: Alert, Cooperative, No acute distress Heart: Regular rate Lungs: Clear, Crackles Abdomen: Normal bowel sounds Extremities: No clubbing Skin: No breakdown Labs Labs: Laboratory Tests Test 12/07/21 16:22 12/07/21 21:35 12/08/21 05:25 12/08/21 07:21 Glucose (Fingerstick) 106 mg/dL (70-99) 117 mg/dL (70-99) 91 mg/dL (70-99) White Blood Count 8.4 x10^3/uL (4.0-11.0) Red Blood Count 2.65 x10^6/uL (4.30-5.70) Hemoglobin 8.4 g/dL (13.0-17.5) Hematocrit 25.5 % (39.0-53.0) Mean Corpuscular Volume 96 fL (79-100) Mean Corpuscular Hemoglobin 32 pg (25-35) Mean Corpuscular Hemoglobin Concent 33 g/dL (31-37) Red Cell Distribution Width 15.5 % (11.5-14.5) Platelet Count 205 x10^3/uL (140-400) Sodium Level 140 mmol/L (136-145) Potassium Level 3.6 mmol/L (3.5-5.1) Chloride Level 104 mmol/L (98-107) Carbon Dioxide Level 27 mmol/L (21-32) Anion Gap 9 (6-14) Blood Urea Nitrogen 22 mg/dL (8-26) Creatinine 2.9 mg/dL (0.7-1.3) Estimated GFR (Cockcroft-Gault) 21.0 Glucose Level 99 mg/dL (70-99) Calcium Level 8.4 mg/dL (8.5-10.1) Test 12/08/21 11:44 Glucose (Fingerstick) 111 mg/dL (70-99) Assessment and Plan Assessmemt and Plan Problems Medical Problems: (1) Acute renal failure Status: Acute (2) Metabolic acidosis Status: Acute (3) Urinary tract infection Status: Acute Comment Review of Relevant I have reviewed the following items yanick (where applicable) has been applied. Justifications for Admission Other Justification Acute pancreatitis BARBARA WILEY MD Dec 08, 2021 14:20
[2021-12-08 14:50] VITALS: BP 104/58
[2021-12-08 19:00] VITALS: BP 113/58
[2021-12-08] MEDS: ZOLPIDEM 5 MG TABLET. PO PRN (21:05)
[2021-12-08 23:00] VITALS: BP 94/52
[2021-12-09] VITALS (14 sets, daily range): BP systolic 95–120; BP diastolic 41–64
[2021-12-09 06:35] LABS: CALCIUM 8.8 mg/dL (8.5-10.1); CREATININE 3.9 mg/dL (0.7-1.3); GFR 14.9; POTASSIUM 3.6 mmol/L (3.5-5.1)
[2021-12-09] MEDS: HEPARIN for SUB-Q USE 5,000 UNIT/ML VIAL. SQ SCH ×2 (09:00→19:44)
[2021-12-09] MEDS: LACTOBACILLUS RHAMNOSUS GG 1 CAPSULE. PO SCH ×2 (09:00→20:41)
[2021-12-09 09:30] LABS: PROTHROMBIN TIME PATIENT 15.6 SEC (11.7-14.0)
--- NOTE | 2021-12-09 11:08 | PDOC ---
[employer] [facility] PROGRESS NOTE Date of Service DOS: DATE: 12/09/21 TIME: 11:07 Chief Complaint Chief Complaint Acute on chronic kidney injury now needing dialysis Metabolic acidosis Normocytic anemia Nephrolithiasis Hypothyroidism BPH Bilateral hydronephrosis Right lower pole 8 mm nephrolith History of Present Illness History of Present Illness 12/03: Patient seen and evaluated bedside. His and 2 daughters are present as well. He is n.p.o. for cystoscopy and pyelogram with possible stent placement. Had improvement in his creatinine and EGFR with dialysis. Continue hemodialysis, per nephrology. Had some hypoglycemia due to n.p.o. status, will treat with 1 amp of D50. Urine culture shows no growth indicative of infection. Blood culture shows no growth after 1 day. Advance Care Planning: Total time spent [id number] with patient 19 minutes in discussion with goals of care, comfort care, end-of-life care, pain management, code status; patient names daughter, Madeleine Jacinto, as surrogate decision-maker. Critical care time 30 minutes spent reviewing charts, reviewing labs, reviewing imaging, discussion with family at bedside, and discussion with RN. 12/04: Patient is afebrile, no acute complaints. Had cystoscopy with bilateral retrograde pyelograms and right ureteral stent placement yesterday. Renal function improved today; creatinine 2.8 and EGFR 21.9, consistent with CKD 4. On last admission 10/29/2021 his renal function showed creatinine 2.6 and EGFR 23.9. Patient appears to be back at baseline in regards to renal function. Continue Rocephin and IV hydration. Discussed with urology PA, he may discharge on oral antibiotics for this UTI and also recent urological procedure. We will recheck renal function tomorrow and evaluate further HD needs. Discussed with RN. Critical care time 30 minutes spent reviewing charts, reviewing labs, reviewing imaging, discussion with urology, discussion with RN. 12/05: Patient seen and evaluated bedside. His renal function worsened today, creatinine 3.8 with EGFR 15.4. We will keep inpatient and monitor for further need of hemodialysis. Potassium 2.7 today; will place and hydrate with KCl in normal saline. Urine culture with growth not indicative of infection. He is s/p right ureteral stent placement; he will follow up with urology in 2 weeks. Discussed with RN. 12/06: Patient seen and evaluated at bedside. No change in renal function; creatinine 4.5, EGFR 12.7. We will continue monitor as he may need HD tomorrow, per nephrology. 12/07: Patient seen in dialysis. Denies chest pain or abdominal pain. Hemoglobin 6.6, hematocrit 20.6. Denies a dark stools or bloody stools. Likely secondary to chronic renal failure. He is receiving 1 unit PRBC in dialysis. His creatinine is 5.0 and EGFR 11.2, consistent with CKD 5. Probably looking at long-term HD. Will follow nephrology recommendations. 12/08/2021 No acute events overnight. Patient seen examined bedside. Working with physical therapy and needs full 2 person maximal assist. Hemoglobin at 8.4 today. Creatinine down to 2.9. Lots of sediment in the Earl bag. Discussed with nephrology to keep 1 more day to see current trend of creatinine. 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 If they feel the kidneys are now recovering then they will plan for tunneled catheter tomorrow. Patient's chart, labs, images were reviewed and discussed with RN 12/09/2021 No acute events overnight. Patient seen examined bedside. Creatinine bumped to 3.9 today. Patient will need HD tunneled catheter placement and outpatient dialysis chair. Discussed with nephrology. Discussed with family at bedside. Patient's chart, labs, images were reviewed and discussed with RN Vitals/I&O Vitals/I&O: Vital Signs Date Time Temp Pulse Resp B/P (MAP) Pulse Ox O2 Delivery O2 Flow Rate FiO2 12/09/21 07:51 98.8 85 20 110/63 (79) 93 Nasal Cannula 3.0 98.8 I & O 12/08/21 12/08/21 12/09/21 15:00 23:00 07:00 Output Total 1100 ml 350 ml Balance -1100 ml -350 ml Physical Exam General: Alert, Cooperative, No acute distress Heart: Regular rate Lungs: Clear, Crackles Abdomen: Normal bowel sounds Extremities: No clubbing Skin: No breakdown Labs Labs: Laboratory Tests Test 12/08/21 11:44 12/08/21 16:47 12/09/21 04:30 12/09/21 08:35 Glucose (Fingerstick) 111 mg/dL (70-99) 165 mg/dL (70-99) 83 mg/dL (70-99) Sodium Level 138 mmol/L (136-145) Potassium Level 3.6 mmol/L (3.5-5.1) Chloride Level 104 mmol/L (98-107) Carbon Dioxide Level 25 mmol/L (21-32) Anion Gap 9 (6-14) Blood Urea Nitrogen 28 mg/dL (8-26) Creatinine 3.9 mg/dL (0.7-1.3) Estimated GFR (Cockcroft-Gault) 14.9 Glucose Level 90 mg/dL (70-99) Calcium Level 8.8 mg/dL (8.5-10.1) Test 12/09/21 09:00 12/09/21 09:50 Prothrombin Time 15.6 SEC (11.7-14.0) Prothromb Time International Ratio 1.3 (0.8-1.1) Glucose (Fingerstick) 83 mg/dL (70-99) Assessment and Plan Assessmemt and Plan Problems Medical Problems: (1) Acute renal failure Status: Acute (2) Metabolic acidosis Status: Acute (3) Urinary tract infection Status: Acute Comment Review of Relevant I have reviewed the following items yanick (where applicable) has been applied. Justifications for Admission Other Justification Acute pancreatitis BARBARA WILEY MD Dec 09, 2021 11:08
--- NOTE | 2021-12-09 11:12 | PDOC ---
DATE OF SERVICE DATE: 12/09/21 TIME: 11:11 SUBJECTIVE ROS No new complaints or concerns Denies SOB. No N/V OBJECTIVE Vital Signs Vital Signs Date Time Temp Pulse Resp B/P (MAP) Pulse Ox O2 Delivery O2 Flow Rate FiO2 12/09/21 07:51 98.8 85 20 110/63 (79) 93 Nasal Cannula 3.0 98.8 I & 0 Intake and Output 12/09/21 07:00 Output Total 1450 ml Balance -1450 ml Output Urine Total 1450 ml PHYSICAL EXAM Physical Exam neral Appearance: no apparent distress heen om MOIST Respiratory: decreased breath sounds at bases, non labored Heart: S1S2 Abdomen: soft, bowel sounds present, obese Genitourinary: Earl + Extremities: No cyanosis Neurology: Grossly Normal Skin: warm,no rash DIAGNOSIS/ASSESSMENT Assessment & Plan NANCY- ATN, 2/2 Dehydration/Pyelonephrotis Cr 7.4 POA , requiring dialysis . Non Oliguric , UOP adequate, Creat trending up . Will get Tunneled HDC , Dial ysis tomorrow . SW for OP chair time preferably at [facility] .Discussed with patient , daughter Supportive care, Monitor for Recovery. Maintain fluid balance. Avoid Nephrotoxins CKD stage 3 B - Baseline Cr about 1.5 Severe Met Acidosis- POA- resolved HypoNatremia - Resolved HypoKalemia POA- resolved Pyelonephritis/ UTI - Management per primary /ID Bilateral Hydronephrosis/ Abnormal Bladder finding - s/p 12/03/2021 with bilateral retrograde pyelograms and Right ureteral stent placement. Hx of Left Ureteral Stone and stent S/P Rt Ureteral Stent . Urology Following HX OF DM II COMMENT/RELEVANT DATA Meds Current Medications Medications (Trade) Dose Ordered Sig/Nate Start Time Stop Time Status Last Admin Dose Admin Acetaminophen (Tylenol) 650 mg PRN Q6HRS PRN 12/02/21 18:30 Acetaminophen/ Hydrocodone Bitart (Lortab 5/325) 1 tab PRN Q4HRS PRN 12/02/21 18:30 Al Hydroxide/Mg Hydroxide (Mylanta Plus Xs) 30 ml PRN Q3HRS PRN 12/02/21 18:30 Albumin Human 100 ml @ 100 mls/hr 1X PRN PRN 12/02/21 17:15 12/02/21 23:14 DC 12/02/21 17:50 100 MLS/HR Aspirin (Ecotrin) 325 mg DAILY 12/03/21 09:00 12/08/21 09:55 325 MG Aztreonam (Azactam) 2 gm 1X ONCE 12/02/21 11:30 12/02/21 11:31 UNV Ceftriaxone Sodium (Rocephin) 1 gm Q24H 12/04/21 11:00 12/08/21 11:56 1 GM Dexamethasone Sodium Phosphate (Decadron) 4 mg STK-MED ONCE 12/03/21 14:10 12/03/21 14:10 DC Dextrose (Dextrose 50%-Water Syringe) 12.5 gm PRN Q15MIN PRN 12/09/21 11:15 Dextrose (Iv Dextrose 5%) 250 ml PRN Q15MIN PRN 12/09/21 11:15 Fenofibrate (Lofibra) 134 mg DAILY 12/03/21 09:00 12/08/21 09:55 134 MG Fentanyl Citrate (Fentanyl 2ml Vial) 100 mcg STK-MED ONCE 12/03/21 14:10 12/03/21 14:10 DC Ferrous Sulfate (Feosol) 325 mg QODAY 12/10/21 09:00 Heparin Sodium (Porcine) (Heparin Sodium) 5,000 unit Q12HR 12/02/21 21:00 12/08/21 10:00 5,000 UNIT Info (PHARMACY MONITORING -- do not chart) 1 each PRN DAILY PRN 12/07/21 10:30 Cancel Iohexol (Omnipaque 300 Mg/ml) 50 ml STK-MED ONCE 12/03/21 13:40 12/03/21 13:40 DC 12/03/21 15:30 10 ML Lactobacillus Rhamnosus (Culturelle) 1 cap BID 12/04/21 21:00 12/08/21 19:49 1 CAP Levofloxacin (Levaquin) 500 mg DAILY06 12/03/21 06:00 12/10/21 05:59 UNV Levothyroxine Sodium (Synthroid) 100 mcg DAILYAC 12/03/21 07:30 12/08/21 09:55 100 MCG Lidocaine HCl (Buffered Lidocaine 1%) 9 ml 1X ONCE 12/02/21 13:15 12/02/21 13:16 DC 12/02/21 13:07 5 ML Lidocaine HCl (Glydo (Lidocaine) Jelly) 6 junaid STK-MED ONCE 12/03/21 13:40 12/03/21 13:41 DC 12/03/21 15:30 6 JUNAID Lidocaine HCl (Lidocaine Pf 2% Vial) 5 ml STK-MED ONCE 12/03/21 14:10 12/03/21 14:10 DC Magnesium Hydroxide (Milk Of Magnesia) 2,400 mg PRN Q12HR PRN 12/02/21 18:30 Magnesium Sulfate 50 ml @ 25 mls/hr 1X ONCE 12/05/21 06:30 12/05/21 08:29 DC 12/05/21 06:27 25 MLS/HR Naloxone HCl (Narcan) 0.4 mg PRN Q2MIN PRN 12/03/21 15:30 Ondansetron HCl (Zofran) 4 mg STK-MED ONCE 12/03/21 14:10 12/03/21 14:10 DC Phenylephrine HCl (PHENYLEPHRINE in 0.9% NACL PF) 1 mg STK-MED ONCE 12/03/21 15:17 12/03/21 15:17 DC Piperacillin Sod/ Tazobactam Sod 2.25 gm/Sodium Chloride 50 ml @ 100 mls/hr 1X ONCE 12/02/21 11:45 12/02/21 12:14 DC 12/02/21 12:56 100 MLS/HR Potassium Chloride/Sodium Chloride 1,000 ml @ 100 mls/hr Q10H ONCE 12/05/21 06:30 12/05/21 16:29 DC 12/05/21 06:26 100 MLS/HR Potassium Chloride/Water 100 ml @ 100 mls/hr 1X ONCE 12/04/21 11:30 12/04/21 12:29 DC 12/04/21 11:25 100 MLS/HR Potassium Chloride (Klor-Con) 20 meq 1X ONCE 12/05/21 19:00 12/05/21 19:01 DC 12/05/21 19:54 20 MEQ Propofol (Diprivan) 200 mg STK-MED ONCE 12/03/21 15:17 12/03/21 15:17 DC Sevoflurane (Ultane) 30 ml STK-MED ONCE 12/03/21 14:10 12/03/21 14:10 DC Sodium Bicarbonate 50 meq/Sodium Chloride 1,050 ml @ 100 mls/hr [id number] 12/03/21 11:00 12/05/21 06:11 DC 12/04/21 21:16 100 MLS/HR Sodium Chloride 1,000 ml @ 400 mls/hr Q2H30M PRN 12/07/21 10:30 12/07/21 22:29 DC Sodium Chloride (Normal Saline Flush) 3 ml QSHIFT PRN 12/03/21 15:30 Succinylcholine Chloride (Anectine) 200 mg STK-MED ONCE 12/03/21 14:10 12/03/21 14:11 DC Tamsulosin HCl (Flomax) 0.4 mg DAILY 12/03/21 09:00 12/08/21 09:56 0.4 MG Zolpidem Tartrate (Ambien) 5 mg PRN QHS PRN 12/02/21 18:30 12/08/21 21:05 5 MG Lab Laboratory Tests Test 12/08/21 11:44 12/08/21 16:47 12/09/21 04:30 12/09/21 08:35 Glucose (Fingerstick) 111 mg/dL (70-99) 165 mg/dL (70-99) 83 mg/dL (70-99) Sodium Level 138 mmol/L (136-145) Potassium Level 3.6 mmol/L (3.5-5.1) Chloride Level 104 mmol/L (98-107) Carbon Dioxide Level 25 mmol/L (21-32) Anion Gap 9 (6-14) Blood Urea Nitrogen 28 mg/dL (8-26) Creatinine 3.9 mg/dL (0.7-1.3) Estimated GFR (Cockcroft-Gault) 14.9 Glucose Level 90 mg/dL (70-99) Calcium Level 8.8 mg/dL (8.5-10.1) Test 12/09/21 09:00 12/09/21 09:50 Prothrombin Time 15.6 SEC (11.7-14.0) Prothromb Time International Ratio 1.3 (0.8-1.1) Glucose (Fingerstick) 83 mg/dL (70-99) Results All relevant outside records, renal labs, imaging studies, telemetry/EKG's were reviewed. Justicifation of Admission Dx: Justifications for Admission: Justification of Admission Dx: Yes Acute Renal Failure: 3-Fold Rise in Serum Crea JONAS DELGADO MD Dec 09, 2021 11:12
[2021-12-09] MEDS ORDERED: DEXTROSE 50% 25 GM / 50ML DISP.SYRIN. IV PRN (11:15)
[2021-12-09] MEDS ORDERED: IV DEXTROSE 5% 250 ML BAG. IV PRN (11:15)
[2021-12-09] MEDS ORDERED: LIDOCAINE 2%/EPI 1:100,000 20 ML VIAL. ONE (12:15)
[2021-12-09] MEDS ORDERED: ceFAZolin SODIUM IV Push 1 GM VIAL. IVP ONE ×2 (12:32→12:45)
[2021-12-09] MEDS ORDERED: fentaNYL PF VIAL 100 MCG/2 ML VIAL ONE (12:32)
[2021-12-09] MEDS ORDERED: MIDAZOLAM HCL/PF 2 MG/2 ML VIAL. ONE (12:32)
[2021-12-09] MEDS ORDERED: fentaNYL PF VIAL 100 MCG/2 ML VIAL IV ONE (12:45)
[2021-12-09] MEDS ORDERED: MIDAZOLAM HCL/PF 2 MG/2 ML VIAL. IV ONE (12:45)
[2021-12-09] MEDS ORDERED: LIDOCAINE 2%/EPI 1:100,000 20 ML VIAL. IJ ONE (13:00)
[2021-12-09] MEDS: ASPIRIN ENTERIC COATED 325 MG TABLET.DR. PO SCH (13:21)
[2021-12-09] MEDS: LEVOTHYROXINE 100 MCG TABLET PO SCH (13:21)
[2021-12-09] MEDS: cefTRIAXone IV Push 1 GM VIAL. IVP SCH (13:21)
[2021-12-09] MEDS: FENOFIBRATE,MICRONIZED 134 MG CAPSULE PO SCH (13:21)
[2021-12-09] MEDS: TAMSULOSIN 0.4 MG CAP.ER.24H. PO SCH (13:21)
--- NOTE | 2021-12-09 16:55 | NUR ---
Wound: Dressing changed by nurse. Will follow up next week. Daughter changes dressings at home, planned DC tomorrow.
[2021-12-09] MEDS: ZOLPIDEM 5 MG TABLET. PO PRN (20:41)
[2021-12-10 03:00] VITALS: BP 110/56
[2021-12-10 07:09] VITALS: BP 111/65
[2021-12-10] MEDS ORDERED: DIALYSIS PATIENT. MC PRN ×2 (07:30)
[2021-12-10] MEDS ORDERED: IV NORMAL SALINE 1000ML BAG 1,000 ML IV PRN ×2 (07:30)
[2021-12-10 08:43] LABS: CALCIUM 8.7 mg/dL (8.5-10.1); CREATININE 4.6 mg/dL (0.7-1.3); GFR 12.4; POTASSIUM 3.5 mmol/L (3.5-5.1)
--- NOTE | 2021-12-10 09:13 | PDOC ---
DATE OF SERVICE DATE: 12/10/21 TIME: 09:11 SUBJECTIVE ROS Denies SOB. No N/V . Seen on dialysis OBJECTIVE Vital Signs Vital Signs Date Time Temp Pulse Resp B/P (MAP) Pulse Ox O2 Delivery O2 Flow Rate FiO2 12/10/21 08:23 Nasal Cannula 2.0 12/10/21 07:09 98.5 80 18 111/65 (80) 94 98.5 I & 0 Intake and Output 12/10/21 07:00 Intake Total 450 ml Output Total 2200 ml Balance -1750 ml Intake Oral 450 ml Output Urine Total 2200 ml PHYSICAL EXAM Physical Exam neral Appearance: no apparent distress heen om MOIST Respiratory: decreased breath sounds at bases, non labored Heart: S1S2 Abdomen: soft, bowel sounds present, obese Genitourinary: Earl + Extremities: No cyanosis Neurology: Grossly Normal Skin: warm,no rash DIAGNOSIS/ASSESSMENT Assessment & Plan NANCY- ATN, 2/2 Dehydration/Pyelonephrotis Cr 7.4 POA , requiring dialysis . Non Oliguric , UOP adequate, No improvement in renal function. Dialysis today , seen during treatment , tolerating well. Continue as ordered, Pepe SPEAR Awaiting SW OP chair time preferably at [place] .Discussed with patient , daughter and transplant case manager- Tunneled HDC on Supportive care, Monitor for Recovery. Maintain fluid balance. Avoid Nephrotoxins CKD stage 3 B - Baseline Cr about 1.5 Severe Met Acidosis- POA- resolved HypoNatremia - Resolved HypoKalemia POA- resolved Pyelonephritis/ UTI - Management per primary /ID Bilateral Hydronephrosis/ Abnormal Bladder finding - s/p 12/03/2021 with bilateral retrograde pyelograms and Right ureteral stent placement. Hx of Left Ureteral Stone and stent S/P Rt Ureteral Stent . Urology Following HX OF DM II COMMENT/RELEVANT DATA Meds Current Medications Medications (Trade) Dose Ordered Sig/Nate Start Time Stop Time Status Last Admin Dose Admin Acetaminophen (Tylenol) 650 mg PRN Q6HRS PRN 12/02/21 18:30 Acetaminophen/ Hydrocodone Bitart (Lortab 5/325) 1 tab PRN Q4HRS PRN 12/02/21 18:30 Al Hydroxide/Mg Hydroxide (Mylanta Plus Xs) 30 ml PRN Q3HRS PRN 12/02/21 18:30 Albumin Human 100 ml @ 100 mls/hr 1X PRN PRN 12/02/21 17:15 12/02/21 23:14 DC 12/02/21 17:50 100 MLS/HR Aspirin (Ecotrin) 325 mg DAILY 12/03/21 09:00 12/09/21 13:21 325 MG Aztreonam (Azactam) 2 gm 1X ONCE 12/02/21 11:30 12/02/21 11:31 UNV Cefazolin Sodium (Ancef) 1 gm 1X ONCE 12/09/21 12:45 12/09/21 12:48 DC 12/09/21 12:45 1 GM Ceftriaxone Sodium (Rocephin) 1 gm Q24H 12/04/21 11:00 12/09/21 13:21 1 GM Dexamethasone Sodium Phosphate (Decadron) 4 mg STK-MED ONCE 12/03/21 14:10 12/03/21 14:10 DC Dextrose (Dextrose 50%-Water Syringe) 12.5 gm PRN Q15MIN PRN 12/09/21 11:15 Dextrose (Iv Dextrose 5%) 250 ml PRN Q15MIN PRN 12/09/21 11:15 Fenofibrate (Lofibra) 134 mg DAILY 12/03/21 09:00 12/09/21 13:21 134 MG Fentanyl Citrate (Fentanyl 2ml Vial) 100 mcg 1X ONCE 12/09/21 12:45 12/09/21 12:48 DC 12/09/21 12:45 25 MCG Ferrous Sulfate (Feosol) 325 mg QODAY 12/10/21 09:00 Heparin Sodium (Porcine) (Heparin Sodium) 5,000 unit Q12HR 12/02/21 21:00 12/08/21 10:00 5,000 UNIT Info (PHARMACY MONITORING -- do not chart) 1 each PRN DAILY PRN 12/10/21 07:30 Iohexol (Omnipaque 300 Mg/ml) 50 ml STK-MED ONCE 12/03/21 13:40 12/03/21 13:40 DC 12/03/21 15:30 10 ML Lactobacillus Rhamnosus (Culturelle) 1 cap BID 12/04/21 21:00 12/09/21 20:41 1 CAP Levofloxacin (Levaquin) 500 mg DAILY06 12/03/21 06:00 12/10/21 05:59 UNV Levothyroxine Sodium (Synthroid) 100 mcg DAILYAC 12/03/21 07:30 12/09/21 13:21 100 MCG Lidocaine HCl (Buffered Lidocaine 1%) 9 ml 1X ONCE 12/02/21 13:15 12/02/21 13:16 DC 12/02/21 13:07 5 ML Lidocaine HCl (Glydo (Lidocaine) Jelly) 6 junaid STK-MED ONCE 12/03/21 13:40 12/03/21 13:41 DC 12/03/21 15:30 6 JUNAID Lidocaine HCl (Lidocaine Pf 2% Vial) 5 ml STK-MED ONCE 12/03/21 14:10 12/03/21 14:10 DC Lidocaine/ Epinephrine (LIDOCAINE 2%-EPI 1:100,000 multi-dose) 20 ml 1X ONCE 12/09/21 13:00 12/09/21 13:01 DC 12/09/21 12:57 10 ML Magnesium Hydroxide (Milk Of Magnesia) 2,400 mg PRN Q12HR PRN 12/02/21 18:30 Magnesium Sulfate 50 ml @ 25 mls/hr 1X ONCE 12/05/21 06:30 12/05/21 08:29 DC 12/05/21 06:27 25 MLS/HR Midazolam HCl (Versed) 2 mg 1X ONCE 12/09/21 12:45 12/09/21 12:48 DC 12/09/21 12:45 1 MG Naloxone HCl (Narcan) 0.4 mg PRN Q2MIN PRN 12/03/21 15:30 Ondansetron HCl (Zofran) 4 mg STK-MED ONCE 12/03/21 14:10 12/03/21 14:10 DC Phenylephrine HCl (PHENYLEPHRINE in 0.9% NACL PF) 1 mg STK-MED ONCE 12/03/21 15:17 12/03/21 15:17 DC Piperacillin Sod/ Tazobactam Sod 2.25 gm/Sodium Chloride 50 ml @ 100 mls/hr 1X ONCE 12/02/21 11:45 12/02/21 12:14 DC 12/02/21 12:56 100 MLS/HR Potassium Chloride/Sodium Chloride 1,000 ml @ 100 mls/hr Q10H ONCE 12/05/21 06:30 12/05/21 16:29 DC 12/05/21 06:26 100 MLS/HR Potassium Chloride/Water 100 ml @ 100 mls/hr 1X ONCE 12/04/21 11:30 12/04/21 12:29 DC 12/04/21 11:25 100 MLS/HR Potassium Chloride (Klor-Con) 20 meq 1X ONCE 12/05/21 19:00 12/05/21 19:01 DC 12/05/21 19:54 20 MEQ Propofol (Diprivan) 200 mg STK-MED ONCE 12/03/21 15:17 12/03/21 15:17 DC Sevoflurane (Ultane) 30 ml STK-MED ONCE 12/03/21 14:10 12/03/21 14:10 DC Sodium Bicarbonate 50 meq/Sodium Chloride 1,050 ml @ 100 mls/hr [id number] 12/03/21 11:00 12/05/21 06:11 DC 12/04/21 21:16 100 MLS/HR Sodium Chloride 1,000 ml @ 400 mls/hr Q2H30M PRN 12/10/21 07:30 12/10/21 19:29 Sodium Chloride (Normal Saline Flush) 3 ml QSHIFT PRN 12/03/21 15:30 Succinylcholine Chloride (Anectine) 200 mg STK-MED ONCE 12/03/21 14:10 12/03/21 14:11 DC Tamsulosin HCl (Flomax) 0.4 mg DAILY 12/03/21 09:00 12/09/21 13:21 0.4 MG Zolpidem Tartrate (Ambien) 5 mg PRN QHS PRN 12/02/21 18:30 12/09/21 20:41 5 MG Lab Laboratory Tests Test 12/09/21 09:50 12/09/21 11:48 12/09/21 17:46 12/09/21 20:49 Glucose (Fingerstick) 83 mg/dL (70-99) 75 mg/dL (70-99) 107 mg/dL (70-99) 128 mg/dL (70-99) Test 12/10/21 07:40 Sodium Level 141 mmol/L (136-145) Potassium Level 3.5 mmol/L (3.5-5.1) Chloride Level 103 mmol/L (98-107) Carbon Dioxide Level 26 mmol/L (21-32) Anion Gap 12 (6-14) Blood Urea Nitrogen 37 mg/dL (8-26) Creatinine 4.6 mg/dL (0.7-1.3) Estimated GFR (Cockcroft-Gault) 12.4 Glucose Level 79 mg/dL (70-99) Calcium Level 8.7 mg/dL (8.5-10.1) Results All relevant outside records, renal labs, imaging studies, telemetry/EKG's were reviewed. Justicifation of Admission Dx: Justifications for Admission: Justification of Admission Dx: Yes Acute Renal Failure: 3-Fold Rise in Serum Crea JONAS DELGADO MD Dec 10, 2021 09:13
--- NOTE | 2021-12-10 10:00 | NUR ---
WOUND CARE: Patient off unit in dialysis. Wound care will attempt to see patient again tomorrow, dressing changes completed yesterday. Patient does have HH and lives with daughter whom is familiar with wound care and dressing changes.
[2021-12-10 11:08] VITALS: BP 118/63
--- NOTE | 2021-12-10 11:38 | PDOC ---
[facility] [facility] PROGRESS NOTE Date of Service DOS: DATE: 12/10/21 TIME: 11:38 Chief Complaint Chief Complaint Acute on chronic kidney injury now needing dialysis Metabolic acidosis Normocytic anemia Nephrolithiasis Hypothyroidism BPH Bilateral hydronephrosis Right lower pole 8 mm nephrolith History of Present Illness History of Present Illness 12/03: Patient seen and evaluated bedside. His and 2 daughters are present as well. He is n.p.o. for cystoscopy and pyelogram with possible stent placement. Had improvement in his creatinine and EGFR with dialysis. Continue hemodialysis, per nephrology. Had some hypoglycemia due to n.p.o. status, will treat with 1 amp of D50. Urine culture shows no growth indicative of infection. Blood culture shows no growth after 1 day. Advance Care Planning: Total time spent [id number] with patient 19 minutes in discussion with goals of care, comfort care, end-of-life care, pain management, code status; patient names daughter, Madeleine Jacinto, as surrogate decision-maker. Critical care time 30 minutes spent reviewing charts, reviewing labs, reviewing imaging, discussion with family at bedside, and discussion with RN. 12/04: Patient is afebrile, no acute complaints. Had cystoscopy with bilateral retrograde pyelograms and right ureteral stent placement yesterday. Renal function improved today; creatinine 2.8 and EGFR 21.9, consistent with CKD 4. On last admission 10/29/2021 his renal function showed creatinine 2.6 and EGFR 23.9. Patient appears to be back at baseline in regards to renal function. Continue Rocephin and IV hydration. Discussed with urology PA, he may discharge on oral antibiotics for this UTI and also recent urological procedure. We will recheck renal function tomorrow and evaluate further HD needs. Discussed with RN. Critical care time 30 minutes spent reviewing charts, reviewing labs, reviewing imaging, discussion with urology, discussion with RN. 12/05: Patient seen and evaluated bedside. His renal function worsened today, creatinine 3.8 with EGFR 15.4. We will keep inpatient and monitor for further need of hemodialysis. Potassium 2.7 today; will place and hydrate with KCl in normal saline. Urine culture with growth not indicative of infection. He is s/p right ureteral stent placement; he will follow up with urology in 2 weeks. Discussed with RN. 12/06: Patient seen and evaluated at bedside. No change in renal function; creatinine 4.5, EGFR 12.7. We will continue monitor as he may need HD tomorrow, per nephrology. 12/07: Patient seen in dialysis. Denies chest pain or abdominal pain. Hemoglobin 6.6, hematocrit 20.6. Denies a dark stools or bloody stools. Likely secondary to chronic renal failure. He is receiving 1 unit PRBC in dialysis. His creatinine is 5.0 and EGFR 11.2, consistent with CKD 5. Probably looking at long-term HD. Will follow nephrology recommendations. 12/08/2021 No acute events overnight. Patient seen examined bedside. Working with physical therapy and needs full 2 person maximal assist. Hemoglobin at 8.4 today. Creatinine down to 2.9. Lots of sediment in the Earl bag. Discussed with nephrology to keep 1 more day to see current trend of creatinine. 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 If they feel the kidneys are now recovering then they will plan for tunneled catheter tomorrow. Patient's chart, labs, images were reviewed and discussed with RN 12/09/2021 No acute events overnight. Patient seen examined bedside. Creatinine bumped to 3.9 today. Patient will need HD tunneled catheter placement and outpatient dialysis chair. Discussed with nephrology. Discussed with family at bedside. Patient's chart, labs, images were reviewed and discussed with RN 12/10/2021 No acute events overnight. Patient seen examined bedside. HD catheter placed. Seen also on dialysis today and tolerating well. Patient's chart, labs, images were reviewed and discussed with RN Vitals/I&O Vitals/I&O: Vital Signs Date Time Temp Pulse Resp B/P (MAP) Pulse Ox O2 Delivery O2 Flow Rate FiO2 12/10/21 11:08 98.8 76 118/63 (81) 94 Nasal Cannula 2.0 98.8 12/10/21 07:09 18 I & O 12/09/21 12/09/21 12/10/21 15:00 23:00 07:00 Intake Total 450 ml Output Total 1400 ml 800 ml Balance -950 ml -800 ml Physical Exam General: Alert, Cooperative, No acute distress Heart: Regular rate Lungs: Clear, Crackles Abdomen: Normal bowel sounds Extremities: No clubbing Skin: No breakdown Labs Labs: Laboratory Tests Test 12/09/21 11:48 12/09/21 17:46 12/09/21 20:49 12/10/21 07:40 Glucose (Fingerstick) 75 mg/dL (70-99) 107 mg/dL (70-99) 128 mg/dL (70-99) Sodium Level 141 mmol/L (136-145) Potassium Level 3.5 mmol/L (3.5-5.1) Chloride Level 103 mmol/L (98-107) Carbon Dioxide Level 26 mmol/L (21-32) Anion Gap 12 (6-14) Blood Urea Nitrogen 37 mg/dL (8-26) Creatinine 4.6 mg/dL (0.7-1.3) Estimated GFR (Cockcroft-Gault) 12.4 Glucose Level 79 mg/dL (70-99) Calcium Level 8.7 mg/dL (8.5-10.1) Assessment and Plan Assessmemt and Plan Problems Medical Problems: (1) Acute renal failure Status: Acute (2) Metabolic acidosis Status: Acute (3) Urinary tract infection Status: Acute Comment Review of Relevant I have reviewed the following items yanick (where applicable) has been applied. Medications: Current Medications Medications (Trade) Dose Ordered Sig/Nate Route PRN Reason Start Time Stop Time Status Last Admin Dose Admin Midazolam HCl (Versed) 2 mg 1X ONCE IV 12/09/21 12:45 12/09/21 12:48 DC 12/09/21 12:45 Fentanyl Citrate (Fentanyl 2ml Vial) 100 mcg 1X ONCE IV 12/09/21 12:45 12/09/21 12:48 DC 12/09/21 12:45 Cefazolin Sodium (Ancef) 1 gm 1X ONCE IVP 12/09/21 12:45 12/09/21 12:48 DC 12/09/21 12:45 Lidocaine/ Epinephrine (LIDOCAINE 2%-EPI 1:100,000 multi-dose) 20 ml 1X ONCE IJ 12/09/21 13:00 12/09/21 13:01 DC 12/09/21 12:57 Justifications for Admission Other Justification Acute pancreatitis BARBARA WILEY MD Dec 10, 2021 11:38
[2021-12-10] MEDS: cefTRIAXone IV Push 1 GM VIAL. IVP SCH (11:45)
[2021-12-10] MEDS: FERROUS SULFATE 325 MG TABLET. PO SCH (11:45)
[2021-12-10] MEDS: LACTOBACILLUS RHAMNOSUS GG 1 CAPSULE. PO SCH ×2 (11:45→21:56)
[2021-12-10] MEDS: TAMSULOSIN 0.4 MG CAP.ER.24H. PO SCH (11:45)
[2021-12-10] MEDS: ASPIRIN ENTERIC COATED 325 MG TABLET.DR. PO SCH (11:46)
[2021-12-10] MEDS: FENOFIBRATE,MICRONIZED 134 MG CAPSULE PO SCH (11:46)
[2021-12-10] MEDS: LEVOTHYROXINE 100 MCG TABLET PO SCH (11:46)
[2021-12-10] MEDS: HEPARIN for SUB-Q USE 5,000 UNIT/ML VIAL. SQ SCH ×2 (11:53→21:57)
--- NOTE | 2021-12-10 12:31 | RAD ---
Procedure: Exchange of a temporary for tunneled hemodialysis catheter under fluoroscopic guidance. Clinical Indication: Patient requiring long-term hemodialysis. Sedation: Conscious sedation using a combination of Versed and fentanyl was provided for 20 minutes, including continuous monitoring of the patients heart rate, rhythm, blood pressure, oxygen saturation and level of arousability by a trained independent observer. Antibiotics: Antibiotic was administered intravenously within 1 hour of the procedure start time. Exposure: Kerma-Area Product: 3 Gycm2 Sterility: All elements of maximal sterile barrier technique including the use of a cap, mask, steri le gown, sterile gloves, large sterile sheet, appropriate hand hygiene, and 2% chlorhexidine for cuta neous antisepsis (or acceptable alternative antiseptic per current guidelines) were followed for this procedure. Consent: The procedure was explained in its entirety to the patient or the patients designated repres entative by a member of the treatment team, including a discussion of the risks, benefits and commonl y accepted alternatives to the procedure, as well as the expected consequences of not performing the procedure. Discussion of the risks included, but was not limited to, those that are most frequent an d those that are rare but possibly severe or life-threatening, as well as the possibility of unforese en complications. Technique and Findings: Following informed consent, the patient was prepped and draped in usual steri le fashion. Preliminary fluoroscopic spot view of the chest was performed demonstrating an intact tem porary dialysis catheter via the right jugular vein. 1 percent lidocaine was used to achieve local an esthesia around the catheter exit site as well as in the anterior chest wall. A small dermatotomy was made. A new tunneled dialysis catheter was then tunneled subcutaneously towards the venotomy site. T he existing temporary catheter was then exchanged over wire for a large caliber peel-away sheath whic h was used to deploy the new tunneled catheter under fluoroscopic guidance such that the distal tip r esided in the mid right atrium. Manual flow rates were assessed and found to be excellent. The new ca theter was flushed, packed with heparin, capped, and sutured to the skin. The dermatotomy over the ve notomy site was closed using a single 2-0 Vicryl suture. Complications: No immediate. Impression: 1. Fluoroscopic guided exchange of a temporary for tunneled hemodialysis catheter as described. The n ew catheter is suitable for use. Electronically signed by: Jerald Evans MD (12/10/2021 12:28 PM) [id number]
[2021-12-10 14:58] VITALS: BP 118/68
[2021-12-10 19:00] VITALS: BP 98/39
--- NOTE | 2021-12-10 20:15 | NUR ---
Pt requesting to be turned - turned pt - L posterior leg noted to have an area with dark purple/red area extending from posterior ankle up to just distal to back of knee. Bilat heels boggy and reddened, posterior R leg also bright red. Pt turned from R side to L side - bruno area cleaned well, catheter care done - area on L side of foreskin noted to be bleeding slightly, calazyme applied, bilat legs elevated on pillows to keep heels off bed. Skin breakdown charted on. Will continue to monitor pt status closely.
[2021-12-10 22:35] VITALS: BP 102/61
[2021-12-11 03:31] VITALS: BP 98/52
[2021-12-11 07:00] VITALS: BP 120/52
[2021-12-11] MEDS: TAMSULOSIN 0.4 MG CAP.ER.24H. PO SCH (08:16)
[2021-12-11] MEDS: FENOFIBRATE,MICRONIZED 134 MG CAPSULE PO SCH (08:16)
[2021-12-11] MEDS: LACTOBACILLUS RHAMNOSUS GG 1 CAPSULE. PO SCH ×2 (08:16→22:13)
[2021-12-11] MEDS: LEVOTHYROXINE 100 MCG TABLET PO SCH (08:16)
[2021-12-11] MEDS: ASPIRIN ENTERIC COATED 325 MG TABLET.DR. PO SCH (08:16)
[2021-12-11] MEDS: HEPARIN for SUB-Q USE 5,000 UNIT/ML VIAL. SQ SCH ×2 (08:22→22:12)
--- NOTE | 2021-12-11 09:17 | PDOC ---
DATE OF SERVICE DATE: 12/11/21 TIME: 09:16 SUBJECTIVE ROS Denies SOB. No N/V . Seen on dialysis OBJECTIVE Vital Signs Vital Signs Date Time Temp Pulse Resp B/P (MAP) Pulse Ox O2 Delivery O2 Flow Rate FiO2 12/11/21 07:56 Room Air 2.0 12/11/21 07:00 98.4 72 18 120/52 (74) 96 98.4 I & 0 Intake and Output 12/11/21 07:00 Intake Total 0 ml Output Total 1100 ml Balance -1100 ml Intake Oral 0 ml Output Urine Total 1100 ml PHYSICAL EXAM Physical Exam neral Appearance: no apparent distress heen om MOIST Respiratory: decreased breath sounds at bases, non labored Heart: S1S2 Abdomen: soft, bowel sounds present, obese Genitourinary: Earl + Extremities: No cyanosis Neurology: Grossly Normal Skin: warm,no rash DIAGNOSIS/ASSESSMENT Assessment & Plan NANCY- ATN, 2/2 Dehydration/Pyelonephrotis Cr 7.4 POA , requiring dialysis . Non Oliguric , UOP adequate, No improvement in renal function. Dialysis tomorrow . If gets chair time can be dced after dialysis from renal standpoint Awaiting SW OP chair time at [place] .Discussed with patient , daughter and uncrater- Tunneled HDC on Supportive care, Monitor for Recovery. Maintain fluid balance. Avoid Nephrotoxins CKD stage 3 B - Baseline Cr about 1.5 Severe Met Acidosis- POA- resolved HypoNatremia - Resolved HypoKalemia POA- resolved Pyelonephritis/ UTI - Management per primary /ID Bilateral Hydronephrosis/ Abnormal Bladder finding - s/p 12/03/2021 with bilateral retrograde pyelograms and Right ureteral stent placement. Hx of Left Ureteral Stone and stent S/P Rt Ureteral Stent . Urology F ollowing HX OF DM II COMMENT/RELEVANT DATA Meds Current Medications Medications (Trade) Dose Ordered Sig/Nate Start Time Stop Time Status Last Admin Dose Admin Acetaminophen (Tylenol) 650 mg PRN Q6HRS PRN 12/02/21 18:30 Acetaminophen/ Hydrocodone Bitart (Lortab 5/325) 1 tab PRN Q4HRS PRN 12/02/21 18:30 Al Hydroxide/Mg Hydroxide (Mylanta Plus Xs) 30 ml PRN Q3HRS PRN 12/02/21 18:30 Albumin Human 100 ml @ 100 mls/hr 1X PRN PRN 12/02/21 17:15 12/02/21 23:14 DC 12/02/21 17:50 100 MLS/HR Aspirin (Ecotrin) 325 mg DAILY 12/03/21 09:00 12/11/21 08:16 325 MG Aztreonam (Azactam) 2 gm 1X ONCE 12/02/21 11:30 12/02/21 11:31 UNV Cefazolin Sodium (Ancef) 1 gm 1X ONCE 12/09/21 12:45 12/09/21 12:48 DC 12/09/21 12:45 1 GM Ceftriaxone Sodium (Rocephin) 1 gm Q24H 12/04/21 11:00 12/10/21 11:45 1 GM Dexamethasone Sodium Phosphate (Decadron) 4 mg STK-MED ONCE 12/03/21 14:10 12/03/21 14:10 DC Dextrose (Dextrose 50%-Water Syringe) 12.5 gm PRN Q15MIN PRN 12/09/21 11:15 Dextrose (Iv Dextrose 5%) 250 ml PRN Q15MIN PRN 12/09/21 11:15 Fenofibrate (Lofibra) 134 mg DAILY 12/03/21 09:00 12/11/21 08:16 134 MG Fentanyl Citrate (Fentanyl 2ml Vial) 100 mcg 1X ONCE 12/09/21 12:45 12/09/21 12:48 DC 12/09/21 12:45 25 MCG Ferrous Sulfate (Feosol) 325 mg QODAY 12/10/21 09:00 12/10/21 11:45 325 MG Heparin Sodium (Porcine) (Heparin Sodium) 5,000 unit Q12HR 12/02/21 21:00 12/11/21 08:22 5,000 UNIT Info (PHARMACY MONITORING -- do not chart) 1 each PRN DAILY PRN 12/10/21 07:30 Iohexol (Omnipaque 300 Mg/ml) 50 ml STK-MED ONCE 12/03/21 13:40 12/03/21 13:40 DC 12/03/21 15:30 10 ML Lactobacillus Rhamnosus (Culturelle) 1 cap BID 12/04/21 21:00 12/11/21 08:16 1 CAP Levofloxacin (Levaquin) 500 mg DAILY06 12/03/21 06:00 12/10/21 05:59 UNV Levothyroxine Sodium (Synthroid) 100 mcg DAILYAC 12/03/21 07:30 12/11/21 08:16 100 MCG Lidocaine HCl (Buffered Lidocaine 1%) 9 ml 1X ONCE 12/02/21 13:15 12/02/21 13:16 DC 12/02/21 13:07 5 ML Lidocaine HCl (Glydo (Lidocaine) Jelly) 6 junaid STK-MED ONCE 12/03/21 13:40 12/03/21 13:41 DC 12/03/21 15:30 6 JUNAID Lidocaine HCl (Lidocaine Pf 2% Vial) 5 ml STK-MED ONCE 12/03/21 14:10 12/03/21 14:10 DC Lidocaine/ Epinephrine (LIDOCAINE 2%-EPI 1:100,000 multi-dose) 20 ml 1X ONCE 12/09/21 13:00 12/09/21 13:01 DC 12/09/21 12:57 10 ML Magnesium Hydroxide (Milk Of Magnesia) 2,400 mg PRN Q12HR PRN 12/02/21 18:30 Magnesium Sulfate 50 ml @ 25 mls/hr 1X ONCE 12/05/21 06:30 12/05/21 08:29 DC 12/05/21 06:27 25 MLS/HR Midazolam HCl (Versed) 2 mg 1X ONCE 12/09/21 12:45 12/09/21 12:48 DC 12/09/21 12:45 1 MG Naloxone HCl (Narcan) 0.4 mg PRN Q2MIN PRN 12/03/21 15:30 Ondansetron HCl (Zofran) 4 mg STK-MED ONCE 12/03/21 14:10 12/03/21 14:10 DC Phenylephrine HCl (PHENYLEPHRINE in 0.9% NACL PF) 1 mg STK-MED ONCE 12/03/21 15:17 12/03/21 15:17 DC Piperacillin Sod/ Tazobactam Sod 2.25 gm/Sodium Chloride 50 ml @ 100 mls/hr 1X ONCE 12/02/21 11:45 12/02/21 12:14 DC 12/02/21 12:56 100 MLS/HR Potassium Chloride/Sodium Chloride 1,000 ml @ 100 mls/hr Q10H ONCE 12/05/21 06:30 12/05/21 16:29 DC 12/05/21 06:26 100 MLS/HR Potassium Chloride/Water 100 ml @ 100 mls/hr 1X ONCE 12/04/21 11:30 12/04/21 12:29 DC 12/04/21 11:25 100 MLS/HR Potassium Chloride (Klor-Con) 20 meq 1X ONCE 12/05/21 19:00 12/05/21 19:01 DC 12/05/21 19:54 20 MEQ Propofol (Diprivan) 200 mg STK-MED ONCE 12/03/21 15:17 12/03/21 15:17 DC Sevoflurane (Ultane) 30 ml STK-MED ONCE 12/03/21 14:10 12/03/21 14:10 DC Sodium Bicarbonate 50 meq/Sodium Chloride 1,050 ml @ 100 mls/hr [id number] 12/03/21 11:00 12/05/21 06:11 DC 12/04/21 21:16 100 MLS/HR Sodium Chloride 1,000 ml @ 400 mls/hr Q2H30M PRN 12/10/21 07:30 12/10/21 19:29 DC Sodium Chloride (Normal Saline Flush) 3 ml QSHIFT PRN 12/03/21 15:30 Succinylcholine Chloride (Anectine) 200 mg STK-MED ONCE 12/03/21 14:10 12/03/21 14:11 DC Tamsulosin HCl (Flomax) 0.4 mg DAILY 12/03/21 09:00 12/11/21 08:16 0.4 MG Zolpidem Tartrate (Ambien) 5 mg PRN QHS PRN 12/02/21 18:30 12/09/21 20:41 5 MG Lab Laboratory Tests Test 12/11/21 07:23 Glucose (Fingerstick) 82 mg/dL (70-99) Results All relevant outside records, renal labs, imaging studies, telemetry/EKG's were reviewed. Justicifation of Admission Dx: Justifications for Admission: Justification of Admission Dx: Yes Acute Renal Failure: 3-Fold Rise in Serum Crea JONAS DELGADO MD Dec 11, 2021 09:16
[2021-12-11 10:30] VITALS: BP 107/45
[2021-12-11] MEDS: cefTRIAXone IV Push 1 GM VIAL. IVP SCH (11:01)
--- NOTE | 2021-12-11 11:57 | PDOC ---
[employer] PROGRESS NOTE Date of Service DOS: DATE: 12/11/21 TIME: 11:57 Chief Complaint Chief Complaint Acute on chronic kidney injury now needing dialysis Metabolic acidosis Normocytic anemia Nephrolithiasis Hypothyroidism BPH Bilateral hydronephrosis Right lower pole 8 mm nephrolith History of Present Illness History of Present Illness 12/03: Patient seen and evaluated bedside. His and 2 daughters are present as well. He is n.p.o. for cystoscopy and pyelogram with possible stent placement. Had improvement in his creatinine and EGFR with dialysis. Continue hemodialysis, per nephrology. Had some hypoglycemia due to n.p.o. status, will treat with 1 amp of D50. Urine culture shows no growth indicative of infection. Blood culture shows no growth after 1 day. Advance Care Planning: Total time spent [id number] with patient 19 minutes in discussion with goals of care, comfort care, end-of-life care, pain management, code status; patient names daughter, Madeleine Jacinto, as surrogate decision-maker. Critical care time 30 minutes spent reviewing charts, reviewing labs, reviewing imaging, discussion with family at bedside, and discussion with RN. 12/04: Patient is afebrile, no acute complaints. Had cystoscopy with bilateral retrograde pyelograms and right ureteral stent placement yesterday. Renal function improved today; creatinine 2.8 and EGFR 21.9, consistent with CKD 4. On last admission 10/29/2021 his renal function showed creatinine 2.6 and EGFR 23.9. Patient appears to be back at baseline in regards to renal function. Continue Rocephin and IV hydration. Discussed with urology PA, he may discharge on oral antibiotics for this UTI and also recent urological procedure. We will recheck renal function tomorrow and evaluate further HD needs. Discussed with RN. Critical care time 30 minutes spent reviewing charts, reviewing labs, reviewing imaging, discussion with urology, discussion with RN. 12/05: Patient seen and evaluated bedside. His renal function worsened today, creatinine 3.8 with EGFR 15.4. We will keep inpatient and monitor for further need of hemodialysis. Potassium 2.7 today; will place and hydrate with KCl in normal saline. Urine culture with growth not indicative of infection. He is s/p right ureteral stent placement; he will follow up with urology in 2 weeks. Discussed with RN. 12/06: Patient seen and evaluated at bedside. No change in renal function; creatinine 4.5, EGFR 12.7. We will continue monitor as he may need HD tomorrow, per nephrology. 12/07: Patient seen in dialysis. Denies chest pain or abdominal pain. Hemoglobin 6.6, hematocrit 20.6. Denies a dark stools or bloody stools. Likely secondary to chronic renal failure. He is receiving 1 unit PRBC in dialysis. His creatinine is 5.0 and EGFR 11.2, consistent with CKD 5. Probably looking at long-term HD. Will follow nephrology recommendations. 12/08/2021 No acute events overnight. Patient seen examined bedside. Working with physical therapy and needs full 2 person maximal assist. Hemoglobin at 8.4 today. Creatinine down to 2.9. Lots of sediment in the Earl bag. Discussed with nephrology to keep 1 more day to see current trend of creatinine. 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 If they feel the kidneys are now recovering then they will plan for tunneled catheter tomorrow. Patient's chart, labs, images were reviewed and discussed with RN 12/09/2021 No acute events overnight. Patient seen examined bedside. Creatinine bumped to 3.9 today. Patient will need HD tunneled catheter placement and outpatient dialysis chair. Discussed with nephrology. Discussed with family at bedside. Patient's chart, labs, images were reviewed and discussed with RN 12/10/2021 No acute events overnight. Patient seen examined bedside. HD catheter placed. Seen also on dialysis today and tolerating well. Patient's chart, labs, images were reviewed and discussed with RN 12/11, Dr. Bob wants patient to stay another day to have dialysis in the morning before DC, otherwise better and improved Vitals/I&O Vitals/I&O: Vital Signs Date Time Temp Pulse Resp B/P (MAP) Pulse Ox O2 Delivery O2 Flow Rate FiO2 12/11/21 10:30 98.4 82 18 107/45 (65) 94 Room Air 98.4 12/11/21 07:56 2.0 I & O 12/10/21 12/10/21 12/11/21 15:00 23:00 07:00 Intake Total 0 ml Output Total 450 ml 650 ml Balance -450 ml -650 ml Physical Exam General: Alert, Cooperative, No acute distress Heart: Regular rate Lungs: Clear, Crackles Abdomen: Normal bowel sounds Extremities: No clubbing Skin: No breakdown Labs Labs: Laboratory Tests Test 12/11/21 07:23 12/11/21 11:07 Glucose (Fingerstick) 82 mg/dL (70-99) 116 mg/dL (70-99) Assessment and Plan Assessmemt and Plan Problems Medical Problems: (1) Acute renal failure Status: Acute (2) Metabolic acidosis Status: Acute (3) Urinary tract infection Status: Acute Comment Review of Relevant I have reviewed the following items yanick (where applicable) has been applied. Justifications for Admission Other Justification Acute pancreatitis CHANDU QUEZADA MD Dec 11, 2021 11:57
--- NOTE | 2021-12-11 13:00 | NUR ---
Wound Care Wound Type/Assessment: patient seen per wound care follow up. see wound assessment. patient has a left lateral and right medial ankle DFU. The wounds were cleansed, assessed, measured, and pictured. Patient possibly discharging today. Patient is known to us from previous admissions. patients family at bedside, patient resides with daughter and patient does have whom has been overseeing the care for these wounds. Treatment Recommendations/Plan: Recommendations to the left lateral ankle and right medial ankle wounds- cleanse wounds, then apply therahoney gel to Xeroform gauze, then apply to wound and cover with a foam dressing, change every 2-3 days. Dressing applied and patient tolerated well. No other wounds noted. Offloading surface/device: patient has off-loading boots- but patient refuses to wear them at home. Bilateral heels elevated using pillows. Discharge Recommendations for dressings: Bed lowered and call light in reach. Wound care will follow up on 12/16/21.
[2021-12-11 15:00] VITALS: BP 110/49
--- NOTE | 2021-12-11 15:15 | NUR ---
PATIENT ASSESSED FOR ELOPEMENT RISK PER ELOPEMENT POLICY AND PROCEDURE, PATIENT NOT DEEMED A RISK.
[2021-12-11 19:00] VITALS: BP 95/54
[2021-12-11 23:00] VITALS: BP 109/54
[2021-12-12 03:00] VITALS: BP 109/54
[2021-12-12 07:00] VITALS: BP_SYST 98; BP_DIAS 43; BP_DIAS 46
[2021-12-12] MEDS ORDERED: 0.9 % SODIUM CHLORIDE 10 ML DISP.SYRIN. IV PRN ×2 (07:45)
[2021-12-12] MEDS ORDERED: ALBUMIN HUMAN 25% 200 ML IV PRN (07:45)
[2021-12-12] MEDS ORDERED: IV NORMAL SALINE 1000ML BAG 1,000 ML IV PRN ×2 (07:45)
[2021-12-12] MEDS ORDERED: diphenhydrAMINE 50 MG/ML VIAL IV PRN ×2 (07:45)
[2021-12-12] MEDS ORDERED: ACETAMINOPHEN 500 MG TABLET PO PRN (07:45)
[2021-12-12] MEDS ORDERED: DIALYSIS PATIENT. MC PRN ×2 (07:45)
[2021-12-12 07:47] LABS: CALCIUM 8.6 mg/dL (8.5-10.1); GFR 14.5; POTASSIUM 3.8 mmol/L (3.5-5.1)
--- NOTE | 2021-12-12 11:20 | PDOC ---
Dialysis Progress Note Date of Service: DATE: 12/12/21 TIME: 11:18 Dialysis Note Dialysis Note Seen on Hemodialysis, tolerating treatment Okay so far Vitals on Hemodialysis; BP: 106 / 59 71 afeb General Appearance: Awake: Alert Oriented x 1-2 Neck: No JVD or JVP Chest: CTA Travis Heart: S1 S2 Abdomen - Soft NTND Extremities - No Edema ARF: Dialysis as below F 180 NR 3.0 Hrs 4 K 2.5 Ca 140 Na 35 HC03 Qb 350 + Qd 500+ Heparin 0 Units Uf 0- 1 Kgs or to dry weight as tolerated May give 25-50 gms of 25% Albumin if needed to maintain Hemodynamic stability Treatment plan reviewed and discussed with security public safety officer Vitals Vital Signs Vital Signs Date Time Temp Pulse Resp B/P (MAP) Pulse Ox O2 Delivery O2 Flow Rate FiO2 12/12/21 08:00 Nasal Cannula 3.0 12/12/21 07:00 98.1 65 18 98/46 (63) 96 98.1 Labs Last Labs Laboratory Tests Test 12/11/21 07:23 12/11/21 11:07 12/11/21 17:12 12/11/21 20:00 Glucose (Fingerstick) 82 mg/dL (70-99) 116 mg/dL (70-99) 116 mg/dL (70-99) 164 mg/dL (70-99) Test 12/12/21 06:50 12/12/21 07:51 Sodium Level 141 mmol/L (136-145) Potassium Level 3.8 mmol/L (3.5-5.1) Chloride Level 105 mmol/L (98-107) Carbon Dioxide Level 27 mmol/L (21-32) Anion Gap 9 (6-14) Blood Urea Nitrogen 27 mg/dL (8-26) Creatinine 4.0 mg/dL (0.7-1.3) Estimated GFR (Cockcroft-Gault) 14.5 Glucose Level 89 mg/dL (70-99) Calcium Level 8.6 mg/dL (8.5-10.1) Glucose (Fingerstick) 77 mg/dL (70-99) Laboratory Tests Test 12/11/21 17:12 12/11/21 20:00 12/12/21 06:50 12/12/21 07:51 Glucose (Fingerstick) 116 mg/dL (70-99) 164 mg/dL (70-99) 77 mg/dL (70-99) Sodium Level 141 mmol/L (136-145) Potassium Level 3.8 mmol/L (3.5-5.1) Chloride Level 105 mmol/L (98-107) Carbon Dioxide Level 27 mmol/L (21-32) Anion Gap 9 (6-14) Blood Urea Nitrogen 27 mg/dL (8-26) Creatinine 4.0 mg/dL (0.7-1.3) Estimated GFR (Cockcroft-Gault) 14.5 Glucose Level 89 mg/dL (70-99) Calcium Level 8.6 mg/dL (8.5-10.1) Assessment Assessment Problems Medical Problems: (1) Acute renal failure Status: Acute (2) Metabolic acidosis Status: Acute (3) Urinary tract infection Status: Acute Plan Plan of Care Problems Medical Problems: (1) Acute renal failure Status: Acute (2) Metabolic acidosis Status: Acute (3) Urinary tract infection Status: Acute CARA OLIVARES MD Dec 12, 2021 11:20
--- NOTE | 2021-12-12 12:29 | PDOC ---
[facility] [facility] PROGRESS NOTE Date of Service DOS: DATE: 12/12/21 TIME: 12:28 Chief Complaint Chief Complaint Acute on chronic kidney injury now needing dialysis Metabolic acidosis Normocytic anemia Nephrolithiasis Hypothyroidism BPH Bilateral hydronephrosis Right lower pole 8 mm nephrolith History of Present Illness History of Present Illness 12/12/2021 Patient seen and examined He seems to be at his baseline Will discharge with home health 12/03: Patient seen and evaluated bedside. His and 2 daughters are present as well. He is n.p.o. for cystoscopy and pyelogram with possible stent placement. Had improvement in his creatinine and EGFR with dialysis. Continue hemodialysis, per nephrology. Had some hypoglycemia due to n.p.o. status, will treat with 1 amp of D50. Urine culture shows no growth indicative of infection. Blood culture shows no growth after 1 day. Advance Care Planning: Total time spent [id number] with patient 19 minutes in discussion with goals of care, comfort care, end-of-life care, pain management, code status; patient names daughter, Madeleine Jacinto, as surrogate decision-maker. Critical care time 30 minutes spent reviewing charts, reviewing labs, reviewing imaging, discussion with family at bedside, and discussion with RN. 12/04: Patient is afebrile, no acute complaints. Had cystoscopy with bilateral retrograde pyelograms and right ureteral stent placement yesterday. Renal function improved today; creatinine 2.8 and EGFR 21.9, consistent with CKD 4. On last admission 10/29/2021 his renal function showed creatinine 2.6 and EGFR 23.9. Patient appears to be back at baseline in regards to renal function. Continue Rocephin and IV hydration. Discussed with urology PA, he may discharge on oral antibiotics for this UTI and also recent urological procedure. We will recheck renal function tomorrow and evaluate further HD needs. Discussed with RN. Critical care time 30 minutes spent reviewing charts, reviewing labs, reviewing imaging, discussion with urology, discussion with RN. 12/05: Patient seen and evaluated bedside. His renal function worsened today, creatinine 3.8 with EGFR 15.4. We will keep inpatient and monitor for further need of hemodialysis. Potassium 2.7 today; will place and hydrate with KCl in normal saline. Urine culture with growth not indicative of infection. He is s/p right ureteral stent placement; he will follow up with urology in 2 weeks. Discussed with RN. 12/06: Patient seen and evaluated at bedside. No change in renal function; creatinine 4.5, EGFR 12.7. We will continue monitor as he may need HD tomorrow, per nephrology. 12/07: Patient seen in dialysis. Denies chest pain or abdominal pain. Hemo globin 6.6, hematocrit 20.6. Denies a dark stools or bloody stools. Likely secondary to chronic renal failure. He is receiving 1 unit PRBC in dialysis. His creatinine is 5.0 and EGFR 11.2, consistent with CKD 5. Probably looking at long-term HD. Will follow nephrology recommendations. 12/08/2021 No acute events overnight. Patient seen examined bedside. Working with physical therapy and needs full 2 person maximal assist. Hemoglobin at 8.4 today. Creatinine down to 2.9. Lots of sediment in the Earl bag. Discussed with nephrology to keep 1 more day to see current trend of creatinine. And also to see whether patient needs oil heaterman dialysis. If they feel the kidneys are now recovering then they will plan for tunneled catheter tomorrow. Patient's chart, labs, images were reviewed and discussed with RN 12/09/2021 No acute events overnight. Patient seen examined bedside. Creatinine bumped to 3.9 today. Patient will need HD tunneled catheter placement and outpatient dialysis chair. Discussed with nephrology. Discussed with family at bedside. Patient's chart, labs, images were reviewed and discussed with RN 12/10/2021 No acute events overnight. Patient seen examined bedside. HD catheter placed. Seen also on dialysis today and tolerating well. Patient's chart, labs, images were reviewed and discussed with RN 12/11, Dr. Bob wants patient to stay another day to have dialysis in the morning before DC, otherwise better and improved Vitals/I&O Vitals/I&O: Vital Signs Date Time Temp Pulse Resp B/P (MAP) Pulse Ox O2 Delivery O2 Flow Rate FiO2 12/12/21 08:00 Nasal Cannula 3.0 12/12/21 07:00 98.1 65 18 98/46 (63) 96 98.1 I & O 12/11/21 12/11/21 12/12/21 15:00 23:00 07:00 Intake Total 720 ml 120 ml Output Total 450 ml 650 ml Balance 270 ml 120 ml -650 ml Physical Exam General: Alert, Cooperative, No acute distress Heart: Regular rate Lungs: Clear, Crackles Abdomen: Normal bowel sounds Extremities: No clubbing Skin: No breakdown Labs Labs: Laboratory Tests Test 12/11/21 17:12 12/11/21 20:00 12/12/21 06:50 12/12/21 07:51 Glucose (Fingerstick) 116 mg/dL (70-99) 164 mg/dL (70-99) 77 mg/dL (70-99) Sodium Level 141 mmol/L (136-145) Potassium Level 3.8 mmol/L (3.5-5.1) Chloride Level 105 mmol/L (98-107) Carbon Dioxide Level 27 mmol/L (21-32) Anion Gap 9 (6-14) Blood Urea Nitrogen 27 mg/dL (8-26) Creatinine 4.0 mg/dL (0.7-1.3) Estimated GFR (Cockcroft-Gault) 14.5 Glucose Level 89 mg/dL (70-99) Calcium Level 8.6 mg/dL (8.5-10.1) Test 12/12/21 12:15 Glucose (Fingerstick) 46 mg/dL (70-99) Assessment and Plan Assessmemt and Plan Problems Medical Problems: (1) Acute renal failure Status: Acute (2) Metabolic acidosis Status: Acute (3) Urinary tract infection Status: Acute Multifactorial respiratory failure Volume overload Pneumonia Acute on chronic systolic congestive heart failure Noncompliance Hypertension Hypoxia Plan Probable discharge this afternoon For now continue the following; Dialysis per nephrology IV antibiotics Duo nebs O2 per nasal cannula Home meds DVT prophylaxis Full code Trend labs Renal diet Comment Review of Relevant I have reviewed the following items yanick (where applicable) has been applied. Justifications for Admission Other Justification Acute pancreatitis JENA LE III DO Dec 12, 2021 12:29
[2021-12-12] MEDS: ASPIRIN ENTERIC COATED 325 MG TABLET.DR. PO SCH (12:30)
[2021-12-12] MEDS: cefTRIAXone IV Push 1 GM VIAL. IVP SCH (12:30)
[2021-12-12] MEDS: FENOFIBRATE,MICRONIZED 134 MG CAPSULE PO SCH (12:31)
[2021-12-12] MEDS: LACTOBACILLUS RHAMNOSUS GG 1 CAPSULE. PO SCH (12:32)
[2021-12-12] MEDS: FERROUS SULFATE 325 MG TABLET. PO SCH (12:32)
[2021-12-12] MEDS: TAMSULOSIN 0.4 MG CAP.ER.24H. PO SCH (12:32)
[2021-12-12] MEDS: LEVOTHYROXINE 100 MCG TABLET PO SCH (12:32)
[2021-12-12] MEDS: HEPARIN for SUB-Q USE 5,000 UNIT/ML VIAL. SQ SCH (12:42)
--- NOTE | 2021-12-12 13:29 | SNU/HH DC ---
DISCHARGE WITH HOME HEALTH DISCHARGE INFORMATION: Final Diagnosis: Problems Medical Problems: (1) Acute renal failure Status: Acute (2) Metabolic acidosis Status: Acute (3) Urinary tract infection Status: Acute Condition on Discharge: Stable CODE STATUS: Code Status: Full HOME HEALTH: Face to Face: I certify this patient is under my care and that I, or a nurse practitioner or physician's recruitment assistant working with me, had a face to face encounter that meets the physician face to face encounter requirements with this patient on []. Medical Complications: Other (Renal failure) RN For Eval/Treatment: Yes Physical Therapy For: Evalulation/Treatment Occupational Therapy For: Evaluation/Treatment Home Health Aide For: Self-care MINING CAPTAIN For: Community Resources Pt Meets Homebound Status: Poor coordination w/ amb. POST DISCHARGE ORDERS: Activity Instructions for Disc: Activity as tolerated Weight Bearing Status after Di: As tolerated DIET AFTER DISCHARGE: Cardiac CHECKS AFTER DISCHARGE: Checks after discharge: Check blood press - daily, Check blood sugar, ac/hs, Weigh Yourself Daily Comment: Tunneled DC TREATMENT/EQUIPMENT ORDERS: Adaptive Equipment Issued: Sock aid, Walker CERTIFICATION STATEMENT: Certification Statement: Certification Statement: Based on the above finding, I certify that this patient is confined to the home and needs intermittent mcfp care, physical therapy and/or speech therapy, or continues to need occupational therapy.~ This patient is under my care, and I have initiated the establishment of the plan of care.~ This patient will be followed by myself or a community physician who will periodically review the plan of care. Home Meds Active Scripts Ciprofloxacin Hcl (CIPRO) 250 Mg Tablet, 500 MG PO QHS for . for 7 Days, #7 TAB Prov:DANYELLE LEL K III DO 10/29/21 Hydrocodone/Apap 5-325 (NORCO 5-325 TABLET) 1 Each Tablet, 1 TAB PO TID for pain, #10 TAB 0 Refills Prov:AYLIN MAST MD 03/16/18 Tamsulosin Hcl (TAMSULOSIN HCL) 0.4 Mg Cap.er.24h, 1 CAP PO DAILY for stent pain, #10 CAP 5 Refills Prov:AYLIN MAST MD 03/16/18 Reported Medications Gluc 2KCL/Chondr/Caren Hy/Hy Ac (GLUCOSAMINE & CHONDROITIN CAP) 1 Each Capsule, 1 EACH PO DAILY, CAP 03/15/18 Multivitamin With Minerals (MULTIPLE VITAMIN) 1 Each Tablet, 1 EACH PO DAILY, TAB 03/15/18 Furosemide (LASIX) 20 Mg Tablet, 1 TAB PO PRN DAILY PRN for WATER RETENTION, #90 TAB 1 Refill 03/15/18 Aspirin (ASPIRIN EC) 325 Mg Tablet.dr, 1 TAB PO DAILY, #30 TAB 5 Refills 01/16/18 Chlorpheniramine Maleate (CHLOR-TRIMETON) 4 Mg Tablet, 4 MG PO PRN DAILY PRN for ALLERGIES 08/06/16 Levothyroxine Sodium (LEVOTHYROXINE SODIUM) 100 Mcg Tablet, 100 MCG PO DAILYAC for THYROID SUPPLEMENT, #30 TAB 0 Refills 08/06/16 Fenofibrate (LOFIBRA) 160 Mg Tablet, 160 MG PO DAILY 08/06/16 JENA LE III DO Dec 12, 2021 13:29
--- NOTE | 2021-12-12 15:45 | NUR ---
Discharge Note: DENICE MONDRAGON Discharge instructions and discharge home medications reviewed with Patient and family and a copy given. All questions have been answered and understanding verbalized. The following instructions and handouts were given: follow up instructions, medication education, simpson catheter education Discontinued lines and drains: 22 guage right FA, tip intact. patient tolerated well. Patient discharged to home with home health via family.
--- NOTE | 2021-12-12 21:07 | DS ---
DATE OF DISCHARGE: 12/12/2021 ADMITTING DIAGNOSIS: Acute on chronic kidney disease, now requiring dialysis. DISCHARGE DIAGNOSES: Resolving once, but chronic kidney disease, history of nephrolithiasis, hypothyroidism, benign prostatic hypertrophy. CONSULTS: Nephrology. PROCEDURES: Cystoscopy with bilateral retrograde pyelograms and right ureteral stent placement. Consult to be Nephrology and Urology. HOSPITAL COURSE: The patient is a pleasant middle-aged male who presented with acute renal failure with a BUN and creatinine of 109 and 7.4. He was admitted. The above consults were obtained. He was placed on dialysis. Over the past few days, he slowly returned to his baseline. The above procedures were performed. I saw and examined this morning. He wants to go home. We plan to discharge. DISPOSITION: Home. ACTIVITY: As tolerated. DIET: Renal. DISCHARGE MEDICATIONS: Please see the MRAD. They are as follows: Aspirin 325 a day, fenofibric acid 160 a day, Lasix 20 a day, vitamins, glucosamine, hydrocodone 5 q.6, Synthroid 100 a day and Flomax 0.4 a day. TOTAL TIME: [address]: Darrel TID: [id number]
== END 2021-12-12 15:40 | disposition home health service (06) | DRG 659 ==
LOC: ER 09:46 → 1 WEST ICU 11:45 → 2 NORTH 12-05 20:00 → 5 NORTH 12-11 13:20
PROVIDERS: ADMIT Family Medicine; ATTEND Family Medicine
PROC: 02H633Z Insertion of Infusion Device into Right Atrium, Percutaneous Approach (ICD-10-PCS; 2021-12-02)
PROC: B548ZZA Ultrasonography of Superior Vena Cava, Guidance (ICD-10-PCS; 2021-12-02)
PROC: 5A1D70Z Performance of Urinary Filtration, Intermittent, Less than 6 Hours Per Day (ICD-10-PCS; 2021-12-02)
PROC: BT141ZZ Fluoroscopy of Kidneys, Ureters and Bladder using Low Osmolar Contrast (ICD-10-PCS; 2021-12-03)
PROC: 5A1D70Z Performance of Urinary Filtration, Intermittent, Less than 6 Hours Per Day (ICD-10-PCS; 2021-12-03)
PROC: 0T768DZ Dilation of Right Ureter with Intraluminal Device, Via Natural or Artificial Opening Endoscopic (ICD-10-PCS; 2021-12-03 14:30)
PROC: 30233N1 Transfusion of Nonautologous Red Blood Cells into Peripheral Vein, Percutaneous Approach (ICD-10-PCS; principal; 2021-12-07)
PROC: 5A1D70Z Performance of Urinary Filtration, Intermittent, Less than 6 Hours Per Day (ICD-10-PCS; 2021-12-07)
PROC: 0JPT3XZ Removal of Tunneled Vascular Access Device from Trunk Subcutaneous Tissue and Fascia, Percutaneous Approach (ICD-10-PCS; 2021-12-10)
PROC: 0JH63XZ Insertion of Tunneled Vascular Access Device into Chest Subcutaneous Tissue and Fascia, Percutaneous Approach (ICD-10-PCS; 2021-12-10)
PROC: 02H633Z Insertion of Infusion Device into Right Atrium, Percutaneous Approach (ICD-10-PCS; 2021-12-10)
PROC: B5181ZA Fluoroscopy of Superior Vena Cava using Low Osmolar Contrast, Guidance (ICD-10-PCS; 2021-12-10)
PROC: 5A1D70Z Performance of Urinary Filtration, Intermittent, Less than 6 Hours Per Day (ICD-10-PCS; 2021-12-10)
PROC: 5A1D70Z Performance of Urinary Filtration, Intermittent, Less than 6 Hours Per Day (ICD-10-PCS; 2021-12-12)
DX: N17.0 Acute kidney failure with tubular necrosis (principal); I50.23 Acute on chronic systolic (congestive) heart failure; J18.9 Pneumonia, unspecified organism; J96.91 Respiratory failure, unspecified with hypoxia; E87.1 Hypo-osmolality and hyponatremia; I13.2 Hypertensive heart and chronic kidney disease with heart failure and with stage 5 chronic kidney disease, or end stage renal disease; N13.6 Pyonephrosis; D64.9 Anemia, unspecified; E03.9 Hypothyroidism, unspecified; E11.22 Type 2 diabetes mellitus with diabetic chronic kidney disease; E11.649 Type 2 diabetes mellitus with hypoglycemia without coma; E78.00 Pure hypercholesterolemia, unspecified; E78.5 Hyperlipidemia, unspecified; E86.0 Dehydration; E87.6 Hypokalemia; I25.10 Atherosclerotic heart disease of native coronary artery without angina pectoris; I27.20 Pulmonary hypertension, unspecified; I48.91 Unspecified atrial fibrillation; I70.0 Atherosclerosis of aorta; I70.8 Atherosclerosis of other arteries; J45.909 Unspecified asthma, uncomplicated; K57.30 Diverticulosis of large intestine without perforation or abscess without bleeding; K86.89 Other specified diseases of pancreas; M47.816 Spondylosis without myelopathy or radiculopathy, lumbar region; N18.5 Chronic kidney disease, stage 5; N40.0 Benign prostatic hyperplasia without lower urinary tract symptoms; Z82.49 Family history of ischemic heart disease and other diseases of the circulatory system; Z87.442 Personal history of urinary calculi; Z87.891 Personal history of nicotine dependence; Z91.19 Patient's noncompliance with other medical treatment and regimen; Z99.2 Dependence on renal dialysis; Z20.822 Contact with and (suspected) exposure to COVID-19; R31.9 Hematuria, unspecified
CPT/HCPCS: 36415; 36430; 36556; 36581; 36600; 71045; 74176; 76000; 76770; 76937; 77001; 80048; 80053; 80329; 81001; 82010; 82805; 82962; 83735; 84100; 84484; 85025; 85027; 85610; 86317; 86704; 86850; 86900; 86901; 86920; 87040; 87086; 87340; 87428; 93005; 94618; 96365; 99152; A4657; A4930; C1750; C1758; C1769; C1892; C2617; G0480; J0330; J0690; J0696; J1100; J1644; J2250; J2370; J2405; J2543; J2704; J3010; J3475; J3480; J3490; J7030; J7060; P9016; P9046; Q9967; 97530-GO; 97530-GP; 97535-GO; 99285-25; G0378

== ENCOUNTER 2021-12-24 07:29 | Outpatient (CLI) | payer MEDICARE ==
[~2021-12-24] VITALS: Ht 185.4 cm; Wt 83.5 kg
[2021-12-24 08:06] VITALS: BP 114/80
[2021-12-24] MEDS ORDERED: LIDOCAINE 1%/EPI 1:100,000 20 ML VIAL. ONE (08:26)
[2021-12-24] MEDS ORDERED: MIDAZOLAM HCL/PF 2 MG/2 ML VIAL. ONE (08:43)
[2021-12-24] MEDS ORDERED: fentaNYL PF VIAL 100 MCG/2 ML VIAL ONE (08:44)
[2021-12-24] MEDS ORDERED: FLUMAZENIL 0.5 MG/5 ML VIAL. IV ONE (08:44)
[2021-12-24 09:10] VITALS: BP 112/57
[2021-12-24] MEDS ORDERED: LIDOCAINE 1%/EPI 1:100,000 20 ML VIAL. SQ ONE (09:15)
[2021-12-24 09:27] VITALS: BP 118/67
--- NOTE | 2021-12-24 09:47 | NUR ---
pt dc'd to home with family in personal wheelchair. Discharge instructions reviewed with patient and family. PIV dc'd.
--- NOTE | 2021-12-24 10:46 | RAD ---
Replacement of right internal jugular tunneled hemodialysis catheter under fluoroscopy. 12/24/2021. INDICATION: Catheter partially retracted, with exposure of the cuff. Consent: The procedure was explained in its entirety to the patient or the patients designated repres entative by a member of the treatment team, including a discussion of the risks, benefits and commonl y accepted alternatives to the procedure, as well as the expected consequences of no therapy whatsoev er. Discussion of the risks included, but was not limited to, those that are most frequent and thos e that are rare but possibly severe or life-threatening, as well as the possibility of unforeseen com plications. The right neck and chest including the pre-existing catheter were prepped and draped using maximum st erile barrier technique. Fluoroscopic evaluation demonstrated the catheter to be retracted. The subcu taneous cuff is noted to be outside the skin. A guidewire was advanced through the catheter into the IVC. The catheter was removed over the wire. A new 23 cm tip to cuff palindrome dialysis catheter was advanced over the wire such the tip was in the proximal right atrium with patient supine. The cathet er was secured in place with suture. Sterile dressings were applied. No immediate complications were identified. Total fluoroscopy time: 0.8 minutes Dose area product: 6 Velasco centimeter squared. The procedure IMPRESSION: Fluoroscopically guided replacement of a right internal jugular tunnel hemodialysis levi ter over a guidewire Electronically signed by: Veto Caceres MD (12/24/2021 10:44 AM) [id number]
== END 2021-12-24 09:50 | disposition home or self-care (01) ==
LOC: INTRAD 07:29
PROVIDERS: ATTEND Internal Medicine Nephrology
DX: Z45.2 Encounter for adjustment and management of vascular access device (principal); T82.41XA Breakdown (mechanical) of vascular dialysis catheter, initial encounter; I10 Essential (primary) hypertension; I48.91 Unspecified atrial fibrillation; E78.00 Pure hypercholesterolemia, unspecified; E03.9 Hypothyroidism, unspecified; E11.9 Type 2 diabetes mellitus without complications; G47.30 Sleep apnea, unspecified; Z87.891 Personal history of nicotine dependence; Z79.82 Long term (current) use of aspirin; Z79.899 Other long term (current) drug therapy; Z98.890 Other specified postprocedural states; X58.XXXA Exposure to other specified factors, initial encounter; Y93.89 Activity, other specified; Y92.89 Other specified places as the place of occurrence of the external cause; Y99.8 Other external cause status
CPT/HCPCS: 36581; 77001; C1750; C1769; J3490